=== PATIENT | female | born 1960 | race Caucasian/White ===

== ENCOUNTER 2017-02-20 18:31 | Inpatient (IN) | payer MEDICARE, OTHER ==
[2017-02-20 19:06] LABS: Basophils % (A) 0 %; CH 23.9; CHCM 35.5; Eosinophils % (A) 0 %; HCT 28.2 % (34.0-46.0); HDW 3.94; HGB 9.6 gm/dL (11.4-16.0); Luc # (Auto) 0.09; Luc % (Auto) 1; Lymphocytes % (A) 11 %; MCH 22.8 pg (25.0-35.0); MCHC 33.9 g/dL (31.0-37.0); MCV 67.4 fL (80.0-100.0); Mean Platelet Volume 6.5; Microcytosis Marked; Monocytes # (A) 0.3 k/uL (0-1.0); Monocytes % (A) 3 %; Neutrophils # (A) 7.7 k/uL (1.3-7.7); Neutrophils % (A) 84 %; Poikilocytosis Slight; RBC 4.19 m/uL (3.80-5.40); RDW 15.7 % (11.5-15.5); WBC 9.1 k/uL (3.8-10.6); WBC (Perox) 9.19
[2017-02-20 19:15] LABS: INR 1.1 (<1.2); Partial Thromboplastin Time 31.4 sec (22.0-30.0); Prothrombin Time 11.1 sec (9.0-12.0)
[2017-02-20 20:40] LABS: ALT 105 U/L (9-52); AST 503 U/L (14-36); Alcohol <10 mg/dL; Alkaline Phosphatase 91 U/L (38-126); Blood Urea Nitrogen 19 mg/dL (7-17); Carbon Dioxide 26 mmol/L (22-30); Glucose 75 mg/dL (74-99); Non-African American GFR(MDRD) 46 (>60 ml/min/1.73 sqM); Total Bilirubin 0.8 mg/dL (0.2-1.3); Total Protein 7.7 g/dL (6.3-8.2)
[2017-02-20 21:11] LABS: Anion Gap 14 mmol/L
[2017-02-20 21:12] LABS: Potassium 2.4 mmol/L (3.5-5.1); Sodium 106 mmol/L (137-145)
[2017-02-20 21:13] LABS: Chloride 66 mmol/L (98-107); Creatine Kinase 20600 U/L (30-135)
[2017-02-20] MEDS ORDERED: POTASSIUM CHLORIDE ER 20 MEQ TAB.ER PO STA (21:26)
[2017-02-20] MEDS ORDERED: POTASSIUM CHLORIDE 40 MEQ in WATER FOR INJECTION 1 100ML.BAG IVPB STA (21:26)
[2017-02-20] MEDS ORDERED: SODIUM CHLORIDE 0.9% 1,000 ML IV SCH (21:30)
[2017-02-20] MEDS ORDERED: HYDROCORTISONE SUCCINATE 100 MG/2 ML VIAL IV STA (21:34)
[2017-02-20] MEDS ORDERED: NALOXONE 0.4 MG/ML 1 ML VIAL IV PRN (21:56)
[2017-02-20] MEDS: POTASSIUM CHLORIDE 20 MEQ in WATER FOR INJECTION 1 100ML.BAG IVPB SCH (21:58)
--- NOTE | 2017-02-20 22:09 | ED ---
General Adult HPI - General Chief complaint: Weakness Stated complaint: Weakness Time Seen by Provider: 02/20/17 18:32 Source: patient, RN notes reviewed Mode of arrival: EMS Limitations: no limitations - History of Present Illness Initial comments: 56 yo female presents from home. She was brought in by EMS despite having no complaints. She was found on her toilet by family member and according to family she's been confused since this morning. Patient denies headache. She doesn't denies nausea vomiting or diarrhea. She is not currently on any medications. She has no complaints in the emergency department. - Related Data Home Medications Medication Instructions Recorded Confirmed Albuterol Nebulized [Ventolin 2.5 mg INHALATION RT-QID PRN 04/14/16 02/20/17 Nebulized] Nystatin/Triamcin 1 applic TOPICAL BID 04/14/16 02/20/17 [Nystatin-Triamcinolone Cream] traMADol HCl [Ultram] 50 mg PO Q6H 05/21/16 02/20/17 Allergies Allergy/AdvReac Type Severity Reaction Status Date / Time acetaminophen [From Tylenol] Allergy Swelling Verified 07/24/16 20:00 ibuprofen [From Motrin] Allergy Nausea & Verified 07/24/16 20:00 Vomiting levothyroxine sodium AdvReac Nausea & Verified 07/24/16 20:00 [From Synthroid] Vomiting ondansetron HCl AdvReac Rapid Verified 07/24/16 20:00 [From Zofran (as Heart Rate hydrochloride)] cantaloupe Allergy Anaphylaxis Uncoded 07/24/16 20:00 Review of Systems ROS Statement: Those systems with pertinent positive or pertinent negative responses have been documented in the HPI. ROS Other: All systems not noted in ROS Statement are negative. Past Medical History Past Medical History: Asthma, Cancer, CVA/TIA, GERD/Reflux, Hypertension, Thyroid Disorder Additional Past Medical History / Comment(s): pituitary tumor, PROLAPSED UTERUS , Thyroid Cancer, SCOLIOSIS.per old hx: pvd.constipation.ibs,kidney stones,, anxiety.poor dentation, brain tumor, UTI, bad rotator cuffs History of Any Multi-Drug Resistant Organisms: None Reported Past Surgical History: Unable to Obtain Additional Past Surgical History / Comment(s): BRAIN SURGERY to remove benign PITUITARY tumor , thyroid removal, egd/colonoscopy(benign polys removed., d&c, kidney stone removed Past Anesthesia/Blood Transfusion Reactions: No Reported Reaction Additional Past Anesthesia/Blood Transfusion Reaction / Comment(s): BLOOD TRANSFUSION-NO REACTION Past Psychological History: Anxiety Smoking Status: Never smoker Past Alcohol Use History: None Reported Past Drug Use History: None Reported - Past Family History Father Family Medical History: Unable to Obtain Additional Family Medical History / Comment(s): - HAD THE " MAKER" Mother Family Medical History: Unable to Obtain Additional Family Medical History / Comment(s): AAA General Exam Limitations: no limitations General appearance: alert, in no apparent distress Head exam: Present: atraumatic, normocephalic Eye exam: Present: normal appearance, PERRL ENT exam: Present: normal exam, mucous membranes dry Neck exam: Absent: meningismus Respiratory exam: Present: normal lung sounds bilaterally, respiratory distress Cardiovascular Exam: Present: regular rate, normal rhythm GI/Abdominal exam: Present: soft. Absent: distended, tenderness Neurological exam: Present: alert, oriented X3. Absent: motor sensory deficit Psychiatric exam: Present: normal affect, normal mood Skin exam: Present: warm, dry Course Vital Signs 02/20/17 02/20/17 02/20/17 18:32 20:48 21:24 Temperature 99.2 F 98.6 F Pulse Rate 60 59 L 90 Respiratory 16 14 18 Rate Blood Pressure 130/70 137/66 122/66 O2 Sat by Pulse 95 97 98 Oximetry 02/20/17 22:01 Temperature Pulse Rate 60 Respiratory 18 Rate Blood Pressure 143/70 O2 Sat by Pulse 100 Oximetry - Reevaluation(s) Reevaluation #1: 02/20/17 22:04 Patient continues to have no complains. She is alert and oriented 3. She does refuse CAT scan and chest x-ray. EKG Findings - EKG Comments: EKG Findings:: EKG shows sinus bradycardia with first-degree AV block. Ventricular 59, [place] interval 232, QRS duration 104, QTC 386 Medical Decision Making - Medical Decision Making 56-year-old female brought in for acute confusion. Patient has no complaints and is alert and oriented 3. Laboratory studies reveal significant abnormalities including hyponatremia, hypokalemia, elevated creatinine kinase, mildly elevated serum creatinine, severe hypothyroidism. These laboratory studies were repeated, as initial studies were thought to be false. Patient refuses chest x-ray and head CT. She denies any current medical problems. She states she is not taking any medication. She is given levothyroxine, hydrocortisone, and normal saline at 75 mL/h. Although the patient is in rhabdomyolysis I do not want to correct her serum sodium too quickly. Her potassium is also replaced both with IV and oral replacement. Magnesium is pending at the time of this dictation. Patient will be admitted for the above laboratory abnormalities, endocrinology be placed on consult. She is placed on seizure precautions. Repeat BMP is pending after initial normal saline bolus. Diagnosis: Hypothyroidism, hyponatremia, hypokalemia, rhabdomyolysis, acute kidney injury. - Lab Data Result diagrams: 02/20/17 18:51 02/20/17 20:07 Lab Results 02/20/17 02/20/17 02/20/17 Range/Units 18:51 18:51 19:02 WBC 9.1 (3.8-10.6) k/uL RBC 4.19 (3.80-5.40) m/uL Hgb 9.6 L (11.4-16.0) gm/dL Hct 28.2 L (34.0-46.0) % MCV 67.4 L (80.0-100.0) fL MCH 22.8 L (25.0-35.0) pg MCHC 33.9 (31.0-37.0) g/dL RDW 15.7 H (11.5-15.5) % Plt Count 470 H (150-450) k/uL Neutrophils % 84 % Lymphocytes % 11 % Monocytes % 3 % Eosinophils % 0 % Basophils % 0 % Neutrophils # 7.7 (1.3-7.7) k/uL Lymphocytes # 1.0 (1.0-4.8) k/uL Monocytes # 0.3 (0-1.0) k/uL Eosinophils # 0.0 (0-0.7) k/uL Basophils # 0.0 (0-0.2) k/uL Poikilocytosis Slight Microcytosis Marked PT 11.1 (9.0-12.0) sec INR 1.1 (<1.2) APTT 31.4 H (22.0-30.0) sec Sodium (137-145) mmol/L Potassium (3.5-5.1) mmol/L Chloride (98-107) mmol/L Carbon Dioxide (22-30) mmol/L Anion Gap mmol/L BUN (7-17) mg/dL Creatinine (0.52-1.04) mg/dL Glucose (74-99) mg/dL Plasma Lactic Acid Oliver 1.4 (0.7-2.0) mmol/L Calcium (8.4-10.2) mg/dL Total Bilirubin (0.2-1.3) mg/dL AST (14-36) U/L ALT (9-52) U/L Alkaline Phosphatase (38-126) U/L Ammonia (<30) umol/L Creatine Kinase (30-135) U/L Total Protein (6.3-8.2) g/dL Albumin (3.5-5.0) g/dL TSH (0.465-4.680) mIU/L Free T4 (0.78-2.19) ng/dL Serum Alcohol mg/dL 02/20/17 02/20/17 Range/Units 20:07 20:07 WBC (3.8-10.6) k/uL RBC (3.80-5.40) m/uL Hgb (11.4-16.0) gm/dL Hct (34.0-46.0) % MCV (80.0-100.0) fL MCH (25.0-35.0) pg MCHC (31.0-37.0) g/dL RDW (11.5-15.5) % Plt Count (150-450) k/uL Neutrophils % % Lymphocytes % % Monocytes % % Eosinophils % % Basophils % % Neutrophils # (1.3-7.7) k/uL Lymphocytes # (1.0-4.8) k/uL Monocytes # (0-1.0) k/uL Eosinophils # (0-0.7) k/uL Basophils # (0-0.2) k/uL Poikilocytosis Microcytosis PT (9.0-12.0) sec INR (<1.2) APTT (22.0-30.0) sec Sodium 106 L* (137-145) mmol/L Potassium 2.4 L* (3.5-5.1) mmol/L Chloride 66 L* (98-107) mmol/L Carbon Dioxide 26 (22-30) mmol/L Anion Gap 14 mmol/L BUN 19 H (7-17) mg/dL Creatinine 1.20 H (0.52-1.04) mg/dL Glucose 75 (74-99) mg/dL Plasma Lactic Acid Oliver (0.7-2.0) mmol/L Calcium 9.0 (8.4-10.2) mg/dL Total Bilirubin 0.8 (0.2-1.3) mg/dL AST 503 H (14-36) U/L ALT 105 H (9-52) U/L Alkaline Phosphatase 91 (38-126) U/L Ammonia 10 (<30) umol/L Creatine Kinase 63907 H (30-135) U/L Total Protein 7.7 (6.3-8.2) g/dL Albumin 4.7 (3.5-5.0) g/dL TSH 17.300 H (0.465-4.680) mIU/L Free T4 <0.07 L (0.78-2.19) ng/dL Serum Alcohol <10 mg/dL Critical Care Time Critical Care Time: Yes Total Critical Care Time: 35 Disposition Clinical Impression: Hypokalemia, Acute renal failure, Acute adrenal insufficiency, Rhabdomyolysis Disposition: ADMITTED IP TO THIS [facility] Condition: Serious Referrals: Joe Dewitt MD [Primary Care Provider] - 1-2 days Decision to Admit Reason: Admit from EC Decision Date: 02/20/17 Decision Time: 21:00
[2017-02-20 22:53] LABS: Glucose,Whole Blood 97 mg/dL (75-99)
[2017-02-20] MEDS ORDERED: ALBUTEROL NEBULIZED 2.5 MG/3 ML INHALATION PRN (23:30)
[2017-02-20 23:38] LABS: Appearance,Urine Clear (Clear); Bacteria,Urine Rare /hpf; Bilirubin,Urine Negative (Negative); Glucose,Urine (UA) Negative (Negative); Ketones,Urine 1+ (Negative); Leukocyte Esterase,Urine Negative (Negative); Mucus,Urine Rare /hpf; Nitrite,Urine Negative (Negative); Particle Count 6981; Protein,Urine 1+ (Negative); RBC,Urine 1 /hpf (0-5); Specific Gravity,Urine 1.014 (1.001-1.035); Squamous Epithelial Cell,Urine 1 /hpf (0-4); UA Billing (MACRO vs. MICRO) MICRO; Urobilinogen,Urine <2.0 mg/dL (<2.0); WBC,Urine 13 /hpf (0-5)
[2017-02-21] MEDS: traMADol 50 MG TAB PO SCH ×5 (00:14→17:20)
[2017-02-21] MEDS: POTASSIUM CHLORIDE 20 MEQ in WATER FOR INJECTION 1 100ML.BAG IVPB SCH ×3 (00:14→22:47)
[2017-02-21 00:27] LABS: Magnesium 2.2 mg/dL (1.6-2.3); Phosphorous 2.6 mg/dL (2.5-4.5)
[2017-02-21 00:28] LABS: Anion Gap 13 mmol/L; Blood Urea Nitrogen 17 mg/dL (7-17); Calcium 8.7 mg/dL (8.4-10.2); Carbon Dioxide 28 mmol/L (22-30); Glucose 71 mg/dL (74-99); Non-African American GFR(MDRD) 57 (>60 ml/min/1.73 sqM)
[2017-02-21 00:33] LABS: Chloride 67 mmol/L (98-107); Sodium 108 mmol/L (137-145)
[2017-02-21 00:34] LABS: Potassium 2.6 mmol/L (3.5-5.1)
[2017-02-21 05:30] LABS: Basophils % (A) 0 %; CH 23.5; CHCM 33.7; Eosinophils % (A) 0 %; HCT 25.9 % (34.0-46.0); HDW 3.65; HGB 8.7 gm/dL (11.4-16.0); Luc # (Auto) 0.14; Luc % (Auto) 1; Lymphocytes % (A) 10 %; MCH 23.4 pg (25.0-35.0); MCHC 33.5 g/dL (31.0-37.0); MCV 69.8 fL (80.0-100.0); Mean Platelet Volume 6.5; Microcytosis Moderate; Monocytes # (A) 0.5 k/uL (0-1.0); Monocytes % (A) 4 %; Neutrophils # (A) 8.5 k/uL (1.3-7.7); Neutrophils % (A) 84 %; Poikilocytosis Slight; RBC 3.71 m/uL (3.80-5.40); RDW 15.6 % (11.5-15.5); WBC 10.2 k/uL (3.8-10.6); WBC (Perox) 9.98
[2017-02-21 05:39] LABS: Anion Gap 11 mmol/L; Blood Urea Nitrogen 15 mg/dL (7-17); Calcium 8.4 mg/dL (8.4-10.2); Carbon Dioxide 27 mmol/L (22-30); Glucose 77 mg/dL (74-99); Magnesium 2.2 mg/dL (1.6-2.3); Non-African American GFR(MDRD) >60 (>60 ml/min/1.73 sqM); Phosphorous 2.8 mg/dL (2.5-4.5)
[2017-02-21 05:42] LABS: Chloride 70 mmol/L (98-107); Potassium 2.6 mmol/L (3.5-5.1); Sodium 108 mmol/L (137-145)
[2017-02-21] MEDS ORDERED: SODIUM CHLORIDE 3%(HYPERTONIC) 500 ML IV SCH ×2 (06:30→13:00)
[2017-02-21] MEDS: POTASSIUM CHLORIDE 10 MEQ, LIDOCAINE 2% INJ 10 MG in SODIUM CHLORIDE 0.9% 100 ML IV SCH ×6 (08:20→17:11)
[2017-02-21] MEDS: PANTOPRAZOLE 40 MG TABLET PO SCH (08:22)
[2017-02-21] MEDS ORDERED: HYDROCORTISONE SUCCINATE 100 MG/2 ML VIAL IV SCH (09:00)
[2017-02-21] MEDS ORDERED: NYSTAT-TRIAMCIN 100,000-0.1 UNIT/GM-% CREAM 30 GM TUBE TOPICAL SCH (09:00)
[2017-02-21] MEDS: LEVOTHYROXINE IVP 100 MCG/5 ML VIAL IV SCH (09:14)
--- NOTE | 2017-02-21 09:31 | CONS ---
REASON FOR CONSULT: Hyponatremia. HISTORY OF PRESENT ILLNESS: The patient is a 56 year old female who was brought in by EMS. EMS was called as the patient's family members were concerned about her confusion which was relatively new. There was no history of seizures. The patient's sodium was noted to be 106. She does not have any prior history of hyponatremia. Medications reviewed does not reveal underlying Dyazide diuretics. The patient denies vomiting, nausea or diarrhea prior to admission. She states she had been eating fairly okay. There were no other new medications started. The patient was started on IV ( ). The patient does have history of pituitary tumor status post surgery and is maintained on Synthroid as an outpatient. The patient was started on normal saline. Sodium initially improved to 108 after which it did not improve any further and she has now been started on 3% saline. Mentation remains about the same. Past medical history: History of CVA/TIA, GERD, asthma, hypertension, hypothyroidism, pituitary tumor, status surgery; scoliosis, nephrolithiasis, anxiety. Past surgical history: Brain surgery, endoscopy, thyroidectomy, surgery for kidney stones. Social history is negative for smoking, drug abuse or alcohol abuse. Review of systems as per HPI, other systems negative. Medications at home included: 1. Ventolin. 2. Ultram. 3. Nystatin. ALLERGIES INCLUDE: TYLENOL, MOTRIN, SYNTHROID, ZOFRAN. On examination, currently the patient is in the ICU. She is awake. She is not in any acute distress. She has been occasionally confused according to nursing staff. Blood pressure 104/57. Heart rate 56 per minute. She is afebrile. Examination of the heart S1, S2. Examination of the lungs bilateral breath sounds are heard. Abdomen is soft, nontender. Examination of the lower extremities shows no evidence of edema. [employer] exam shows the patient moving all four extremities. She is confused at times, however, was able to carry on a conversation. She is moving all four extremities. Labs show sodium 108, serum creatinine 0.9. Hemoglobin 8.7. I do not have urine osmolality available. Creatinine kinase was 33347. ASSESSMENT: 1. Hyponatremia, currently appears to be euvolemic. Serum sodium improved initially from 106 to 108 with normal saline but did not improve any further. The patient has been stated on 3% saline. Urine osmolality and urine sodium has been ordered. Hopefully we can get it after initial UA. 2. Rhabdomyolysis slowly improving. 3. History of brain tumor status post surgery, pituitary tumor, Currently the patient is maintained on hydrocortisone and Synthroid. PLAN: Start 3% saline. Repeat labs in 3 hours. Check urine osmolality, urine sodium. There is no need to do random cortisol as the patient has already received hydrocortisone. we will continue to follow. Thank you for this consultation. CARITO
[2017-02-21 11:46] LABS: Anion Gap 7 mmol/L; Blood Urea Nitrogen 11 mg/dL (7-17); Calcium 7.9 mg/dL (8.4-10.2); Carbon Dioxide 29 mmol/L (22-30); Glucose 77 mg/dL (74-99); Non-African American GFR(MDRD) >60 (>60 ml/min/1.73 sqM)
[2017-02-21 11:54] LABS: Sodium 112 mmol/L (137-145)
[2017-02-21 11:55] LABS: Chloride 76 mmol/L (98-107)
[2017-02-21] MEDS: TRIAMCINOLONE 0.1% CREAM 80 GM TUBE TOPICAL SCH ×2 (12:26→20:42)
[2017-02-21] MEDS: NYSTATIN 100,000UNIT/GM CREAM 30 GM TUBE TOPICAL SCH ×2 (12:26→20:42)
--- NOTE | 2017-02-21 12:26 | P.CNPUL ---
History of Present Illness Consult date: 02/21/17 Chief complaint: Generalized weakness, severe electrolyte imbalance History of present illness: A 56-year-old female patient, a very poor historian, obese with previous history of a pituitary adenoma that was resected surgically was not been maintained on any form of pituitary related hormone replacement therapy along with history of thyroid cancer and a previous thyroidectomy who claims not to take any of her thyroid hormone replacements. The patient was brought in to the emergency [place] yesterday due to concerns of generalized weakness, lethargic, and confusion. She was found to be profoundly hyponatremic with an initial sodium 106. Chloride was also low at 68. The patient was found to be in mild rhabdomyolysis and her CPK was in the 10,000 range. She was in acute kidney injury in addition. She denied having any nausea, vomiting, diarrhea, abdominal pain, headache, focal neurological deficits, seizures, or any postictal state. No fever. No chills. No intake of any other medications including hydrochlorothiazide or any other form of diuretics. Apparently the patient has not been taking any medication at all. The patient was started on normal saline and earlier this morning the patient got switched at 3% saline infusion by nephrology. Note that the patient's creatinine was at 1.2 and dropped down to 0.86 with fluid resuscitation. CPK had dropped from 20,000 down to 13,000 with fluid resuscitation. The patient's TSH was at 17.3 and free T4 was less than 0.07. Urinalysis showed 13 WBCs. There was also +1 protein. Urine sodium was less than 5. Urine osmolality is at 313 and serum alcohol level was less than 10. [place] level was within normal however the patient had profound hypokalemia with a potassium level of 2.4. She is currently receiving potassium replacement. Subsequent levels from this morning showed that the sodium level came up to 112, bicarb level is at 29, chloride level is up to 76 and the potassium level is up to 3.0. Calcium level is at 7.9. Lactic acid level was at 1.4. Review of Systems ROS unobtainable: due to mental status Past Medical History Past Medical History: Asthma, Cancer, CVA/TIA, GERD/Reflux, Hypertension, Thyroid Disorder Additional Past Medical History / Comment(s): history of a pituitary tumor- adenoma that was resected, PROLAPSED UTERUS, Thyroid Cancer post thyroidectomy , SCOLIOSIS, peripheral vascular disease, chronic constipation, IBS, nephrolithiasis, recurrent urine checked infection, rotator cuff disease, anxiety, extremely poor dentition, previous history of osteomyelitis of the lumbar spine History of Any Multi-Drug Resistant Organisms: None Reported Past Surgical History: Unable to Obtain Additional Past Surgical History / Comment(s): BRAIN SURGERY to remove benign PITUITARY tumor , thyroid removal, egd/colonoscopy(benign polys removed., d&c, kidney stone removed Past Anesthesia/Blood Transfusion Reactions: No Reported Reaction Additional Past Anesthesia/Blood Transfusion Reaction / Comment(s): BLOOD TRANSFUSION-NO REACTION Smoking Status: Never smoker - Past Family History Father Family Medical History: Unable to Obtain Additional Family Medical History / Comment(s): - HAD THE " MAKER" Mother Family Medical History: Unable to Obtain Additional Family Medical History / Comment(s): AAA Medications and Allergies Home Medications Medication Instructions Recorded Confirmed Type Albuterol Nebulized [Ventolin 2.5 mg INHALATION RT-QID PRN 04/14/16 02/20/17 History Nebulized] Nystatin/Triamcin 1 applic TOPICAL BID 04/14/16 02/20/17 History [Nystatin-Triamcinolone Cream] traMADol HCl [Ultram] 50 mg PO Q6H 05/21/16 02/20/17 History Allergies Allergy/AdvReac Type Severity Reaction Status Date / Time acetaminophen [From Tylenol] Allergy Swelling Verified 07/24/16 20:00 ibuprofen [From Motrin] Allergy Nausea & Verified 07/24/16 20:00 Vomiting levothyroxine sodium AdvReac Nausea & Verified 07/24/16 20:00 [From Synthroid] Vomiting ondansetron HCl AdvReac Rapid Verified 07/24/16 20:00 [From Zofran (as Heart Rate hydrochloride)] cantaloupe Allergy Anaphylaxis Uncoded 07/24/16 20:00 Physical Exam Vitals: Vital Signs Temp Pulse Resp BP Pulse Ox 02/21/17 11:31 59 L 02/21/17 11:21 60 02/21/17 11:00 56 L 6 L 120/71 98 02/21/17 10:30 59 L 9 L 112/67 97 02/21/17 10:00 57 L 10 L 124/69 97 02/21/17 09:30 55 L 10 L 127/70 98 02/21/17 09:00 98.0 F 57 L 12 137/68 98 02/21/17 08:30 62 8 L 104/57 98 02/21/17 08:00 66 12 104/57 97 02/21/17 07:30 54 L 14 91/49 96 02/21/17 07:00 55 L 12 107/61 97 02/21/17 06:30 57 L 12 111/62 94 L 02/21/17 06:00 60 20 104/56 99 02/21/17 05:30 58 L 18 103/54 98 02/21/17 05:00 57 L 12 82/43 97 02/21/17 04:30 56 L 11 L 91/47 99 02/21/17 04:00 98.9 F 60 15 83/42 99 02/21/17 03:30 56 L 16 103/57 99 02/21/17 03:00 59 L 18 119/64 98 02/21/17 02:30 63 17 115/62 99 02/21/17 02:00 59 L 16 114/68 98 02/21/17 01:30 60 13 130/74 99 02/21/17 01:00 59 L 11 L 127/72 90 L 02/21/17 00:30 62 13 139/76 100 02/21/17 00:00 56 L 12 136/65 98 02/20/17 23:30 66 25 H 125/65 99 02/20/17 23:00 99.0 F 66 14 150/71 100 02/20/17 22:01 60 18 143/70 100 02/20/17 21:24 98.6 F 90 18 122/66 98 02/20/17 20:48 59 L 14 137/66 97 02/20/17 18:32 99.2 F 60 16 130/70 95 Intake and Output 02/20/17 02/21/17 02/21/17 22:59 06:59 14:59 Intake Total 860 595 Output Total 580 530 Balance 280 65 Intake: IV 800 75 Potassium Chloride 20 meq 200 In Water For Injection 1 100ml.bag @ 50 mls/hr IVPB Q2HR [facility] Rx#: [id number] Sodium Chloride 0.9% 1, 600 75 000 ml @ 75 mls/hr IV . [id number] [facility] Rx#:[id number] Intake, IV Titration 520 Amount Potassium Chloride 10 meq 100 Lidocaine 2% Inj 10 mg In Sodium Chloride 0.9% 100 ml @ 100 mls/hr IV Q1HR [facility] Rx#:[id number] Potassium Chloride 10 meq 200 Lidocaine 2% Inj 10 mg In Sodium Chloride 0.9% 100 ml @ 100 mls/hr IV Q1HR [facility] Rx#:[id number] Potassium Chloride 20 meq 100 In Water For Injection 1 100ml.bag @ 50 mls/hr IVPB Q2HR [facility] Rx#: [id number] Sodium Chloride 3%( 120 Hypertonic) 500 ml @ 40 mls/hr IV .[id number] [facility] Rx #:[id number] Oral 60 Output: Urine 580 530 Other: Voiding Method Indwelling Catheter Indwelling Catheter Weight 81.647 kg 78.3 kg 78.3 kg Patient Weight 02/22/17 06:59 Weight 78.3 kg Head exam was generally normal. There was no scleral icterus or corneal arcus. Mucous membranes were moist. Patient is obese, comfortable likely distress. Neck is supple and there is no JVDs no goiter or neck masses. Extremities membranes are dry and the patient is extremely poor dentition.Lungs were clear to auscultation and percussion, and with normal diaphragmatic excursion. No wheezes or rales were noted. Cardiac exam revealed the PMI to be normally situated and sized. The rhythm was regular and no extrasystoles were noted during several minutes of auscultation. The first and second heart sounds were normal and physiologic splitting of the second heart sound was noted. There were no murmurs, rubs, clicks, or gallops.Abdominal exam revealed normal bowel sounds. The abdomen was soft, non-tender, and without masses, organomegaly, or appreciable enlargement of the abdominal aorta. Extremities show +1 edema and there is no cyanosis or clubbing at this point. Neurologically the patient is recovering and she is more appropriate at this point. She is moving all 4 extremities without any limitation. No focal neurological deficit at this point. She is still confused at times however this is obviously improving. Results - Laboratory Findings CBC and BMP: 02/21/17 05:11 02/21/17 11:20 PT/INR, D-dimer PT 11.1 sec (9.0-12.0) 02/20/17 18:51 INR 1.1 (<1.2) 02/20/17 18:51 Abnormal lab findings: Abnormal Labs 02/20/17 02/20/17 02/20/17 18:51 18:51 20:07 RBC Hgb 9.6 L Hct 28.2 L MCV 67.4 L MCH 22.8 L RDW 15.7 H Plt Count 470 H Neutrophils # APTT 31.4 H Sodium 106 L* Potassium 2.4 L* Chloride 66 L* BUN 19 H Creatinine 1.20 H Glucose Calcium AST 503 H ALT 105 H Creatine Kinase 78781 H TSH 17.300 H Free T4 <0.07 L Urine Protein Urine Ketones Urine Blood Urine WBC Urine Bacteria Hyaline Casts Urine Mucus Ur Random Sodium 02/20/17 02/21/17 02/21/17 23:15 00:05 05:11 RBC 3.71 L Hgb 8.7 L Hct 25.9 L MCV 69.8 L MCH 23.4 L RDW 15.6 H Plt Count Neutrophils # 8.5 H APTT Sodium 108 L* Potassium 2.6 L* Chloride 67 L* BUN Creatinine Glucose 71 L Calcium AST ALT Creatine Kinase TSH Free T4 Urine Protein 1+ H Urine Ketones 1+ H Urine Blood Moderate H Urine WBC 13 H Urine Bacteria Rare H Hyaline Casts 34 H Urine Mucus Rare H Ur Random Sodium 02/21/17 02/21/17 02/21/17 05:11 05:11 08:30 RBC Hgb Hct MCV MCH RDW Plt Count Neutrophils # APTT Sodium 108 L* Potassium 2.6 L* Chloride 70 L* BUN Creatinine Glucose Calcium AST ALT Creatine Kinase 78158 H TSH Free T4 Urine Protein Urine Ketones Urine Blood Urine WBC Urine Bacteria Hyaline Casts Urine Mucus Ur Random Sodium <5 L 02/21/17 11:20 RBC Hgb Hct MCV MCH RDW Plt Count Neutrophils # APTT Sodium 112 L* Potassium 3.0 L* Chloride 76 L* BUN Creatinine Glucose Calcium 7.9 L AST ALT Creatine Kinase TSH Free T4 Urine Protein Urine Ketones Urine Blood Urine WBC Urine Bacteria Hyaline Casts Urine Mucus Ur Random Sodium Assessment and Plan Plan: Assessment 1 acute euvolemic hypochloremic hyponatremia. Rule out secondary to underlying hypothyroidism. 2 acute hypokalemia 3 acute rhabdomyolysis 4 thyroid cancer with previous thyroidectomy, not take any form of thyroid hormone replacement 5 pituitary tumor status post resection of an adenoma, not receiving any form of steroids or thyroid hormone replacement and outpatient basis 6 obesity 7 lower oximetry edema 8 hypertension 9 scoliosis 10 nephrolithiasis 11 acute kidney injury, improved Plan Start the patient on 3% normal saline with close monitoring of the sodium level every 4 hours. We'll try to correct sodium level by 10-12 mEq over the next 24 hours. Replace potassium aggressively and bring it above 3.5. A triple lumen catheter was inserted in that regard to facilitate her fluid and electrolyte management. Start the patient and IV Synthroid 100 g on a daily basis. Start the patient IV hydrocortisone 100 mg every 8 hours. Monitor the CPK sputum monitor renal status. Consult nephrology. Consult endocrinology. Heparin subcu for DVT prophylaxis. We'll try to obtain further information once the patient's mentation is further improved.
[2017-02-21 15:52] LABS: Blood Urea Nitrogen 10 mg/dL (7-17); Calcium 8.1 mg/dL (8.4-10.2); Carbon Dioxide 27 mmol/L (22-30); Chloride 80 mmol/L (98-107); Glucose 77 mg/dL (74-99); Non-African American GFR(MDRD) >60 (>60 ml/min/1.73 sqM); Potassium 3.4 mmol/L (3.5-5.1); Sodium 115 mmol/L (137-145)
[2017-02-21 15:53] LABS: Anion Gap 8 mmol/L
[2017-02-21] MEDS: HYDROCORTISONE SUCCINATE 100 MG/2 ML VIAL IV SCH (17:19)
[2017-02-21] MEDS: HEPARIN SODIUM,PORCINE 5,000 UNIT/ML 1 ML VIAL SQ SCH (17:19)
[2017-02-21] MEDS ORDERED: POTASSIUM CHLORIDE 20 MEQ in WATER FOR INJECTION 1 100ML.BAG IVPB ONE (17:30)
--- NOTE | 2017-02-21 19:17 | P.HPIM ---
History of Present Illness H&P Date: 02/21/17 A 56-year-old female patient, a very poor historian, obese with previous history of a pituitary adenoma that was resected surgically was not been maintained on any form of pituitary related hormone replacement therapy along with history of thyroid cancer and a previous thyroidectomy who claims not to take any of her thyroid hormone replacements. The patient was brought in to the emergency yesterday due to concerns of generalized weakness, lethargic, and confusion. She was found to be profoundly hyponatremia with an initial sodium 106. . The patient was found to be in mild rhabdomyolysis and her CPK was in the 20, 000 range. She was in acute kidney injury in addition. She denied having any nausea, vomiting, diarrhea, abdominal pain, headache, focal neurological deficits, seizures, or any postictal state. No fever. No chills. No intake of any other medications including hydrochlorothiazide or any other form of diuretics. Apparently the patient has not been taking any medication at all. The patient was started on normal saline and earlier this morning the patient got switched at 3% saline infusion by nephrology. pt is not able to answer or give any history appropriately states that she is in [facility] denies having headaches, blurry vision, nausea, vomiting, diarrhea lives alone Review of Systems All systems: negative (noted in hpi) Past Medical History Past Medical History: Asthma, Cancer, CVA/TIA, GERD/Reflux, Hypertension, Thyroid Disorder Additional Past Medical History / Comment(s): history of a pituitary tumor- adenoma that was resected, PROLAPSED UTERUS, Thyroid Cancer post thyroidectomy , SCOLIOSIS, peripheral vascular disease, chronic constipation, IBS, nephrolithiasis, recurrent urine checked infection, rotator cuff disease, anxiety, extremely poor dentition, previous history of osteomyelitis of the lumbar spine History of Any Multi-Drug Resistant Organisms: None Reported Past Surgical History: Unable to Obtain Additional Past Surgical History / Comment(s): BRAIN SURGERY to remove benign PITUITARY tumor , thyroid removal, egd/colonoscopy(benign polys removed., d&c, kidney stone removed Past Anesthesia/Blood Transfusion Reactions: No Reported Reaction Additional Past Anesthesia/Blood Transfusion Reaction / Comment(s): BLOOD TRANSFUSION-NO REACTION Smoking Status: Never smoker - Past Family History Father Family Medical History: Unable to Obtain Additional Family Medical History / Comment(s): - HAD THE " MAKER" Mother Family Medical History: Unable to Obtain Additional Family Medical History / Comment(s): AAA Medications and Allergies Home Medications Medication Instructions Recorded Confirmed Type Albuterol Nebulized [Ventolin 2.5 mg INHALATION RT-QID PRN 04/14/16 02/20/17 History Nebulized] Nystatin/Triamcin 1 applic TOPICAL BID 04/14/16 02/20/17 History [Nystatin-Triamcinolone Cream] traMADol HCl [Ultram] 50 mg PO Q6H 05/21/16 02/20/17 History Allergies Allergy/AdvReac Type Severity Reaction Status Date / Time acetaminophen [From Tylenol] Allergy Swelling Verified 07/24/16 20:00 ibuprofen [From Motrin] Allergy Nausea & Verified 07/24/16 20:00 Vomiting levothyroxine sodium AdvReac Nausea & Verified 07/24/16 20:00 [From Synthroid] Vomiting ondansetron HCl AdvReac Rapid Verified 07/24/16 20:00 [From Zofran (as Heart Rate hydrochloride)] cantaloupe Allergy Anaphylaxis Uncoded 07/24/16 20:00 Physical Exam Vitals: Vital Signs Temp Pulse Resp BP Pulse Ox 02/21/17 19:00 56 L 6 L 115/65 99 02/21/17 18:30 55 L 8 L 114/64 99 02/21/17 18:00 55 L 7 L 113/67 98 02/21/17 17:30 59 L 7 L 109/63 100 02/21/17 17:00 54 L 7 L 103/64 100 02/21/17 16:30 54 L 9 L 99/61 98 02/21/17 16:00 98.8 F 55 L 11 L 100/59 98 02/21/17 15:30 60 7 L 97/53 100 02/21/17 15:00 54 L 10 L 97/59 100 02/21/17 14:30 54 L 11 L 97/57 99 02/21/17 14:00 54 L 12 102/66 99 02/21/17 13:30 54 L 11 L 132/68 99 02/21/17 13:00 54 L 12 117/69 100 02/21/17 12:30 59 L 23 122/67 98 02/21/17 12:00 61 27 H 121/70 97 02/21/17 11:31 59 L 02/21/17 11:30 55 L 10 L 117/69 100 02/21/17 11:21 60 02/21/17 11:00 56 L 6 L 120/71 98 02/21/17 10:30 59 L 9 L 112/67 97 02/21/17 10:00 57 L 10 L 124/69 97 02/21/17 09:30 55 L 10 L 127/70 98 02/21/17 09:00 98.0 F 57 L 12 137/68 98 02/21/17 08:30 62 8 L 104/57 98 02/21/17 08:00 66 12 104/57 97 02/21/17 07:30 54 L 14 91/49 96 02/21/17 07:00 55 L 12 107/61 97 02/21/17 06:30 57 L 12 111/62 94 L 02/21/17 06:00 60 20 104/56 99 02/21/17 05:30 58 L 18 103/54 98 02/21/17 05:00 57 L 12 82/43 97 02/21/17 04:30 56 L 11 L 91/47 99 02/21/17 04:00 98.9 F 60 15 83/42 99 02/21/17 03:30 56 L 16 103/57 99 02/21/17 03:00 59 L 18 119/64 98 02/21/17 02:30 63 17 115/62 99 02/21/17 02:00 59 L 16 114/68 98 02/21/17 01:30 60 13 130/74 99 02/21/17 01:00 59 L 11 L 127/72 90 L 02/21/17 00:30 62 13 139/76 100 02/21/17 00:00 56 L 12 136/65 98 02/20/17 23:30 66 25 H 125/65 99 02/20/17 23:00 99.0 F 66 14 150/71 100 02/20/17 22:01 60 18 143/70 100 02/20/17 21:24 98.6 F 90 18 122/66 98 02/20/17 20:48 59 L 14 137/66 97 Intake and Output 02/21/17 02/21/17 02/21/17 06:59 14:59 22:59 Intake Total 860 855 140 Output Total 580 930 600 Balance 280 -75 -460 Intake: IV 800 75 Potassium Chloride 20 meq 200 In Water For Injection 1 100ml.bag @ 50 mls/hr IVPB Q2HR [facility] Rx#: [id number] Sodium Chloride 0.9% 1, 600 75 000 ml @ 75 mls/hr IV . [id number] [facility] Rx#:[id number] Intake, IV Titration 780 140 Amount Potassium Chloride 10 meq 300 Lidocaine 2% Inj 10 mg In Sodium Chloride 0.9% 100 ml @ 100 mls/hr IV Q1HR [facility] Rx#:[id number] Potassium Chloride 10 meq 200 Lidocaine 2% Inj 10 mg In Sodium Chloride 0.9% 100 ml @ 100 mls/hr IV Q1HR [facility] Rx#:[id number] Potassium Chloride 20 meq 100 In Water For Injection 1 100ml.bag @ 50 mls/hr IVPB ONCE ONE Rx#: [id number] Potassium Chloride 20 meq 100 In Water For Injection 1 100ml.bag @ 50 mls/hr IVPB Q2HR [facility] Rx#: [id number] Sodium Chloride 3%( 60 20 Hypertonic) 500 ml @ 20 mls/hr IV .Q24H [facility] Rx#: [id number] Sodium Chloride 3%( 120 20 Hypertonic) 500 ml @ 40 mls/hr IV .[id number] [facility] Rx #:[id number] Oral 60 Output: Urine 580 930 600 Other: Voiding Method Indwelling Catheter Indwelling Catheter Indwelling Catheter Weight 78.3 kg 78.3 kg 78.3 kg Patient Weight 02/22/17 06:59 Weight 78.3 kg - Constitutional General appearance: obese - EENT Eyes: EOMI, PERRLA - Neck Thyroid: negative: normal size (previous scar noted) - Respiratory Respiratory: bilateral: CTA, negative: dullness, rales, rhonchi, wheezing - Cardiovascular Rhythm: regular Heart sounds: normal: S1, S2 Abnormal Heart Sounds: no systolic murmur - Gastrointestinal General gastrointestinal: normal bowel sounds, no organomegaly, soft - Neurologic Neurologic: CNII-XII intact (no focal deficits noted) Results CBC & Chem 7: 02/21/17 05:11 02/21/17 15:25 Labs: Abnormal Lab Results - Last 24 Hours (Table) 02/20/17 02/20/17 02/20/17 Range/Units 18:51 20:07 23:15 RBC (3.80-5.40) m/uL Hgb (11.4-16.0) gm/dL Hct (34.0-46.0) % MCV (80.0-100.0) fL MCH (25.0-35.0) pg RDW (11.5-15.5) % Neutrophils # (1.3-7.7) k/uL APTT 31.4 H (22.0-30.0) sec Sodium 106 L* (137-145) mmol/L Potassium 2.4 L* (3.5-5.1) mmol/L Chloride 66 L* (98-107) mmol/L BUN 19 H (7-17) mg/dL Creatinine 1.20 H (0.52-1.04) mg/dL Glucose (74-99) mg/dL Calcium (8.4-10.2) mg/dL AST 503 H (14-36) U/L ALT 105 H (9-52) U/L Creatine Kinase 88782 H (30-135) U/L TSH 17.300 H (0.465-4.680) mIU/L Free T4 <0.07 L (0.78-2.19) ng/dL Urine Protein 1+ H (Negative) Urine Ketones 1+ H (Negative) Urine Blood Moderate H (Negative) Urine WBC 13 H (0-5) /hpf Urine Bacteria Rare H (None) /hpf Hyaline Casts 34 H (0-2) /lpf Urine Mucus Rare H (None) /hpf Ur Random Sodium (30-90) mmol/L 02/21/17 02/21/17 02/21/17 Range/Units 00:05 05:11 05:11 RBC 3.71 L (3.80-5.40) m/uL Hgb 8.7 L (11.4-16.0) gm/dL Hct 25.9 L (34.0-46.0) % MCV 69.8 L (80.0-100.0) fL MCH 23.4 L (25.0-35.0) pg RDW 15.6 H (11.5-15.5) % Neutrophils # 8.5 H (1.3-7.7) k/uL APTT (22.0-30.0) sec Sodium 108 L* 108 L* (137-145) mmol/L Potassium 2.6 L* 2.6 L* (3.5-5.1) mmol/L Chloride 67 L* 70 L* (98-107) mmol/L BUN (7-17) mg/dL Creatinine (0.52-1.04) mg/dL Glucose 71 L (74-99) mg/dL Calcium (8.4-10.2) mg/dL AST (14-36) U/L ALT (9-52) U/L Creatine Kinase (30-135) U/L TSH (0.465-4.680) mIU/L Free T4 (0.78-2.19) ng/dL Urine Protein (Negative) Urine Ketones (Negative) Urine Blood (Negative) Urine WBC (0-5) /hpf Urine Bacteria (None) /hpf Hyaline Casts (0-2) /lpf Urine Mucus (None) /hpf Ur Random Sodium (30-90) mmol/L 02/21/17 02/21/17 02/21/17 Range/Units 05:11 08:30 11:20 RBC (3.80-5.40) m/uL Hgb (11.4-16.0) gm/dL Hct (34.0-46.0) % MCV (80.0-100.0) fL MCH (25.0-35.0) pg RDW (11.5-15.5) % Neutrophils # (1.3-7.7) k/uL APTT (22.0-30.0) sec Sodium 112 L* (137-145) mmol/L Potassium 3.0 L* (3.5-5.1) mmol/L Chloride 76 L* (98-107) mmol/L BUN (7-17) mg/dL Creatinine (0.52-1.04) mg/dL Glucose (74-99) mg/dL Calcium 7.9 L (8.4-10.2) mg/dL AST (14-36) U/L ALT (9-52) U/L Creatine Kinase 86530 H (30-135) U/L TSH (0.465-4.680) mIU/L Free T4 (0.78-2.19) ng/dL Urine Protein (Negative) Urine Ketones (Negative) Urine Blood (Negative) Urine WBC (0-5) /hpf Urine Bacteria (None) /hpf Hyaline Casts (0-2) /lpf Urine Mucus (None) /hpf Ur Random Sodium <5 L (30-90) mmol/L 02/21/17 Range/Units 15:25 RBC (3.80-5.40) m/uL Hgb (11.4-16.0) gm/dL Hct (34.0-46.0) % MCV (80.0-100.0) fL MCH (25.0-35.0) pg RDW (11.5-15.5) % Neutrophils # (1.3-7.7) k/uL APTT (22.0-30.0) sec Sodium 115 L* (137-145) mmol/L Potassium 3.4 L (3.5-5.1) mmol/L Chloride 80 L* (98-107) mmol/L BUN (7-17) mg/dL Creatinine (0.52-1.04) mg/dL Glucose (74-99) mg/dL Calcium 8.1 L (8.4-10.2) mg/dL AST (14-36) U/L ALT (9-52) U/L Creatine Kinase (30-135) U/L TSH (0.465-4.680) mIU/L Free T4 (0.78-2.19) ng/dL Urine Protein (Negative) Urine Ketones (Negative) Urine Blood (Negative) Urine WBC (0-5) /hpf Urine Bacteria (None) /hpf Hyaline Casts (0-2) /lpf Urine Mucus (None) /hpf Ur Random Sodium (30-90) mmol/L Microbiology - Last 24 Hours (Table) 02/20/17 23:15 Urine Culture - Preliminary Urine,Catheterized Thrombosis Risk Factor Assmnt - Choose All That Apply Each Factor Represents 1 point: Age 41-60 years, Medical pt on bed rest, Obesity (BMI >25), Swollen legs (current) Thrombosis Risk Factor Assessment Total Risk Factor Score: 4 Thrombosis Risk Factor Assessment Level: Moderate Risk Assessment and Plan Plan: severe likely chronic euvolemic hyponatremia with symptoms of encephalopathy previous pitutary adenoma s/p resection ten yrs ago Hypothyrodism obesity Previous history of tobacco use PLan continue with 3 % infusion doesnot appear overtly symptomatic correction should be limited to 6-8 meq to prevent osmotic demyelination syndrome serial NA levels Synthoid infusion cortisol level, and solucortef to be infused DVT prophylaxis poor compliance
[2017-02-21 21:18] LABS: Anion Gap 8 mmol/L; Blood Urea Nitrogen 10 mg/dL (7-17); Calcium 8.1 mg/dL (8.4-10.2); Carbon Dioxide 27 mmol/L (22-30); Chloride 81 mmol/L (98-107); Glucose 77 mg/dL (74-99); Non-African American GFR(MDRD) >60 (>60 ml/min/1.73 sqM); Potassium 3.6 mmol/L (3.5-5.1)
[2017-02-21 21:19] LABS: Sodium 116 mmol/L (137-145)
[2017-02-21 21:38] LABS: Creatine Kinase 7534 U/L (30-135)
[2017-02-22] MEDS: HEPARIN SODIUM,PORCINE 5,000 UNIT/ML 1 ML VIAL SQ SCH ×3 (00:21→15:50)
[2017-02-22] MEDS: HYDROCORTISONE SUCCINATE 100 MG/2 ML VIAL IV SCH ×3 (00:21→15:50)
[2017-02-22] MEDS: traMADol 50 MG TAB PO SCH ×4 (00:27→18:15)
[2017-02-22 04:28] LABS: Basophils % (A) 0 %; CH 23.3; CHCM 32.6; Eosinophils # (A) 0.1 k/uL (0-0.7); Eosinophils % (A) 1 %; HCT 26.8 % (34.0-46.0); HDW 3.63; HGB 8.6 gm/dL (11.4-16.0); Hypochromasia Slight; Luc # (Auto) 0.04; Luc % (Auto) 0; Lymphocytes # (A) 0.5 k/uL (1.0-4.8); Lymphocytes % (A) 6 %; MCHC 32.1 g/dL (31.0-37.0); MCV 71.4 fL (80.0-100.0); Mean Platelet Volume 6.4; Microcytosis Moderate; Monocytes # (A) 0.1 k/uL (0-1.0); Monocytes % (A) 2 %; Neutrophils # (A) 8.5 k/uL (1.3-7.7); Neutrophils % (A) 92 %; Poikilocytosis Slight; RBC 3.75 m/uL (3.80-5.40); RDW 15.6 % (11.5-15.5); WBC 9.2 k/uL (3.8-10.6); WBC (Perox) 9.58
[2017-02-22 04:49] LABS: Blood Urea Nitrogen 10 mg/dL (7-17); Carbon Dioxide 26 mmol/L (22-30); Chloride 85 mmol/L (98-107); Glucose 86 mg/dL (74-99); Non-African American GFR(MDRD) >60 (>60 ml/min/1.73 sqM); Phosphorous 2.8 mg/dL (2.5-4.5); Potassium 4.2 mmol/L (3.5-5.1)
[2017-02-22 04:50] LABS: Anion Gap 8 mmol/L; Sodium 119 mmol/L (137-145)
[2017-02-22 05:01] LABS: Calcium 8.6 mg/dL (8.4-10.2)
[2017-02-22 05:02] LABS: Magnesium 2.4 mg/dL (1.6-2.3)
[2017-02-22] MEDS: PANTOPRAZOLE 40 MG TABLET PO SCH (09:10)
[2017-02-22] MEDS: LEVOTHYROXINE IVP 100 MCG/5 ML VIAL IV SCH (09:10)
[2017-02-22] MEDS: TRIAMCINOLONE 0.1% CREAM 80 GM TUBE TOPICAL SCH ×2 (09:11→20:40)
[2017-02-22] MEDS: NYSTATIN 100,000UNIT/GM CREAM 30 GM TUBE TOPICAL SCH ×2 (09:11→20:40)
--- NOTE | 2017-02-22 10:46 | P.PN ---
Subjective A 56-year-old female patient, a very poor historian, obese with previous history of a pituitary adenoma that was resected surgically was not been maintained on any form of pituitary related hormone replacement therapy along with history of thyroid cancer and a previous thyroidectomy who claims not to take any of her thyroid hormone replacements. The patient was brought in to the emergency [place] yesterday due to concerns of generalized weakness, lethargic, and confusion. She was found to be profoundly hyponatremic with an initial sodium 106. Chloride was also low at 68. The patient was found to be in mild rhabdomyolysis and her CPK was in the 10,000 range. She was in acute kidney injury in addition. She denied having any nausea, vomiting, diarrhea, abdominal pain, headache, focal neurological deficits, seizures, or any postictal state. No fever. No chills. No intake of any other medications including hydrochlorothiazide or any other form of diuretics. Apparently the patient has not been taking any medication at all. The patient was started on normal saline and earlier this morning the patient got switched at 3% saline infusion by nephrology. Note that the patient's creatinine was at 1.2 and dropped down to 0.86 with fluid resuscitation. CPK had dropped from 20,000 down to 13,000 with fluid resuscitation. The patient's TSH was at 17.3 and free T4 was less than 0.07. Urinalysis showed 13 WBCs. There was also +1 protein. Urine sodium was less than 5. Urine osmolality is at 313 and serum alcohol level was less than 10. Grubbs level was within normal however the patient had profound hypokalemia with a potassium level of 2.4. She is currently receiving potassium replacement. Subsequent levels from this morning showed that the sodium level came up to 112, bicarb level is at 29, chloride level is up to 76 and the potassium level is up to 3.0. Calcium level is at 7.9. Lactic acid level was at 1.4. On 02/22/2017 the patient is much more alert and awake. Her potassium level has been corrected. Sodium level has been gradually, and up and it's up to 119. The patient is off the hypertonic saline solution 3% since 6:00 last night. She is producing adequate amount of urine output. She is on IV Synthroid. She is on IV hydrocortisone. She is resting comfortably in bed. No respiratory difficulties. No cough or sputum production. No change in mental status. Tolerating diet. Currently her IV fluids to KVO. Acute rhabdomyolysis is also improving. Her CPK is down to 7500 Objective - Vital Signs Vital signs: Vital Signs Temp 97.6 F 02/22/17 08:00 Pulse 51 L 02/22/17 09:00 Resp 9 L 02/22/17 09:00 BP 114/68 02/22/17 09:00 Pulse Ox 99 02/22/17 09:00 Intake & Output 02/21/17 02/22/17 02/22/17 18:59 06:59 18:59 Intake Total 995 300 Output Total 1430 1565 250 Balance -435 -9645 -250 Weight 78.3 kg 79.9 kg 79.9 kg Intake: IV 75 Sodium Chloride 0.9% 1, 75 000 ml @ 75 mls/hr IV . [id number] [facility] Rx#:[id number] Intake, IV Titration 920 300 Amount Potassium Chloride 10 meq 300 Lidocaine 2% Inj 10 mg In Sodium Chloride 0.9% 100 ml @ 100 mls/hr IV Q1HR [facility] Rx#:[id number] Potassium Chloride 10 meq 200 Lidocaine 2% Inj 10 mg In Sodium Chloride 0.9% 100 ml @ 100 mls/hr IV Q1HR [facility] Rx#:[id number] Potassium Chloride 20 meq 100 In Water For Injection 1 100ml.bag @ 50 mls/hr IVPB ONCE ONE Rx#: [id number] Potassium Chloride 20 meq 100 In Water For Injection 1 100ml.bag @ 50 mls/hr IVPB Q2HR [facility] Rx#: [id number] Potassium Chloride 20 meq 300 In Water For Injection 1 100ml.bag @ 50 mls/hr IVPB Q2HR [facility] Rx#: [id number] Sodium Chloride 3%( 80 Hypertonic) 500 ml @ 20 mls/hr IV .Q24H [facility] Rx#: [id number] Sodium Chloride 3%( 140 Hypertonic) 500 ml @ 40 mls/hr IV .[id number] [facility] Rx #:[id number] Output: Urine 1430 1565 250 Other: Voiding Method Indwelling Catheter Indwelling Catheter Indwelling Catheter - Exam Head exam was generally normal. There was no scleral icterus or corneal arcus. Mucous membranes were moist. Patient is obese, comfortable likely distress. Neck is supple and there is no JVDs no goiter or neck masses. Extremities membranes are dry and the patient is extremely poor dentition.Lungs were clear to auscultation and percussion, and with normal diaphragmatic excursion. No wheezes or rales were noted. Cardiac exam revealed the PMI to be normally situated and sized. The rhythm was regular and no extrasystoles were noted during several minutes of auscultation. The first and second heart sounds were normal and physiologic splitting of the second heart sound was noted. There were no murmurs, rubs, clicks, or gallops.Abdominal exam revealed normal bowel sounds. The abdomen was soft, non-tender, and without masses, organomegaly, or appreciable enlargement of the abdominal aorta. Extremities show +1 edema and there is no cyanosis or clubbing at this point. Neurologically much more awake and alert compared to yesterday. Communicating. Able to swallow. Able to move all 4 extremities without any limitation. No focal neurological deficit at this point. - Labs CBC & Chem 7: 02/22/17 04:20 02/22/17 04:20 Labs: Abnormal Lab Results - Last 24 Hours (Table) 02/21/17 02/21/17 02/21/17 Range/Units 11:20 15:25 20:49 RBC (3.80-5.40) m/uL Hgb (11.4-16.0) gm/dL Hct (34.0-46.0) % MCV (80.0-100.0) fL MCH (25.0-35.0) pg RDW (11.5-15.5) % Neutrophils # (1.3-7.7) k/uL Lymphocytes # (1.0-4.8) k/uL Sodium 112 L* 115 L* 116 L* (137-145) mmol/L Potassium 3.0 L* 3.4 L (3.5-5.1) mmol/L Chloride 76 L* 80 L* 81 L (98-107) mmol/L Calcium 7.9 L 8.1 L 8.1 L (8.4-10.2) mg/dL Magnesium (1.6-2.3) mg/dL Creatine Kinase 7534 H (30-135) U/L 02/22/17 02/22/17 Range/Units 04:20 04:20 RBC 3.75 L (3.80-5.40) m/uL Hgb 8.6 L (11.4-16.0) gm/dL Hct 26.8 L (34.0-46.0) % MCV 71.4 L (80.0-100.0) fL MCH 23.0 L (25.0-35.0) pg RDW 15.6 H (11.5-15.5) % Neutrophils # 8.5 H (1.3-7.7) k/uL Lymphocytes # 0.5 L (1.0-4.8) k/uL Sodium 119 L* (137-145) mmol/L Potassium (3.5-5.1) mmol/L Chloride 85 L (98-107) mmol/L Calcium (8.4-10.2) mg/dL Magnesium 2.4 H (1.6-2.3) mg/dL Creatine Kinase (30-135) U/L Microbiology - Last 24 Hours (Table) 02/20/17 23:15 Urine Culture - Preliminary Urine,Catheterized Assessment and Plan Plan: Assessment 1 acute euvolemic hypochloremic hyponatremia. Rule out secondary to underlying hypothyroidism. The patient's sodium levels improved and it's up to 119. The patient is asymptomatic at this point. She is off the hypertonic saline solution. A repeat sodium level is pending. I will move her out of the intensive care unit if her sodium is readily improving. 2 acute hypokalemia, recovered 3 acute rhabdomyolysis, improving, 4 thyroid cancer with previous thyroidectomy, not take any form of thyroid hormone replacement 5 pituitary tumor status post resection of an adenoma, not receiving any form of steroids or thyroid hormone replacement and outpatient basis 6 obesity 7 lower extremity edema 8 hypertension 9 scoliosis 10 nephrolithiasis 11 acute kidney injury, improved Plan Obtain a follow-up sodium level. The patient can be transferred out of the intensive care unit as long as there is no ongoing electrodes imbalance and the sodium level is improving. No change in mental status. No seizure activity at this point. Tolerating diet. IV fluids to KVO. CPKs improving. Renal failure has recovered. We'll follow.
[2017-02-22 11:14] LABS: Anion Gap 6 mmol/L; Blood Urea Nitrogen 11 mg/dL (7-17); Calcium 8.7 mg/dL (8.4-10.2); Carbon Dioxide 29 mmol/L (22-30); Chloride 85 mmol/L (98-107); Glucose 80 mg/dL (74-99); Non-African American GFR(MDRD) >60 (>60 ml/min/1.73 sqM); Potassium 4.1 mmol/L (3.5-5.1)
[2017-02-22 11:20] LABS: Sodium 120 mmol/L (137-145)
--- NOTE | 2017-02-22 12:41 | PN ---
Patient is seen for follow up for hyponatremia, which appears to be hypovolemic/ euvolemic. Her sodium has started to improve with normal saline, which was eventually discontinued to prevent rapid increase in her sodium level. Patient' s sodium level has continued to increase on its own. Today it is at 120 mEq/L. Urine sodium was less than 5 and urine osmolarity was at 313. Patient is maintained on hydrocortisone as she has had history of pituitary tumor. The cortisol level was not drawn as she has already been on hydrocortisone. Patient , however, was not hypotensive at the time of admission. On examination, she is comfortable. Blood pressure is 127/77, heart rate 56 per minute. She is afebrile. Examination of the heart: S1, S2. Examination of the lungs: Bilateral breath sounds are heard. Abdomen is soft, nontender. Examination of lower extremities show no evidence of edema. Labs show sodium of 120, potassium 4.1, BUN 11, serum creatinine 0.8 mg/dL. ASSESSMENT: 1. Hyponatremia mainly euvolemic. Patient's serum sodium did not improve significantly with normal saline, but she did not worsen. She was started on 3% saline given the severely low sodium level. The 3% saline was discontinued and currently the patient is off of all IV fluids and her serum sodium level continues to rise. Random urine sodium was less than 5 suggesting some degree of hypovolemia on initial admission. 2. Hypokalemia on status post replacement. 3. Rhabdomyolysis currently improving. 4. History of thyroid cancer status post thyroidectomy. 5. History of pituitary tumor status post resection of adenoma, unlikely to be adrenal insufficient at this time; however, patient is maintained on hydrocortisone. PLAN: Continue off of saline for now. Repeat another sodium level at noon. [facility]
[2017-02-23] MEDS: traMADol 50 MG TAB PO SCH ×5 (01:20→23:08)
[2017-02-23] MEDS: HEPARIN SODIUM,PORCINE 5,000 UNIT/ML 1 ML VIAL SQ SCH ×4 (01:23→23:09)
[2017-02-23] MEDS: HYDROCORTISONE SUCCINATE 100 MG/2 ML VIAL IV SCH ×4 (01:25→23:09)
[2017-02-23] MEDS: PANTOPRAZOLE 40 MG TABLET PO SCH (08:05)
[2017-02-23] MEDS: LEVOTHYROXINE IVP 100 MCG/5 ML VIAL IV SCH (08:05)
[2017-02-23] MEDS: NYSTATIN 100,000UNIT/GM CREAM 30 GM TUBE TOPICAL SCH ×2 (08:05→21:36)
[2017-02-23] MEDS: TRIAMCINOLONE 0.1% CREAM 80 GM TUBE TOPICAL SCH ×2 (08:05→21:36)
[2017-02-23 08:50] LABS: Basophils % (A) 0 %; CH 22.6; CHCM 31.9; Eosinophils % (A) 0 %; HCT 30.1 % (34.0-46.0); HDW 3.64; HGB 9.7 gm/dL (11.4-16.0); Hypochromasia Moderate; Luc # (Auto) 0.04; Luc % (Auto) 0; Lymphocytes # (A) 0.7 k/uL (1.0-4.8); Lymphocytes % (A) 6 %; MCH 22.9 pg (25.0-35.0); MCHC 32.2 g/dL (31.0-37.0); MCV 70.9 fL (80.0-100.0); Mean Platelet Volume 6.6; Microcytosis Moderate; Monocytes # (A) 0.3 k/uL (0-1.0); Monocytes % (A) 2 %; Neutrophils # (A) 10.9 k/uL (1.3-7.7); Neutrophils % (A) 91 %; Poikilocytosis Slight; RBC 4.25 m/uL (3.80-5.40); RDW 15.2 % (11.5-15.5); WBC 11.9 k/uL (3.8-10.6); WBC (Perox) 12.12
[2017-02-23 08:59] LABS: Anion Gap 12 mmol/L; Blood Urea Nitrogen 14 mg/dL (7-17); Calcium 9.1 mg/dL (8.4-10.2); Carbon Dioxide 24 mmol/L (22-30); Chloride 87 mmol/L (98-107); Glucose 98 mg/dL (74-99); Magnesium 2.2 mg/dL (1.6-2.3); Non-African American GFR(MDRD) >60 (>60 ml/min/1.73 sqM); Phosphorous 2.3 mg/dL (2.5-4.5); Potassium 4.3 mmol/L (3.5-5.1); Sodium 123 mmol/L (137-145)
[2017-02-23] MEDS ORDERED: BENZOCAIN/BENZALKONM ORAL GEL 12 GM TUBE MM PRN (11:06)
--- NOTE | 2017-02-23 11:11 | P.PN ---
Subjective Patient is seen in follow-up for hyponatremia. Her sodium level was 106 on admission and has been gradually improving. Her sodium level is up to 123 this morning. She is currently off all IV fluids. Patient is not a reliable historian and is quite confused. According to the nurse, this appears to be her baseline. Her oral intake is fair. She has been voiding. No vomiting or diarrhea. Vital signs are stable. General: The patient appeared well nourished and normally developed. HEENT: Head exam is unremarkable. Neck is without jugular venous distension. LUNGS: Lungs are clear to auscultation and percussion. Breath sounds decreased. HEART: Rate and Rhythm are regular. First and second heart sounds normal. No murmurs, rubs or gallops. ABDOMEN: Abdominal exam reveals normal bowel sounds. Non-tender and non- distended. No evidence of peritonitis. EXTREMITITES: No clubbing, cyanosis, or edema. Objective - Vital Signs Vital signs: Vital Signs Temp 98.1 F 02/23/17 07:00 Pulse 63 02/23/17 07:00 Resp 20 02/23/17 07:00 BP 142/87 02/23/17 07:00 Pulse Ox 97 02/23/17 07:00 Intake & Output 02/22/17 02/23/17 02/23/17 18:59 06:59 18:59 Intake Total 50 300 Output Total 550 100 Balance -500 200 Weight 79.9 kg Intake: Oral 50 300 Output: Urine 550 100 Other: Voiding Method Incontinent # Voids 1 - Labs CBC & Chem 7: 02/23/17 08:12 02/23/17 08:12 Labs: Abnormal Lab Results - Last 24 Hours (Table) 02/22/17 02/23/17 02/23/17 Range/Units 10:50 08:12 08:12 WBC 11.9 H (3.8-10.6) k/uL Hgb 9.7 L (11.4-16.0) gm/dL Hct 30.1 L (34.0-46.0) % MCV 70.9 L (80.0-100.0) fL MCH 22.9 L (25.0-35.0) pg Plt Count 511 H (150-450) k/uL Neutrophils # 10.9 H (1.3-7.7) k/uL Lymphocytes # 0.7 L (1.0-4.8) k/uL Sodium 120 L* 123 L (137-145) mmol/L Chloride 85 L 87 L (98-107) mmol/L Phosphorus 2.3 L (2.5-4.5) mg/dL Microbiology - Last 24 Hours (Table) 02/20/17 23:15 Urine Culture - Final Urine,Catheterized Assessment and Plan Plan: Assessment: #1. Hyponatremia. Euvolemic at this time. She did require 3% initially on admission and is currently off all IV fluids. Sodium level has been gradually improving and is up to 123 this morning. #2. Rhabdomyolysis. Improving. #3. History of pituitary tumor status post resection of adenoma. Patient was not hypotensive or hyperkalemic to suggest adrenal insufficiency. Plan: I will put her on a 1.2 L fluid restriction. Encourage oral intake, particularly protein. Repeat sodium level at 3 PM today. Wean hydrocortisone.
--- NOTE | 2017-02-23 12:52 | P.PN ---
Subjective A 56-year-old female patient, a very poor historian, obese with previous history of a pituitary adenoma that was resected surgically was not been maintained on any form of pituitary related hormone replacement therapy along with history of thyroid cancer and a previous thyroidectomy who claims not to take any of her thyroid hormone replacements. The patient was brought in to the emergency [facility] yesterday due to concerns of generalized weakness, lethargic, and confusion. She was found to be profoundly hyponatremic with an initial sodium 106. Chloride was also low at 68. The patient was found to be in mild rhabdomyolysis and her CPK was in the 10,000 range. She was in acute kidney injury in addition. She denied having any nausea, vomiting, diarrhea, abdominal pain, headache, focal neurological deficits, seizures, or any postictal state. No fever. No chills. No intake of any other medications including hydrochlorothiazide or any other form of diuretics. Apparently the patient has not been taking any medication at all. The patient was started on normal saline and earlier this morning the patient got switched at 3% saline infusion by nephrology. Note that the patient's creatinine was at 1.2 and dropped down to 0.86 with fluid resuscitation. CPK had dropped from 20,000 down to 13,000 with fluid resuscitation. The patient's TSH was at 17.3 and free T4 was less than 0.07. Urinalysis showed 13 WBCs. There was also +1 protein. Urine sodium was less than 5. Urine osmolality is at 313 and serum alcohol level was less than 10. [place] level was within normal however the patient had profound hypokalemia with a potassium level of 2.4. She is currently receiving potassium replacement. Subsequent levels from this morning showed that the sodium level came up to 112, bicarb level is at 29, chloride level is up to 76 and the potassium level is up to 3.0. Calcium level is at 7.9. Lactic acid level was at 1.4. On 02/22/2017 the patient is much more alert and awake. Her potassium level has been corrected. Sodium level has been gradually, and up and it's up to 119. The patient is off the hypertonic saline solution 3% since 6:00 last night. She is producing adequate amount of urine output. She is on IV Synthroid. She is on IV hydrocortisone. She is resting comfortably in bed. No respiratory difficulties. No cough or sputum production. No change in mental status. Tolerating diet. Currently her IV fluids to KVO. Acute rhabdomyolysis is also improving. Her CPK is down to 7500 The patient is seen again today 02/23/2017 on the regular medical floor. She is awake and alert in no acute distress. She is somewhat slow to respond but unaware of her baseline. She has remained hemodynamically stable. Afebrile. Maintaining O2 saturations in the low 90s on room air. She's been followed by nephrology who was placed on a 1.2 L fluid restriction. Her current sodium is 123. Objective - Vital Signs Vital signs: Vital Signs Temp 98.1 F 02/23/17 07:00 Pulse 63 02/23/17 07:00 Resp 20 02/23/17 07:00 BP 142/87 02/23/17 07:00 Pulse Ox 97 02/23/17 07:00 Intake & Output 02/22/17 02/23/17 02/23/17 18:59 06:59 18:59 Intake Total 50 300 Output Total 550 100 Balance -500 200 Weight 79.9 kg Intake: Oral 50 300 Output: Urine 550 100 Other: Voiding Method Incontinent # Voids 1 - Exam Head exam was generally normal. There was no scleral icterus or corneal arcus. Mucous membranes were moist. Patient is obese, comfortable likely distress. Neck is supple and there is no JVDs no goiter or neck masses. Extremities membranes are dry and the patient is extremely poor dentition.Lungs were clear to auscultation and percussion, and with normal diaphragmatic excursion. No wheezes or rales were noted. Cardiac exam revealed the PMI to be normally situated and sized. The rhythm was regular and no extrasystoles were noted during several minutes of auscultation. The first and second heart sounds were normal and physiologic splitting of the second heart sound was noted. There were no murmurs, rubs, clicks, or gallops.Abdominal exam revealed normal bowel sounds. The abdomen was soft, non-tender, and without masses, organomegaly, or appreciable enlargement of the abdominal aorta. Extremities show +1 edema and there is no cyanosis or clubbing at this point. Neurologically much more awake and alert compared to yesterday. Communicating. Able to swallow. Able to move all 4 extremities without any limitation. No focal neurological deficit at this point. - Labs CBC & Chem 7: 02/23/17 08:12 02/23/17 08:12 Labs: Abnormal Lab Results - Last 24 Hours (Table) 02/23/17 02/23/17 Range/Units 08:12 08:12 WBC 11.9 H (3.8-10.6) k/uL Hgb 9.7 L (11.4-16.0) gm/dL Hct 30.1 L (34.0-46.0) % MCV 70.9 L (80.0-100.0) fL MCH 22.9 L (25.0-35.0) pg Plt Count 511 H (150-450) k/uL Neutrophils # 10.9 H (1.3-7.7) k/uL Lymphocytes # 0.7 L (1.0-4.8) k/uL Sodium 123 L (137-145) mmol/L Chloride 87 L (98-107) mmol/L Phosphorus 2.3 L (2.5-4.5) mg/dL Microbiology - Last 24 Hours (Table) 02/20/17 23:15 Urine Culture - Final Urine,Catheterized Assessment and Plan Plan: Assessment 1 acute euvolemic hypochloremic hyponatremia. Rule out secondary to underlying hypothyroidism. The patient's sodium levels improved and it's up to 123. The patient is asymptomatic at this point. She is off the hypertonic saline solution. A repeat sodium level is pending for 3 PM today. 2 acute hypokalemia, recovered 3 acute rhabdomyolysis, improving, 4 thyroid cancer with previous thyroidectomy, not take any form of thyroid hormone replacement 5 pituitary tumor status post resection of an adenoma, not receiving any form of steroids or thyroid hormone replacement and outpatient basis 6 obesity 7 lower extremity edema 8 hypertension 9 scoliosis 10 nephrolithiasis 11 acute kidney injury, improved Plan: The patient was seen and evaluated by Dr. Maria. She remains stable from the pulmonary and critical care standpoint. Her sodium is slowly improving. We 'll continue to follow and make further recommendations based on her clinical status.
[2017-02-23] MEDS ORDERED: FUROSEMIDE 10 MG/ML 2 ML VIAL IV ONE (15:59)
[2017-02-23] MEDS: SODIUM CHLORIDE TAB 1 GM TAB PO SCH ×2 (16:54→21:29)
--- NOTE | 2017-02-23 17:39 | P.PN ---
Subjective Principal diagnosis: progress note dated 02/22/17 A 56-year-old female patient, a very poor historian, obese with previous history of a pituitary adenoma that was resected surgically was not been maintained on any form of pituitary related hormone replacement therapy along with history of thyroid cancer and a previous thyroidectomy who claims not to take any of her thyroid hormone replacements. The patient was brought in to the emergency yesterday due to concerns of generalized weakness, lethargic, and confusion. She was found to be profoundly hyponatremia with an initial sodium 106. . The patient was found to be in mild rhabdomyolysis and her CPK was in the 20, 000 range. She was in acute kidney injury in addition. She denied having any nausea, vomiting, diarrhea, abdominal pain, headache, focal neurological deficits, seizures, or any postictal state. No fever. No chills. No intake of any other medications including hydrochlorothiazide or any other form of diuretics. Apparently the patient has not been taking any medication at all. The patient was started on normal saline and earlier this morning the patient got switched at 3% saline infusion by nephrology. pt is not able to answer or give any history appropriately states that she is in [facility] denies having headaches, blurry vision, nausea, vomiting, diarrhea lives alone 02/23/17 slightly improved pt appears to be confused no other overnight events reported Objective - Vital Signs Vital signs: Vital Signs Temp 97.6 F 02/23/17 15:00 Pulse 78 02/23/17 15:00 Resp 18 02/23/17 15:18 BP 149/88 02/23/17 15:00 Pulse Ox 94 L 02/23/17 15:00 Intake & Output 02/22/17 02/23/17 02/23/17 18:59 06:59 18:59 Intake Total 50 300 100 Output Total 550 100 475 Balance -500 200 -375 Weight 79.9 kg Intake: Oral 50 300 100 Output: Urine 550 100 Post Void Residual 475 Other: Voiding Method Incontinent # Voids 1 - Constitutional General appearance: Present: no acute distress - EENT Eyes: Present: EOMI, PERRLA - Respiratory Respiratory: bilateral: CTA, negative: dullness, rales, rhonchi - Cardiovascular Rhythm: regular Heart sounds: normal: S1, S2 - Peripheral edema leg Peripheral Edema: bilateral: 1+ - Integumentary Integumentary: Present: normal - Neurologic Neurologic: Present: CNII-XII intact. Absent: focal deficits - Labs CBC & Chem 7: 02/23/17 08:12 02/23/17 15:11 Labs: Abnormal Lab Results - Last 24 Hours (Table) 02/23/17 02/23/17 02/23/17 Range/Units 08:12 08:12 15:11 WBC 11.9 H (3.8-10.6) k/uL Hgb 9.7 L (11.4-16.0) gm/dL Hct 30.1 L (34.0-46.0) % MCV 70.9 L (80.0-100.0) fL MCH 22.9 L (25.0-35.0) pg Plt Count 511 H (150-450) k/uL Neutrophils # 10.9 H (1.3-7.7) k/uL Lymphocytes # 0.7 L (1.0-4.8) k/uL Sodium 123 L 122 L (137-145) mmol/L Chloride 87 L (98-107) mmol/L Phosphorus 2.3 L (2.5-4.5) mg/dL Assessment and Plan Plan: severe likely chronic euvolemic hyponatremia with symptoms of encephalopathy previous pitutary adenoma s/p resection ten yrs ago Hypothyrodism obesity Previous history of tobacco use PLan serial NA levels improved Synthoid oral, pt states that she had a reaction in the pt and hence stopped discussed regarding monitering solucortef DVT prophylaxis poor compliance
--- NOTE | 2017-02-23 17:40 | P.PN ---
Subjective Principal diagnosis: progress note dated 02/22/17 A 56-year-old female patient, a very poor historian, obese with previous history of a pituitary adenoma that was resected surgically was not been maintained on any form of pituitary related hormone replacement therapy along with history of thyroid cancer and a previous thyroidectomy who claims not to take any of her thyroid hormone replacements. The patient was brought in to the emergency yesterday due to concerns of generalized weakness, lethargic, and confusion. She was found to be profoundly hyponatremia with an initial sodium 106. . The patient was found to be in mild rhabdomyolysis and her CPK was in the 20, 000 range. She was in acute kidney injury in addition. She denied having any nausea, vomiting, diarrhea, abdominal pain, headache, focal neurological deficits, seizures, or any postictal state. No fever. No chills. No intake of any other medications including hydrochlorothiazide or any other form of diuretics. Apparently the patient has not been taking any medication at all. The patient was started on normal saline and earlier this morning the patient got switched at 3% saline infusion by nephrology. pt is not able to answer or give any history appropriately states that she is in [facility] denies having headaches, blurry vision, nausea, vomiting, diarrhea lives alone 02/23/17 slightly improved pt appears to be confused no other overnight events reported Objective - Vital Signs Vital signs: Vital Signs Temp 97.6 F 02/23/17 15:00 Pulse 78 02/23/17 15:00 Resp 18 02/23/17 15:18 BP 149/88 02/23/17 15:00 Pulse Ox 94 L 02/23/17 15:00 Intake & Output 02/22/17 02/23/17 02/23/17 18:59 06:59 18:59 Intake Total 50 300 100 Output Total 550 100 475 Balance -500 200 -375 Weight 79.9 kg Intake: Oral 50 300 100 Output: Urine 550 100 Post Void Residual 475 Other: Voiding Method Incontinent # Voids 1 - Constitutional General appearance: Present: no acute distress - Respiratory Respiratory: bilateral: CTA, negative: dullness, rales, rhonchi - Cardiovascular Rhythm: regular Heart sounds: normal: S1, S2 Abnormal Heart Sounds: Absent: systolic murmur - Peripheral edema leg Peripheral Edema: bilateral: 1+ - Gastrointestinal General gastrointestinal: Present: normal bowel sounds, soft. Absent: organomegaly - Integumentary Integumentary: Present: normal - Neurologic Neurologic: Present: CNII-XII intact. Absent: focal deficits - Psychiatric Psychiatric: Present: A&O x's 3 - Labs CBC & Chem 7: 02/23/17 08:12 02/23/17 15:11 Labs: Abnormal Lab Results - Last 24 Hours (Table) 02/23/17 02/23/17 02/23/17 Range/Units 08:12 08:12 15:11 WBC 11.9 H (3.8-10.6) k/uL Hgb 9.7 L (11.4-16.0) gm/dL Hct 30.1 L (34.0-46.0) % MCV 70.9 L (80.0-100.0) fL MCH 22.9 L (25.0-35.0) pg Plt Count 511 H (150-450) k/uL Neutrophils # 10.9 H (1.3-7.7) k/uL Lymphocytes # 0.7 L (1.0-4.8) k/uL Sodium 123 L 122 L (137-145) mmol/L Chloride 87 L (98-107) mmol/L Phosphorus 2.3 L (2.5-4.5) mg/dL Assessment and Plan Plan: severe likely chronic euvolemic hyponatremia with symptoms of encephalopathy previous pitutary adenoma s/p resection ten yrs ago Hypothyrodism obesity Previous history of tobacco use PLan serial NA levels improved Synthoid oral, pt states that she had a reaction in the pt and hence stopped discussed regarding monitering solucortef DVT prophylaxis poor compliance
[2017-02-23] MEDS: FUROSEMIDE 20 MG TAB PO SCH (21:29)
[2017-02-24] MEDS ORDERED: LEVOTHYROXINE 100 MCG TAB PO SCH (06:30)
[2017-02-24] MEDS: traMADol 50 MG TAB PO SCH ×3 (06:32→18:27)
[2017-02-24 08:59] LABS: Basophils % (A) 0 %; CH 23.1; CHCM 31.6; Eosinophils % (A) 0 %; HCT 27.3 % (34.0-46.0); HGB 8.4 gm/dL (11.4-16.0); Hypochromasia Moderate; Luc # (Auto) 0.16; Luc % (Auto) 2; Lymphocytes # (A) 1.6 k/uL (1.0-4.8); Lymphocytes % (A) 17 %; MCH 22.7 pg (25.0-35.0); MCV 73.3 fL (80.0-100.0); Microcytosis Slight; Monocytes # (A) 0.6 k/uL (0-1.0); Monocytes % (A) 6 %; Neutrophils # (A) 7.4 k/uL (1.3-7.7); Neutrophils % (A) 76 %; Poikilocytosis Slight; RBC 3.72 m/uL (3.80-5.40); RDW 15.9 % (11.5-15.5); WBC 9.8 k/uL (3.8-10.6)
[2017-02-24] MEDS: SODIUM CHLORIDE TAB 1 GM TAB PO SCH ×2 (09:02→21:02)
[2017-02-24] MEDS: FUROSEMIDE 20 MG TAB PO SCH (09:02)
[2017-02-24] MEDS: PANTOPRAZOLE 40 MG TABLET PO SCH ×2 (09:04→12:21)
[2017-02-24] MEDS: HYDROCORTISONE SUCCINATE 100 MG/2 ML VIAL IV SCH ×2 (09:04→21:02)
[2017-02-24] MEDS: HEPARIN SODIUM,PORCINE 5,000 UNIT/ML 1 ML VIAL SQ SCH ×2 (09:04→16:28)
[2017-02-24] MEDS: NYSTATIN 100,000UNIT/GM CREAM 30 GM TUBE TOPICAL SCH ×2 (09:07→21:20)
[2017-02-24] MEDS: TRIAMCINOLONE 0.1% CREAM 80 GM TUBE TOPICAL SCH ×2 (09:07→21:20)
[2017-02-24 09:17] LABS: Anion Gap 11 mmol/L; Blood Urea Nitrogen 20 mg/dL (7-17); Calcium 8.9 mg/dL (8.4-10.2); Carbon Dioxide 27 mmol/L (22-30); Chloride 88 mmol/L (98-107); Glucose 95 mg/dL (74-99); Non-African American GFR(MDRD) 53 (>60 ml/min/1.73 sqM); Phosphorous 2.4 mg/dL (2.5-4.5); Potassium 3.5 mmol/L (3.5-5.1); Sodium 126 mmol/L (137-145)
--- NOTE | 2017-02-24 11:23 | P.PN ---
Subjective Patient is seen in follow-up for hyponatremia. Her sodium level was 106 on admission and has been gradually improving. Her sodium level is up to 126 this morning. She is currently off all IV fluids. Patient is not a reliable historian. Her oral intake is fair. She has been voiding. No vomiting or diarrhea. Denies chest pain or shortness of breath. Vital signs are stable. General: The patient appeared well nourished and normally developed. HEENT: Head exam is unremarkable. Neck is without jugular venous distension. LUNGS: Lungs are clear to auscultation and percussion. Breath sounds decreased. HEART: Rate and Rhythm are regular. First and second heart sounds normal. No murmurs, rubs or gallops. ABDOMEN: Abdominal exam reveals normal bowel sounds. Non-tender and non- distended. No evidence of peritonitis. EXTREMITITES: No clubbing, cyanosis, or edema. Objective - Vital Signs Vital signs: Vital Signs Temp 98.1 F 02/24/17 07:00 Pulse 65 02/24/17 07:00 Resp 16 02/24/17 07:00 BP 153/91 02/24/17 07:00 Pulse Ox 97 02/24/17 07:00 Intake & Output 02/23/17 02/24/17 02/24/17 18:59 06:59 18:59 Intake Total 100 1200 Output Total 475 1000 Balance -375 200 Intake: Oral 100 1200 Output: Urine 1000 Post Void Residual 475 Other: Voiding Method Bedpan Incontinent # Voids 2 - Labs CBC & Chem 7: 02/24/17 08:37 02/24/17 08:37 Labs: Abnormal Lab Results - Last 24 Hours (Table) 02/23/17 02/23/17 02/24/17 Range/Units 15:11 20:01 08:37 RBC 3.72 L (3.80-5.40) m/uL Hgb 8.4 L (11.4-16.0) gm/dL Hct 27.3 L (34.0-46.0) % MCV 73.3 L (80.0-100.0) fL MCH 22.7 L (25.0-35.0) pg RDW 15.9 H (11.5-15.5) % Plt Count 451 H (150-450) k/uL Sodium 122 L 125 L (137-145) mmol/L Chloride (98-107) mmol/L BUN (7-17) mg/dL Creatinine (0.52-1.04) mg/dL Phosphorus (2.5-4.5) mg/dL 02/24/17 Range/Units 08:37 RBC (3.80-5.40) m/uL Hgb (11.4-16.0) gm/dL Hct (34.0-46.0) % MCV (80.0-100.0) fL MCH (25.0-35.0) pg RDW (11.5-15.5) % Plt Count (150-450) k/uL Sodium 126 L (137-145) mmol/L Chloride 88 L (98-107) mmol/L BUN 20 H (7-17) mg/dL Creatinine 1.06 H (0.52-1.04) mg/dL Phosphorus 2.4 L (2.5-4.5) mg/dL Assessment and Plan Plan: Assessment: #1. Hyponatremia. Euvolemic at this time. She did require 3% initially on admission and is currently off all IV fluids. Sodium level has been gradually improving and is up to 126 this morning. #2. Rhabdomyolysis. Improving. #3. History of pituitary tumor status post resection of adenoma. Patient was not hypotensive or hyperkalemic to suggest adrenal insufficiency. Plan: Maintain 1.2 L fluid restriction. Encourage oral intake, particularly protein. Repeat sodium level this evening. Wean hydrocortisone. Maintain salt tabs 1 g twice daily. Continue with Lasix 20 mg once daily for now.
--- NOTE | 2017-02-24 16:54 | P.PN ---
Subjective A 56-year-old female patient, a very poor historian, obese with previous history of a pituitary adenoma that was resected surgically was not been maintained on any form of pituitary related hormone replacement therapy along with history of thyroid cancer and a previous thyroidectomy who claims not to take any of her thyroid hormone replacements. The patient was brought in to the emergency [facility] yesterday due to concerns of generalized weakness, lethargic, and confusion. She was found to be profoundly hyponatremic with an initial sodium 106. Chloride was also low at 68. The patient was found to be in mild rhabdomyolysis and her CPK was in the 10,000 range. She was in acute kidney injury in addition. She denied having any nausea, vomiting, diarrhea, abdominal pain, headache, focal neurological deficits, seizures, or any postictal state. No fever. No chills. No intake of any other medications including hydrochlorothiazide or any other form of diuretics. Apparently the patient has not been taking any medication at all. The patient was started on normal saline and earlier this morning the patient got switched at 3% saline infusion by nephrology. Note that the patient's creatinine was at 1.2 and dropped down to 0.86 with fluid resuscitation. CPK had dropped from 20,000 down to 13,000 with fluid resuscitation. The patient's TSH was at 17.3 and free T4 was less than 0.07. Urinalysis showed 13 WBCs. There was also +1 protein. Urine sodium was less than 5. Urine osmolality is at 313 and serum alcohol level was less than 10. [place] level was within normal however the patient had profound hypokalemia with a potassium level of 2.4. She is currently receiving potassium replacement. Subsequent levels from this morning showed that the sodium level came up to 112, bicarb level is at 29, chloride level is up to 76 and the potassium level is up to 3.0. Calcium level is at 7.9. Lactic acid level was at 1.4. On 02/22/2017 the patient is much more alert and awake. Her potassium level has been corrected. Sodium level has been gradually, and up and it's up to 119. The patient is off the hypertonic saline solution 3% since 6:00 last night. She is producing adequate amount of urine output. She is on IV Synthroid. She is on IV hydrocortisone. She is resting comfortably in bed. No respiratory difficulties. No cough or sputum production. No change in mental status. Tolerating diet. Currently her IV fluids to KVO. Acute rhabdomyolysis is also improving. Her CPK is down to 7500 The patient is seen again today 02/23/2017 on the regular medical floor. She is awake and alert in no acute distress. She is somewhat slow to respond but unaware of her baseline. She has remained hemodynamically stable. Afebrile. Maintaining O2 saturations in the low 90s on room air. She's been followed by nephrology who was placed on a 1.2 L fluid restriction. Her current sodium is 123. The patient is seen again today 02/24/2017 in follow-up on the regular medical floor. She is sitting up in the chair at the bedside. She is awake and alert in no acute distress. Her current sodium is 126. Creatinine 1.06. Hemoglobin 8.4. No leukocytosis. She is afebrile. Maintaining good O2 saturations in the upper 90s on room air. She is hemodynamically stable. Objective - Vital Signs Vital signs: Vital Signs Temp 97.3 F L 02/24/17 15:00 Pulse 86 02/24/17 15:00 Resp 16 02/24/17 15:00 BP 121/79 02/24/17 15:00 Pulse Ox 99 02/24/17 15:00 Intake & Output 02/23/17 02/24/17 02/24/17 18:59 06:59 18:59 Intake Total 100 1200 600 Output Total 475 1000 Balance -375 200 600 Intake: Oral 100 1200 600 Output: Urine 1000 Post Void Residual 475 Other: Voiding Method Bedpan Incontinent # Voids 2 2 - Exam Head exam was generally normal. There was no scleral icterus or corneal arcus. Mucous membranes were moist. Patient is obese, comfortable likely distress. Neck is supple and there is no JVDs no goiter or neck masses. Extremities membranes are dry and the patient is extremely poor dentition.Lungs were clear to auscultation and percussion, and with normal diaphragmatic excursion. No wheezes or rales were noted. Cardiac exam revealed the PMI to be normally situated and sized. The rhythm was regular and no extrasystoles were noted during several minutes of auscultation. The first and second heart sounds were normal and physiologic splitting of the second heart sound was noted. There were no murmurs, rubs, clicks, or gallops.Abdominal exam revealed normal bowel sounds. The abdomen was soft, non-tender, and without masses, organomegaly, or appreciable enlargement of the abdominal aorta. Extremities show +1 edema and there is no cyanosis or clubbing at this point. Neurologically much more awake and alert compared to yesterday. Communicating. Able to swallow. Able to move all 4 extremities without any limitation. No focal neurological deficit at this point. - Labs CBC & Chem 7: 02/24/17 08:37 02/24/17 08:37 Labs: Abnormal Lab Results - Last 24 Hours (Table) 02/23/17 02/24/17 02/24/17 Range/Units 20:01 08:37 08:37 RBC 3.72 L (3.80-5.40) m/uL Hgb 8.4 L (11.4-16.0) gm/dL Hct 27.3 L (34.0-46.0) % MCV 73.3 L (80.0-100.0) fL MCH 22.7 L (25.0-35.0) pg RDW 15.9 H (11.5-15.5) % Plt Count 451 H (150-450) k/uL Sodium 125 L 126 L (137-145) mmol/L Chloride 88 L (98-107) mmol/L BUN 20 H (7-17) mg/dL Creatinine 1.06 H (0.52-1.04) mg/dL Phosphorus 2.4 L (2.5-4.5) mg/dL Assessment and Plan Plan: Assessment 1 acute euvolemic hypochloremic hyponatremia. Rule out secondary to underlying hypothyroidism. The patient's sodium levels improved and it's up to 126. 2 acute hypokalemia, recovered. 3 acute rhabdomyolysis, improved 4 thyroid cancer with previous thyroidectomy, not take any form of thyroid hormone replacement in the outpatient setting. Currently on Synthroid. 5 pituitary tumor status post resection of an adenoma, not receiving any form of steroids on an outpatient basis. Currently on Solu-Cortef. 6 obesity 7 lower extremity edema 8 hypertension 9 scoliosis 10 nephrolithiasis 11 acute kidney injury, improved Plan: The patient was seen and evaluated by Dr. Maria. She remains stable from the pulmonary and critical care standpoint. Her sodium is slowly improving. He remains on fluid restriction. She is receiving sodium chloride tablets. We' ll continue to follow and make further recommendations based on her clinical status.
[2017-02-25] MEDS: traMADol 50 MG TAB PO SCH ×5 (00:05→23:56)
[2017-02-25] MEDS: HEPARIN SODIUM,PORCINE 5,000 UNIT/ML 1 ML VIAL SQ SCH ×4 (00:53→23:57)
[2017-02-25] MEDS: HYDROCORTISONE SUCCINATE 100 MG/2 ML VIAL IV SCH (08:54)
[2017-02-25] MEDS: SODIUM CHLORIDE TAB 1 GM TAB PO SCH ×2 (08:55→21:01)
[2017-02-25] MEDS: PANTOPRAZOLE 40 MG TABLET PO SCH (08:55)
[2017-02-25] MEDS: FUROSEMIDE 20 MG TAB PO SCH (08:55)
[2017-02-25] MEDS: NYSTATIN 100,000UNIT/GM CREAM 30 GM TUBE TOPICAL SCH ×3 (08:57→21:01)
[2017-02-25] MEDS: TRIAMCINOLONE 0.1% CREAM 80 GM TUBE TOPICAL SCH ×3 (08:58→21:01)
[2017-02-25 10:36] LABS: Anisocytosis Slight; Basophils % (A) 0 %; CHCM 31.3; Eosinophils % (A) 0 %; HCT 31.1 % (34.0-46.0); HDW 3.51; HGB 9.6 gm/dL (11.4-16.0); Hypochromasia Moderate; Luc # (Auto) 0.19; Luc % (Auto) 2; Lymphocytes # (A) 2.5 k/uL (1.0-4.8); Lymphocytes % (A) 24 %; MCH 22.8 pg (25.0-35.0); MCV 73.6 fL (80.0-100.0); Mean Platelet Volume 6.7; Microcytosis Slight; Monocytes # (A) 0.7 k/uL (0-1.0); Monocytes % (A) 6 %; Neutrophils % (A) 67 %; Poikilocytosis Slight; RBC 4.22 m/uL (3.80-5.40); RDW 16.1 % (11.5-15.5); WBC 10.4 k/uL (3.8-10.6)
[2017-02-25 10:52] LABS: Anion Gap 12 mmol/L; Blood Urea Nitrogen 20 mg/dL (7-17); Calcium 9.7 mg/dL (8.4-10.2); Carbon Dioxide 31 mmol/L (22-30); Chloride 87 mmol/L (98-107); Glucose 80 mg/dL (74-99); Non-African American GFR(MDRD) >60 (>60 ml/min/1.73 sqM); Phosphorous 2.4 mg/dL (2.5-4.5); Potassium 3.3 mmol/L (3.5-5.1); Sodium 130 mmol/L (137-145)
[2017-02-25] MEDS ORDERED: POTASSIUM CHLORIDE ER 20 MEQ TAB.ER PO STA (11:21)
--- NOTE | 2017-02-25 11:22 | P.PN ---
Subjective Patient is seen in follow-up for hyponatremia. Her sodium level was 106 on admission and has been gradually improving. Her sodium level is up to 130 this morning. She is currently off all IV fluids. Patient is not a reliable historian. Her oral intake is fair. She has been voiding. No vomiting or diarrhea. Denies chest pain or shortness of breath. No active complaints at this time. No major events overnight. Vital signs are stable. General: The patient appeared well nourished and normally developed. HEENT: Head exam is unremarkable. Neck is without jugular venous distension. LUNGS: Lungs are clear to auscultation and percussion. Breath sounds decreased. HEART: Rate and Rhythm are regular. First and second heart sounds normal. No murmurs, rubs or gallops. ABDOMEN: Abdominal exam reveals normal bowel sounds. Non-tender and non- distended. No evidence of peritonitis. EXTREMITITES: No clubbing, cyanosis, or edema. Objective - Vital Signs Vital signs: Vital Signs Temp 98.1 F 02/25/17 07:00 Pulse 68 02/25/17 07:00 Resp 16 02/25/17 07:00 BP 157/86 02/25/17 07:00 Pulse Ox 96 02/25/17 07:00 Intake & Output 02/24/17 02/25/17 02/25/17 18:59 06:59 18:59 Intake Total 600 Output Total 400 Balance 600 -400 Intake: Oral 600 Output: Urine 400 Other: Voiding Method Bedside Commode Incontinent # Voids 2 2 - Labs CBC & Chem 7: 02/25/17 09:31 02/25/17 09:31 Labs: Abnormal Lab Results - Last 24 Hours (Table) 02/24/17 02/25/17 02/25/17 Range/Units 16:57 09:31 09:31 Hgb 9.6 L (11.4-16.0) gm/dL Hct 31.1 L (34.0-46.0) % MCV 73.6 L (80.0-100.0) fL MCH 22.8 L (25.0-35.0) pg RDW 16.1 H (11.5-15.5) % Plt Count 540 H (150-450) k/uL Sodium 127 L 130 L (137-145) mmol/L Potassium 3.3 L (3.5-5.1) mmol/L Chloride 87 L (98-107) mmol/L Carbon Dioxide 31 H (22-30) mmol/L BUN 20 H (7-17) mg/dL Phosphorus 2.4 L (2.5-4.5) mg/dL Assessment and Plan Plan: Assessment: #1. Hyponatremia. Euvolemic at this time. She did require 3% initially on admission and is currently off all IV fluids. Sodium level has been gradually improving and is up to 130 this morning. #2. Rhabdomyolysis. Improving. #3. History of pituitary tumor status post resection of adenoma. Patient was not hypotensive or hyperkalemic to suggest adrenal insufficiency. Plan: Maintain 1.2 L fluid restriction. Encourage oral intake, particularly protein. Wean hydrocortisone. Maintain salt tabs 1 g twice daily. Continue with Lasix 20 mg once daily for now.
[2017-02-25 12:22] VITALS: BMI 31.1
--- NOTE | 2017-02-25 13:43 | P.PN ---
Subjective A 56-year-old female patient, a very poor historian, obese with previous history of a pituitary adenoma that was resected surgically was not been maintained on any form of pituitary related hormone replacement therapy along with history of thyroid cancer and a previous thyroidectomy who claims not to take any of her thyroid hormone replacements. The patient was brought in to the emergency [facility] yesterday due to concerns of generalized weakness, lethargic, and confusion. She was found to be profoundly hyponatremic with an initial sodium 106. Chloride was also low at 68. The patient was found to be in mild rhabdomyolysis and her CPK was in the 10,000 range. She was in acute kidney injury in addition. She denied having any nausea, vomiting, diarrhea, abdominal pain, headache, focal neurological deficits, seizures, or any postictal state. No fever. No chills. No intake of any other medications including hydrochlorothiazide or any other form of diuretics. Apparently the patient has not been taking any medication at all. The patient was started on normal saline and earlier this morning the patient got switched at 3% saline infusion by nephrology. Note that the patient's creatinine was at 1.2 and dropped down to 0.86 with fluid resuscitation. CPK had dropped from 20,000 down to 13,000 with fluid resuscitation. The patient's TSH was at 17.3 and free T4 was less than 0.07. Urinalysis showed 13 WBCs. There was also +1 protein. Urine sodium was less than 5. Urine osmolality is at 313 and serum alcohol level was less than 10. Ethel level was within normal however the patient had profound hypokalemia with a potassium level of 2.4. She is currently receiving potassium replacement. Subsequent levels from this morning showed that the sodium level came up to 112, bicarb level is at 29, chloride level is up to 76 and the potassium level is up to 3.0. Calcium level is at 7.9. Lactic acid level was at 1.4. On 02/22/2017 the patient is much more alert and awake. Her potassium level has been corrected. Sodium level has been gradually, and up and it's up to 119. The patient is off the hypertonic saline solution 3% since 6:00 last night. She is producing adequate amount of urine output. She is on IV Synthroid. She is on IV hydrocortisone. She is resting comfortably in bed. No respiratory difficulties. No cough or sputum production. No change in mental status. Tolerating diet. Currently her IV fluids to KVO. Acute rhabdomyolysis is also improving. Her CPK is down to 7500 The patient is seen again today 02/23/2017 on the regular medical floor. She is awake and alert in no acute distress. She is somewhat slow to respond but unaware of her baseline. She has remained hemodynamically stable. Afebrile. Maintaining O2 saturations in the low 90s on room air. She's been followed by nephrology who was placed on a 1.2 L fluid restriction. Her current sodium is 123. The patient is seen again today 02/24/2017 in follow-up on the regular medical floor. She is sitting up in the chair at the bedside. She is awake and alert in no acute distress. Her current sodium is 126. Creatinine 1.06. Hemoglobin 8.4. No leukocytosis. She is afebrile. Maintaining good O2 saturations in the upper 90s on room air. She is hemodynamically stable. The patient is seen again today 02/25/2017 in follow-up in the regular medical floor. She is awake and alert in no acute distress. She denies any worsening shortness of breath, cough or congestion. Maintaining good O2 saturations in the mid 90s on room air. She's afebrile. No leukocytosis. Hemoglobin 9.6. Creatinine 0.93. Sodium is improved to 130. Objective - Vital Signs Vital signs: Vital Signs Temp 98.1 F 02/25/17 07:00 Pulse 68 02/25/17 07:00 Resp 16 02/25/17 07:00 BP 157/86 02/25/17 07:00 Pulse Ox 96 02/25/17 07:00 Intake & Output 02/24/17 02/25/17 02/25/17 18:59 06:59 18:59 Intake Total 600 Output Total 400 Balance 600 -400 Weight 79.9 kg Intake: Oral 600 Output: Urine 400 Other: Voiding Method Bedside Commode Incontinent # Voids 2 2 - Exam Head exam was generally normal. There was no scleral icterus or corneal arcus. Mucous membranes were moist. Patient is obese, comfortable likely distress. Neck is supple and there is no JVDs no goiter or neck masses. Extremities membranes are dry and the patient is extremely poor dentition.Lungs were clear to auscultation and percussion, and with normal diaphragmatic excursion. No wheezes or rales were noted. Cardiac exam revealed the PMI to be normally situated and sized. The rhythm was regular and no extrasystoles were noted during several minutes of auscultation. The first and second heart sounds were normal and physiologic splitting of the second heart sound was noted. There were no murmurs, rubs, clicks, or gallops.Abdominal exam revealed normal bowel sounds. The abdomen was soft, non-tender, and without masses, organomegaly, or appreciable enlargement of the abdominal aorta. Extremities show +1 edema and there is no cyanosis or clubbing at this point. Neurologically much more awake and alert compared to yesterday. Communicating. Able to swallow. Able to move all 4 extremities without any limitation. No focal neurological deficit at this point. - Labs CBC & Chem 7: 02/25/17 09:31 02/25/17 09:31 Labs: Abnormal Lab Results - Last 24 Hours (Table) 02/24/17 02/25/17 02/25/17 Range/Units 16:57 09:31 09:31 Hgb 9.6 L (11.4-16.0) gm/dL Hct 31.1 L (34.0-46.0) % MCV 73.6 L (80.0-100.0) fL MCH 22.8 L (25.0-35.0) pg RDW 16.1 H (11.5-15.5) % Plt Count 540 H (150-450) k/uL Sodium 127 L 130 L (137-145) mmol/L Potassium 3.3 L (3.5-5.1) mmol/L Chloride 87 L (98-107) mmol/L Carbon Dioxide 31 H (22-30) mmol/L BUN 20 H (7-17) mg/dL Phosphorus 2.4 L (2.5-4.5) mg/dL Assessment and Plan Plan: Assessment 1 acute euvolemic hypochloremic hyponatremia. Rule out secondary to underlying hypothyroidism. The patient's sodium levels improved and it's up to 130. 2 acute hypokalemia, recovered. 3 acute rhabdomyolysis, improved 4 thyroid cancer with previous thyroidectomy, not take any form of thyroid hormone replacement in the outpatient setting. Currently on Synthroid. 5 pituitary tumor status post resection of an adenoma, not receiving any form of steroids on an outpatient basis. Currently on Solu-Cortef. 6 obesity 7 lower extremity edema 8 hypertension 9 scoliosis 10 nephrolithiasis 11 acute kidney injury, improved Plan: The patient was seen and evaluated by Dr. Maria. She remains stable from the pulmonary and critical care standpoint. We will follow her on an as-needed basis.
--- NOTE | 2017-02-25 13:55 | P.CN ---
Psychiatric Consult - . Consult date: 02/25/17 Consult:: 02/25/17 13:43 DATE OF SERVICE: 02/25/2017 IDENTIFYING DATA: This patient is a 56-year-old female admitted for generalized weakness, lethargic, and confusion. HISTORY OF PRESENT ILLNESS: The patient presents with being seated in the chair with her lunch tray in front of her, the food has not been touched. She greets with a smile, but does not answer. When asked if we could talk she answered with a sound, mmm. She was pleasantly confused, when asked where she is she responded "they think I came here yesterday, mmmmm thank you". She was unable to give date, but she did look at the white board in her room. She stated she was in [place], [place]. Asked her birthdate and she responded "this is really weird but.... thank you". She responded to all questions with either they think i came here, or this is really weird... PAST PSYCHIATRIC HISTORY: Unknown. PAST MEDICAL HISTORY: Hypothyroid, hyponatremia, hypochloremia,. ALLERGIES: Per record levothyroxine acetaminophen and ibuprofen cantaloupe. CHEMICAL DEPENDENCY HISTORY: Unknown. FAMILY PSYCHIATRIC HISTORY: Unknown. FAMILY CHEMICAL DEPENDENCY HISTORY: Unknown. LEGAL HISTORY: Unknown. SOCIAL HISTORY: Unknown. MENTAL STATUS EXAM: Patient alert to herself Mar Clark, she could not give her birthdate. No other relevant information was provided. IMPRESSIONS: Patient with severe cognitive impairment, most likely due to to hyponatremia hypothyroidism. She also has history of pituitary adenoma, resected. She has reportedly not been taking any of her thyroid hormone replacements, Na 106, K2.4, TSH 17. 3, T4 <0.07, CPK 20,000 when she came in. Na is now almost in normal range. Hyponatremia can cause gait disturbance (falls) and cognitive impairment.Chronic hyponatremia can cause significant neurological problems, it is UNKNOWN if Na+ is corrected that cognition will return to baseline. At this point without any history it has to be assumed that her cognitive impairment is due to the hyponatremia, hypothyroidism not a psychiatric disorder. There is no evidence of psychosis. Delirium due to hyponatremia, hypothyroidism and other medical conditions. hyponatremia, hypokalemia hypothyroidism hypochloremia, rhabdomyolysis. PLAN: Continue to treat the medical conditions causing delirium and cognitive impairment. Prognosis is guarded. Patient does not have capacity to make decisions. She is not competent and will need a surrogate decision maker, ie court appointed family member or public guardian. Please reconsult if needed.
--- NOTE | 2017-02-25 14:24 | P.PN ---
Subjective Principal diagnosis: progress note dated 02/22/17 A 56-year-old female patient, a very poor historian, obese with previous history of a pituitary adenoma that was resected surgically was not been maintained on any form of pituitary related hormone replacement therapy along with history of thyroid cancer and a previous thyroidectomy who claims not to take any of her thyroid hormone replacements. The patient was brought in to the emergency yesterday due to concerns of generalized weakness, lethargic, and confusion. She was found to be profoundly hyponatremia with an initial sodium 106. . The patient was found to be in mild rhabdomyolysis and her CPK was in the 20, 000 range. She was in acute kidney injury in addition. She denied having any nausea, vomiting, diarrhea, abdominal pain, headache, focal neurological deficits, seizures, or any postictal state. No fever. No chills. No intake of any other medications including hydrochlorothiazide or any other form of diuretics. Apparently the patient has not been taking any medication at all. The patient was started on normal saline and earlier this morning the patient got switched at 3% saline infusion by nephrology. pt is not able to answer or give any history appropriately states that she is [facility] denies having headaches, blurry vision, nausea, vomiting, diarrhea lives alone 02/23/17 slightly improved pt appears to be confused no other overnight events reported 02/25/2017 Over the last day patient was supposed to be seen by another attending physician however due for the patient to be seen by our service Patient today's has no additional complaints however was staring into the wall during my evaluation States that she is confused Objective - Vital Signs Vital signs: Vital Signs Temp 98.1 F 02/25/17 07:00 Pulse 68 02/25/17 07:00 Resp 16 02/25/17 07:00 BP 157/86 02/25/17 07:00 Pulse Ox 96 02/25/17 07:00 Intake & Output 02/24/17 02/25/17 02/25/17 18:59 06:59 18:59 Intake Total 600 Output Total 400 Balance 600 -400 Weight 79.9 kg Intake: Oral 600 Output: Urine 400 Other: Voiding Method Bedside Commode Incontinent # Voids 2 2 - Exam Physical exam Gen. appearance oriented 3 in no distress Neck is supple no JVD Lungs good air entry clear to auscultation no rhonchi or wheezing Heart S1-S2 heard regular rate and rhythm no murmurs appreciated Abdomen is soft nontender no organomegaly bowel sounds are intact Neurologically cranial nerves II-12 grossly intact no focal motor or sensory deficits noted Skin no abnormalities appreciated Psychiatric on stairs tangential thought fpoor competency to make medical decisions - Labs CBC & Chem 7: 02/25/17 09:31 02/25/17 09:31 Labs: Abnormal Lab Results - Last 24 Hours (Table) 02/24/17 02/25/17 02/25/17 Range/Units 16:57 09:31 09:31 Hgb 9.6 L (11.4-16.0) gm/dL Hct 31.1 L (34.0-46.0) % MCV 73.6 L (80.0-100.0) fL MCH 22.8 L (25.0-35.0) pg RDW 16.1 H (11.5-15.5) % Plt Count 540 H (150-450) k/uL Sodium 127 L 130 L (137-145) mmol/L Potassium 3.3 L (3.5-5.1) mmol/L Chloride 87 L (98-107) mmol/L Carbon Dioxide 31 H (22-30) mmol/L BUN 20 H (7-17) mg/dL Phosphorus 2.4 L (2.5-4.5) mg/dL Assessment and Plan Plan: severe likely chronic euvolemic hyponatremia with symptoms of encephalopathy previous pitutary adenoma s/p resection ten yrs ago HypothyroIdism obesity Previous history of tobacco use INCOMPETENCY to make decisions PLan serial NA levels improved Synthoid oral, in the pt and hence stopped discussed regarding monitering DVT prophylaxis dc to [place] [facility] or the next day
[2017-02-26] MEDS: traMADol 50 MG TAB PO SCH ×4 (06:24→23:17)
[2017-02-26 08:25] LABS: Anion Gap 12 mmol/L; Blood Urea Nitrogen 26 mg/dL (7-17); Calcium 10.3 mg/dL (8.4-10.2); Carbon Dioxide 33 mmol/L (22-30); Chloride 87 mmol/L (98-107); Glucose 95 mg/dL (74-99); Non-African American GFR(MDRD) 52 (>60 ml/min/1.73 sqM); Potassium 3.6 mmol/L (3.5-5.1); Sodium 132 mmol/L (137-145)
[2017-02-26] MEDS: SODIUM CHLORIDE TAB 1 GM TAB PO SCH ×2 (09:07→20:50)
[2017-02-26] MEDS: FUROSEMIDE 20 MG TAB PO SCH (09:08)
[2017-02-26] MEDS: HEPARIN SODIUM,PORCINE 5,000 UNIT/ML 1 ML VIAL SQ SCH ×3 (09:09→23:22)
[2017-02-26] MEDS: HYDROCORTISONE SUCCINATE 100 MG/2 ML VIAL IV SCH (09:09)
[2017-02-26] MEDS: NYSTATIN 100,000UNIT/GM CREAM 30 GM TUBE TOPICAL SCH ×2 (09:10→20:49)
[2017-02-26] MEDS: TRIAMCINOLONE 0.1% CREAM 80 GM TUBE TOPICAL SCH ×2 (09:10→20:49)
--- NOTE | 2017-02-26 10:23 | P.PN ---
Subjective Patient is seen in follow-up for hyponatremia. Her sodium level was 106 on admission and has been gradually improving. Her sodium level is up to 132 this morning. She is currently off all IV fluids. Her oral intake is fair. She has been voiding. No vomiting or diarrhea. Denies chest pain or shortness of breath. No active complaints at this time. No major events overnight. Hemodynamically stable. Vital signs are stable. General: The patient appeared well nourished and normally developed. HEENT: Head exam is unremarkable. Neck is without jugular venous distension. LUNGS: Lungs are clear to auscultation and percussion. Breath sounds decreased. HEART: Rate and Rhythm are regular. First and second heart sounds normal. No murmurs, rubs or gallops. ABDOMEN: Abdominal exam reveals normal bowel sounds. Non-tender and non- distended. No evidence of peritonitis. EXTREMITITES: No clubbing, cyanosis, or edema. Objective - Vital Signs Vital signs: Vital Signs Temp 97.5 F L 02/26/17 07:00 Pulse 84 02/26/17 07:00 Resp 16 02/26/17 07:00 BP 130/102 02/26/17 07:00 Pulse Ox 95 02/26/17 08:16 Intake & Output 02/25/17 02/26/17 02/26/17 18:59 06:59 18:59 Weight 79.9 kg Other: Voiding Method Bedside Commode Incontinent # Voids 1 2 # Bowel Movements 0 - Labs CBC & Chem 7: 02/25/17 09:31 02/26/17 07:40 Labs: Abnormal Lab Results - Last 24 Hours (Table) 02/25/17 02/25/17 02/26/17 Range/Units 09:31 09:31 07:40 Hgb 9.6 L (11.4-16.0) gm/dL Hct 31.1 L (34.0-46.0) % MCV 73.6 L (80.0-100.0) fL MCH 22.8 L (25.0-35.0) pg RDW 16.1 H (11.5-15.5) % Plt Count 540 H (150-450) k/uL Sodium 130 L 132 L (137-145) mmol/L Potassium 3.3 L (3.5-5.1) mmol/L Chloride 87 L 87 L (98-107) mmol/L Carbon Dioxide 31 H 33 H (22-30) mmol/L BUN 20 H 26 H (7-17) mg/dL Creatinine 1.08 H (0.52-1.04) mg/dL Calcium 10.3 H (8.4-10.2) mg/dL Phosphorus 2.4 L (2.5-4.5) mg/dL Assessment and Plan Plan: Assessment: #1. Hyponatremia. Euvolemic at this time. She did require 3% initially on admission and is currently off all IV fluids. Sodium level has been gradually improving and is up to 132 this morning. #2. Rhabdomyolysis. Improving. #3. History of pituitary tumor status post resection of adenoma. Patient was not hypotensive or hyperkalemic to suggest adrenal insufficiency. #4. Hypercalcemia. Calcium level at 10.3 today. This can be from recovering rhabdomyolysis. She is not on any calcium supplementation at this time. There may be a component of mild volume contraction from diuretics. Plan: Maintain 1.2 L fluid restriction. Encourage oral intake, particularly protein. Wean hydrocortisone. Maintain salt tabs 1 g twice daily. Hold Lasix. Check CK level.
[2017-02-26] MEDS: PANTOPRAZOLE 40 MG TABLET PO SCH (11:33)
--- NOTE | 2017-02-26 17:57 | P.PN ---
Subjective Principal diagnosis: progress note dated 02/22/17 A 56-year-old female patient, a very poor historian, obese with previous history of a pituitary adenoma that was resected surgically was not been maintained on any form of pituitary related hormone replacement therapy along with history of thyroid cancer and a previous thyroidectomy who claims not to take any of her thyroid hormone replacements. The patient was brought in to the emergency yesterday due to concerns of generalized weakness, lethargic, and confusion. She was found to be profoundly hyponatremia with an initial sodium 106. . The patient was found to be in mild rhabdomyolysis and her CPK was in the 20, 000 range. She was in acute kidney injury in addition. She denied having any nausea, vomiting, diarrhea, abdominal pain, headache, focal neurological deficits, seizures, or any postictal state. No fever. No chills. No intake of any other medications including hydrochlorothiazide or any other form of diuretics. Apparently the patient has not been taking any medication at all. The patient was started on normal saline and earlier this morning the patient got switched at 3% saline infusion by nephrology. pt is not able to answer or give any history appropriately states that she is in [facility] denies having headaches, blurry vision, nausea, vomiting, diarrhea lives alone 02/23/17 slightly improved pt appears to be confused no other overnight events reported 02/25/2017 Over the last day patient was supposed to be seen by another attending physician however due for the patient to be seen by our service Patient today's has no additional complaints however was staring into the wall during my evaluation States that she is confused 02/26/17 no new overnight events pt continues to act odd, refuses to take medications Objective - Vital Signs Vital signs: Vital Signs Temp 97.5 F L 02/26/17 15:00 Pulse 99 02/26/17 15:00 Resp 18 02/26/17 15:00 BP 153/116 02/26/17 15:00 Pulse Ox 97 02/26/17 15:00 Intake & Output 02/25/17 02/26/17 02/26/17 18:59 06:59 18:59 Output Total 2 Balance -2 Weight 79.9 kg Output: Urine 2 Other: Voiding Method Bedside Commode Incontinent # Voids 1 2 1 # Bowel Movements 0 - Exam Physical exam Gen. appearance oriented 3 in no distress Neck is supple no JVD Lungs good air entry clear to auscultation no rhonchi or wheezing Heart S1-S2 heard regular rate and rhythm no murmurs appreciated Abdomen is soft nontender no organomegaly bowel sounds are intact Neurologically cranial nerves II-12 grossly intact no focal motor or sensory deficits noted Skin no abnormalities appreciated Psychiatric on stairs tangential thought fpoor competency to make medical decisions - Labs CBC & Chem 7: 02/25/17 09:31 02/26/17 07:40 Labs: Abnormal Lab Results - Last 24 Hours (Table) 02/26/17 02/26/17 Range/Units 07:40 07:40 Sodium 132 L (137-145) mmol/L Chloride 87 L (98-107) mmol/L Carbon Dioxide 33 H (22-30) mmol/L BUN 26 H (7-17) mg/dL Creatinine 1.08 H (0.52-1.04) mg/dL Calcium 10.3 H (8.4-10.2) mg/dL Creatine Kinase 767 H (30-135) U/L Assessment and Plan Plan: severe likely chronic euvolemic hyponatremia with symptoms of encephalopathy previous pitutary adenoma s/p resection ten yrs ago [place] hypopituatarism HypothyroIdism obesity Previous history of tobacco use INCOMPETENCY to make decisions PLan will discontinue solucortef no suspicion for adrenal insufficienct DVT prophylaxis dc to [facility] or the next day depending on guardianship
[2017-02-27] MEDS: traMADol 50 MG TAB PO SCH ×4 (07:06→23:23)
--- NOTE | 2017-02-27 09:19 | P.PN ---
Subjective Patient is seen in follow-up for hyponatremia. Her sodium level was 106 on admission and has been gradually improving. Her sodium level was up to 132 yesterday morning. She is currently off all IV fluids. Her oral intake is fair. She has been voiding. No vomiting or diarrhea. Denies chest pain or shortness of breath. No active complaints at this time. No major events overnight. Hemodynamically stable. Vital signs are stable. General: The patient appeared well nourished and normally developed. HEENT: Head exam is unremarkable. Neck is without jugular venous distension. LUNGS: Lungs are clear to auscultation and percussion. Breath sounds decreased. HEART: Rate and Rhythm are regular. First and second heart sounds normal. No murmurs, rubs or gallops. ABDOMEN: Abdominal exam reveals normal bowel sounds. Non-tender and non- distended. No evidence of peritonitis. EXTREMITITES: No clubbing, cyanosis, or edema. Objective - Vital Signs Vital signs: Vital Signs Temp 97.0 F L 02/27/17 07:00 Pulse 76 02/27/17 07:00 Resp 16 02/27/17 07:00 BP 116/84 02/27/17 07:00 Pulse Ox 94 L 02/27/17 08:07 Intake & Output 02/26/17 02/27/17 02/27/17 18:59 06:59 18:59 Output Total 2 Balance -2 Output: Urine 2 Other: # Voids 1 1 # Bowel Movements 0 - Labs CBC & Chem 7: 02/25/17 09:31 02/26/17 07:40 Labs: Abnormal Lab Results - Last 24 Hours (Table) 02/26/17 Range/Units 07:40 Creatine Kinase 767 H (30-135) U/L Assessment and Plan Plan: Assessment: #1. Hyponatremia. Euvolemic at this time. She did require 3% initially on admission and is currently off all IV fluids. Sodium level has been gradually improving and was up to 132 as of yesterday. #2. Rhabdomyolysis. Improving. #3. History of pituitary tumor status post resection of adenoma. Patient was not hypotensive or hyperkalemic to suggest adrenal insufficiency. #4. Hypercalcemia. Calcium level at 10.3 as of yesterday. This can be from recovering rhabdomyolysis. She is not on any calcium supplementation at this time. There may be a component of mild volume contraction from diuretics. Plan: Maintain 1.2 L fluid restriction. Encourage oral intake, particularly protein. Wean hydrocortisone. Maintain salt tabs 1 g twice daily. Lasix currently held.
[2017-02-27 09:22] LABS: Calcium 9.9 mg/dL (8.4-10.2)
[2017-02-27 09:27] LABS: Potassium 2.9 mmol/L (3.5-5.1)
[2017-02-27] MEDS: HEPARIN SODIUM,PORCINE 5,000 UNIT/ML 1 ML VIAL SQ SCH ×3 (11:07→23:25)
[2017-02-27] MEDS: HYDROCORTISONE SUCCINATE 100 MG/2 ML VIAL IV SCH (11:07)
[2017-02-27] MEDS: PANTOPRAZOLE 40 MG TABLET PO SCH (11:08)
[2017-02-27] MEDS: SODIUM CHLORIDE TAB 1 GM TAB PO SCH ×2 (11:08→21:18)
[2017-02-27] MEDS: TRIAMCINOLONE 0.1% CREAM 80 GM TUBE TOPICAL SCH ×2 (11:19→21:18)
[2017-02-27] MEDS: NYSTATIN 100,000UNIT/GM CREAM 30 GM TUBE TOPICAL SCH ×2 (11:19→21:18)
[2017-02-27] MEDS: POTASSIUM CHLORIDE ER 20 MEQ TAB.ER PO SCH ×2 (11:41→14:50)
--- NOTE | 2017-02-27 11:53 | XR ---
EXAMINATION TYPE: XR chest 1V DATE OF EXAM: 02/27/2017 HISTORY: ecf placement . REFERENCE: Previous study dated 04/14/2016. FINDINGS: The lungs are clear. Pleural spaces are clear. The heart is not enlarged.. IMPRESSION: NO ACUTE INTRATHORACIC ABNORMALITY.
--- NOTE | 2017-02-27 17:00 | P.PN ---
Subjective Principal diagnosis: progress note dated 02/22/17 A 56-year-old female patient, a very poor historian, obese with previous history of a pituitary adenoma that was resected surgically was not been maintained on any form of pituitary related hormone replacement therapy along with history of thyroid cancer and a previous thyroidectomy who claims not to take any of her thyroid hormone replacements. The patient was brought in to the emergency yesterday due to concerns of generalized weakness, lethargic, and confusion. She was found to be profoundly hyponatremia with an initial sodium 106. . The patient was found to be in mild rhabdomyolysis and her CPK was in the 20, 000 range. She was in acute kidney injury in addition. She denied having any nausea, vomiting, diarrhea, abdominal pain, headache, focal neurological deficits, seizures, or any postictal state. No fever. No chills. No intake of any other medications including hydrochlorothiazide or any other form of diuretics. Apparently the patient has not been taking any medication at all. The patient was started on normal saline and earlier this morning the patient got switched at 3% saline infusion by nephrology. pt is not able to answer or give any history appropriately states that she is in [facility] denies having headaches, blurry vision, nausea, vomiting, diarrhea lives alone 02/23/17 slightly improved pt appears to be confused no other overnight events reported 02/25/2017 Over the last day patient was supposed to be seen by another attending physician however due for the patient to be seen by our service Patient today's has no additional complaints however was staring into the wall during my evaluation States that she is confused 02/26/17 no new overnight events pt continues to act odd, refuses to take medications 02/27/17 no new overnight events Objective - Vital Signs Vital signs: Vital Signs Temp 97.2 F L 02/27/17 14:33 Pulse 83 02/27/17 14:33 Resp 16 02/27/17 14:33 BP 113/74 02/27/17 14:33 Pulse Ox 95 02/27/17 16:55 Intake & Output 02/26/17 02/27/17 02/27/17 18:59 06:59 18:59 Output Total 2 1 Balance -2 -1 Output: Urine 2 1 Other: Voiding Method Bedside Commode Incontinent # Voids 1 1 # Bowel Movements 0 - Exam Physical exam Gen. appearance oriented 3 in no distress Neck is supple no JVD Lungs good air entry clear to auscultation no rhonchi or wheezing Heart S1-S2 heard regular rate and rhythm no murmurs appreciated Abdomen is soft nontender no organomegaly bowel sounds are intact Neurologically cranial nerves II-12 grossly intact no focal motor or sensory deficits noted Skin no abnormalities appreciated Psychiatric on stairs tangential thought fpoor competency to make medical decisions - Labs CBC & Chem 7: 02/25/17 09:31 02/27/17 08:20 Labs: Abnormal Lab Results - Last 24 Hours (Table) 02/27/17 Range/Units 08:20 Sodium 133 L (137-145) mmol/L Potassium 2.9 L* (3.5-5.1) mmol/L Chloride 89 L (98-107) mmol/L Carbon Dioxide 32 H (22-30) mmol/L BUN 41 H (7-17) mg/dL Creatinine 1.43 H (0.52-1.04) mg/dL Assessment and Plan Plan: severe likely chronic euvolemic hyponatremia with symptoms of encephalopathy previous pitutary adenoma s/p resection ten yrs ago Hope hypopituatarism HypothyroIdism obesity Previous history of tobacco use INCOMPETENCY to make decisions PLan will discontinue solucortef no suspicion for adrenal insufficiency DVT prophylaxis dc to [facility] or the next day depending on guardianship
[2017-02-28] MEDS: traMADol 50 MG TAB PO SCH ×4 (05:02→21:14)
[2017-02-28] MEDS: SODIUM CHLORIDE TAB 1 GM TAB PO SCH ×2 (08:20→21:08)
[2017-02-28] MEDS: PANTOPRAZOLE 40 MG TABLET PO SCH (08:20)
[2017-02-28] MEDS: HEPARIN SODIUM,PORCINE 5,000 UNIT/ML 1 ML VIAL SQ SCH ×3 (08:20→23:09)
[2017-02-28] MEDS: NYSTATIN 100,000UNIT/GM CREAM 30 GM TUBE TOPICAL SCH ×2 (08:20→21:09)
[2017-02-28] MEDS: TRIAMCINOLONE 0.1% CREAM 80 GM TUBE TOPICAL SCH ×2 (08:20→21:09)
[2017-02-28 08:31] LABS: Calcium 9.6 mg/dL (8.4-10.2); Potassium 3.9 mmol/L (3.5-5.1)
--- NOTE | 2017-02-28 09:25 | PN ---
The patient is seen for follow-up for acute kidney injury. Her serum creatinine was at 1.4 mgDL yesterday up from 1.08. The patient has had good urine output. She is not on any IV fluids. She seems to be tolerating her oral intake fairly well. The patient is being followed mainly for hyponatremia. Her sodium has been up to 132. The patient has been off all IV fluids. On examination, blood pressure was 122/77. Heart rate 66 per minute. She is afebrile. Examination of the heart S1 and S2. Examination of the lungs bilateral breath sounds are heard. Abdomen is soft, nontender. Extremities of the lower extremities shows no significant edema. SOFTWARE ENGINEERING SPECIALIST exam is showing the patient is confused. She is moving all four extremities. Labs are not available from today. ASSESSMENT: 1. Euvolemic Hyponatremia currently improved. Sodium was 133 yesterday. The patient is maintained on sodium chloride 1 gm b.i.d. 2. Acute kidney injury. Serum creatinine was 1.4 from yesterday. We will check labs from today. The patient has had good urine output. She has had fairly good intake as well. If her renal function is worse, she may need IV hydration. 3. Hypokalemia, status post replacement yesterday. We will follow up on labs from today. CARITO
[2017-02-28 13:19] LABS: Glucose,Whole Blood 125 mg/dL (75-99)
[2017-02-28] MEDS ORDERED: levETIRAcetam IV 1,000 MG in SALINE 1 100ML.BAG IVPB STA (13:20)
[2017-02-28] MEDS ORDERED: METOCLOPRAMIDE 5 MG/ML 2 ML VIAL IVP PRN (13:26)
[2017-02-28] MEDS ORDERED: LORazepam 2 MG/ML SYRINGE IV PRN (13:28)
--- NOTE | 2017-02-28 14:28 | CT ---
EXAMINATION TYPE: CT brain wo con DATE OF EXAM: 02/28/2017 COMPARISON: Prior CT brain 06/08/2015 HISTORY: New seizure CT DLP: 1064.3 mGycm Automated exposure control for dose reduction was used. Helical imaging through the brain. FINDINGS: Exam is stable. Cortical atrophy is likely age-related. Periventricular white matter demyelination is unchanged. There is no hemorrhage or hydrocephalus. Calvarium is intact. Paranasal sinuses and masto id air cells unremarkable, the orbits are symmetric. IMPRESSION: STABLE EXAM, NO ACUTE ABNORMALITY IS EVIDENT.
--- NOTE | 2017-02-28 20:24 | P.CNNES ---
History of Present Illness Consult date: 02/28/17 Reason for Consult: Patient admitted with hyponatremia and new onset of seizure. History of Present Illness: This patient is a 56-year-old right-handed white female who was admitted to Hospital on 02/20/2017 for evaluation of severe hyponatremia and generalized weakness. Patient has a history of pituitary adenoma resection and has not been maintained on any form of pituitary-related hormone replacement therapy. She also has a history of thyroid cancer with previous thyroidectomy. More recently she has shown increased confusion and weakness. Soon after admission she was seen by psychiatry for competency. A public guardian has been arranged and apparently her son is now power of banking attorney. The patient was coming along fairly well however today was sitting in the chair and suddenly became unresponsive. A code was called and the patient apparently went into a seizure- like event./Did a few minutes. She was sent for a computed tomography scan of the brain following this event. CAT scan revealed stable findings with no acute abnormality. Patient was also able to complete a routine EEG which was reviewed and is severe to moderate slowing is noted throughout the entire recording. Patient was examined today at bedside. She keeps repeating herself quite often stating that she is been restrained in her bed. She states this is what causes her to become confused and disoriented. According to the family members were at bedside she was not restrained other than having the seizure placed on her bedside rails. Apparently the seizure episode occurred while she was sitting in her chair. As noted a code was called and she was resuscitated. She is now talking and does seem to be quite disoriented at times. Her EEG is consistent with a diffuse encephalopathy. Psychiatry has seen the patient and feel that she does have acute delirium and more likely has underlying dementia. The son is obtaining guardianship and power of banking attorney and apparently is considering placement of this patient at the time of discharge. Her serum sodium today prior to the seizure was in a therapeutic range. This seizure is not due to hyponatremia at this time due to the normal serum sodium of 138. The patient does appear to be encephalopathic. We will continue close neurological follow-up with the patient during this admission. Her overall prognosis at this time remains very guarded. Review of Systems Constitutional: Denies chills, Denies fever Eyes: denies blurred vision, denies pain Ears, nose, mouth and throat: Denies headache, Denies sore throat Cardiovascular: Denies chest pain, Denies shortness of breath Respiratory: Denies cough Gastrointestinal: Denies abdominal pain, Denies diarrhea, Denies nausea, Denies vomiting Genitourinary: Denies dysuria, Denies hematuria Musculoskeletal: Denies myalgias Integumentary: Denies pruritus, Denies rash Neurological: Reports change in mentation, Reports confusion, Reports convulsions, Reports hearing difficulties, Reports seizures, Reports tingling, Denies numbness, Denies weakness Psychiatric: Denies anxiety, Denies depression Endocrine: Denies fatigue, Denies weight change Past Medical History Past Medical History: Asthma, Cancer, CVA/TIA, GERD/Reflux, Hypertension, Thyroid Disorder Additional Past Medical History / Comment(s): history of a pituitary tumor- adenoma that was resected, PROLAPSED UTERUS, Thyroid Cancer post thyroidectomy , SCOLIOSIS, peripheral vascular disease, chronic constipation, IBS, nephrolithiasis, recurrent urine checked infection, rotator cuff disease, anxiety, extremely poor dentition, previous history of osteomyelitis of the lumbar spine History of Any Multi-Drug Resistant Organisms: None Reported Past Surgical History: Unable to Obtain Additional Past Surgical History / Comment(s): BRAIN SURGERY to remove benign PITUITARY tumor , thyroid removal, egd/colonoscopy(benign polys removed., d&c, kidney stone removed Past Anesthesia/Blood Transfusion Reactions: No Reported Reaction Additional Past Anesthesia/Blood Transfusion Reaction / Comment(s): BLOOD TRANSFUSION-NO REACTION Smoking Status: Never smoker - Past Family History Father Family Medical History: Unable to Obtain Additional Family Medical History / Comment(s): - HAD THE " MAKER" Mother Family Medical History: Unable to Obtain Additional Family Medical History / Comment(s): AAA Medications and Allergies Home Medications Medication Instructions Recorded Confirmed Type Albuterol Nebulized [Ventolin 2.5 mg INHALATION RT-QID PRN 04/14/16 02/20/17 History Nebulized] Nystatin/Triamcin 1 applic TOPICAL BID 04/14/16 02/20/17 History [Nystatin-Triamcinolone Cream] traMADol HCl [Ultram] 50 mg PO Q6H 05/21/16 02/20/17 History Allergies Allergy/AdvReac Type Severity Reaction Status Date / Time levothyroxine sodium Allergy Severe Anaphylaxis Verified 02/24/17 06:35 [From Synthroid] acetaminophen [From Tylenol] Allergy Swelling Verified 07/24/16 20:00 ibuprofen [From Motrin] Allergy Nausea & Verified 07/24/16 20:00 Vomiting ondansetron HCl AdvReac Rapid Verified 07/24/16 20:00 [From Zofran (as Heart Rate hydrochloride)] cantaloupe Allergy Anaphylaxis Uncoded 07/24/16 20:00 Physical Examination - Vital Signs Vital Signs: Vital Signs Temp Pulse Resp BP BP Pulse Ox 02/28/17 16:03 96.7 F L 59 L 12 113/78 97 02/28/17 07:00 97.0 F L 66 16 122/77 95 02/27/17 22:53 98.6 F 78 18 108/79 94 L Intake and Output 02/28/17 02/28/17 02/28/17 06:59 14:59 22:59 Intake Total 120 Output Total 200 Balance 120 -200 Intake: Oral 120 Output: Urine 200 Other: Voiding Method Bedside Commode Bedside Commode Incontinent Incontinent # Voids 2 1 - Constitutional General appearance: average body habitus - EENT EENT: PERRL, mucous membranes moist - Respiratory Respiratory: lungs clear, normal breath sounds - Cardiovascular Cardiovascular: regular rate, normal S1, normal S2 Extremities: no peripheral edema bilaterally - Gastrointestinal Gastrointestinal: normoactive bowel sounds - Integumentary Integumentary: normal - Neurologic Cranial nerve examination: PERRL, EOMI, VFF, V1/V2/V3 grossly intact, face symmetric, tongue midline, intact gag reflex, intact corneal reflex, normal palatal elevation Speech examination: intact Sensorimotor examination: intact Motor examination - right side: 4/5: biceps, triceps, wrist flexion, wrist extension, sammying machine operator, hip flexors, knee extensors, dorsiflexion, toe extension (EHL) , plantarflexion Motor examination - left side: 4/5: biceps, triceps, wrist flexion, wrist extension, sammying machine operator, hip flexors, knee extensors, dorsiflexion, toe extension (EHL) , plantarflexion Detailed sensory examination: intact Reflex and gait examination: intact Reflexes: 1+: ankle, bicep, knee, tricep - Musculoskeletal Musculoskeletal: no pain - Psychiatric Psychiatric: mood/affect appropriate, cooperative Results - Laboratory Findings CBC and BMP: 02/25/17 09:31 02/28/17 07:19 Abnormal Lab Findings: Abnormal Labs 02/20/17 02/20/17 02/20/17 18:51 18:51 20:07 WBC RBC Hgb 9.6 L Hct 28.2 L MCV 67.4 L MCH 22.8 L RDW 15.7 H Plt Count 470 H Neutrophils # Lymphocytes # APTT 31.4 H Sodium 106 L* Potassium 2.4 L* Chloride 66 L* Carbon Dioxide BUN 19 H Creatinine 1.20 H Glucose POC Glucose (mg/dL) Calcium Phosphorus Magnesium AST 503 H ALT 105 H Creatine Kinase 78400 H TSH 17.300 H Free T4 <0.07 L Urine Protein Urine Ketones Urine Blood Urine WBC Urine Bacteria Hyaline Casts Urine Mucus Ur Random Sodium 02/20/17 02/21/17 02/21/17 23:15 00:05 05:11 WBC RBC 3.71 L Hgb 8.7 L Hct 25.9 L MCV 69.8 L MCH 23.4 L RDW 15.6 H Plt Count Neutrophils # 8.5 H Lymphocytes # APTT Sodium 108 L* Potassium 2.6 L* Chloride 67 L* Carbon Dioxide BUN Creatinine Glucose 71 L POC Glucose (mg/dL) Calcium Phosphorus Magnesium AST ALT Creatine Kinase TSH Free T4 Urine Protein 1+ H Urine Ketones 1+ H Urine Blood Moderate H Urine WBC 13 H Urine Bacteria Rare H Hyaline Casts 34 H Urine Mucus Rare H Ur Random Sodium 02/21/17 02/21/17 02/21/17 05:11 05:11 08:30 WBC RBC Hgb Hct MCV MCH RDW Plt Count Neutrophils # Lymphocytes # APTT Sodium 108 L* Potassium 2.6 L* Chloride 70 L* Carbon Dioxide BUN Creatinine Glucose POC Glucose (mg/dL) Calcium Phosphorus Magnesium AST ALT Creatine Kinase 19415 H TSH Free T4 Urine Protein Urine Ketones Urine Blood Urine WBC Urine Bacteria Hyaline Casts Urine Mucus Ur Random Sodium <5 L 02/21/17 02/21/17 02/21/17 11:20 15:25 20:49 WBC RBC Hgb Hct MCV MCH RDW Plt Count Neutrophils # Lymphocytes # APTT Sodium 112 L* 115 L* 116 L* Potassium 3.0 L* 3.4 L Chloride 76 L* 80 L* 81 L Carbon Dioxide BUN Creatinine Glucose POC Glucose (mg/dL) Calcium 7.9 L 8.1 L 8.1 L Phosphorus Magnesium AST ALT Creatine Kinase 7534 H TSH Free T4 Urine Protein Urine Ketones Urine Blood Urine WBC Urine Bacteria Hyaline Casts Urine Mucus Ur Random Sodium 02/22/17 02/22/17 02/22/17 04:20 04:20 10:50 WBC RBC 3.75 L Hgb 8.6 L Hct 26.8 L MCV 71.4 L MCH 23.0 L RDW 15.6 H Plt Count Neutrophils # 8.5 H Lymphocytes # 0.5 L APTT Sodium 119 L* 120 L* Potassium Chloride 85 L 85 L Carbon Dioxide BUN Creatinine Glucose POC Glucose (mg/dL) Calcium Phosphorus Magnesium 2.4 H AST ALT Creatine Kinase TSH Free T4 Urine Protein Urine Ketones Urine Blood Urine WBC Urine Bacteria Hyaline Casts Urine Mucus Ur Random Sodium 02/23/17 02/23/17 02/23/17 08:12 08:12 15:11 WBC 11.9 H RBC Hgb 9.7 L Hct 30.1 L MCV 70.9 L MCH 22.9 L RDW Plt Count 511 H Neutrophils # 10.9 H Lymphocytes # 0.7 L APTT Sodium 123 L 122 L Potassium Chloride 87 L Carbon Dioxide BUN Creatinine Glucose POC Glucose (mg/dL) Calcium Phosphorus 2.3 L Magnesium AST ALT Creatine Kinase TSH Free T4 Urine Protein Urine Ketones Urine Blood Urine WBC Urine Bacteria Hyaline Casts Urine Mucus Ur Random Sodium 02/23/17 02/24/17 02/24/17 20:01 08:37 08:37 WBC RBC 3.72 L Hgb 8.4 L Hct 27.3 L MCV 73.3 L MCH 22.7 L RDW 15.9 H Plt Count 451 H Neutrophils # Lymphocytes # APTT Sodium 125 L 126 L Potassium Chloride 88 L Carbon Dioxide BUN 20 H Creatinine 1.06 H Glucose POC Glucose (mg/dL) Calcium Phosphorus 2.4 L Magnesium AST ALT Creatine Kinase TSH Free T4 Urine Protein Urine Ketones Urine Blood Urine WBC Urine Bacteria Hyaline Casts Urine Mucus Ur Random Sodium 02/24/17 02/25/17 02/25/17 16:57 09:31 09:31 WBC RBC Hgb 9.6 L Hct 31.1 L MCV 73.6 L MCH 22.8 L RDW 16.1 H Plt Count 540 H Neutrophils # Lymphocytes # APTT Sodium 127 L 130 L Potassium 3.3 L Chloride 87 L Carbon Dioxide 31 H BUN 20 H Creatinine Glucose POC Glucose (mg/dL) Calcium Phosphorus 2.4 L Magnesium AST ALT Creatine Kinase TSH Free T4 Urine Protein Urine Ketones Urine Blood Urine WBC Urine Bacteria Hyaline Casts Urine Mucus Ur Random Sodium 02/26/17 02/26/17 02/27/17 07:40 07:40 08:20 WBC RBC Hgb Hct MCV MCH RDW Plt Count Neutrophils # Lymphocytes # APTT Sodium 132 L 133 L Potassium 2.9 L* Chloride 87 L 89 L Carbon Dioxide 33 H 32 H BUN 26 H 41 H Creatinine 1.08 H 1.43 H Glucose POC Glucose (mg/dL) Calcium 10.3 H Phosphorus Magnesium AST ALT Creatine Kinase 767 H TSH Free T4 Urine Protein Urine Ketones Urine Blood Urine WBC Urine Bacteria Hyaline Casts Urine Mucus Ur Random Sodium 02/28/17 02/28/17 07:19 13:07 WBC RBC Hgb Hct MCV MCH RDW Plt Count Neutrophils # Lymphocytes # APTT Sodium Potassium Chloride 94 L Carbon Dioxide 34 H BUN 43 H Creatinine 1.19 H Glucose 72 L POC Glucose (mg/dL) 125 H Calcium Phosphorus Magnesium AST ALT Creatine Kinase TSH Free T4 Urine Protein Urine Ketones Urine Blood Urine WBC Urine Bacteria Hyaline Casts Urine Mucus Ur Random Sodium Assessment and Plan (1) New onset seizure Status: Acute Code(s): R56.9 - UNSPECIFIED CONVULSIONS (2) Acute encephalopathy Status: Acute Code(s): G93.40 - ENCEPHALOPATHY, UNSPECIFIED (3) Delirium Status: Acute Code(s): R41.0 - DISORIENTATION, UNSPECIFIED (4) Dementia Status: Acute Code(s): F03.90 - UNSPECIFIED DEMENTIA WITHOUT BEHAVIORAL DISTURBANCE Plan: This patient is a 56-year-old female who was initially admitted to Hospital on 02/20/2017 with severe hyponatremia and generalized weakness and confusion. Her initial serum sodium was in the low 100s. She was given 3% normal saline. She had made a good recovery and her serum sodium today was 138. Patient was sitting up in the chair and had a witnessed tonic-clonic seizure lasting several minutes. She underwent computed tomography scan of the brain which was negative with no acute stroke or hemorrhage. She underwent routine EEG which reveals moderate to severe slowing consistent with a severe encephalopathy. Her neurological examination is consistent with acute encephalopathy secondary to recent severe hyponatremia. She also has findings of dementia most likely involving temporal lobes. Patient is now under guardianship of her son who is power of banking attorney. Plans are for transfer this patient to [facility] for subacute rehab at the time of discharge. We will continue the patient on levetiracetam at this time. We will check her levels tomorrow morning and adjust her dose as needed. Her overall prognosis at this time remains very guarded. Case was discussed at length with the patient's son who is her power of banking attorney. All of his questions were answered. He is aware of her guarded condition. Time with Patient: Greater than 30
[2017-02-28] MEDS: levETIRAcetam IV 500 MG in SODIUM CHLORIDE 0.9% 100 ML IVPB SCH (21:07)
--- NOTE | 2017-02-28 22:23 | P.PN ---
Subjective Principal diagnosis: progress note dated 02/22/17 A 56-year-old female patient, a very poor historian, obese with previous history of a pituitary adenoma that was resected surgically was not been maintained on any form of pituitary related hormone replacement therapy along with history of thyroid cancer and a previous thyroidectomy who claims not to take any of her thyroid hormone replacements. The patient was brought in to the emergency yesterday due to concerns of generalized weakness, lethargic, and confusion. She was found to be profoundly hyponatremia with an initial sodium 106. . The patient was found to be in mild rhabdomyolysis and her CPK was in the 20, 000 range. She was in acute kidney injury in addition. She denied having any nausea, vomiting, diarrhea, abdominal pain, headache, focal neurological deficits, seizures, or any postictal state. No fever. No chills. No intake of any other medications including hydrochlorothiazide or any other form of diuretics. Apparently the patient has not been taking any medication at all. The patient was started on normal saline and earlier this morning the patient got switched at 3% saline infusion by nephrology. pt is not able to answer or give any history appropriately [facility] that [facility] denies having headaches, blurry vision, nausea, vomiting, diarrhea lives alone 02/23/17 slightly improved pt appears to be confused no other overnight events reported 02/25/2017 Over the last day patient was supposed to be seen by another attending physician however due for the patient to be seen by our service Patient today's has no additional complaints however was staring into the wall during my evaluation States that she is confused 02/26/17 no new overnight events pt continues to act odd, refuses to take medications 02/27/17 no new overnight events 02/28/17 COde blue was called pt had a witnessed seizure was post ictal Objective - Vital Signs Vital signs: Vital Signs Temp 96.7 F L 02/28/17 16:03 Pulse 59 L 02/28/17 16:03 Resp 12 02/28/17 16:03 BP 113/78 02/28/17 16:03 Pulse Ox 97 02/28/17 16:03 Intake & Output 02/28/17 02/28/17 03/01/17 06:59 18:59 06:59 Intake Total 320 Output Total 200 Balance 320 -200 Intake: Oral 320 Output: Urine 200 Other: Voiding Method Bedside Commode Incontinent # Voids 2 1 - Exam Physical examconfused Neck is supple no JVD Lungs good air entry clear to auscultation no rhonchi or wheezing Heart S1-S2 heard regular rate and rhythm no murmurs appreciated Abdomen is soft nontender no organomegaly bowel sounds are intact Neurologically confused post ictal pupils were reactive Skin no abnormalities appreciated Psychiatric on stairs tangential thought fpoor competency to make medical decisions - Labs CBC & Chem 7: 02/25/17 09:31 02/28/17 07:19 Labs: Abnormal Lab Results - Last 24 Hours (Table) 02/28/17 02/28/17 Range/Units 07:19 13:07 Chloride 94 L (98-107) mmol/L Carbon Dioxide 34 H (22-30) mmol/L BUN 43 H (7-17) mg/dL Creatinine 1.19 H (0.52-1.04) mg/dL Glucose 72 L (74-99) mg/dL POC Glucose (mg/dL) 125 H (75-99) mg/dL Assessment and Plan Plan: severe likely chronic euvolemic hyponatremia with symptoms of encephalopathy previous pitutary adenoma s/p resection ten yrs ago Hope hypopituatarism HypothyroIdism obesity Previous history of tobacco use INCOMPETENCY to make decisions New onset seizures PLan Stat CT scan Load keppra Neurology consult MRI w/wo Contrast to rule out brain lesions NA is stable Vitals stable Neurochecks Monitered care during rapid response
[2017-03-01] MEDS: traMADol 50 MG TAB PO SCH ×4 (04:57→23:09)
[2017-03-01 07:46] LABS: Basophils % (A) 0 %; CH 22.1; CHCM 28.4; Eosinophils # (A) 0.2 k/uL (0-0.7); Eosinophils % (A) 2 %; HCT 26.9 % (34.0-46.0); HDW 3.15; Hypochromasia Marked; Luc # (Auto) 0.15; Luc % (Auto) 2; Lymphocytes # (A) 2.4 k/uL (1.0-4.8); Lymphocytes % (A) 39 %; MCH 22.7 pg (25.0-35.0); MCHC 29.2 g/dL (31.0-37.0); MCV 77.9 fL (80.0-100.0); Mean Platelet Volume 6.1; Monocytes # (A) 0.3 k/uL (0-1.0); Monocytes % (A) 6 %; Neutrophils # (A) 3.1 k/uL (1.3-7.7); Neutrophils % (A) 50 %; RBC 3.46 m/uL (3.80-5.40); RDW 15.4 % (11.5-15.5); WBC 6.1 k/uL (3.8-10.6); WBC (Perox) 6.25
[2017-03-01 08:00] LABS: HGB 7.9 gm/dL (11.4-16.0)
[2017-03-01 08:06] LABS: ALT 101 U/L (9-52); AST 66 U/L (14-36); Alkaline Phosphatase 72 U/L (38-126); Anion Gap 10 mmol/L; Blood Urea Nitrogen 32 mg/dL (7-17); Calcium 9.2 mg/dL (8.4-10.2); Carbon Dioxide 29 mmol/L (22-30); Chloride 98 mmol/L (98-107); Glucose 74 mg/dL (74-99); Non-African American GFR(MDRD) 56 (>60 ml/min/1.73 sqM); Potassium 3.8 mmol/L (3.5-5.1); Sodium 137 mmol/L (137-145); Total Bilirubin 0.4 mg/dL (0.2-1.3); Total Protein 6.9 g/dL (6.3-8.2)
[2017-03-01] MEDS: SODIUM CHLORIDE TAB 1 GM TAB PO SCH ×2 (08:08→21:51)
[2017-03-01] MEDS: HEPARIN SODIUM,PORCINE 5,000 UNIT/ML 1 ML VIAL SQ SCH ×3 (08:08→23:09)
[2017-03-01] MEDS: levETIRAcetam IV 500 MG in SODIUM CHLORIDE 0.9% 100 ML IVPB SCH ×2 (08:09→21:50)
[2017-03-01] MEDS: PANTOPRAZOLE 40 MG TABLET PO SCH (08:09)
[2017-03-01] MEDS: NYSTATIN 100,000UNIT/GM CREAM 30 GM TUBE TOPICAL SCH ×2 (08:10→21:52)
[2017-03-01] MEDS: TRIAMCINOLONE 0.1% CREAM 80 GM TUBE TOPICAL SCH ×2 (08:10→21:52)
--- NOTE | 2017-03-01 10:47 | EEG ---
DATE OF EE02/28/2017 REFERRING PHYSICIAN: Dr. Ontiveros INTERPRETING PHYSICIAN: Dr. Julien Buitrago ELECTROENCEPHALOGRAPHIC EXAMINATION REPORT: INDICATION FOR EXAMINATION: This patient is a 56-year-old female admitted to hospital with severe hyponatremia. The patient had witnessed seizure today and EEG for further follow up. AGE: 56. EEG FINDINGS: A routine 21 channel awake, digital EEG recording was accomplished utilizing the 10-20 international system with bipolar and referential montages. The background activity in the most alert resting state consists of a low to medium amplitude, poorly developed and poorly sustained 5 Hz activity over the posterior head regions. This posterior rhythm attenuates minimally to eye opening. There is a small amount of low amplitude 18-20 Hz beta activity seen maximally over the anterior head regions. Muscle and movement artifact was observed on a few occasions during the tracing. Hyperventilation was not performed. Photic stimulation at flash frequencies of 2-30 Hz produced a minimal occipital driving response. No epileptiform discharges were seen. IMPRESSION: This EEG gives evidence of a severe widespread diffuse disturbance in cerebral function. The EEG failed to reveal any focal, lateralized, or epileptiform abnormalities. Clinical correlation is recommended. MTDD
--- NOTE | 2017-03-01 10:51 | PN ---
The patient is seen for follow-up for Hyponatremia and acute kidney injury. Her renal function has improved. The patient has had good oral intake. Potassium had been low which is also now improved. The patient is not on any IV fluids at this time. She has had good oral intake. She remains on sodium chloride 1 gm b.i.d. On examination, blood pressure is 119/76. Heart rate 83 per minute. The patient is afebrile. Examination of the heart S1, S2. Examination of the lungs bilateral breath sounds are heard. Abdomen is soft and nontender. Examination of the lower extremities shows no evidence of edema. Labs show sodium 137, potassium 3.8. Hemoglobin 7.9. Serum creatinine 1.01. ASSESSMENT: 1. Hyponatremia currently improved. May continue with sodium chloride tablets for now. 2. Acute kidney injury appears to be prerenal currently resolved. Serum creatinine back down to 1.01. Continue with good oral intake. 3. Hypokalemia status post replacement. PLAN: Continue with sodium chloride tablet for now. The patient is stable for discharge from nephrology standpoint. She will need to be followed up as outpatient periodically for her sodium level. CARITO
[2017-03-01] MEDS: DIAZEPAM 5 MG TAB PO PRN ×2 (13:47→21:51)
--- NOTE | 2017-03-01 15:25 | P.PN ---
Subjective This patient is a 56 year old female being evaluated for new onset seizure and delerium. The patient has multiple complex medical issues and was admitted on with severe hyponatremia. The patient had a witnessed seizure yesterday and was post-ictal. She had a CT Scan of the brain that was negative for any acute changes. She was started on Levetiracetam for seizure prphylaxsis. She is currently on levetiracetam 500 mg every 12 hours. Her AED level is pending this morning. She is to be scheduled for MRI Brain for further evaluation. Patient was seen by nephrology for further evaluation of her hyponatremia and acute kidney injury. Her renal function apparently is improving. Her serum sodium today is 137. Hemoglobin is 7.9. Patient continues to show evidence of confusion and encephalopathy. Her EEG performed yesterday showed severe slowing consistent with a diffuse metabolic encephalopathy. As noted she is scheduled for MRI of the brain to rule out intracranial lesion. We are awaiting the results of this study. Her overall prognosis was discussed at length with her son who is her power of district attorney. Plans are being made that she will likely need ECF placement. She was seen by a titrate for assessment of competency. As noted power of district attorney is now given to her son. She does have evidence of delirium and probable underlying dementia as well. We will continue close neurological follow-up with this patient during this admission. Her overall prognosis at this time remains very guarded. Objective - Vital Signs Vital signs: Vital Signs Temp 97.5 F L 03/01/17 07:00 Pulse 83 03/01/17 07:00 Resp 18 03/01/17 07:00 BP 119/76 03/01/17 07:00 Pulse Ox 93 L 03/01/17 07:00 Intake & Output 02/28/17 03/01/17 03/01/17 18:59 06:59 18:59 Intake Total 220 Output Total 200 Balance -200 220 Intake: Oral 220 Output: Urine 200 Other: Voiding Method Bedside Commode Incontinent # Voids 1 2 - Exam Physical Examination: PHYSICAL EXAMINATION: Patient is resting comfortably in bed. VITAL SIGNS: Blood pressure is [120/71]. Heart rate is [86]. Respiration is [20] . Temperature is [98.1]. HEENT: Head is atraumatic, neck is supple, there were no carotid bruits. CHEST: Lungs are clear to auscultation and percussion. CARDIAC: S1, S2 normal rate and rhythm. There is no murmur. ABDOMEN: Soft and nontender. Bowel sounds are present. EXTREMITIES: There is no pedal edema. Peripheral pulses are present. Neurological examination: Patient's neurological examination is unchanged from yesterday. She remains encephalopathic and confused. No further seizures have been reported today. - Labs CBC & Chem 7: 03/01/17 07:12 03/01/17 07:12 Labs: Abnormal Lab Results - Last 24 Hours (Table) 02/28/17 03/01/17 03/01/17 Range/Units 13:07 07:12 07:12 RBC 3.46 L (3.80-5.40) m/uL Hgb 7.9 L D (11.4-16.0) gm/dL Hct 26.9 L (34.0-46.0) % MCV 77.9 L (80.0-100.0) fL MCH 22.7 L (25.0-35.0) pg MCHC 29.2 L (31.0-37.0) g/dL BUN 32 H (7-17) mg/dL POC Glucose (mg/dL) 125 H (75-99) mg/dL AST 66 H (14-36) U/L ALT 101 H (9-52) U/L Assessment and Plan (1) New onset seizure Status: Acute Code(s): R56.9 - UNSPECIFIED CONVULSIONS (2) Acute encephalopathy Status: Acute Code(s): G93.40 - ENCEPHALOPATHY, UNSPECIFIED (3) Delirium Status: Acute Code(s): R41.0 - DISORIENTATION, UNSPECIFIED (4) Dementia Status: Acute Code(s): F03.90 - UNSPECIFIED DEMENTIA WITHOUT BEHAVIORAL DISTURBANCE Plan: This patient is a 56-year-old female who was initially admitted to Hospital on 02/20/2017 with severe hyponatremia and generalized weakness and confusion. Her initial serum sodium was in the low 100s. She was given 3% normal saline. She had made a good recovery and her serum sodium today was 138. Patient was sitting up in the chair and had a witnessed tonic-clonic seizure lasting several minutes. She underwent computed tomography scan of the brain which was negative with no acute stroke or hemorrhage. She underwent routine EEG which reveals moderate to severe slowing consistent with a severe encephalopathy. Her neurological examination is consistent with acute encephalopathy secondary to recent severe hyponatremia. She also has findings of dementia most likely involving temporal lobes. Patient is now under guardianship of her son who is power of district attorney. Plans are for transfer this patient to [facility] for subacute rehab at the time of discharge. We will continue the patient on levetiracetam at this time. Her anticonvulsant blood level is pending this morning. We will check her levels tomorrow morning and adjust her dose as needed. Her overall prognosis at this time remains very guarded. Case was discussed at length with the patient's son who is her power of district attorney. All of his questions were answered. Son is making plans for possible discharge to ECF when appropriate. She is being treated for hyponatremia and acute kidney injury and is being followed by nephrology. She has had no further seizures since yesterday. She is to continue on levetiracetam 500 mg every 12 hours. She is scheduled for MRI of the brain to rule out any intracranial lesion. We have discussed all of these findings in detail with the patient's son who is her power of district attorney. He is aware of her guarded condition. We will continue close neurological follow-up of this patient during this admission.
--- NOTE | 2017-03-01 17:06 | P.PN ---
Subjective Principal diagnosis: progress note dated 02/22/17 A 56-year-old female patient, a very poor historian, obese with previous history of a pituitary adenoma that was resected surgically was not been maintained on any form of pituitary related hormone replacement therapy along with history of thyroid cancer and a previous thyroidectomy who claims not to take any of her thyroid hormone replacements. The patient was brought in to the emergency yesterday due to concerns of generalized weakness, lethargic, and confusion. She was found to be profoundly hyponatremia with an initial sodium 106. . The patient was found to be in mild rhabdomyolysis and her CPK was in the 20, 000 range. She was in acute kidney injury in addition. She denied having any nausea, vomiting, diarrhea, abdominal pain, headache, focal neurological deficits, seizures, or any postictal state. No fever. No chills. No intake of any other medications including hydrochlorothiazide or any other form of diuretics. Apparently the patient has not been taking any medication at all. The patient was started on normal saline and earlier this morning the patient got switched at 3% saline infusion by nephrology. pt is not able to answer or give any history appropriately states that she is in [facility] denies having headaches, blurry vision, nausea, vomiting, diarrhea lives alone 02/23/17 slightly improved pt appears to be confused no other overnight events reported 02/25/2017 Over the last day patient was supposed to be seen by another attending physician however due for the patient to be seen by our service Patient today's has no additional complaints however was staring into the wall during my evaluation States that she is confused 02/26/17 no new overnight events pt continues to act odd, refuses to take medications 02/27/17 no new overnight events 02/28/17 COde blue was called pt had a witnessed seizure was post ictal 03/01/17 awake, back to baseline hypertalkative Objective - Vital Signs Vital signs: Vital Signs Temp 98.9 F 03/01/17 14:50 Pulse 86 03/01/17 14:50 Resp 20 03/01/17 14:50 BP 120/71 03/01/17 14:50 Pulse Ox 97 03/01/17 14:50 Intake & Output 02/28/17 03/01/17 03/01/17 18:59 06:59 18:59 Intake Total 220 Output Total 200 Balance -200 220 Intake: Oral 220 Output: Urine 200 Other: Voiding Method Bedside Commode Bedpan Incontinent Incontinent # Voids 1 2 2 # Bowel Movements 0 - Exam Physical exam awake and alert oriented times 3 Neck is supple no JVD Lungs good air entry clear to auscultation no rhonchi or wheezing Heart S1-S2 heard regular rate and rhythm no murmurs appreciated Abdomen is soft nontender no organomegaly bowel sounds are intact Neurologically no focal deficits Skin no abnormalities appreciated Psychiatric on stairs tangential thought fpoor competency to make medical decisions - Labs CBC & Chem 7: 03/01/17 07:12 03/01/17 07:12 Labs: Abnormal Lab Results - Last 24 Hours (Table) 03/01/17 03/01/17 Range/Units 07:12 07:12 RBC 3.46 L (3.80-5.40) m/uL Hgb 7.9 L D (11.4-16.0) gm/dL Hct 26.9 L (34.0-46.0) % MCV 77.9 L (80.0-100.0) fL MCH 22.7 L (25.0-35.0) pg MCHC 29.2 L (31.0-37.0) g/dL BUN 32 H (7-17) mg/dL AST 66 H (14-36) U/L ALT 101 H (9-52) U/L Assessment and Plan Plan: severe likely chronic euvolemic hyponatremia with symptoms of encephalopathy previous pitutary adenoma s/p resection ten yrs ago [place] hypopituatarism HypothyroIdism obesity Previous history of tobacco use INCOMPETENT to make decisions New onset seizures Plan continue keppra serum NA is stable Poss. dc to NH in the next 24 hrs MRI w/wo Contrast to rule out brain lesions
[2017-03-01 21:18] LABS: Glucose,Whole Blood 128 mg/dL (75-99)
[2017-03-02 00:09] VITALS: RESP 16
[2017-03-02] MEDS: traMADol 50 MG TAB PO SCH ×2 (06:40→11:42)
[2017-03-02] MEDS: DIAZEPAM 5 MG TAB PO PRN (06:44)
[2017-03-02] MEDS: HEPARIN SODIUM,PORCINE 5,000 UNIT/ML 1 ML VIAL SQ SCH (07:37)
[2017-03-02] MEDS: levETIRAcetam IV 500 MG in SODIUM CHLORIDE 0.9% 100 ML IVPB SCH (07:37)
[2017-03-02] MEDS: PANTOPRAZOLE 40 MG TABLET PO SCH (07:37)
[2017-03-02] MEDS: SODIUM CHLORIDE TAB 1 GM TAB PO SCH (07:37)
[2017-03-02] MEDS: TRIAMCINOLONE 0.1% CREAM 80 GM TUBE TOPICAL SCH (07:38)
[2017-03-02] MEDS: NYSTATIN 100,000UNIT/GM CREAM 30 GM TUBE TOPICAL SCH (07:38)
[2017-03-02 07:57] VITALS: BP 109/72; PULSE 73; TEMP 98
--- NOTE | 2017-03-02 10:01 | P.PN ---
Subjective Patient is seen in follow-up for hyponatremia. Her sodium level was 106 on admission and has been gradually improving. Her sodium level was up to 137 yesterday morning. She is currently off all IV fluids. Her oral intake is fair. She has been voiding. She is quite confused today and is concerned about her son taking over the guardianship. Vital signs are stable. General: The patient appeared well nourished and normally developed. HEENT: Head exam is unremarkable. Neck is without jugular venous distension. LUNGS: Lungs are clear to auscultation and percussion. Breath sounds decreased. HEART: Rate and Rhythm are regular. First and second heart sounds normal. No murmurs, rubs or gallops. ABDOMEN: Abdominal exam reveals normal bowel sounds. Non-tender and non- distended. No evidence of peritonitis. EXTREMITITES: No clubbing, cyanosis, or edema. Objective - Vital Signs Vital signs: Vital Signs Temp 98 F 03/02/17 07:00 Pulse 73 03/02/17 07:00 Resp 16 03/02/17 07:00 BP 109/72 03/02/17 07:00 Pulse Ox 95 03/02/17 07:00 Intake & Output 03/01/17 03/02/17 03/02/17 18:59 06:59 18:59 Intake Total 300 Balance 300 Intake: Oral 300 Other: Voiding Method Bedpan Bedpan Incontinent Incontinent # Voids 2 1 # Bowel Movements 0 - Labs CBC & Chem 7: 03/01/17 07:12 03/01/17 07:12 Labs: Abnormal Lab Results - Last 24 Hours (Table) 03/01/17 Range/Units 20:58 POC Glucose (mg/dL) 128 H (75-99) mg/dL Assessment and Plan Plan: Assessment: #1. Hyponatremia. Euvolemic at this time. She did require 3% initially on admission and is currently off all IV fluids. Sodium level has been gradually improving and was up to 137 as of yesterday. #2. Rhabdomyolysis on admission. Resolved. #3. History of pituitary tumor status post resection of adenoma. Patient was not hypotensive or hyperkalemic to suggest adrenal insufficiency. #4. Hypercalcemia. Calcium level did get up to 10.3 this admission. Appears to be due to volume contraction. Calcium level is trending down since Lasix discontinued. #5. Altered mental status. EEG did reveal disturbance in the cerebral function. Neurology following. Plan: Maintain 1.2 L fluid restriction. Encourage oral intake, particularly protein. Maintain salt tabs 1 g twice daily. Currently not on any diuretics.
--- NOTE | 2017-03-02 11:56 | P.DS ---
Providers Date of admission: 02/20/17 21:59 Attending physician: Jamel Ontiveros MD Consults: 02/20/17 22:12 Consult Physician Urgent Consulting Provider: Dawit Maria Consult Reason/Comments: Hyponatremia Do you want consulting provider notified?: Already Contacted 02/20/17 22:16 Consult Physician Urgent Consulting Provider: Mariano Medrano Consult Reason/Comments: hyponat Do you want consulting provider notified?: Already Contacted 02/24/17 14:04 Consult Physician Urgent Consulting Provider: Earlene Mendoza Consult Reason/Comments: psychosis, lack of insight, refusal of meds Do you want consulting provider notified?: Yes 02/28/17 13:19 Consult Physician Routine Consulting Provider: Julien Buitrago Consult Reason/Comments: New seizure witnessed Do you want consulting provider notified?: Yes Primary care physician: [facility] Course: A 56-year-old female patient, a very poor historian, obese with previous history of a pituitary adenoma that was resected surgically was not been maintained on any form of pituitary related hormone replacement therapy along with history of thyroid cancer and a previous thyroidectomy who claims not to take any of her thyroid hormone replacements. The patient was brought in to the emergency yesterday due to concerns of generalized weakness, lethargic, and confusion. She was found to be profoundly hyponatremia with an initial sodium 106. . The patient was found to be in mild rhabdomyolysis and her CPK was in the 20, 000 range. She was in acute kidney injury in addition. She denied having any nausea, vomiting, diarrhea, abdominal pain, headache, focal neurological deficits, seizures, or any postictal state. No fever. No chills. No intake of any other medications including hydrochlorothiazide or any other form of diuretics. Apparently the patient has not been taking any medication at all. The patient was started on normal saline and earlier this morning the patient got switched at 3% saline infusion by nephrology. pt is not able to answer or give any history appropriately states that she is in [facility] denies having headaches, blurry vision, nausea, vomiting, diarrhea lives alone 02/23/17 slightly improved pt appears to be confused no other overnight events reported 02/25/2017 Over the last day patient was supposed to be seen by another attending physician however due for the patient to be seen by our service Patient today's has no additional complaints however was staring into the wall during my evaluation States that she is confused 02/26/17 no new overnight events pt continues to act odd, refuses to take medications 02/27/17 no new overnight events 02/28/17 COde manfred was called pt had a witnessed seizure was post ictal 03/01/17 awake, back to baseline hypertalkative 03/02/2017 Awake no new overnight events Physical exam awake and alert oriented times 3 Neck is supple no JVD Lungs good air entry clear to auscultation no rhonchi or wheezing Heart S1-S2 heard regular rate and rhythm no murmurs appreciated Abdomen is soft nontender no organomegaly bowel sounds are intact Neurologically no focal deficits Skin no abnormalities appreciated Psychiatric on stairs tangential thought fpoor competency to make medical decisions Assessment and Plan Plan: severe likely chronic euvolemic hyponatremia with symptoms of encephalopathy previous pitutary adenoma s/p resection ten yrs ago Hoep hypopituatarism HypothyroIdism obesity Previous history of tobacco use INCOMPETENT to make decisions New onset seizures continue Keppra 500 mg by mouth twice a day Continue sodium chloride 1 g twice a day Patient is to follow up with nephrology and neurology Patient Condition at Discharge: Serious Plan - Discharge Summary New Discharge Prescriptions: New Diazepam [Valium] 5 mg PO TID PRN #20 tab PRN Reason: Anxiety Levothyroxine Sodium [Synthroid] 100 mcg PO DAILY@0630 tab Nystatin 100,000Unit/gm Cream [Mycostatin Cream] 1 applic TOPICAL BID dose Sodium Chloride Tab 1 gm PO BID tab levETIRAcetam [Keppra] 500 mg PO Q12HR #60 tab Discontinued traMADol HCl [Ultram] 50 mg PO Q6H No Action Albuterol Nebulized [Ventolin Nebulized] 2.5 mg INHALATION RT-QID PRN PRN Reason: Shortness Of Breath Nystatin/Triamcin [Nystatin-Triamcinolone Cream] 1 applic TOPICAL BID Discharge Medication List Albuterol Nebulized [Ventolin Nebulized] 2.5 mg INHALATION RT-QID PRN 04/14/16 [ History] Nystatin/Triamcin [Nystatin-Triamcinolone Cream] 1 applic TOPICAL BID 04/14/16 [ History] Diazepam [Valium] 5 mg PO TID PRN #20 tab 03/02/17 [Rx] Levothyroxine Sodium [Synthroid] 100 mcg PO DAILY@0630 tab 03/02/17 [Rx] Nystatin 100,000Unit/gm Cream [Mycostatin Cream] 1 applic TOPICAL BID dose [Rx] Sodium Chloride Tab 1 gm PO BID tab 03/02/17 [Rx] levETIRAcetam [Keppra] 500 mg PO Q12HR #60 tab 03/02/17 [Rx] Follow up Appointment(s)/Referral(s): Julien Buitrago MD [STAFF PHYSICIAN] - 1 Week Mariano Medrano DO [STAFF PHYSICIAN] - 1 Week Discharge Disposition: TRANSFER TO SNF/ECF
[2017-03-02] MEDS ORDERED: LORazepam 2 MG/ML SYRINGE IV STA (13:26)
--- NOTE | 2017-03-02 15:07 | MR ---
EXAMINATION TYPE: MR brain wo con DATE OF EXAM: 03/02/2017 COMPARISON: MRI pituitary gland July 17, 2015. CT brain 2 days ago. HISTORY: New Onset of Seizures, hx brain tumor removed 1999 TECHNIQUE: Multiplanar, multisequence imaging of the brain and brainstem is performed without IV cont rast. IV contrast cannot be given as requested due to inability to get venous access. FINDINGS: Diffusion weighted images demonstrate no evidence of a recent infarct or other diffusion abnormality. There is no worrisome extra-axial fluid collection. The ventricular system and cisternal spaces are normal in size and appearance. The brain volume is age appropriate. There are confluent areas of T2 hyperintensity in the periventricular white matter and a few small focal areas in the deep white julius er redemonstrated. Lesions are likely on basis of product of chronic small vessel ischemic change in patient this age. T2 coronal weighted images show hippocampal gyri to appear symmetric and felt withi n normal limits. Midline structures redemonstrates sellar mass with suprasellar extension unchanged in size from prior . The craniocervical junction remains within normal limits. Normal vascular flow voids are present. The visualized sinuses are predominantly clear and the globes are intact. There is 2 cm mucous retent ion cyst or polyp in the anterior inferior left maxillary sinus noted. IMPRESSION: No evidence of new finding seen to account for patient's symptoms. Pituitary macroadenoma redemonstrated felt stable. Mild nonspecific white matter changes likely on basis of product of employee relations administrator shabana small vessel ischemic change.
--- NOTE | 2017-03-02 19:17 | P.PN ---
Subjective This patient is a 56 year old female being evaluated for new onset seizure and delerium. The patient has multiple complex medical issues and was admitted on with severe hyponatremia. The patient had a witnessed seizure yesterday and was post-ictal. She had a CT Scan of the brain that was negative for any acute changes. She was started on Levetiracetam for seizure prphylaxsis. She is currently on levetiracetam 500 mg every 12 hours. Her AED level is pending this morning. She is to be scheduled for MRI Brain for further evaluation. Patient was seen by nephrology for further evaluation of her hyponatremia and acute kidney injury. Her renal function apparently is improving. Her serum sodium today is 137. Hemoglobin is 7.9. Patient continues to show evidence of confusion and encephalopathy. Her EEG performed yesterday showed severe slowing consistent with a diffuse metabolic encephalopathy. As noted she is scheduled for MRI of the brain to rule out intracranial lesion. We are awaiting the results of this study. Her overall prognosis was discussed at length with her son who is her power of claims attorney. Plans are being made that she will likely need ECF placement. She was seen by a titrate for assessment of competency. As noted power of claims attorney is now given to her son. She does have evidence of delirium and probable underlying dementia as well. We will continue close neurological follow-up with this patient during this admission. Patient was able to complete an MRI of the brain today which revealed no evidence of acute stroke or hemorrhage. 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 No evidence of any enhancing lesions were noted. Patient is being considered for possible discharge later today. Her overall prognosis at this time remains very guarded. Objective - Vital Signs Vital signs: Vital Signs Temp 98 F 03/02/17 07:00 Pulse 73 03/02/17 07:00 Resp 16 03/02/17 07:00 BP 109/72 03/02/17 07:00 Pulse Ox 95 03/02/17 07:00 Intake & Output 03/01/17 03/02/17 03/02/17 18:59 06:59 18:59 Intake Total 300 Balance 300 Intake: Oral 300 Other: Voiding Method Bedpan Bedpan Incontinent Incontinent # Voids 2 1 # Bowel Movements 0 - Exam Physical Examination: PHYSICAL EXAMINATION: Patient is resting comfortably in bed. VITAL SIGNS: Blood pressure is [109/72]. Heart rate is [73]. Respiration is [16] . Temperature is [98.0]. HEENT: Head is atraumatic, neck is supple, there were no carotid bruits. CHEST: Lungs are clear to auscultation and percussion. CARDIAC: S1, S2 normal rate and rhythm. There is no murmur. ABDOMEN: Soft and nontender. Bowel sounds are present. EXTREMITIES: There is no pedal edema. Peripheral pulses are present. Neurological examination: Patient's neurological examination is unchanged from yesterday. She remains encephalopathic and confused. No further seizures have been reported today. - Labs CBC & Chem 7: 03/01/17 07:12 03/01/17 07:12 Labs: Abnormal Lab Results - Last 24 Hours (Table) 03/01/17 Range/Units 20:58 POC Glucose (mg/dL) 128 H (75-99) mg/dL Assessment and Plan (1) New onset seizure Status: Acute Code(s): R56.9 - UNSPECIFIED CONVULSIONS (2) Acute encephalopathy Status: Acute Code(s): G93.40 - ENCEPHALOPATHY, UNSPECIFIED (3) Delirium Status: Acute Code(s): R41.0 - DISORIENTATION, UNSPECIFIED (4) Dementia Status: Acute Code(s): F03.90 - UNSPECIFIED DEMENTIA WITHOUT BEHAVIORAL DISTURBANCE Plan: This patient is a 56-year-old female who was initially admitted to Hospital on 02/20/2017 with severe hyponatremia and generalized weakness and confusion. Her initial serum sodium was in the low 100s. She was given 3% normal saline. She had made a good recovery and her serum sodium today was 138. Patient was sitting up in the chair and had a witnessed tonic-clonic seizure lasting several minutes. She underwent computed tomography scan of the brain which was negative with no acute stroke or hemorrhage. She underwent routine EEG which reveals moderate to severe slowing consistent with a severe encephalopathy. Her neurological examination is consistent with acute encephalopathy secondary to recent severe hyponatremia. She also has findings of dementia most likely involving temporal lobes. Patient is now under guardianship of her son who is power of claims attorney. Plans are for transfer this patient to [facility] for subacute rehab at the time of discharge. We will continue the patient on levetiracetam at this time. Her anticonvulsant blood level is pending this morning. We will check her levels tomorrow morning and adjust her dose as needed. Her overall prognosis at this time remains very guarded. Case was discussed at length with the patient's son who is her power of claims attorney. All of his questions were answered. Son is making plans for possible discharge to ECF when appropriate. She is being treated for hyponatremia and acute kidney injury and is being followed by nephrology. She has had no further seizures since yesterday. She is to continue on levetiracetam 500 mg every 12 hours. She is scheduled for MRI of the brain to rule out any intracranial lesion. We have discussed all of these findings in detail with the patient's son who is her power of claims attorney. Patient was able to complete MRI of the brain today which failed to reveal any new lesions. 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 Patient is being considered for discharge later today. Her son is aware of her guarded condition. We will continue close neurological follow-up of this patient during this admission.
== END 2017-03-02 15:08 | DRG 682 ==
LOC: EC 18:31 → EEVIPCON 21:59 → 6ICU 21:59 → 4MS4W 02-22 13:13
PROVIDERS: ADMIT Internal Medicine; ATTEND Internal Medicine
PROC: 0T9B70Z Drainage of Bladder with Drainage Device, Via Natural or Artificial Opening (ICD-10-PCS; principal; 2017-02-20)
DX: N17.9 Acute kidney failure, unspecified (principal); G93.41 Metabolic encephalopathy; M62.82 Rhabdomyolysis; E87.1 Hypo-osmolality and hyponatremia; F03.90 Unspecified dementia, unspecified severity, without behavioral disturbance, psychotic disturbance, mood disturbance, and anxiety; F05 Delirium due to known physiological condition; E89.3 Postprocedural hypopituitarism; M41.9 Scoliosis, unspecified; R56.9 Unspecified convulsions; E83.52 Hypercalcemia; E87.8 Other disorders of electrolyte and fluid balance, not elsewhere classified; I10 Essential (primary) hypertension; E87.6 Hypokalemia; T50.2X5A Adverse effect of carbonic-anhydrase inhibitors, benzothiadiazides and other diuretics, initial encounter; E89.0 Postprocedural hypothyroidism; I73.9 Peripheral vascular disease, unspecified; J45.909 Unspecified asthma, uncomplicated; K58.9 Irritable bowel syndrome, unspecified; E66.9 Obesity, unspecified; I67.9 Cerebrovascular disease, unspecified; T38.1X6A Underdosing of thyroid hormones and substitutes, initial encounter; T46.5X6A Underdosing of other antihypertensive drugs, initial encounter; T40.4X6A Underdosing of other synthetic narcotics, initial encounter; T38.89 Poisoning by, adverse effect of and underdosing of other hormones and synthetic substitutes; K21.9 Gastro-esophageal reflux disease without esophagitis; E86.1 Hypovolemia; R60.0 Localized edema; N81.4 Uterovaginal prolapse, unspecified; D35.2 Benign neoplasm of pituitary gland; F41.9 Anxiety disorder, unspecified; I44.0 Atrioventricular block, first degree; R00.1 Bradycardia, unspecified; K59.09 Other constipation; R32 Unspecified urinary incontinence; Z87.440 Personal history of urinary (tract) infections; Z87.891 Personal history of nicotine dependence; Z87.442 Personal history of urinary calculi; Z85.850 Personal history of malignant neoplasm of thyroid; Z86.73 Personal history of transient ischemic attack (TIA), and cerebral infarction without residual deficits; Z87.39 Personal history of other diseases of the musculoskeletal system and connective tissue; Z71.3 Dietary counseling and surveillance; Z86.19 Personal history of other infectious and parasitic diseases; Z86.010 Personal history of colon polyps; Z82.49 Family history of ischemic heart disease and other diseases of the circulatory system; Z88.6 Allergy status to analgesic agent; Z88.8 Allergy status to other drugs, medicaments and biological substances; Z91.018 Allergy to other foods; Z79.899 Other long term (current) drug therapy
CPT/HCPCS: 36415; 70450; 70551; 71010; 80048; 80053; 80177; 80320; 81001; 82140; 82550; 83605; 83735; 83935; 84100; 84295; 84300; 84439; 84443; 85025; 85610; 85730; 87086; 93005; 94640; 94760; 95819; 96365; 96375; 99291

== ENCOUNTER 2017-05-18 17:43 | Inpatient (IN) | payer MEDICARE, OTHER ==
--- NOTE | 2017-05-18 18:28 | ED ---
General Adult HPI - General Chief complaint: Extremity Injury, Upper Stated complaint: Fall Time Seen by Provider: 05/18/17 18:00 Source: patient Mode of arrival: wheelchair Limitations: no limitations - History of Present Illness Initial comments: Kristy Maldonado is a 56-year-old female with extensive past medical history who presents to the emergency Department today with multiple complaints. Patient reports that she's been feeling fatigued and had a minimally productive cough. She states she fears that she is developing pneumonia because she usually develops pneumonia this time of year. also reports that around midnight last night she was walking to her bathroom, she states that she was using her walker and when she sat down on the toilet she sat down somewhat sideways and slipped off the side the toilet hitting her right shoulder on the countertop next to her. She reports that since that time she has had pain in her shoulder. Patient also states that she has a history of chronic back pain for which she was scheduled to have surgical repair but was unable to, she states that since the fall she's had worsening pain in her neck and back. - Related Data Home Medications Medication Instructions Recorded Confirmed Nystatin/Triamcin 1 applic TOPICAL BID 04/14/16 05/18/17 [Nystatin-Triamcinolone Cream] Diazepam [Valium] 10 mg PO TID 05/18/17 05/18/17 Hydrocortisone Pr Cream 1 applic RECTAL BID 05/18/17 05/18/17 [Proctosol-Hc 2.5%] Omeprazole 20 mg PO DAILY 05/18/17 05/18/17 cloNIDine HCL [Catapres] 0.1 mg PO TID 05/18/17 05/18/17 traMADol HCL [Ultram] 50 mg PO QID PRN 05/18/17 05/18/17 Allergies Allergy/AdvReac Type Severity Reaction Status Date / Time levothyroxine sodium Allergy Severe Anaphylaxis Verified 05/18/17 18:43 [From Synthroid] acetaminophen [From Tylenol] Allergy Swelling Verified 05/18/17 18:43 ibuprofen [From Motrin] Allergy Nausea & Verified 05/18/17 18:43 Vomiting ondansetron HCl AdvReac Rapid Verified 05/18/17 18:43 [From Zofran (as Heart Rate hydrochloride)] cantaloupe Allergy Anaphylaxis Uncoded 05/18/17 18:04 Review of Systems ROS Statement: Those systems with pertinent positive or pertinent negative responses have been documented in the HPI. ROS Other: All systems not noted in ROS Statement are negative. Constitutional: Reports: weakness (Generalized). Denies: fever, chills Eyes: Denies: vision change ENT: Denies: throat pain Respiratory: Reports: cough, wheezes (History of asthma, using updrafts at home) . Denies: dyspnea Cardiovascular: Denies: chest pain, palpitations Endocrine: Reports: fatigue Gastrointestinal: Denies: abdominal pain, nausea, vomiting Genitourinary: Denies: urgency, dysuria, frequency Musculoskeletal: Reports: back pain (Chronic), arthralgia (Pain right shoulder) Skin: Denies: rash, lesions Neurological: Reports: abnormal gait (Walker dependent). Denies: headache, numbness, paresthesias Psychiatric: Reports: anxiety Past Medical History Past Medical History: Asthma, Cancer, CVA/TIA, GERD/Reflux, Hypertension, Thyroid Disorder Additional Past Medical History / Comment(s): history of a pituitary tumor- adenoma that was resected, PROLAPSED UTERUS, Thyroid Cancer post thyroidectomy , SCOLIOSIS, peripheral vascular disease, chronic constipation, IBS, nephrolithiasis, recurrent urinary tract infection, rotator cuff disease, anxiety, extremely poor dentition, previous history of osteomyelitis of the lumbar spine History of Any Multi-Drug Resistant Organisms: None Reported Past Surgical History: Unable to Obtain Additional Past Surgical History / Comment(s): BRAIN SURGERY to remove benign PITUITARY tumor , thyroid removal, egd/colonoscopy(benign polys removed., d&c, kidney stone removed Past Anesthesia/Blood Transfusion Reactions: No Reported Reaction Additional Past Anesthesia/Blood Transfusion Reaction / Comment(s): BLOOD TRANSFUSION-NO REACTION Past Psychological History: Anxiety Smoking Status: Never smoker Past Alcohol Use History: None Reported Past Drug Use History: None Reported - Past Family History Father Family Medical History: Unable to Obtain Additional Family Medical History / Comment(s): - HAD THE " MAKER" Mother Family Medical History: Unable to Obtain Additional Family Medical History / Comment(s): AAA General Exam Limitations: no limitations General appearance: alert, other (Chronically ill-appearing, pale, appears much older than stated age) Head exam: Present: atraumatic, normocephalic Eye exam: Present: normal appearance, PERRL. Absent: conjunctival injection ENT exam: Present: other (Very poor dentition, multiple broken teeth) Neck exam: Present: tenderness (Tenderness to the paraspinal muscles), full ROM Respiratory exam: Present: wheezes. Absent: respiratory distress Cardiovascular Exam: Present: regular rate, normal rhythm GI/Abdominal exam: Present: soft. Absent: distended, tenderness Extremities exam: Present: normal capillary refill. Absent: pedal edema Right Shoulder Exam: Present: tenderness. Absent: full ROM Upper Arm exam: Present: tenderness. Absent: full ROM Elbow exam: Present: full ROM. Absent: tenderness Forearm Wrist exam: Present: full ROM. Absent: tenderness Hand Wrist exam: Present: full ROM. Absent: tenderness Neuro motor exam: Present: wrist extension intact, fingers 2-5 abduction intact Vascular: Present: radial pulse, ulnar pulse Back exam: Present: muscle spasm, paraspinal tenderness Neurological exam: Present: alert, oriented X3 Psychiatric exam: Present: depressed, anxious Skin exam: Present: warm, dry, pallor Course Vital Signs 05/18/17 18:00 Temperature 98.5 F Pulse Rate 85 Respiratory 20 Rate Blood Pressure 150/90 O2 Sat by Pulse 95 Oximetry - Reevaluation(s) Reevaluation #1: Patient requesting food and pain medications 05/18/17 20:27 Medical Decision Making - Medical Decision Making Patient was seen in a facility, history was obtained from the patient and review of medical record Patient with a fall and possibly prolonged down time now complaining of worsened chronic pain in her neck and pain in her right shoulder X-rays ordered Labs reveal rhabdo with a CPK greater than 1400 Kidney function appears to be at baseline Anemia is improving X-rays with no acute injuries Labs and x-ray imaging were discussed with the patient's primary care physician who is very familiar with the patient. He accepts the patient admission for rhabdomyolysis due to fall. Admission orders placed - Lab Data Result diagrams: 05/18/17 18:35 05/18/17 18:35 Lab Results 05/18/17 05/18/17 05/18/17 Range/Units 18:35 18:35 19:31 WBC 7.4 (3.8-10.6) k/uL RBC 4.13 (3.80-5.40) m/uL Hgb 8.4 L (11.4-16.0) gm/dL Hct 30.0 L (34.0-46.0) % MCV 72.4 L (80.0-100.0) fL MCH 20.4 L (25.0-35.0) pg MCHC 28.1 L (31.0-37.0) g/dL RDW 16.0 H (11.5-15.5) % Plt Count 376 (150-450) k/uL Neutrophils % 52 % Lymphocytes % 29 % Monocytes % 5 % Eosinophils % 9 % Basophils % 2 % Neutrophils # 3.8 (1.3-7.7) k/uL Lymphocytes # 2.1 (1.0-4.8) k/uL Monocytes # 0.4 (0-1.0) k/uL Eosinophils # 0.7 (0-0.7) k/uL Basophils # 0.1 (0-0.2) k/uL Hypochromasia Marked Microcytosis Moderate Sodium 138 (137-145) mmol/L Potassium 3.1 L (3.5-5.1) mmol/L Chloride 98 (98-107) mmol/L Carbon Dioxide 23 (22-30) mmol/L Anion Gap 17 mmol/L BUN 19 H (7-17) mg/dL Creatinine 1.24 H (0.52-1.04) mg/dL Est GFR (MDRD) Af Amer 54 (>60 ml/min/1.73 sqM) Est GFR (MDRD) Non-Af 44 (>60 ml/min/1.73 sqM) Glucose 80 (74-99) mg/dL Calcium 10.0 (8.4-10.2) mg/dL Total Bilirubin 0.3 (0.2-1.3) mg/dL AST 84 H (14-36) U/L ALT 66 H (9-52) U/L Alkaline Phosphatase 85 (38-126) U/L Creatine Kinase 1465 H (30-135) U/L Total Protein 9.0 H (6.3-8.2) g/dL Albumin 4.9 (3.5-5.0) g/dL Urine Color Light Yellow Urine Appearance Cloudy H (Clear) Urine pH 6.5 (5.0-8.0) Ur Specific [place] 1.003 (1.001-1.035) Urine Protein Negative (Negative) Urine Glucose (UA) Negative (Negative) Urine Ketones Negative (Negative) Urine Blood Negative (Negative) Urine Nitrite Negative (Negative) Urine Bilirubin Negative (Negative) Urine Urobilinogen <2.0 (<2.0) mg/dL Ur Leukocyte Esterase Moderate H (Negative) Urine RBC 10 H (0-5) /hpf Urine WBC 9 H (0-5) /hpf Ur Squamous Epith Cells <1 (0-4) /hpf Urine Bacteria Occasional H (None) /hpf Urine Mucus Rare H (None) /hpf Disposition Clinical Impression: Rhabdomyolysis Disposition: ADMITTED IP TO THIS HOSP Condition: Good Referrals: Spencer Delgado MD [Primary Care Provider] - 1-2 days Time of Disposition: 20:59
[2017-05-18 19:06] LABS: Basophils # (A) 0.1 k/uL (0-0.2); Basophils % (A) 2 %; CH 20.7; CHCM 28.6; Eosinophils # (A) 0.7 k/uL (0-0.7); Eosinophils % (A) 9 %; HDW 3.23; HGB 8.4 gm/dL (11.4-16.0); Hypochromasia Marked; Luc # (Auto) 0.33; Luc % (Auto) 4; Lymphocytes # (A) 2.1 k/uL (1.0-4.8); Lymphocytes % (A) 29 %; MCH 20.4 pg (25.0-35.0); MCHC 28.1 g/dL (31.0-37.0); MCV 72.4 fL (80.0-100.0); Mean Platelet Volume 6.4; Microcytosis Moderate; Monocytes # (A) 0.4 k/uL (0-1.0); Monocytes % (A) 5 %; Neutrophils # (A) 3.8 k/uL (1.3-7.7); Neutrophils % (A) 52 %; RBC 4.13 m/uL (3.80-5.40); WBC 7.4 k/uL (3.8-10.6); WBC (Perox) 7.04
[2017-05-18 19:12] LABS: Potassium 3.1 mmol/L (3.5-5.1); Total Bilirubin 0.3 mg/dL (0.2-1.3)
--- NOTE | 2017-05-18 19:38 | XR ---
EXAMINATION TYPE: XR chest 2V DATE OF EXAM: 05/18/2017 COMPARISON: 02/27/2017 HISTORY: Pain after fall several days ago TECHNIQUE: Frontal and lateral views of the chest are obtained. FINDINGS: There is no focal air space opacity, pleural effusion, or pneumothorax seen. The cardiac silhouette size is within normal limits. The osseous structures are intact. IMPRESSION: No acute cardiopulmonary process.
--- NOTE | 2017-05-18 19:40 | XR ---
PROCEDURE: XR cervical spine comp - 6V DATE AND TIME: 05/18/2017 7:14 PM REFERRING PHYSICIAN: Patricia Bullard DO CLINICAL INDICATION: PHH, fall, hit right shoulder, hx of chronic neck pain TECHNIQUE: Department protocol. 6 views were obtained. COMPARISON: 10/24/2014 FINDINGS: There is no fracture or malalignment. The soft tissues are unremarkable. IMPRESSION: NO ACUTE PROCESS.
--- NOTE | 2017-05-18 19:42 | XR ---
PROCEDURE: XR shoulder complete RT DATE AND TIME: 05/18/2017 7:14 PM REFERRING PHYSICIAN: Patricia Bullard DO CLINICAL INDICATION: PHH, Pain TECHNIQUE: Department protocol. 3V. COMPARISON: None FINDINGS: There is no fracture or malalignment. The soft tissues are unremarkable. IMPRESSION: NO ACUTE PROCESS.
[2017-05-18 19:51] LABS: Appearance,Urine Cloudy (Clear); Bacteria,Urine Occasional /hpf; Bilirubin,Urine Negative (Negative); Glucose,Urine (UA) Negative (Negative); Ketones,Urine Negative (Negative); Leukocyte Esterase,Urine Moderate (Negative); Mucus,Urine Rare /hpf; Nitrite,Urine Negative (Negative); PH, Urine 6.5 (5.0-8.0); Particle Count 5308; Protein,Urine Negative (Negative); RBC,Urine 10 /hpf (0-5); Specific Gravity,Urine 1.003 (1.001-1.035); Squamous Epithelial Cell,Urine <1 /hpf (0-4); UA Billing (MACRO vs. MICRO) MICRO; Urobilinogen,Urine <2.0 mg/dL (<2.0); WBC,Urine 9 /hpf (0-5)
[2017-05-18] MEDS ORDERED: SODIUM CHLORIDE 0.9% 1,000 ML IV ONE (20:19)
[2017-05-18] MEDS ORDERED: NALOXONE 0.4 MG/ML 1 ML VIAL IV PRN (20:52)
[2017-05-18] MEDS ORDERED: POTASSIUM CHLORIDE ER 20 MEQ TAB.ER PO STA (21:47)
--- NOTE | 2017-05-18 22:44 | HP ---
HISTORY AND PHYSICAL CHIEF COMPLAINT: Hucvy-auath-nupp-old with multiple complaints past medical history. She thought she had pneumonia. She was brought to the emergency room for fatigue and weakness and muscle aches, but she was found to have severely elevated CPK from rhabdomyolysis, as she fell between her walker between the toilet and the wall. She slipped off the toilet, apparently hit her right shoulder on the next to her. Apparently she was trapped there for an unknown period of time. Pain in her neck and lower back. Failed outpatient surgery attempt. HOME MEDICINES: 1. Valium 10 mg t.i.d. 2. Hemorrhoid cream Proctosol. 3. Nystatin. 4. Triamcinolone cream. 5. Omeprazole 20 mg daily. 6. Catapres 0.1 mg t.i.d. 7. Tramadol 50 mg q.i.d. ALLERGIES: 1. SYNTHROID. 2. TYLENOL. 3. MOTRIN. 4. ZOFRAN. 5. CANTALOUPE. REVIEW OF SYSTEMS: Fourteen-point review of systems negative except for mentioned in the HPI. PAST MEDICAL HISTORY: 1. Anxiety. 2. CVA, TIA. 3. Asthma. 4. Cancer. 5. Hypertension. 6. thyroidism. 7. GERD. 8. Pituitary tumor. 9. Adenoma removed. 10.Osteoarthritis. 11.Prolapsed uterus. 12.Thyroid cancer, status post thyroidectomy. 13.Scoliosis. 14.Peripheral vascular disease. 15.Chronic constipation. 16.Irritable bowel syndrome. 17.Nephrolithiasis. 18.Recurrent UTI. 19.Rotator cuff disease. 20.Periodontal disease. 21.Osteomyelitis of the lumbar spine. FAMILY HISTORY: Father had a -maker. Mother had AAA. PHYSICAL EXAMINATION: Chronically ill-appearing female who looks much older than her stated age. Thin, cachectic. Normocephalic, atraumatic. OPHTHALMOLOGIC: Pupils equal, round, reactive to light and accommodation. LUNGS: Wheezes x4. CARDIAC: Heart S1, S2. EXTREMITIES: Pulses. Normal capillary refill. One plus dorsalis pedis, +2 radial pulse. Full range of motion of arms and shoulders and elbows. Neck range of motion decent. Paraspinal tenderness, cervical lumbar spinal muscles. PSYCH: Fair mood and affect. NEUROLOGIC: Alert and oriented x3. Temperature 98.5, pulse 80 to 85, respirations 18 to 20, blood pressure 150s over 90s. Oxygen saturation 95% on room air. ASSESSMENT: 1. Fall at home. 2. Elevated CPK due to rhabdomyolysis. 3. Acute on chronic pain syndrome. 4. Cervical lumbar disc disease. 5. Rotator cuff injury. 6. Acute rhabdomyolysis. 7. Acute on chronic renal insufficiency. 8. Acute on chronic anemia. IV fluids. Laboratory monitoring will be done. Potassium replacement protocol will be done. Hemoglobin will be checked again in the morning. Rehydration will be given. Creatinine will be checked in the morning. She has stage III creatinine insufficiency at this time. UA shows moderate leukocyte esterase, occasional bacteria. Will check a urine culture at this point and see what grows. MMODL / IJN: [id number] /
[2017-05-18] MEDS: cloNIDine HCL 0.1 MG TAB PO SCH (23:14)
[2017-05-18] MEDS: SODIUM CHLORIDE 0.9% 1,000 ML IV SCH (23:15)
[2017-05-18] MEDS: DIAZEPAM 5 MG TAB PO SCH (23:30)
[2017-05-19] VITALS: BMI 28.3
[2017-05-19 02:37] LABS: Appearance,Urine Clear (Clear); Bilirubin,Urine Negative (Negative); Glucose,Urine (UA) Negative (Negative); Ketones,Urine Negative (Negative); Leukocyte Esterase,Urine Moderate (Negative); Nitrite,Urine Negative (Negative); PH, Urine 6.5 (5.0-8.0); Particle Count 660; Protein,Urine Negative (Negative); RBC,Urine <1 /hpf (0-5); Specific Gravity,Urine 1.005 (1.001-1.035); UA Billing (MACRO vs. MICRO) MICRO; Urobilinogen,Urine <2.0 mg/dL (<2.0); WBC,Urine 14 /hpf (0-5)
[2017-05-19] MEDS: PANTOPRAZOLE 40 MG TABLET PO SCH (05:46)
[2017-05-19] MEDS: MORPHINE SULFATE 2 MG/ML SYRINGE IV PRN ×2 (05:46→20:08)
[2017-05-19] MEDS: SODIUM CHLORIDE 0.9% 1,000 ML IV SCH ×4 (05:47→20:08)
[2017-05-19] MEDS: cloNIDine HCL 0.1 MG TAB PO SCH ×3 (08:06→22:03)
[2017-05-19] MEDS: DIAZEPAM 5 MG TAB PO SCH ×3 (08:12→22:03)
[2017-05-19] MEDS: NYSTATIN 100,000UNIT/GM CREAM 30 GM TUBE TOPICAL SCH ×2 (08:12→22:06)
[2017-05-19] MEDS: HYDROCORTISONE 2.5% RECTAL CREAM 30 GM TUBE RECTAL SCH ×2 (08:13→22:06)
[2017-05-19] MEDS: TRIAMCINOLONE 0.1% CREAM 80 GM TUBE TOPICAL SCH ×2 (08:13→22:06)
[2017-05-19 09:24] LABS: ALT 78 U/L (9-52); AST 90 U/L (14-36); Alkaline Phosphatase 98 U/L (38-126); Anion Gap 13 mmol/L; Blood Urea Nitrogen 15 mg/dL (7-17); Calcium 9.2 mg/dL (8.4-10.2); Carbon Dioxide 22 mmol/L (22-30); Chloride 105 mmol/L (98-107); Glucose 76 mg/dL (74-99); Non-African American GFR(MDRD) 51 (>60 ml/min/1.73 sqM); Potassium 3.6 mmol/L (3.5-5.1); Sodium 140 mmol/L (137-145); Total Bilirubin 0.2 mg/dL (0.2-1.3); Total Protein 7.8 g/dL (6.3-8.2)
[2017-05-19 09:25] LABS: Anisocytosis Slight; Basophils # (A) 0.1 k/uL (0-0.2); Basophils % (A) 1 %; CH 21.4; CHCM 29.3; Eosinophils # (A) 0.8 k/uL (0-0.7); Eosinophils % (A) 13 %; HCT 29.9 % (34.0-46.0); HDW 3.28; HGB 8.7 gm/dL (11.4-16.0); Hypochromasia Marked; Luc # (Auto) 0.15; Luc % (Auto) 3; Lymphocytes # (A) 2.1 k/uL (1.0-4.8); Lymphocytes % (A) 37 %; MCH 21.2 pg (25.0-35.0); MCV 73.2 fL (80.0-100.0); Mean Platelet Volume 6.6; Microcytosis Moderate; Monocytes # (A) 0.3 k/uL (0-1.0); Monocytes % (A) 5 %; Neutrophils # (A) 2.4 k/uL (1.3-7.7); Neutrophils % (A) 42 %; RBC 4.08 m/uL (3.80-5.40); RDW 17.2 % (11.5-15.5); WBC 5.8 k/uL (3.8-10.6); WBC (Perox) 6.26
--- NOTE | 2017-05-19 14:19 | CDI ---
In responding to this query, please exercise your independent professional judgment. The [facility] Coding Staff and Clinical Documentation Specialists appreciate your assistance in clarifying documentation, maintaining compliance with coding guidelines, accurately documenting patients condition and capturing severity of illness. The fact that a question is asked does not imply that any particular answer is desired or expected. Communication forms are a method of clarifying documentation and are not made part of the Legal Health Record. Thank you in advance for your clarification. Last Revision, June 2015 Yumiko Hensley [address] [facility] [place] [address] Documentation Clarification Form Date: 05/19/2017 1:53:00 PM From: Calista Leahy Admit Date: 05/18/2017 8:52:00 PM Patient Name: Kristy Maldonado Visit Number: [id number] Discharge Date: Dr. Spencer Delgado Patient presents with a BUN 19, Cr 1.24 GFR 44 05/19/17 BUN 15, Cr 1.10, GFR 51 History/Risk Factors: Asthma, Thyroid Cancer CVA/TIA Hypertension, Pituitary tumor-adenoma Clinical Indicators: Complains of feeling fatigued, generalized weakness, chronically ill-appearing, pale. Treatment: IV Fluids @ 150 mls/hr Monitor Labs In order to capture the severity of condition, please clarify if the condition signifies: Acute renal failure Please specify (if known): Cortical, Medullary, or Tubular Necrosis? Acute kidney injury Acute on chronic renal failure Chronic renal failure, please stage Chronic kidney disease (CKD) and please stage Stage 1 GFR >90 Stage 2 GFR 60-89 Stage 3 GFR 30-59 Stage 4 GFR 15-29 Stage 5 GFR <15 Unable to determine Other, specify Please document in your progress notes and discharge summary in order to capture severity of illness and risk of mortality. Include clinical findings that support your diagnosis. FYI: Press F11 to launch patient chart. CARITO
--- NOTE | 2017-05-19 14:35 | CDI ---
In responding to this query, please exercise your independent professional judgment. The [facility] Coding Staff and Clinical Documentation Specialists appreciate your assistance in clarifying documentation, maintaining compliance with coding guidelines, accurately documenting patients condition and capturing severity of illness. The fact that a question is asked does not imply that any particular answer is desired or expected. Communication forms are a method of clarifying documentation and are not made part of the Legal Health Record. Thank you in advance for your clarification. Last Revision, June 2015 Yumiko Hensley [address] [facility] [place] [address] Documentation Clarification Form Date: 05/19/2017 2:23:00 PM From: Calista Leahy Admit Date: 05/18/2017 8:52:00 PM Patient Name: Kristy Maldonado Visit Number: [id number] Discharge Date: Dr. Spencer Chavez diagnosis of Acute on chronic anemia lacks specificity to accurately reflect your patients severity of condition and clarification is needed. Patient history/risk factors: CVA, TIA, Pituitary tumor, Recurrent UTI, Osteomyelitis of the lumbar spine, Peripheral vascular disease, Thyroid cancer, Hypertension Clinical Indicators: Complains of generalized weakness and fatigue. Hemoglobin: 8.4, 8.7 Hematocrit: 30.0, 29.9 Treatment: monitoring labs In order to capture the severity of condition, please clarify the type of anemia and etiology if known: Acute blood loss anemia Acute on chronic blood loss anemia Chronic blood loss anemia Iron deficiency anemia Hemolytic anemia Drug induced anemia Anemia due to malignancy Nutritional anemia Anemia of chronic kidney disease Unable to determine Other, please specify Please document in your progress notes and discharge summary in order to capture severity of illness and risk of mortality. Include clinical findings that support your diagnosis. FYI: Press F11 to launch patient chart. CARITO
[2017-05-20] MEDS: SODIUM CHLORIDE 0.9% 1,000 ML IV SCH ×3 (02:34→16:20)
[2017-05-20] MEDS: MORPHINE SULFATE 2 MG/ML SYRINGE IV PRN ×2 (02:34→21:35)
[2017-05-20] MEDS: PANTOPRAZOLE 40 MG TABLET PO SCH (05:49)
--- NOTE | 2017-05-20 06:16 | PN ---
PROGRESS NOTE SUBJECTIVE: A 56-year-old, white female with rhabdomyolysis with a fall, sliding off the toilet, landing between the toilet and a cabinet. She is complaining of neck pain, right shoulder pain. X-rays are negative for any fracture. She has an elevated CPK. She has difficulty with movement of her neck and her arm. CARDIOVASCULAR: S1, S2. LUNGS: Clear. PSYCH: Fair mood and affect. NEUROLOGIC: Alert and orient x3. ASSESSMENT: 1. Acute rhabdomyolysis. 2. Dehydration. 3. Acute on chronic renal insufficiency. 4. Chronic renal disease stage III. 5. Generalized debility. 6. Hypothyroidism. Continue with current fluid rehydration, monitor CPK levels, advance diet. Analgesics will be given. MMODL / IJN: [id number] /
[2017-05-20] MEDS: cloNIDine HCL 0.1 MG TAB PO SCH ×3 (08:04→21:28)
[2017-05-20] MEDS: DIAZEPAM 5 MG TAB PO SCH ×3 (08:04→23:47)
[2017-05-20] MEDS: TRIAMCINOLONE 0.1% CREAM 80 GM TUBE TOPICAL SCH ×2 (08:06→21:28)
[2017-05-20] MEDS: NYSTATIN 100,000UNIT/GM CREAM 30 GM TUBE TOPICAL SCH ×2 (08:06→21:28)
[2017-05-20] MEDS: HYDROCORTISONE 2.5% RECTAL CREAM 30 GM TUBE RECTAL SCH ×2 (08:06→21:28)
[2017-05-20] MEDS: traMADol 50 MG TAB PO PRN ×2 (10:45→16:20)
[2017-05-20] MEDS: MAGNESIUM HYDROXIDE 2,400 MG/10 ML CUP PO PRN (10:50)
[2017-05-20] MEDS: TIROSINT 100 MCG PO SCH (11:00)
[2017-05-20] MEDS: ALBUTEROL NEBULIZED 2.5 MG/3 ML INHALATION SCH ×3 (12:03→20:32)
[2017-05-20] MEDS ORDERED: ALBUTEROL NEBULIZED 2.5 MG/3 ML INHALATION PRN (20:42)
[2017-05-21] MEDS: SODIUM CHLORIDE 0.9% 1,000 ML IV SCH ×4 (02:49→20:42)
[2017-05-21] MEDS: MORPHINE SULFATE 2 MG/ML SYRINGE IV PRN ×3 (04:35→22:54)
--- NOTE | 2017-05-21 04:43 | PN ---
PROGRESS NOTE SUBJECTIVE: A female admitted with rhabdomyolysis. CPK is pending. Myalgias and severe arthralgias of the right cervical, right shoulder persist. [facility] is going to see her today. Discussed with her extreme profound hypothyroidism. She will not take any thyroid medicine except . We are trying to get it from her home up to the hospital. She is severely hypothyroid. She has an appointment with Endocrinology as an outpatient. Once her rhabdomyolysis is improved with IV fluids, PT, OT will be consulted. Should be able to discharge home in stable condition in next 24 to 48 hours. MMODL / IJN: [id number] /
[2017-05-21] MEDS: PANTOPRAZOLE 40 MG TABLET PO SCH (08:46)
[2017-05-21] MEDS: TIROSINT 100 MCG PO SCH (08:46)
[2017-05-21] MEDS: cloNIDine HCL 0.1 MG TAB PO SCH ×4 (08:47→21:29)
[2017-05-21] MEDS: HYDROCORTISONE 2.5% RECTAL CREAM 30 GM TUBE RECTAL SCH ×2 (08:50→22:25)
[2017-05-21] MEDS: TRIAMCINOLONE 0.1% CREAM 80 GM TUBE TOPICAL SCH ×2 (08:50→22:25)
[2017-05-21] MEDS: NYSTATIN 100,000UNIT/GM CREAM 30 GM TUBE TOPICAL SCH ×2 (08:50→22:25)
[2017-05-21] MEDS: DIAZEPAM 5 MG TAB PO SCH ×4 (08:53→21:25)
[2017-05-21] MEDS: ALBUTEROL NEBULIZED 2.5 MG/3 ML INHALATION SCH ×4 (09:17→20:49)
--- NOTE | 2017-05-21 09:24 | CDI ---
In responding to this query, please exercise your independent professional judgment. The [facility] Coding Staff and Clinical Documentation Specialists appreciate your assistance in clarifying documentation, maintaining compliance with coding guidelines, accurately documenting patients condition and capturing severity of illness. The fact that a question is asked does not imply that any particular answer is desired or expected. Communication forms are a method of clarifying documentation and are not made part of the Legal Health Record. Thank you in advance for your clarification. Last Revision, June 2015 Yumikojorje Hensley [address] [facility] [place] [address] Documentation Clarification Form Date: 05/21/2017 9:09:00 AM From: Calista Leahy Admit Date: 05/18/2017 8:52:00 PM Patient Name: Kristy Maldonado Visit Number: [id number] Discharge Date: Dr. Spencer Delgado Clinical Indicators: Urine with Moderate High Leukocyte Esterase, WBC 14, Urine bacteria, Occasional high Denies: urgency, dysuria, frequency. Vital signs on admission 150/90 85 20 98.5 Urine Culture Preliminary: Strep agalactiae-(group b), Group D Enterococcus Treatment: Monitor Labs Final results pending IV Fluids Clinical significance of diagnostic testing and treatment CANNOT be assumed or coded without physician documentation of significance if any. Please clarify what abnormal laboratory signifies: Disease process, please specify Infectious process, please specify Abnormal Lab Value (with out infection process, other specify) Unable to determine Other, please specify Please document in your progress notes and discharge summary in order to capture severity of illness and risk of mortality. Include clinical findings that support your diagnosis. FYI: Press F11 to launch patient chart MTDD
--- NOTE | 2017-05-21 09:28 | CDI ---
In responding to this query, please exercise your independent professional judgment. The [facility] Coding Staff and Clinical Documentation Specialists appreciate your assistance in clarifying documentation, maintaining compliance with coding guidelines, accurately documenting patients condition and capturing severity of illness. The fact that a question is asked does not imply that any particular answer is desired or expected. Communication forms are a method of clarifying documentation and are not made part of the Legal Health Record. Thank you in advance for your clarification. Last Revision, June [address] [facility] [place] [address] Documentation Clarification Form Date: 05/19/2017 2:23:00 PM From: Calista Leahy RN, CCDS Admit Date: 05/18/2017 8:52:00 PM Patient Name: Kristy Maldonado Visit Number: [id number] Discharge Date: Dr. Spencer Chavez diagnosis of anemia lacks specificity to accurately reflect your patients severity of condition and clarification is needed. Patient history/risk factors: CVA, TIA, Pituitary tumor, Recurrent UTI, Osteomyelitis of the lumbar spine, Peripheral vascular disease, Thyroid cancer , Hypertension Clinical Indicators: complains of generalized weakness and fatigue. Hemoglobin: 8.4, 8.7 Hematocrit: 30.0, 29.9 Treatment: monitoring labs In order to capture the severity of condition, please clarify the type of anemia and etiology if known: Acute blood loss anemia Acute on chronic blood loss anemia Chronic blood loss anemia Iron deficiency anemia Hemolytic anemia Drug induced anemia Nutritional anemia Anemia of chronic kidney disease Unable to determine Other, please specify Please document in your progress notes and discharge summary in order to capture severity of illness and risk of mortality. Include clinical findings that support your diagnosis. FYI: Press F11 to launch patient chart. CARITO
--- NOTE | 2017-05-21 09:42 | P.CNOR ---
<Shari Morgan - Last Filed: 05/21/17 09:34> History of Present Illness - HPI Consult date: 05/21/17 History of present illness: This is a 56-year-old female admitted with fatigue and lethargy. She had a concern about a possible pneumonia. She states that she also was having some right shoulder and neck pain. She states that her arm slipped off of the counter while getting up off of the commode and she hit her shoulder and chin against the counter. She complains of pain about the right side of her neck down into the shoulder as well as periscapular tenderness. We're consulted for orthopedic evaluation. He complains of no neurologic deficits to the upper extremities other than a generalized weakness. Past Medical History Past Medical History: Asthma, Cancer, CVA/TIA, GERD/Reflux, Hypertension, Thyroid Disorder Additional Past Medical History / Comment(s): history of a pituitary tumor- adenoma that was resected, PROLAPSED UTERUS, Thyroid Cancer post thyroidectomy , SCOLIOSIS, peripheral vascular disease, chronic constipation, IBS, nephrolithiasis, recurrent urinary tract infection, rotator cuff disease, anxiety, extremely poor dentition, previous history of osteomyelitis of the lumbar spine History of Any Multi-Drug Resistant Organisms: None Reported Past Surgical History: Unable to Obtain Additional Past Surgical History / Comment(s): BRAIN SURGERY to remove benign PITUITARY tumor , thyroid removal, egd/colonoscopy(benign polys removed., d&c, kidney stone removed Past Anesthesia/Blood Transfusion Reactions: No Reported Reaction Additional Past Anesthesia/Blood Transfusion Reaction / Comm: BLOOD TRANSFUSION- NO REACTION Past Psychological History: Anxiety Additional Psychological History / Comment(s): pt stated her son lives with her, r hx of falls USES WALKER NEEDED, weak and balance issues.denies having any outside services into the home. Smoking Status: Never smoker Past Alcohol Use History: None Reported Past Drug Use History: None Reported - Past Family History Father Family Medical History: Unable to Obtain Additional Family Medical History / Comment(s): - HAD THE " MAKER" Mother Family Medical History: Unable to Obtain Additional Family Medical History / Comment(s): AAA Medications and Allergies Home Medications Medication Instructions Recorded Confirmed Type Nystatin/Triamcin 1 applic TOPICAL BID 04/14/16 05/18/17 History [Nystatin-Triamcinolone Cream] Diazepam [Valium] 10 mg PO TID 05/18/17 05/18/17 History Hydrocortisone Pr Cream 1 applic RECTAL BID 05/18/17 05/18/17 History [Proctosol-Hc 2.5%] Omeprazole 20 mg PO DAILY 05/18/17 05/18/17 History cloNIDine HCL [Catapres] 0.1 mg PO TID 05/18/17 05/18/17 History traMADol HCL [Ultram] 50 mg PO QID PRN 05/18/17 05/18/17 History Allergies Allergy/AdvReac Type Severity Reaction Status Date / Time levothyroxine sodium Allergy Severe Anaphylaxis Verified 05/18/17 18:43 [From Synthroid] acetaminophen [From Tylenol] Allergy Swelling Verified 05/18/17 18:43 ibuprofen [From Motrin] Allergy Nausea & Verified 05/18/17 18:43 Vomiting ondansetron HCl AdvReac Rapid Verified 05/18/17 18:43 [From Zofran (as Heart Rate hydrochloride)] cantaloupe Allergy Anaphylaxis Uncoded 05/18/17 18:04 Physical Examination This is a 56-year-old female in no acute distress. She is alert and oriented at this time. Exam of the head neck reveal no obvious deformity. She has limited cervical rotation, particularly to the right. There is pain with palpation about the right paraspinal musculature. There is minimal tenderness to the cervical spinous processes. There is no crepitus noted with cervical motion. Exam the upper extremities reveals no obvious deformity. She has active forward flexion to about 120 with passive forward flexion to 170 with mild pain. She has slight limitation in active external and internal rotation. There is no pain on palpation about the anterior lateral shoulder. Strength is +4/5 to the upper extremities with director environmental strength and finger extension. No neurologic deficits noted to the upper extremities. Results X-rays of the right shoulder reveal no bony abnormality. There is mild acromioclavicular joint arthritis noted. Otherwise unremarkable x-ray. X-ray of the cervical spine reveals mild degenerative changes. Fairly well maintained disc height. Mild foraminal stenosis noted. No acute fractures identified. - Labs Labs: Microbiology - Last 24 Hours (Table) 05/18/17 02:20 Urine Culture - Preliminary Urine,Voided Strep agalactiae - (group b) Group D Enterococcus H & H 05/18/17 05/19/17 Range/Units 18:35 07:59 Hgb 8.4 L 8.7 L (11.4-16.0) gm/dL Hct 30.0 L 29.9 L (34.0-46.0) % Result Diagrams: 05/19/17 07:59 05/19/17 07:59 Assessment and Plan (1) Cervical radiculopathy Current Visit: Yes Status: Acute Code(s): M54.12 - RADICULOPATHY, CERVICAL REGION SNOMED Code(s): 31818359 (2) Right shoulder pain Current Visit: Yes Status: Acute Code(s): M25.511 - PAIN IN RIGHT SHOULDER SNOMED Code(s): 70396783 (3) Rhabdomyolysis Current Visit: Yes Status: Acute Code(s): M62.82 - RHABDOMYOLYSIS SNOMED Code(s): 297378114 (4) Acute encephalopathy Current Visit: No Status: Acute Code(s): G93.40 - ENCEPHALOPATHY, UNSPECIFIED SNOMED Code(s): 7960399 Plan: The clinical and x-ray findings are discussed with the patient. I recommended physical therapy and heat to her neck and shoulder. She is to follow-up with Dr. Solorzano once discharged from the hospital. We will continue to follow her progress inpatient. <Mark Solorzano - Last Filed: 05/21/17 10:14> Physical Examination Osteopathic Statement: *. No significant issues noted on an osteopathic structural exam other than those noted in the History and Physical/Consult. Results - Labs Labs: Abnormal Lab Results - Last 24 Hours (Table) 05/21/17 Range/Units 09:08 Creatine Kinase 941 H (30-135) U/L Microbiology - Last 24 Hours (Table) 05/18/17 02:20 Urine Culture - Preliminary Urine,Voided Strep agalactiae - (group b) Group D Enterococcus H & H 05/18/17 05/19/17 Range/Units 18:35 07:59 Hgb 8.4 L 8.7 L (11.4-16.0) gm/dL Hct 30.0 L 29.9 L (34.0-46.0) % Result Diagrams: 05/19/17 07:59 05/19/17 07:59 Assessment and Plan Plan: The patient is seen and examined at bedside I discussed case with any Morgan and I agree with her dictation above. The patient has myofascial strain in her cervical spine. She also has some scoliosis at her thoracolumbar spine and chronic low back pain. I do not think that she has acute fracture at her shoulder but may have some soft tissue injury which should do well with conservative management. She is not having neurologic deficit and I do not plan any surgical intervention at this point. I do not plan any further advanced imaging at her spine at this point and I think she should continue with physical therapy warm compress and medical management. I discussed this with her and answered her questions best my ability and she is agreeable.
--- NOTE | 2017-05-21 23:11 | PN ---
PROGRESS NOTE DISCHARGE DIAGNOSES: 1. Rhabdomyolysis. 2. Shoulder and neck contusion. 3. Profound hypothyroidism. The patient is slowly improving from extreme muscle pain in her neck and right shoulder and right arm. She has not been ambulating much. She was told about compliance with her thyroid medication. We are trying to get Endocrinology to see her for her profound hypothyroidism with allergies to many medications. CPK is stable. Continue with IV fluids. Possible discharge home in the next 24 to 48 hours. MMODL / IJN: [id number] /
[2017-05-22] MEDS: SODIUM CHLORIDE 0.9% 1,000 ML IV SCH ×3 (06:07→17:21)
[2017-05-22] MEDS: PANTOPRAZOLE 40 MG TABLET PO SCH (06:07)
[2017-05-22] MEDS: TIROSINT 100 MCG PO SCH (06:07)
[2017-05-22] MEDS: ALBUTEROL NEBULIZED 2.5 MG/3 ML INHALATION SCH ×4 (07:14→20:15)
[2017-05-22] MEDS: MORPHINE SULFATE 2 MG/ML SYRINGE IV PRN (07:22)
[2017-05-22] MEDS: DIAZEPAM 5 MG TAB PO SCH ×3 (07:23→17:33)
[2017-05-22] MEDS: cloNIDine HCL 0.1 MG TAB PO SCH ×4 (07:23→21:21)
[2017-05-22] MEDS ORDERED: THYROID, PORK 30 MG TAB PO SCH (09:45)
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
[2017-05-22] MEDS: HYDROCORTISONE 2.5% RECTAL CREAM 30 GM TUBE RECTAL SCH ×2 (12:42→21:19)
[2017-05-22] MEDS: NYSTATIN 100,000UNIT/GM CREAM 30 GM TUBE TOPICAL SCH ×2 (12:43→21:19)
[2017-05-22] MEDS: TRIAMCINOLONE 0.1% CREAM 80 GM TUBE TOPICAL SCH ×2 (12:44→21:19)
[2017-05-22] MEDS: traMADol 50 MG TAB PO PRN (12:48)
[2017-05-22] MEDS: CIPROFLOXACIN HCL 500 MG TAB PO SCH (12:48)
[2017-05-22 15:53] LABS: Iron Saturation 2.92 (12.00-45.00)
[2017-05-22] MEDS: HEPARIN SODIUM,PORCINE 5,000 UNIT/ML 1 ML VIAL SQ SCH (17:20)
[2017-05-22] MEDS: MORPHINE SULFATE 10 MG/ML SYRINGE IV PRN (21:28)
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
[2017-05-23] MEDS: DIAZEPAM 5 MG TAB PO SCH ×5 (00:36→22:19)
[2017-05-23] MEDS: HEPARIN SODIUM,PORCINE 5,000 UNIT/ML 1 ML VIAL SQ SCH ×4 (00:37→23:14)
[2017-05-23] MEDS: SODIUM CHLORIDE 0.9% 1,000 ML IV SCH ×4 (02:51→22:09)
[2017-05-23] MEDS: MORPHINE SULFATE 10 MG/ML SYRINGE IV PRN ×3 (05:39→23:10)
[2017-05-23] MEDS: PANTOPRAZOLE 40 MG TABLET PO SCH ×2 (05:56→08:03)
[2017-05-23] MEDS: TIROSINT 100 MCG PO SCH (05:56)
[2017-05-23] MEDS: ALBUTEROL NEBULIZED 2.5 MG/3 ML INHALATION SCH ×4 (07:01→20:16)
[2017-05-23 07:04] LABS: Glucose,Whole Blood 71 mg/dL (75-99)
[2017-05-23] MEDS: HYDROCORTISONE 2.5% RECTAL CREAM 30 GM TUBE RECTAL SCH ×2 (08:02→22:09)
[2017-05-23] MEDS: TRIAMCINOLONE 0.1% CREAM 80 GM TUBE TOPICAL SCH ×2 (08:02→22:08)
[2017-05-23] MEDS: NYSTATIN 100,000UNIT/GM CREAM 30 GM TUBE TOPICAL SCH ×2 (08:02→22:09)
[2017-05-23] MEDS: cloNIDine HCL 0.1 MG TAB PO SCH ×3 (08:03→22:10)
[2017-05-23] MEDS: CIPROFLOXACIN HCL 500 MG TAB PO SCH (08:17)
[2017-05-23 09:05] LABS: ALT 54 U/L (9-52); AST 53 U/L (14-36); Alkaline Phosphatase 78 U/L (38-126); Anion Gap 12 mmol/L; Blood Urea Nitrogen 7 mg/dL (7-17); Calcium 8.7 mg/dL (8.4-10.2); Carbon Dioxide 23 mmol/L (22-30); Chloride 108 mmol/L (98-107); Glucose 81 mg/dL (74-99); Non-African American GFR(MDRD) 60 (>60 ml/min/1.73 sqM); Potassium 3.8 mmol/L (3.5-5.1); Sodium 143 mmol/L (137-145); Total Bilirubin <0.1 mg/dL (0.2-1.3); Total Protein 7.6 g/dL (6.3-8.2)
--- NOTE | 2017-05-23 15:01 | PN ---
PROGRESS NOTE DATE OF SERVICE: She was seen on 05/23/2017 She is sleepy, but arousable. Does not seem to be in respiratory distress. She has no pain. On physical examination, respiratory rate is 18, pulse rate of 80, temperature 97.8, blood pressure 137/99. HEENT is unremarkable. Chest reveals decreased breath sounds. Cardiovascular system reveals an S1, S2. Abdomen is soft. There is no pedal edema. Sodium is 143, potassium 3.8, chloride 108, bicarb 23, BUN 7, creatinine 0.96. IMPRESSION AT THIS TIME: 1. Acute kidney injury. 2. Hypothyroidism. 3. Thyroid cancer, status post thyroidectomy. 4. Status post pituitary adenoma and resection. 5. Cerebrovascular accident. 6. Anxiety and depression. Continue current medications. Continue to keep her hydrated. Increase her activity level. Discharge planning is in progress. MMARLEYL / ROBERTN: [id number] /
[2017-05-24] MEDS: SODIUM CHLORIDE 0.9% 1,000 ML IV SCH ×5 (04:20→22:04)
[2017-05-24] MEDS: TIROSINT 100 MCG PO SCH (06:14)
[2017-05-24] MEDS: PANTOPRAZOLE 40 MG TABLET PO SCH (06:15)
[2017-05-24] MEDS: traMADol 50 MG TAB PO PRN (06:25)
[2017-05-24] MEDS: ALBUTEROL NEBULIZED 2.5 MG/3 ML INHALATION SCH ×4 (07:28→20:43)
[2017-05-24] MEDS: HEPARIN SODIUM,PORCINE 5,000 UNIT/ML 1 ML VIAL SQ SCH ×2 (07:34→17:58)
[2017-05-24] MEDS: CIPROFLOXACIN HCL 500 MG TAB PO SCH (09:17)
[2017-05-24] MEDS: HYDROCORTISONE 2.5% RECTAL CREAM 30 GM TUBE RECTAL SCH ×2 (09:21→22:01)
[2017-05-24] MEDS: DIAZEPAM 5 MG TAB PO SCH ×4 (09:21→22:19)
[2017-05-24] MEDS: cloNIDine HCL 0.1 MG TAB PO SCH ×3 (09:21→22:22)
[2017-05-24] MEDS: NYSTATIN 100,000UNIT/GM CREAM 30 GM TUBE TOPICAL SCH ×2 (09:21→22:03)
[2017-05-24] MEDS: TRIAMCINOLONE 0.1% CREAM 80 GM TUBE TOPICAL SCH ×2 (09:22→22:01)
[2017-05-24] MEDS: MORPHINE SULFATE 10 MG/ML SYRINGE IV PRN ×2 (13:22→18:45)
--- NOTE | 2017-05-24 19:09 | PN ---
PROGRESS NOTE DATE OF SERVICE: 05/24/17 She was seen again on May 24, 2017. She has been hemodynamically stable. She is not short of breath. She has been walking. On physical examination, her blood pressure is 140/83 respiratory rate of 16, pulse 85, temperature 97.7, O2 saturation on room air is 100%. HEENT is unremarkable. Chest is clear. Cardiovascular system with an S1, S2. Abdomen is soft. There is no pedal edema. IMPRESSION: At this time is: 1. Acute kidney injury. 2. Hypothyroidism. 3. Thyroid cancer status post thyroidectomy. 4. Status post pituitary adenoma resection. 5. Cerebrovascular accident. 6. Anxiety and depression. RECOMMENDATIONS: Continue on the current medications. Keep her hydrated. Increase activity level. Discharge planning is in progress for tomorrow once all arrangements are made. MMODL / IJN: [id number] /
[2017-05-24] MEDS: MAGNESIUM HYDROXIDE 2,400 MG/10 ML CUP PO PRN (22:01)
[2017-05-25] MEDS: HEPARIN SODIUM,PORCINE 5,000 UNIT/ML 1 ML VIAL SQ SCH ×4 (00:28→22:57)
[2017-05-25] MEDS: SODIUM CHLORIDE 0.9% 1,000 ML IV SCH ×4 (02:25→17:08)
[2017-05-25] MEDS: MORPHINE SULFATE 10 MG/ML SYRINGE IV PRN ×4 (03:54→21:12)
[2017-05-25] MEDS: PANTOPRAZOLE 40 MG TABLET PO SCH (05:49)
[2017-05-25] MEDS: TIROSINT 100 MCG PO SCH (05:50)
[2017-05-25] MEDS: ALBUTEROL NEBULIZED 2.5 MG/3 ML INHALATION SCH ×4 (08:49→20:53)
[2017-05-25] MEDS: DIAZEPAM 5 MG TAB PO SCH ×3 (09:18→21:00)
[2017-05-25] MEDS: cloNIDine HCL 0.1 MG TAB PO SCH ×3 (09:18→21:01)
[2017-05-25] MEDS: HYDROCORTISONE 2.5% RECTAL CREAM 30 GM TUBE RECTAL SCH ×2 (09:18→21:01)
[2017-05-25] MEDS: CIPROFLOXACIN HCL 500 MG TAB PO SCH (09:18)
[2017-05-25] MEDS: NYSTATIN 100,000UNIT/GM CREAM 30 GM TUBE TOPICAL SCH ×2 (09:19→21:06)
[2017-05-25] MEDS: TRIAMCINOLONE 0.1% CREAM 80 GM TUBE TOPICAL SCH ×2 (09:19→21:01)
--- NOTE | 2017-05-25 10:54 | CDI ---
In responding to this query, please exercise your independent professional judgment. The [facility] Coding Staff and Clinical Documentation Specialists appreciate your assistance in clarifying documentation, maintaining compliance with coding guidelines, accurately documenting patients condition and capturing severity of illness. The fact that a question is asked does not imply that any particular answer is desired or expected. Communication forms are a method of clarifying documentation and are not made part of the Legal Health Record. Thank you in advance for your clarification. Last Revision, June 2015 Yumiko Hensley [address] [place] [address] Documentation Clarification Form Date: 05/25/2017 10:15:00 AM From: Calista Leahy RN, CCDS Admit Date: 05/18/2017 8:52:00 PM Patient Name: Kristy Maldonado Visit Number: [id number] Discharge Date: Dr. Darline Solorzano/Shari Morgan PA-C Acute encephalopathy is in documented in your consult on 05/21/17 Patient history/risk factors Asthma, Thyroid Cancer, Hypertension, Osteomyelitis of the lumbar spine Clinical Indicators: Admitted with fatigue and lethargy. She was having right shoulder and neck pain after slipped off the counter while getting up off of the commode. Lab findings: WBC 7.4, HGB 8.4, HCT 30.0, TSH 59.300, CPK 1465; UA : Leukocyte Esterase Moderate, Urine WBC 14, Urine Culture: strep agalactiae. Vital Signs on admission: 159/90 85 20 98.5 95 % RA Other Clinical Indicators: Case management assessment: Interview patient was hard to keep on topic and had to redirect the patient multiple times back to our conversation, when mention to the patient shat she seemed scattered and confused. Patient blames her confusion and concentration, on the medication that she took this morning. Treatment: Cipro PO IV Fluids (per orders) Neurological assessment per protocol In your professional opinion, can you please further clarify acute encephalopathy? Metabolic Encephalopathy ( due to, (specify cause if known) Toxic Encephalopathy (due to, (specify cause if known Other (specify) Unable to determine Please document in your progress notes in order to capture severity of illness and risk of mortality. Include clinical findings that support your diagnosis. FYI: Press F11 to launch patient chart. CARITO
--- NOTE | 2017-05-25 18:36 | PN ---
PROGRESS NOTE This is a white female who states she was given a shot of morphine a couple hours ago for rectal pain. She apparently had a self-induced rectal disimpaction by herself. She has been up walking. She states she wants to be discharged home in the morning. She is not quite ready to go home. Her blood pressure is 140s over 80s, respiratory rate 16 to 18, pulse 80 to 90, temperature 97.7. Oxygen is 100%. CARDIOVASCULAR: S1, S2. Abdomen is soft. MUSCULOSKELETAL: She was 4 to 5 pain in her right shoulder and right neck, tender to palpation on the right anterior shoulder and the right cervical spine. ASSESSMENT: 1. Acute on chronic renal injury. 2. Hypothyroidism. 3. Thyroid cancer. 4. Status post pituitary adenoma resection. 5. Cerebrovascular accident. 6. Anxiety. 7. Depression. 8. Acute rhabdomyolysis, improving. IV will be Hep-Locked. Discharge planning. Possible discharge in 24 to 48 hours. MMODL / IJN: [id number] /
[2017-05-26] MEDS: MORPHINE SULFATE 10 MG/ML SYRINGE IV PRN (03:05)
[2017-05-26] MEDS: SODIUM CHLORIDE 0.9% 1,000 ML IV SCH (06:01)
[2017-05-26] MEDS: PANTOPRAZOLE 40 MG TABLET PO SCH (06:01)
[2017-05-26] MEDS: TIROSINT 100 MCG PO SCH (06:01)
[2017-05-26] MEDS: ALBUTEROL NEBULIZED 2.5 MG/3 ML INHALATION SCH (07:31)
[2017-05-26 07:51] VITALS: BP 135/90; PULSE 80; RESP 18; TEMP 97.8
[2017-05-26 08:37] LABS: Calcium 9.3 mg/dL (8.4-10.2); Potassium 4.4 mmol/L (3.5-5.1); Total Bilirubin 0.3 mg/dL (0.2-1.3); Total Protein 7.2 g/dL (6.3-8.2)
[2017-05-26 08:47] LABS: Anisocytosis Slight; CH 21.1; CHCM 29.1; Hypochromasia Marked; Microcytosis Moderate; RDW 17.3 % (11.5-15.5)
[2017-05-26 08:51] LABS: Basophils # (A) 0.1 k/uL (0-0.2); Basophils % (A) 2 %; Eosinophils # (A) 0.5 k/uL (0-0.7); Eosinophils % (A) 11 %; HCT 25.5 % (34.0-46.0); HDW 3.27; HGB 7.4 gm/dL (11.4-16.0); Luc % (Auto) 2; Lymphocytes % (A) 40 %; MCH 21.2 pg (25.0-35.0); Mean Platelet Volume 7.1; Monocytes # (A) 0.4 k/uL (0-1.0); Monocytes % (A) 7 %; Neutrophils # (A) 1.9 k/uL (1.3-7.7); Neutrophils % (A) 38 %; RBC 3.49 m/uL (3.80-5.40); WBC 4.9 k/uL (3.8-10.6); WBC (Perox) 4.86
[2017-05-26] MEDS: CIPROFLOXACIN HCL 500 MG TAB PO SCH (09:16)
[2017-05-26] MEDS: HEPARIN SODIUM,PORCINE 5,000 UNIT/ML 1 ML VIAL SQ SCH (09:16)
[2017-05-26] MEDS: DIAZEPAM 5 MG TAB PO SCH (09:17)
[2017-05-26] MEDS: HYDROCORTISONE 2.5% RECTAL CREAM 30 GM TUBE RECTAL SCH (09:18)
[2017-05-26] MEDS: TRIAMCINOLONE 0.1% CREAM 80 GM TUBE TOPICAL SCH (09:18)
[2017-05-26] MEDS: NYSTATIN 100,000UNIT/GM CREAM 30 GM TUBE TOPICAL SCH (09:19)
[2017-05-26] MEDS: cloNIDine HCL 0.1 MG TAB PO SCH (09:21)
== END 2017-05-26 11:15 | disposition home or self-care (01) | DRG 557 ==
LOC: EC 17:43 → EEVIPCON 17:43 → 5MS5E 20:52
PROVIDERS: ADMIT Family Medicine; ATTEND Family Medicine
DX: M62.82 Rhabdomyolysis (principal); G93.40 Encephalopathy, unspecified; N17.9 Acute kidney failure, unspecified; N18.3 Chronic kidney disease, stage 3 (moderate); F32.9 Major depressive disorder, single episode, unspecified; D64.9 Anemia, unspecified; I12.9 Hypertensive chronic kidney disease with stage 1 through stage 4 chronic kidney disease, or unspecified chronic kidney disease; S10.93XA Contusion of unspecified part of neck, initial encounter; E89.0 Postprocedural hypothyroidism; Z85.850 Personal history of malignant neoplasm of thyroid; E86.0 Dehydration; F41.9 Anxiety disorder, unspecified; G89.4 Chronic pain syndrome; I73.9 Peripheral vascular disease, unspecified; J45.909 Unspecified asthma, uncomplicated; K21.9 Gastro-esophageal reflux disease without esophagitis; K58.9 Irritable bowel syndrome, unspecified; M41.9 Scoliosis, unspecified; Z87.442 Personal history of urinary calculi; G89.29 Other chronic pain; M54.12 Radiculopathy, cervical region; Z79.899 Other long term (current) drug therapy; Z86.73 Personal history of transient ischemic attack (TIA), and cerebral infarction without residual deficits; Z87.440 Personal history of urinary (tract) infections; W19.XXXA Unspecified fall, initial encounter; M54.5 Low back pain; Z88.6 Allergy status to analgesic agent; Z88.8 Allergy status to other drugs, medicaments and biological substances; Z91.018 Allergy to other foods; Y92.009 Unspecified place in unspecified non-institutional (private) residence as the place of occurrence of the external cause
CPT/HCPCS: 36415; 71020; 72050; 80053; 81001; 82550; 82607; 82728; 82746; 83540; 83550; 84439; 84443; 85025; 87077; 87086; 87186; 94640; 96360; 99284

== ENCOUNTER 2018-01-05 15:29 | Emergency (ER) | payer MEDICARE, OTHER ==
[2018-01-05 15:53] VITALS: RESP 18; TEMP 98.7
--- NOTE | 2018-01-05 16:55 | ED ---
General Adult HPI - General Chief complaint: Extremity Injury, Lower Stated complaint: Hip Pain Time Seen by Provider: 01/05/18 15:56 Source: patient, RN notes reviewed Mode of arrival: wheelchair Limitations: no limitations - History of Present Illness Initial comments: Patient 57-year-old male presented to the emergency room today with a chief complaint of right-sided hip pain. Patient states that she's had chronic right hip pain. She does admit that there is no new injury or fall. She states she' s been to that over the last week has been increased. She is unsure if it's related to her try to help her son out at home who meets her heel. She states she was up multiple times last night walking back and forth and believes this may have aggravated it. Patient states she's tried aspirin at home with little relief of symptoms. Patient denies any other complaints or symptoms at this time. Patient denies any recent fever, chills, shortness of breath, chest pain, abdominal pain, nausea or vomiting, visual changes, or any other complaints. - Related Data Home Medications Medication Instructions Recorded Confirmed Albuterol Nebulized [Ventolin 2.5 mg INHALATION RT-Q6H PRN 01/05/18 01/05/18 Nebulized] Aspirin 325 mg PO BID PRN 01/05/18 01/05/18 Allergies Allergy/AdvReac Type Severity Reaction Status Date / Time levothyroxine sodium Allergy Severe Anaphylaxis Verified 01/05/18 16:17 [From Synthroid] acetaminophen [From Tylenol] Allergy Swelling Verified 01/05/18 16:17 ibuprofen [From Motrin] Allergy Nausea & Verified 01/05/18 16:17 Vomiting ondansetron HCl AdvReac Rapid Verified 01/05/18 16:17 [From Zofran (as Heart Rate hydrochloride)] cantaloupe Allergy Anaphylaxis Uncoded 06/03/17 20:45 Review of Systems ROS Statement: Those systems with pertinent positive or pertinent negative responses have been documented in the HPI. ROS Other: All systems not noted in ROS Statement are negative. Past Medical History Past Medical History: Asthma, Cancer, CVA/TIA, GERD/Reflux, Hypertension, Thyroid Disorder Additional Past Medical History / Comment(s): history of a pituitary tumor- adenoma that was resected, PROLAPSED UTERUS, Thyroid Cancer post thyroidectomy , SCOLIOSIS, peripheral vascular disease, chronic constipation, IBS, nephrolithiasis, recurrent urinary tract infection, rotator cuff disease, anxiety, extremely poor dentition, previous history of osteomyelitis of the lumbar spine History of Any Multi-Drug Resistant Organisms: None Reported Past Surgical History: Unable to Obtain Additional Past Surgical History / Comment(s): BRAIN SURGERY to remove benign PITUITARY tumor , thyroid removal, egd/colonoscopy(benign polys removed., d&c, kidney stone removed Past Anesthesia/Blood Transfusion Reactions: No Reported Reaction Additional Past Anesthesia/Blood Transfusion Reaction / Comment(s): BLOOD TRANSFUSION-NO REACTION Past Psychological History: Anxiety Smoking Status: Never smoker Past Alcohol Use History: None Reported Past Drug Use History: None Reported - Past Family History Father Family Medical History: Unable to Obtain Additional Family Medical History / Comment(s): - HAD THE " MAKER" Mother Family Medical History: Unable to Obtain Additional Family Medical History / Comment(s): AAA General Exam - General Exam Comments Initial Comments: General: The patient is awake and alert, in no distress, and does not appear acutely ill. Eye: Pupils are equal, round and reactive to light, extra-ocular movements are intact. No nystagmus. There is normal conjunctiva bilaterally. No signs of icterus. Ears, nose, mouth and throat: There are moist mucous membranes and no oral lesions. Neck: The neck is supple, there is no tenderness or JVD. Cardiovascular: There is a regular rate and rhythm. No murmur, rub or gallop is appreciated. Respiratory: Lungs are clear to auscultation, respirations are non-labored, breath sounds are equal. No wheezes, stridor, rales, or rhonchi. Musculoskeletal: Normal appearance of the right hip no obvious deformity. Is able to bear weight and ambulate. Locally tender over the lateral aspect. No tenderness to the right knee or ankle. Strength 5/5. Sensation intact. Pulses equal bilaterally 2+. Neurological: A&O x 3. CN II-XII intact, There are no obvious motor or sensory deficits. Coordination appears grossly intact. Speech is normal. Skin: Skin is warm and dry and no rashes or lesions are noted. Psychiatric: Cooperative, appropriate mood & affect, normal judgment. Limitations: no limitations Course Vital Signs 01/05/18 15:49 Temperature 98.7 F Pulse Rate 74 Respiratory 18 Rate Blood Pressure 152/77 O2 Sat by Pulse 99 Oximetry - Reevaluation(s) Reevaluation #1: 01/05/18 16:54 X-ray of the right hip and pelvis was ordered. Patient was taken to x-ray. He did receive a call stating that the patient was also complaining of right shoulder pain was hoping to get an x-ray of this at that time. Medical Decision Making - Medical Decision Making Patient 57-year-old female presenting for chronic pain to the right hip. Also complaining about pain to the right shoulder shows she has strength that she was putting heating pads of back to her right hip area trying to make this area feel better. Patient did have x-rays obtained which are negative for any acute abnormalities. Patient does admit this is pain that she's had in the past with no new trauma. Patient and city driver so. The hospital. Advised patient that this is chronic pain that she does need to follow-up family doctor about. Patient will be given one [place] tablet here in the emergency room and discharged to follow-up. Patient states understanding. Disposition Clinical Impression: Chronic hip pain Disposition: HOME SELF-CARE Condition: Good Instructions: Hip Pain (ED) Additional Instructions: Please use medication as discussed. Please follow-up with family doctor in the next 2 days of symptoms have not improved. Please return to emergency room if the symptoms increase or worsen or for any other concerns. Is patient prescribed a controlled substance at d/c from ED?: No Referrals: None,Stated [Primary Care Provider] - 1-2 days Time of Disposition: 17:44
--- NOTE | 2018-01-05 17:25 | XR ---
EXAMINATION TYPE: XR Hip RT and AP Pelvis DATE OF EXAM: 01/05/2018 COMPARISON: NONE HISTORY: Pain TECHNIQUE: AP pelvis and 2 views right hip FINDINGS: Femoral head articulates with the acetabulum. No acute fractures are evident. Follow-up can be performed as clinically indicated. IMPRESSION: 1. Normal right hip
--- NOTE | 2018-01-05 17:26 | XR ---
EXAMINATION TYPE: XR shoulder complete RT DATE OF EXAM: 01/05/2018 COMPARISON: NONE HISTORY: Pain TECHNIQUE: Shoulder examined in 3 FINDINGS: The humeral head articulates with the glenoid. The acromio-clavicular junction is normal. No acute fractures or dislocations are evident. A follow up study can be performed 7-10 days from acute trauma for continued pain. IMPRESSION: 1. Normal Shoulder
[2018-01-05] MEDS ORDERED: HYDROcodone/APAP 5-325MG 1 EACH TAB PO STA (17:40)
[2018-01-05 18:44] VITALS: BP 164/99; PULSE 65
== END 2018-01-05 18:42 | disposition home or self-care (01) ==
LOC: EC 15:29
DX: M25.551 Pain in right hip (principal); G89.29 Other chronic pain; J45.909 Unspecified asthma, uncomplicated; Z85.850 Personal history of malignant neoplasm of thyroid; Z86.73 Personal history of transient ischemic attack (TIA), and cerebral infarction without residual deficits; Z86.018 Personal history of other benign neoplasm; Z88.8 Allergy status to other drugs, medicaments and biological substances; Z88.6 Allergy status to analgesic agent; Z91.018 Allergy to other foods; Z98.890 Other specified postprocedural states
CPT/HCPCS: 73502; 99283

== ENCOUNTER → 2021-04-22 | Outpatient (CLI) | payer MEDICARE, OTHER ==
--- NOTE | 2021-04-22 11:16 | CT ---
EXAMINATION TYPE: CT abdomen pelvis w con DATE OF EXAM: 04/22/2021 COMPARISON: Pelvis 04/19/2015 HISTORY: 60-year-old female R10.2, D97.0 Suprapubic pain, Elevated CEA TECHNIQUE: Contiguous axial scanning of the abdomen and pelvis following administration of 100 ml Iso luis 300 IV contrast. Delayed images through the kidneys and coronal/sagittal reconstructions perform ed. CT DLP: 1243 mGycm Automated exposure control for dose reduction was used. FINDINGS: Heart normal size without pericardial effusion. Lung bases clear without pleural effusion. Liver mildly enlarged measuring at least 18.7 cm. No focal lesion seen. Portal venous system is paten t. No biliary ductal dilatation. Gallbladder demonstrates a phrygian cap. No abnormal gallbladder distention. Adrenal glands, spleen, and pancreas within normal limits. Kidneys show bilateral extra renal pelves with symmetric uptake and excretion of contrast from both k idneys. Small 4 mm nonobstructive left midpole renal calculus. No dilated small bowel, free fluid, or free air. No mesenteric or retroperitoneal lymphadenopathy. Normal appendix. Oral contrast progressed into the ascending colon. There is moderate stool burden. N o pericolonic inflammatory change. Focal annular thickening and narrowing at the mid ascending colon, axial image 35. On corresponding sagittal image 23, this is suspected to represent an area of focal peristalsis. Bladder is urine distended. Uterus is anteverted. Pelvic phleboliths. Both ovaries are visualized. Pe lvic floor relaxation. No abnormal fluid collection in the pelvis or pelvic lymphadenopathy. Bones: Mild degenerative change at the hips. Hypertrophic facet arthropathy lower lumbar spine. IMPRESSION: 1. NONOBSTRUCTIVE 4 MM LEFT RENAL CALCULUS. 2. SHORT SEGMENT ANNULAR THICKENING AND NARROWING OF THE MID ASCENDING COLON, AXIAL IMAGE 35, SUSPECT ED FOCAL PERISTALSIS RATHER THAN ANNULAR NEOPLASM. HOWEVER, THE FINDING SEEMS TO PERSIST ON THE DE LAYED KIDNEY IMAGES AND GIVEN THE PATIENT'S ELEVATED TUMOR MARKER, RECOMMEND DIRECT VISUALIZATION TO FURTHER EVALUATE. 3. PELVIC FLOOR RELAXATION.
== END | disposition home or self-care (01) ==
LOC: RADCTMAIN 06:58
PROVIDERS: ATTEND Family Medicine
DX: C73 Malignant neoplasm of thyroid gland (principal); N20.0 Calculus of kidney; N81.89 Other female genital prolapse; D50.0 Iron deficiency anemia secondary to blood loss (chronic)
CPT/HCPCS: 74177; Q9967

== ENCOUNTER 2021-05-10 11:00 | Day surgery (SDC) | payer MEDICARE, OTHER ==
[2021-05-09 10:18] VITALS: BMI 32.2
[2021-05-10 13:06] VITALS: TEMP 97.6
[2021-05-10] MEDS: LACTATED RINGERS 1,000 ML IV SCH ×2 (13:20→13:43)
[2021-05-10 13:36] LABS: Glucose,Whole Blood 88 mg/dL (75-99)
[2021-05-10] MEDS ORDERED: PROPOFOL 10 MG/ML 20 ML VIAL IV ONE (13:46)
[2021-05-10] MEDS ORDERED: LIDOCAINE 1% INJ 10MG/ML (20 ML MDV) ONE (13:46)
--- NOTE | 2021-05-10 14:29 | P.PCN ---
Date of Procedure: 05/10/21 Procedure(s) Performed: Brief history: Patient is a pleasant 60-year-old white female scheduled for an elective upper endoscopy as well as colonoscopy as a part of evaluation of I deficiency anemia. Procedure performed: Esophagogastroduodenoscopy with biopsy Colonoscopy Preoperative diagnosis: Iron deficiency anemia Anesthesia: MAC Procedure: After informed consent was obtained from the patient was brought into the endoscopy unit and IV sedation was administered by anesthesia under continuous monitoring. Initially upper endoscopy was done. The Olympus GF 160 video endoscope was inserted inserted into the mouth and esophagus intubated without any difficulty and was gradually advanced into the stomach and duodenum and carefully examined. The bulb and second part of the duodenum appeared normal. Abscesses were done from the duodenum to rule out celiac disease. The scope was then withdrawn into the stomach adequately insufflated with air and upon careful examination the antrum had several scattered erosions and a 5 mm ulceration which was biopsied. The body, cardia and fundus appeared normal. The scope was then withdrawn into the esophagus. The GE junction was located at 40 cm to the incisors. It appeared regular with no erythema erosions or ulcerations. Rest of the esophagus appeared normal. Patient tolerated the procedure well. At this time the patient continued to remain sedation. Initial digital rectal examination was normal. Olympus CF 160 video colonoscope was then inserted into the rectum and gradually advanced to the cecum without any difficulty. Careful examination was performed as the scope was gradually being withdrawn. The prep was fair except there was some solid stool in some areas of the colon there was thoroughly irrigated. The cecum, ascending colon, transverse colon, descending colon, sigmoid colon and rectum appeared normal. Retroflexion was performed in the rectum and small internal hemorrhoids were noted. Patient tolerated the procedure well. Impression: 1. Upper endoscopy revealed antral erosive gastritis and small superficial antral ulcers status post biopsy 2. Colonoscopy revealed small internal hemorrhoids but no evidence of colorectal neoplasia Recommendations: Findings of this examination were discussed with the patient as well as her family. She was advised to follow with the biopsy results. She will continue with iron supplements. Will start him on Prilosec 20 mg daily and she was advised to avoid NSAIDs. She was advised to have a repeat screening colonoscopy in 10 years.]
[2021-05-10 14:47] VITALS: BP 121/76; PULSE 59; RESP 18
== END 2021-05-10 15:11 | disposition home or self-care (01) ==
LOC: ORWHC2ENDO 11:00
PROVIDERS: ATTEND Internal Medicine Gastroenterology
DX: K25.9 Gastric ulcer, unspecified as acute or chronic, without hemorrhage or perforation (principal); K29.50 Unspecified chronic gastritis without bleeding; D50.9 Iron deficiency anemia, unspecified; K64.8 Other hemorrhoids; I10 Essential (primary) hypertension; J45.909 Unspecified asthma, uncomplicated; E07.9 Disorder of thyroid, unspecified; K21.9 Gastro-esophageal reflux disease without esophagitis; Z98.890 Other specified postprocedural states; Z97.2 Presence of dental prosthetic device (complete) (partial); Z79.82 Long term (current) use of aspirin; Z79.899 Other long term (current) drug therapy; Z88.6 Allergy status to analgesic agent; Z88.8 Allergy status to other drugs, medicaments and biological substances; Z91.018 Allergy to other foods
CPT/HCPCS: 45378; 43239; 88305; J2001; J2704

== ENCOUNTER → 2021-10-30 | Outpatient (CLI) | payer MEDICARE, OTHER ==
--- NOTE | 2021-10-30 11:39 | US ---
EXAMINATION TYPE: US thyroid st tissue head/neck DATE OF EXAM: 10/30/2021 COMPARISON: CT cervical spine 2014 CLINICAL HISTORY: E03.9 HYPOTHYROIDISM,E07.9 LUMP. Difficulty swallowing, thyroid removed 2000 RIGHT: wnl LEFT: wnl ISTHMUS: wnl Bilateral neck scanned, no evidence of lymphadenopathy. No suspicious recurrent tissue or adenopathy on images saved at level of thyroid bed. IMPRESSION: As above.
== END | disposition home or self-care (01) ==
LOC: RADUSWWP 11:06
PROVIDERS: ATTEND Family Medicine
DX: E03.9 Hypothyroidism, unspecified (principal); E07.9 Disorder of thyroid, unspecified
CPT/HCPCS: 76536

== ENCOUNTER 2022-01-01 12:54 | Emergency (ER) | payer MEDICARE, OTHER ==
[2022-01-01 13:00] VITALS: TEMP 98.2
--- NOTE | 2022-01-01 13:32 | ED ---
General Adult HPI - General Chief complaint: Recheck/Abnormal Lab/Rx Stated complaint: covid+/antibodies Time Seen by Provider: 01/01/22 13:00 Source: patient, RN notes reviewed, old records reviewed Mode of arrival: ambulatory Limitations: no limitations - History of Present Illness Initial comments: This is a 61-year-old female presents emergency department stating that she started having symptoms last of some congestion and some fullness in her ear she was tested and was tested positive for COVID. Patient states she's had symptoms on and off since then no shortness of breath or difficulty breathing she did have an outpatient chest x-ray today. Patient denied any fevers or chills. Patient states she's here because she wanted us to get the monoclonal antibodies. Patient denies any other symptoms at this time. Patient states she does have cancer but she doesn't know what type. - Related Data Home Medications Medication Instructions Recorded Confirmed Albuterol Nebulized [Ventolin 2.5 mg INHALATION RT-Q6H PRN 01/05/18 05/10/21 Nebulized] Aspirin 325 mg PO BID PRN 01/05/18 05/09/21 Allergies Allergy/AdvReac Type Severity Reaction Status Date / Time cantaloupe Allergy Anaphylaxis Verified 01/01/22 13:00 levothyroxine Allergy Anaphylaxis Verified 01/01/22 13:00 ondansetron [From Zofran] Allergy rapid Verified 01/01/22 13:00 heart rate,states "went into First degree AV block" acetaminophen [From Tylenol] AdvReac Nausea & Verified 01/01/22 13:00 Vomiting ibuprofen [From Motrin] AdvReac Nausea & Verified 01/01/22 13:00 Vomiting iron AdvReac itravenous Verified 01/01/22 13:00 iron infusion causes "bowel to stop" Review of Systems ROS Statement: Those systems with pertinent positive or pertinent negative responses have been documented in the HPI. ROS Other: All systems not noted in ROS Statement are negative. Past Medical History Past Medical History: Asthma, Cancer, CVA/TIA, GERD/Reflux, Hypertension, Thyroid Disorder Additional Past Medical History / Comment(s): currently having abdominal pain and distention and thickening of ascending colon,anemia,hx "had resp arrest-was not on vent but was coded not sure when it occurred,"history of a pituitary tumor-adenoma that was resected, PROLAPSED UTERUS, Thyroid Cancer post thyroidectomy, SCOLIOSIS, peripheral vascular disease, chronic constipation, IBS, nephrolithiasis, recurrent urinary tract infection,anxiety, extremely poor dentition, previous history of osteomyelitis of the lumbar spine History of Any Multi-Drug Resistant Organisms: None Reported Past Surgical History: Unable to Obtain Additional Past Surgical History / Comment(s): BRAIN SURGERY to remove benign PITUITARY tumor , thyroid removal, egd/colonoscopy(benign polys removed., d&c, kidney stone removed Past Anesthesia/Blood Transfusion Reactions: No Reported Reaction Additional Past Anesthesia/Blood Transfusion Reaction / Comment(s): BLOOD TRANSFUSION-NO REACTION, states "gas anesthesia interacts with my asthma" Past Psychological History: Anxiety Smoking Status: Never smoker - Past Family History Sister(s) Family Medical History: Cancer Daughter(s) Additional Family Medical History / Comment(s): eosinophilic gastroenteropathy Son(s) Additional Family Medical History / Comment(s): eosinophilic gastroenteropathy Father Family Medical History: Myocardial Infarction ([place]) Additional Family Medical History / Comment(s): - HAD THE " MAKER" Mother Family Medical History: No Reported History Additional Family Medical History / Comment(s): AAA General Exam - General Exam Comments Initial Comments: GENERAL: Patient is well-developed and well-nourished. Patient is nontoxic and well- hydrated and is in no acute distress. ENT: Neck is soft and supple. No significant lymphadenopathy is noted. Oropharynx is clear. Moist mucous membranes. Neck has full range of motion without eliciting any pain. EYES: The sclera were anicteric and conjunctiva were pink and moist. Extraocular movements were intact and pupils were equal round and reactive to light. Eyelids were unremarkable. PULMONARY: Unlabored respirations. Good breath sounds bilaterally. No audible rales rhonchi or wheezing was noted. CARDIOVASCULAR: There is a regular rate and rhythm without any murmurs gallops or rubs. ABDOMEN: Soft and nontender with normal bowel sounds. SKIN: Skin is clear with no lesions or rashes and otherwise unremarkable. NEUROLOGIC: Patient is alert and oriented x3. Cranial nerves II through XII are grossly intact. Motor and sensory are also intact. Normal speech, volume and content. Symmetrical smile. MUSCULOSKELETAL: Normal extremities with adequate strength and full range of motion. LYMPHATICS: No significant lymphadenopathy is noted PSYCHIATRIC: Normal psychiatric evaluation. Limitations: no limitations Course Vital Signs 01/01/22 01/01/22 12:57 15:05 Temperature 98.2 F Pulse Rate 75 66 Respiratory 20 18 Rate Blood Pressure 195/98 166/88 O2 Sat by Pulse 97 97 Oximetry Medical Decision Making - Medical Decision Making Patient received monoclonal antibodies Disposition Clinical Impression: COVID-19 Disposition: HOME SELF-CARE Is patient prescribed a controlled substance at d/c from ED?: No Referrals: Samantha Jc MD [Primary Care Provider] - 1-2 days Time of Disposition: 15:12
[2022-01-01] MEDS ORDERED: BEBTELOVIMAB (EUA) 175 MG/2 ML VIAL IV ONE (14:00)
[2022-01-01 15:05] VITALS: BP 166/88; PULSE 66; RESP 18
== END 2022-01-01 15:35 | disposition home or self-care (01) ==
LOC: EC 12:54
DX: U07.1 COVID-19 (principal)
CPT/HCPCS: 99282; Q0222; 99283

== ENCOUNTER → 2022-01-01 | Outpatient (CLI) | payer MEDICARE, OTHER ==
--- NOTE | 2022-01-01 13:08 | XR ---
EXAMINATION TYPE: XR chest 2V DATE OF EXAM: 01/01/2022 COMPARISON: Chest x-ray 05/18/2017 HISTORY: Cough TECHNIQUE: Frontal and lateral views of the chest are obtained. FINDINGS: There is no focal air space opacity, pleural effusion, or pneumothorax seen. The cardiac silhouette size is within normal limits. Elevation of right hemidiaphragm is again noted. Prominent lung volume could be indicative of underlying COPD. The osseous structures are intact. IMPRESSION: No acute cardiopulmonary process.
== END | disposition home or self-care (01) ==
LOC: RADXRMAIN 12:28
PROVIDERS: ATTEND Family Medicine
DX: R05.9 Cough, unspecified (principal)
CPT/HCPCS: 71046

== ENCOUNTER → 2022-01-25 | Outpatient (CLI) | payer MEDICARE, OTHER ==
[2022-01-25 19:41] LABS: Prolactin 21.2 ng/mL (2.800-29.200); T4, Free (Free Thyroxine) 0.18 ng/dL (0.800-1.800)
[2022-01-26 06:04] LABS: ACTH 26.7 pg/mL (0.00-45.99)
== END | disposition home or self-care (01) ==
LOC: LABWHC1 11:03
PROVIDERS: ATTEND Internal Medicine Endocrinology, Diabetes & Metabolism
DX: C73 Malignant neoplasm of thyroid gland (principal); E03.8 Other specified hypothyroidism; D35.2 Benign neoplasm of pituitary gland
CPT/HCPCS: 36415; 82024; 82533; 84146; 84305; 84432; 84439; 84443; 84481; 86800

== ENCOUNTER → 2022-03-07 | Outpatient (CLI) | payer MEDICARE, OTHER | END | disposition home or self-care (01) | LOC: LABWHC1 11:00 | PROVIDERS: ATTEND Internal Medicine Endocrinology, Diabetes & Metabolism | DX: E03.8 Other specified hypothyroidism (principal) | CPT/HCPCS: 36415; 84443 ==

== ENCOUNTER → 2022-03-25 | Outpatient (CLI) | payer MEDICARE, OTHER ==
--- NOTE | 2022-03-25 11:09 | MR ---
EXAMINATION TYPE: MR brain wo con DATE OF EXAM: 03/25/2022 9:47 AM COMPARISON: MRI brain 03/02/2017, MR Pituitary 07/17/2015. CLINICAL INDICATION:Female, 61 years old with history of Z87.898 PERSONAL HISTORY OF OTHER SPECIFIED CONDIT; TECHNIQUE: Multi planar, multi sequence imaging was performed through the brain including: T1, T2, In version recovery, Diffusion weighted imaging, and gradient echo imaging. No gadolinium was given. 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 No measuring roughly 15 x 16 x 12 mm. The ng-white junctions, ventricular system, and cisterns appear unremarkable. Patchy areas of high T2 signal intensity are seen within the periventricular white matter. Midline structures show no add itional abnormality. Diffusion-weighted imaging shows no evidence of restricted diffusion. The bone marrow signal is within normal limits. The paranasal sinuses demonstrates mild mucosal thick ening. The globes globes are unremarkable. IMPRESSION: 1. Overall the pituitary fossa demonstrates has similar-appearing macroadenoma when given difference s in technique. 2. Nonspecific white matter changes, likely secondary to small vessel ischemic disease. 3. No evidence of acute/subacute infarct.
== END | disposition home or self-care (01) ==
LOC: RADMRIMAIN 07:45
PROVIDERS: ATTEND Nurse Practitioner Family
DX: Z87.898 Personal history of other specified conditions (principal)
CPT/HCPCS: 70551

== ENCOUNTER → 2022-04-21 | Outpatient (CLI) | payer MEDICARE, OTHER | END | disposition home or self-care (01) | LOC: LABWHC1 15:31 | PROVIDERS: ATTEND Internal Medicine Endocrinology, Diabetes & Metabolism | DX: E03.8 Other specified hypothyroidism (principal) | CPT/HCPCS: 36415; 84443 ==

== ENCOUNTER 2022-05-07 12:47 | Emergency (ER) | payer MEDICARE, OTHER ==
[2022-05-07 12:57] VITALS: TEMP 97.8
[2022-05-07] MEDS ORDERED: SODIUM CHLORIDE 0.9% 1,000 ML IV STA (14:27)
[2022-05-07] MEDS ORDERED: METOCLOPRAMIDE 5 MG/ML 2 ML VIAL IVP STA (14:35)
[2022-05-07] MEDS ORDERED: HYDROmorphone 0.5 MG/0.5 ML SYRINGE IVP STA (14:35)
--- NOTE | 2022-05-07 15:16 | ED ---
Abdominal Pain HPI - General Chief Complaint: Abdominal Pain Stated Complaint: abd pain Time Seen by Provider: 05/07/22 14:26 Source: patient, RN notes reviewed Mode of arrival: wheelchair Limitations: no limitations - History of Present Illness Initial Comments: This is a 61-year-old female who presents to the emergency department for epigastric and right flank pain. She has a long-standing history of kidney stones, and states that this feels the same. Symptoms started 1-2 days ago. Reports associated nausea but no vomiting. Denies any burning with urination or blood in the urine. She has been taking rfob-[id number]-[id number] aspirin with no relief, and states that she is taking far more than the recommended dosage. She is unable to tolerate other gond-rgn-bukedjy pain medication due to stomach upset. Denies any fevers, chills, sore throat, cough, dyspnea, chest pain, palpitations, diarrhea, or headaches. MD Complaint: abdominal pain, flank pain Onset/Timin -: days(s) Location: epigastric, R flank Associated Symptoms: nausea - Related Data Home Medications Medication Instructions Recorded Confirmed Albuterol Nebulized [Ventolin 2.5 mg INHALATION RT-Q6H PRN 01/05/18 05/07/22 Nebulized] Furosemide [Lasix] 20 mg PO DAILY PRN 05/07/22 05/07/22 Lansoprazole 30 mg PO HS 05/07/22 05/07/22 Levothyroxine Sodium [Levoxyl] 175 mcg PO DAILY 05/07/22 05/07/22 Metoprolol Succinate [Metoprolol 25 mg PO BID 05/07/22 05/07/22 Succinate ER] Previous Rx's Medication Instructions Recorded HYDROcodone/APAP 5-325MG [Esparto 1 tab PO Q6HR PRN 3 Days #12 tab 05/07/22 5-325] Metoclopramide [Reglan] 10 mg PO Q6H PRN #20 tab 05/07/22 cefUROXime axetiL [Ceftin] 500 mg PO BID 7 Days #14 tab 05/07/22 Allergies Allergy/AdvReac Type Severity Reaction Status Date / Time cantaloupe Allergy Anaphylaxis Verified 05/07/22 17:11 levothyroxine Allergy Anaphylaxis Verified 05/07/22 17:11 ondansetron [From Zofran] Allergy rapid Verified 05/07/22 17:11 heart rate,states "went into First degree AV block" acetaminophen [From Tylenol] AdvReac Nausea & Verified 05/07/22 17:11 Vomiting ibuprofen [From Motrin] AdvReac Nausea & Verified 05/07/22 17:11 Vomiting iron AdvReac itravenous Verified 05/07/22 17:11 iron infusion causes "bowel to stop" Review of Systems ROS Statement: Those systems with pertinent positive or pertinent negative responses have been documented in the HPI. ROS Other: All systems not noted in ROS Statement are negative. Past Medical History Past Medical History: Asthma, Cancer, CVA/TIA, GERD/Reflux, Hypertension, Thyroid Disorder Additional Past Medical History / Comment(s): currently having abdominal pain and distention and thickening of ascending colon,anemia,hx "had resp arrest-was not on vent but was coded not sure when it occurred,"history of a pituitary tumor-adenoma that was resected, PROLAPSED UTERUS, Thyroid Cancer post thyroidectomy, SCOLIOSIS, peripheral vascular disease, chronic constipation, IBS, nephrolithiasis, recurrent urinary tract infection,anxiety, extremely poor dentition, previous history of osteomyelitis of the lumbar spine History of Any Multi-Drug Resistant Organisms: None Reported Past Surgical History: Unable to Obtain Additional Past Surgical History / Comment(s): BRAIN SURGERY to remove benign PITUITARY tumor , thyroid removal, egd/colonoscopy(benign polys removed., d&c, kidney stone removed Past Anesthesia/Blood Transfusion Reactions: No Reported Reaction Additional Past Anesthesia/Blood Transfusion Reaction / Comment(s): BLOOD TRANSFUSION-NO REACTION, states "gas anesthesia interacts with my asthma" Past Psychological History: Anxiety Smoking Status: Never smoker Past Alcohol Use History: None Reported Past Drug Use History: None Reported - Past Family History Sister(s) Family Medical History: Cancer Daughter(s) Additional Family Medical History / Comment(s): eosinophilic gastroenteropathy Son(s) Additional Family Medical History / Comment(s): eosinophilic gastroenteropathy Father Family Medical History: Myocardial Infarction ([place]) Additional Family Medical History / Comment(s): - HAD THE " MAKER" Mother Family Medical History: No Reported History Additional Family Medical History / Comment(s): AAA General Exam Limitations: no limitations General appearance: alert, in no apparent distress Head exam: Present: atraumatic, normocephalic, normal inspection Respiratory exam: Present: normal lung sounds bilaterally. Absent: respiratory distress, wheezes, rales, rhonchi, stridor Cardiovascular Exam: Present: regular rate, normal rhythm, normal heart sounds. Absent: systolic murmur, diastolic murmur, rubs, gallop, clicks GI/Abdominal exam: Present: soft, tenderness (RUQ), normal bowel sounds. Absent: distended Back exam: Present: CVA tenderness (R). Absent: CVA tenderness (L) Neurological exam: Present: alert, oriented X3, CN II-XII intact Psychiatric exam: Present: normal affect, normal mood Skin exam: Present: warm, dry, intact, normal color. Absent: rash Course Vital Signs 05/07/22 05/07/22 05/07/22 12:54 15:31 16:30 Temperature 97.8 F Pulse Rate 74 86 58 L Respiratory 16 20 16 Rate Blood Pressure 160/95 155/85 158/93 O2 Sat by Pulse 97 98 99 Oximetry Medical Decision Making - Medical Decision Making This is a 61-year-old female who presents to the emergency department for right flank and right upper quadrant pain. Lab work was nonactionable. Patient's pain and nausea were controlled in the emergency department. Urinalysis consistent with mild infection. Patient's lab work does not necessitate the need for imaging, however patient requests we proceed with a computed tomography scan. Given her cancer history and history of kidney stones, I am agreeable to this. Computed tomography scan reveals no obstructive uropathy or other acute findings to explain the patient's symptoms. Findings discussed with the patient. She'll be discharged home with antibiotics, pain medication, and nausea medication. I am willing to give her a short course of pain medication, as she is not getting any relief with the aspirin and she is taking for more than the recommended dose. She is advised to take the Esparto sparingly when her pain is the most severe. The antibiotic will be taken for 7 days and the Reglan can be taken up to every 6 hours as needed for nausea and vomiting. Return precautions reviewed in depth, the patient is instructed to return to the emergency department with any new, worsening, or concerning symptoms. Patient verbalized understanding. This case was discussed in detail with the attending ED physician. Presentation, findings, and treatment plan discussed in detail as well. - Lab Data Result diagrams: 05/07/22 15:30 05/07/22 15:30 Lab Results 05/07/22 05/07/22 05/07/22 Range/Units 15:30 15:30 15:30 WBC 8.4 (3.8-10.6) k/uL RBC 5.15 (3.80-5.40) m/uL Hgb 14.3 (11.4-16.0) gm/dL Hct 44.6 (34.0-46.0) % MCV 86.5 (80.0-100.0) fL MCH 27.7 (25.0-35.0) pg MCHC 32.0 (31.0-37.0) g/dL RDW 13.9 (11.5-15.5) % Plt Count 381 (150-450) k/uL MPV 7.2 Neutrophils % 65 % Lymphocytes % 23 % Monocytes % 4 % Eosinophils % 5 % Basophils % 1 % Neutrophils # 5.5 (1.3-7.7) k/uL Lymphocytes # 2.0 (1.0-4.8) k/uL Monocytes # 0.4 (0-1.0) k/uL Eosinophils # 0.4 (0-0.7) k/uL Basophils # 0.1 (0-0.2) k/uL Hypochromasia Slight Sodium 138 (137-145) mmol/L Potassium 4.3 (3.5-5.1) mmol/L Chloride 98 (98-107) mmol/L Carbon Dioxide 27 (22-30) mmol/L Anion Gap 13 mmol/L BUN 14 (7-17) mg/dL Creatinine 0.99 (0.52-1.04) mg/dL Est GFR (CKD-EPI)AfAm 70 (>60 ml/min/1.73 sqM) Est GFR (CKD-EPI)NonAf 61 (>60 ml/min/1.73 sqM) Glucose 84 (74-99) mg/dL Calcium 9.8 (8.4-10.2) mg/dL Total Bilirubin 0.4 (0.2-1.3) mg/dL AST 45 H (14-36) U/L ALT 33 (4-34) U/L Alkaline Phosphatase 103 (38-126) U/L Total Protein 8.6 H (6.3-8.2) g/dL Albumin 4.9 (3.5-5.0) g/dL Amylase 53 (30-110) U/L Lipase 68 (23-300) U/L Urine Color Yellow Urine Appearance Clear (Clear) Urine pH 6.5 (5.0-8.0) Ur Specific [place] 1.018 (1.001-1.035) Urine Protein Trace H (Negative) Urine Glucose (UA) Negative (Negative) Urine Ketones Negative (Negative) Urine Blood Negative (Negative) Urine Nitrite Negative (Negative) Urine Bilirubin Negative (Negative) Urine Urobilinogen <2.0 (<2.0) mg/dL Ur Leukocyte Esterase Large H (Negative) Urine RBC 2 (0-5) /hpf Urine WBC 35 H (0-5) /hpf Ur Squamous Epith Cells 1 (0-4) /hpf Urine Mucus Few H (None) /hpf - Radiology Data Radiology results: report reviewed, image reviewed Disposition Clinical Impression: UTI (urinary tract infection), Renal calculus, bilateral Disposition: HOME SELF-CARE Instructions (If sedation given, give patient instructions): Kidney Stones (ED), Urinary Tract Infection in Women (ED) Additional Instructions: Return to the emergency department with any new, worsening, or concerning symptoms. Take the antibiotic as prescribed for 7 days. The Reglan can be used up to every 6 hours for nausea and vomiting. Take the Esparto sparingly when your pain is the most severe. Follow up with your primary care provider in 1-2 days. Prescriptions: cefUROXime axetiL [Ceftin] 500 mg PO BID 7 Days #14 tab HYDROcodone/APAP 5-325MG [Esparto 5-325] 1 tab PO Q6HR PRN 3 Days #12 tab PRN Reason: Pain Metoclopramide [Reglan] 10 mg PO Q6H PRN #20 tab PRN Reason: Nausea And Vomiting Is patient prescribed a controlled substance at d/c from ED?: Yes When asked, does pt state using other controlled substances?: No If prescribed controlled substance>3 days was MAPS reviewed?: Prescribed <3 Days Referrals: Samantha Jc MD [Primary Care Provider] - 1-2 days
[2022-05-07 15:39] LABS: Basophils # (A) 0.1 k/uL (0-0.2); Basophils % (A) 1 %; Eosinophils # (A) 0.4 k/uL (0-0.7); Eosinophils % (A) 5 %; HCT 44.6 % (34.0-46.0); HGB 14.3 gm/dL (11.4-16.0); Hypochromasia Slight; Lymphocytes % (A) 23 %; MCH 27.7 pg (25.0-35.0); MCV 86.5 fL (80.0-100.0); Mean Platelet Volume 7.2; Monocytes # (A) 0.4 k/uL (0-1.0); Monocytes % (A) 4 %; Neutrophils # (A) 5.5 k/uL (1.3-7.7); Neutrophils % (A) 65 %; Platelet Count 381 k/uL (150-450); RBC 5.15 m/uL (3.80-5.40); RDW 13.9 % (11.5-15.5); WBC 8.4 k/uL (3.8-10.6)
[2022-05-07 15:46] LABS: Appearance,Urine Clear (Clear); Bilirubin,Urine Negative (Negative); Blood,Urine Negative (Negative); Color,Urine Yellow; Glucose,Urine (UA) Negative (Negative); Ketones,Urine Negative (Negative); Leukocyte Esterase,Urine Large (Negative); Mucus,Urine Few /hpf; Nitrite,Urine Negative (Negative); PH, Urine 6.5 (5.0-8.0); Protein,Urine Trace (Negative); RBC,Urine 2 /hpf (0-5); Specific Gravity,Urine 1.018 (1.001-1.035); Squamous Epithelial Cell,Urine 1 /hpf (0-4); Urobilinogen,Urine <2.0 mg/dL (<2.0); WBC,Urine 35 /hpf (0-5)
[2022-05-07 15:56] LABS: Albumin 4.9 g/dL (3.5-5.0); Calcium 9.8 mg/dL (8.4-10.2); Potassium 4.3 mmol/L (3.5-5.1); Total Bilirubin 0.4 mg/dL (0.2-1.3); Total Protein 8.6 g/dL (6.3-8.2)
[2022-05-07 16:31] VITALS: RESP 16
--- NOTE | 2022-05-07 16:46 | CT ---
EXAMINATION TYPE: CT abdomen pelvis wo con CT DLP: 803.2 mGycm, Automated exposure control for dose reduction was used. DATE OF EXAM: 05/07/2022 4:37 PM COMPARISON: CLINICAL INDICATION:Female, 61 years old with history of Right flank pain; RT flank pain. poss kidney stone. TECHNIQUE: Axial CT of the abdomen and pelvis. Sagittal and coronal reformats were created on a [employer] workstation. Contrast used: None Oral contrast used: without Oral Contrast FINDINGS: LOWER CHEST: Streaky atelectasis in the lung bases. ABDOMEN LIVER: Unremarkable GALLBLADDER AND BILE DUCTS: Unremarkable. PANCREAS: Unremarkable. SPLEEN: Unremarkable. ADRENAL GLANDS: Unremarkable. KIDNEYS AND URETERS: Bilateral nonobstructing calculi are present. No evidence of hydronephrosis. PELVIS BLADDER: Unremarkable REPRODUCTIVE: Unremarkable. ABDOMEN & PELVIS STOMACH AND BOWEL: No evidence of bowel obstruction. Small hiatal hernia. Appendix is normal. PERITONEUM: No evidence of pneumoperitoneum or free fluid. VASCULATURE: No evidence of aortic aneurysm. Mild atherosclerosis of the arterial vasculature. MUSCULOSKELETAL: No acute osseous abnormalities, multilevel disc degeneration changes are seen throug hout the spine LYMPH NODES: No gross evidence for lymphadenopathy. SOFT TISSUE/ABDOMINAL WALL: Unremarkable IMPRESSION: 1. No evidence of obstructive uropathy. Bilateral nonobstructing renal calculi., Normal appendix, no rmal gallbladder. No definitive acute intra-abdominal process. 2. Small hiatal hernia. 3. Moderate stool burden.
[2022-05-07 18:19] VITALS: BP 145/68; PULSE 68
== END 2022-05-07 18:19 | disposition home or self-care (01) ==
LOC: EC 12:47
DX: N39.0 Urinary tract infection, site not specified (principal); N20.0 Calculus of kidney; J45.909 Unspecified asthma, uncomplicated; Z86.73 Personal history of transient ischemic attack (TIA), and cerebral infarction without residual deficits; I10 Essential (primary) hypertension; E07.9 Disorder of thyroid, unspecified; F41.9 Anxiety disorder, unspecified; Z91.018 Allergy to other foods; Z88.8 Allergy status to other drugs, medicaments and biological substances; Z88.6 Allergy status to analgesic agent; Z91.048 Other nonmedicinal substance allergy status; Z79.51 Long term (current) use of inhaled steroids; Z79.890 Hormone replacement therapy; Z79.899 Other long term (current) drug therapy
CPT/HCPCS: 36415; 80053; 82150; 83690; 85025; 81001; 87086; 74176; 99284; 96374; 96375; 96361 ×3; J2765; J1170

== ENCOUNTER → 2022-05-30 | Outpatient (CLI) | payer MEDICARE, OTHER ==
--- NOTE | 2022-05-30 15:44 | CT ---
EXAMINATION TYPE: CT abdomen pelvis wo con CT DLP: 885.1 mGycm, Automated exposure control for dose reduction was used. DATE OF EXAM: 05/30/2022 3:30 PM COMPARISON: CT abdomen pelvis most recent from 05/07/2022 CLINICAL INDICATION:Female, 61 years old with history of R10.9 UNSPECIFIED ABDOMINAL PAIN N20 calculu s OF KID; ABD PAIN, RENAL STONE TECHNIQUE: Axial CT of the abdomen and pelvis. Sagittal and coronal reformats were created on a [employer] workstation. Contrast used: None Oral contrast used: without Oral Contrast FINDINGS: LOWER CHEST: Unremarkable ABDOMEN LIVER: Unremarkable GALLBLADDER AND BILE DUCTS: Unremarkable. PANCREAS: Unremarkable. SPLEEN: Unremarkable. ADRENAL GLANDS: Unremarkable. KIDNEYS AND URETERS: Bilateral nonobstructing renal calculi. No evidence of hydronephrosis. PELVIS BLADDER: Unremarkable REPRODUCTIVE: Unremarkable. ABDOMEN & PELVIS STOMACH AND BOWEL: No evidence of bowel obstruction. Appendix is normal PERITONEUM: No evidence of pneumoperitoneum or free fluid. VASCULATURE: No evidence of aortic aneurysm. Scattered atherosclerosis of the arterial vasculature. MUSCULOSKELETAL: No acute osseous abnormalities, mild multilevel disc degeneration changes are seen t hroughout the spine. LYMPH NODES: No gross evidence for lymphadenopathy. SOFT TISSUE/ABDOMINAL WALL: Unremarkable IMPRESSION: No evidence of obstructive uropathy. Nonobstructing bilateral renal calculi. No evidence of acute int ra-abdominal process.
== END | disposition home or self-care (01) ==
LOC: RADCTMAIN 15:02
PROVIDERS: ATTEND Family Medicine
DX: N20.0 Calculus of kidney (principal)
CPT/HCPCS: 74176

== ENCOUNTER 2022-06-12 12:22 | Observation (INO) | payer MEDICARE, OTHER ==
--- NOTE | 2022-06-12 13:32 | ED ---
General Adult HPI - General Chief complaint: Shortness of Breath Stated complaint: CHF Time Seen by Provider: 06/12/22 13:02 Source: patient Mode of arrival: ambulatory Limitations: no limitations - History of Present Illness Initial comments: Dictation was produced using [employer] dictation software. please excuse any grammatical, word or spelling errors. Chief Complaint: 61-year-old female presents with 3 days of shortness of breath History of Present Illness: 61-year-old female presents emergency department for 3 days of shortness of breath. Patient was seen at her primary care physician's office today and was told to come to the emergency department for further evaluation. Patient's history of heart failure. She was found have elevated blood pressure at physician's office today. Patient's that she has exertional dyspnea. She also has some mild exertional chest pressure. At the bedside sitting at rest she has no complaints. She does complain of some mild pain in her left calf. She has history of swelling in her legs. She's been told that she has history of heart failure. The ROS documented in this emergency department record has been reviewed and confirmed by me. Those systems with pertinent positive or negative responses have been documented in the HPI. All other systems are other negative and/or noncontributory. PHYSICAL EXAM: General Impression: Alert and oriented x3, not in acute distress HEENT: Normocephalic atraumatic, extra-ocular movements intact, pupils equal and reactive to light bilaterally, mucous membranes moist. Cardiovascular: Heart regular rate and rhythm Chest: Able to complete full sentences, no retractions, no tachypnea, lungs clear to auscultation bilaterally Abdomen: abdomen soft, non-tender, non-distended, no organomegaly Musculoskeletal: Pulses present and equal in all extremities, 1+ pitting edema to bilateral lower extremities Motor: no focal deficits noted Neurological: CN II-XII grossly intact, no focal motor or sensory deficits noted Skin: Intact with no visualized rashes Psych: Normal affect and mood ED course: 61-year-old female presents emergency department for hypertension and shortness of breath. She does report a history of heart failure. Patient swallowed. I bedside. Vital signs upon arrival shows blood pressure 184/91, rest of vital signs within acceptable limits. Patient not dyspneic at the bedside. She does have features of acute coronary syndrome. Clear to auscultation bilaterally and she does complain of some left calf pain next patient suspicious for pulmonary embolism. Laboratory evaluation obtained. CBC unremarkable. Coag panel is negative. Metabolic panel is negative. Troponin is unremarkable. Brain natruretic peptide is unremarkable. For panel viral PCR is negative. D-dimer is elevated 1.03. Chest x-rays CT angiography shows no acute processes. Patient reevaluated bedside at 4:45 PM. Patient be admitted for atypical chest pain typical features. Admitted to [facility] for serial troponins, cardiac monitoring, cardiology consultation. Patient given aspirin. Patient is agreeable to disposition. My EKG interpretation: Ventricular rate 70, sinus rhythm, QS 93, QTc 412. No RI prolongation, no QTC prolongation, no ST or T-wave changes noted. EKG compared to 02/20/2017 showing no changes. Overall, this EKG is unremarkable - Related Data Home Medications Medication Instructions Recorded Confirmed Albuterol Nebulized [Ventolin 2.5 mg INHALATION RT-Q6H PRN 01/05/18 05/07/22 Nebulized] Furosemide [Lasix] 20 mg PO DAILY PRN 05/07/22 05/07/22 Lansoprazole 30 mg PO HS 05/07/22 05/07/22 Levothyroxine Sodium [Levoxyl] 175 mcg PO DAILY 05/07/22 05/07/22 Metoprolol Succinate [Metoprolol 25 mg PO BID 05/07/22 05/07/22 Succinate ER] Previous Rx's Medication Instructions Recorded HYDROcodone/APAP 5-325MG [Constantia 1 tab PO Q6HR PRN 3 Days #12 tab 05/07/22 5-325] Metoclopramide [Reglan] 10 mg PO Q6H PRN #20 tab 05/07/22 cefUROXime axetiL [Ceftin] 500 mg PO BID 7 Days #14 tab 05/07/22 Allergies Allergy/AdvReac Type Severity Reaction Status Date / Time cantaloupe Allergy Anaphylaxis Verified 06/12/22 12:55 levothyroxine Allergy Anaphylaxis Verified 06/12/22 12:55 ondansetron [From Zofran] Allergy rapid Verified 06/12/22 12:55 heart rate,states "went into First degree AV block" acetaminophen [From Tylenol] AdvReac Nausea & Verified 06/12/22 12:55 Vomiting ibuprofen [From Motrin] AdvReac Nausea & Verified 06/12/22 12:55 Vomiting iron AdvReac itravenous Verified 06/12/22 12:55 iron infusion causes "bowel to stop" Review of Systems ROS Statement: Those systems with pertinent positive or pertinent negative responses have been documented in the HPI. ROS Other: All systems not noted in ROS Statement are negative. Past Medical History Past Medical History: Asthma, Cancer, CVA/TIA, GERD/Reflux, Hypertension, Thyroid Disorder Additional Past Medical History / Comment(s): currently having abdominal pain and distention and thickening of ascending colon,anemia,hx "had resp arrest-was not on vent but was coded not sure when it occurred,"history of a pituitary tumor-adenoma that was resected, PROLAPSED UTERUS, Thyroid Cancer post thyroidectomy, SCOLIOSIS, peripheral vascular disease, chronic constipation, IBS, nephrolithiasis, recurrent urinary tract infection,anxiety, extremely poor dentition, previous history of osteomyelitis of the lumbar spine History of Any Multi-Drug Resistant Organisms: None Reported Past Surgical History: Unable to Obtain Additional Past Surgical History / Comment(s): BRAIN SURGERY to remove benign PITUITARY tumor , thyroid removal, egd/colonoscopy(benign polys removed., d&c, kidney stone removed Past Anesthesia/Blood Transfusion Reactions: No Reported Reaction Additional Past Anesthesia/Blood Transfusion Reaction / Comment(s): BLOOD TRANSFUSION-NO REACTION, states "gas anesthesia interacts with my asthma" Past Psychological History: Anxiety Smoking Status: Never smoker Past Alcohol Use History: None Reported Past Drug Use History: None Reported - Past Family History Sister(s) Family Medical History: Cancer Daughter(s) Additional Family Medical History / Comment(s): eosinophilic gastroenteropathy Son(s) Additional Family Medical History / Comment(s): eosinophilic gastroenteropathy Father Family Medical History: Myocardial Infarction ([place]) Additional Family Medical History / Comment(s): - HAD THE " MAKER" Mother Family Medical History: No Reported History Additional Family Medical History / Comment(s): AAA General Exam Limitations: no limitations Course Vital Signs 06/12/22 06/12/22 06/12/22 12:53 15:05 15:07 Temperature 98.4 F Pulse Rate 77 69 Respiratory 20 22 20 Rate Blood Pressure 184/91 173/86 O2 Sat by Pulse 97 95 Oximetry Medical Decision Making - Lab Data Result diagrams: 06/12/22 13:33 06/12/22 13:33 Lab Results 06/12/22 06/12/22 06/12/22 Range/Units 13:33 13:33 13:33 WBC 8.0 (3.8-10.6) k/uL RBC 4.80 (3.80-5.40) m/uL Hgb 13.5 (11.4-16.0) gm/dL Hct 41.2 (34.0-46.0) % MCV 85.7 (80.0-100.0) fL MCH 28.1 (25.0-35.0) pg MCHC 32.8 (31.0-37.0) g/dL RDW 14.2 (11.5-15.5) % Plt Count 367 (150-450) k/uL MPV 7.5 Neutrophils % 67 % Lymphocytes % 20 % Monocytes % 6 % Eosinophils % 5 % Basophils % 2 % Neutrophils # 5.3 (1.3-7.7) k/uL Lymphocytes # 1.6 (1.0-4.8) k/uL Monocytes # 0.5 (0-1.0) k/uL Eosinophils # 0.4 (0-0.7) k/uL Basophils # 0.1 (0-0.2) k/uL PT 10.3 (9.0-12.0) sec INR 0.9 (<1.2) APTT 22.0 (22.0-30.0) sec D-Dimer 1.03 H (<0.60) mg/L FEU Sodium 140 (137-145) mmol/L Potassium 4.0 (3.5-5.1) mmol/L Chloride 105 (98-107) mmol/L Carbon Dioxide 26 (22-30) mmol/L Anion Gap 9 mmol/L BUN 18 H (7-17) mg/dL Creatinine 0.85 (0.52-1.04) mg/dL Est GFR (CKD-EPI)AfAm 85 (>60 ml/min/1.73 sqM) Est GFR (CKD-EPI)NonAf 73 (>60 ml/min/1.73 sqM) Glucose 91 (74-99) mg/dL Calcium 9.5 (8.4-10.2) mg/dL Magnesium 2.0 (1.6-2.3) mg/dL Troponin I (0.000-0.034) ng/mL NT-Pro-B Natriuret Pep pg/mL Influenza Type A (PCR) (Not Detectd) Influenza Type B (PCR) (Not Detectd) RSV (PCR) (Not Detectd) SARS-CoV-2 (PCR) (Not Detectd) 06/12/22 06/12/22 06/12/22 Range/Units 13:33 13:33 13:33 WBC (3.8-10.6) k/uL RBC (3.80-5.40) m/uL Hgb (11.4-16.0) gm/dL Hct (34.0-46.0) % MCV (80.0-100.0) fL MCH (25.0-35.0) pg MCHC (31.0-37.0) g/dL RDW (11.5-15.5) % Plt Count (150-450) k/uL MPV Neutrophils % % Lymphocytes % % Monocytes % % Eosinophils % % Basophils % % Neutrophils # (1.3-7.7) k/uL Lymphocytes # (1.0-4.8) k/uL Monocytes # (0-1.0) k/uL Eosinophils # (0-0.7) k/uL Basophils # (0-0.2) k/uL PT (9.0-12.0) sec INR (<1.2) APTT (22.0-30.0) sec D-Dimer (<0.60) mg/L FEU Sodium (137-145) mmol/L Potassium (3.5-5.1) mmol/L Chloride (98-107) mmol/L Carbon Dioxide (22-30) mmol/L Anion Gap mmol/L BUN (7-17) mg/dL Creatinine (0.52-1.04) mg/dL Est GFR (CKD-EPI)AfAm (>60 ml/min/1.73 sqM) Est GFR (CKD-EPI)NonAf (>60 ml/min/1.73 sqM) Glucose (74-99) mg/dL Calcium (8.4-10.2) mg/dL Magnesium (1.6-2.3) mg/dL Troponin I <0.012 (0.000-0.034) ng/mL NT-Pro-B Natriuret Pep 235 pg/mL Influenza Type A (PCR) Not Detected (Not Detectd) Influenza Type B (PCR) Not Detected (Not Detectd) RSV (PCR) Not Detected (Not Detectd) SARS-CoV-2 (PCR) Not Detected (Not Detectd) Disposition Clinical Impression: Chest pain Disposition: ADMITTED IP TO THIS HOSP Condition: Fair Referrals: Samantha Jc MD [Primary Care Provider] - 1-2 days Decision Time: 16:48
[2022-06-12 14:24] LABS: Basophils # (A) 0.1 k/uL (0-0.2); Basophils % (A) 2 %; Eosinophils # (A) 0.4 k/uL (0-0.7); Eosinophils % (A) 5 %; HCT 41.2 % (34.0-46.0); HGB 13.5 gm/dL (11.4-16.0); Lymphocytes # (A) 1.6 k/uL (1.0-4.8); Lymphocytes % (A) 20 %; MCH 28.1 pg (25.0-35.0); MCHC 32.8 g/dL (31.0-37.0); MCV 85.7 fL (80.0-100.0); Mean Platelet Volume 7.5; Monocytes # (A) 0.5 k/uL (0-1.0); Monocytes % (A) 6 %; Neutrophils # (A) 5.3 k/uL (1.3-7.7); Neutrophils % (A) 67 %; Platelet Count 367 k/uL (150-450); RDW 14.2 % (11.5-15.5)
--- NOTE | 2022-06-12 14:30 | XR ---
EXAMINATION TYPE: XR chest 2V DATE OF EXAM: 06/12/2022 COMPARISON: 01/01/2022 TECHNIQUE: PA and lateral views submitted. HISTORY: Shortness of breath FINDINGS: The lungs are clear and there is no pneumothorax, pleural effusion, or focal pneumonia. Heart size normal. No overt failure. Hyperinflation of the lungs. Hypertrophic and degenerative changes in the s pine. IMPRESSION: 1. Correlate for COPD.
[2022-06-12 14:37] LABS: Calcium 9.5 mg/dL (8.4-10.2)
[2022-06-12 14:38] LABS: INR 0.9 (<1.2); Prothrombin Time 10.3 sec (9.0-12.0)
--- NOTE | 2022-06-12 15:50 | CT ---
EXAMINATION TYPE: CT angio chest CT DLP: 578 mGycm, Automated exposure control for dose reduction was used. DATE OF EXAM: 06/12/2022 3:39 PM COMPARISON: CT chest 01/13/2016. CLINICAL INDICATION:Female, 61 years old with history of positive D-dimer; TECHNIQUE/CONTRAST: CTA scan of the thorax is performed with IV Contrast, patient injected with 70 mL of Isovue 370, pulm onary embolism protocol. MIP images are created and reviewed. FINDINGS: Pulmonary Artery: There is no evidence for a filling defect within the pulmonary vasculature to sugge st acute pulmonary embolism. The pulmonary artery is of normal size. Lungs/Pleura: No evidence of focal consolidation, pleural effusion or pneumothorax. No suspicious pul monary nodules or mass. Airway: Large airways are patent. Heart: Mild cardiomegaly. No pericardial effusion. Vasculature: No evidence of aortic aneurysm. Mediastinum/irma: Nonspecific mildly enlarged right hilar lymph node measuring 1.1 cm short axis (ser ies 401, image 58). Musculoskeletal: No acute osseous abnormalities. No aggressive osseous lesion. Soft Tissues: Unremarkable. Lower neck: No significant findings. Upper Abdomen: Small hiatal hernia. IMPRESSION: No evidence of pulmonary embolism or acute thoracic process..
[2022-06-12] MEDS ORDERED: ASPIRIN 81 MG PO STA (16:29)
[2022-06-12] MEDS ORDERED: NITROGLYCERIN SL TABS 0.4 MG TAB SUBLINGUAL PRN (16:44)
[2022-06-12] MEDS ORDERED: ALBUTEROL NEBULIZED 2.5 MG/3 ML INHALATION PRN (17:14)
[2022-06-12] MEDS ORDERED: ACETAMINOPHEN TAB 325 MG TAB PO PRN (17:14)
[2022-06-12] MEDS ORDERED: NALOXONE 0.4 MG/ML 1 ML VIAL IVP PRN (17:14)
[2022-06-12] MEDS ORDERED: SODIUM CHLORIDE 0.9% 1,000 ML IV SCH (17:15)
--- NOTE | 2022-06-12 17:19 | P.HPIM ---
History of Present Illness H&P Date: 06/12/22 Patient is a 61-year-old female with a history of congestive heart failure, asthma, GERD, and multiple other comorbid conditions who presented to the ER at the direction of her primary care physician due to 3 days of shortness of breath. On arrival to the ER her blood pressure was 184/91 and she was satting 97% on room air. Laboratory analysis was remarkable for dimer of 1.03, troponin negative at 0.012, and BNP 235. COVID-19, influenza, and RSV were negative. Chest x-ray was negative for any acute process but did show probable COPD. CTA of the chest showed no evidence of pulmonary embolism or acute thoracic process. Patient seen and examined at bedside. She has a hard time focusing and staying on task and therefore information gathering is difficult. She reports that for the last 7 days she has been having some cough and shortness of breath along with chest discomfort. It has been worsening for the last 3 days. She reports a cough that is intermittently productive of white frothy sputum, some post nasal drip, some left-sided chest pain. The chest pain and shortness of breath are worse with exertion. The chest pain is worse with any movement. She has be en having some nausea and vomiting. Her son was at bedside reports that she has been having some sweating, but is never felt she spiked a fever. She does report she is overall not feeling "well". She states they sent her in today consider concerned about her CHF. She reports that her entire left sided arm and leg have been swelling but that it is gone now and better. She also reports that she was started on gabapentin and steroids recently for some back pain but she started having nausea and vomiting from that but she's been trying to take it. It is unclear whether this is getting better worse or staying the same. She also been reports that she has been having some chest discomfort since her levothyroxine was increased about a month ago, but then states that this chest discomfort is different. She reports that she had a stress test 6 months for [facility] which revealed a "leaky aorta". It appears that she has difficulty with nausea and vomiting regularly. It is di fficult to discern if this is significantly different. Pertinent positives and negatives as discussed in HPI, a complete review of systems was performed and all other systems are negative. Vital signs reviewed General: nontoxic, no distress, appears at stated age Derm: warm, dry Head: atraumatic, normocephalic, symmetric Eyes: EOMI, no lid lag, anicteric sclera, pupils equal round reactive to light ENT: Nose and ears atraumatic, no thrush, + pharyngeal erythema, + post nasal drip Neck: No thyromegaly, no cervical lymphadenopathy, trachea midline, supple Mouth: no lip lesion, mucus membranes moist Cardiovascular: S1S2 reg, no murmur, positive posterior tibial pulse bilateral, no edema, capillary refill less than 2 seconds, pain to palpation over left chest wall Lungs: Upper airway expiratory wheeze, no rhonchi, no rales, no wheeze, no accessory muscle use Abdominal: soft, nontender to palpation, no guarding, no appreciable organomegaly, normal bowel sounds Ext: no gross muscle atrophy, muscle strength 4 out of 5 in all 4 extremities, no contractures Neuro: CN II-XII grossly intact, light touch intact all 4 extremities, finger to nose within normal limits, Psych: Alert, oriented, pressured speech Assessment/Plan: Acute exacerbation of asthma Upper respiratory tract infection -Start IV steroids. Patient reports nausea and vomiting with oral steroids -Bronchodilators -Pulmonary hygiene -COVID/RSV/flu have been negative. Chest pain -Suspect musculoskeletal secondary to asthma exacerbation and chest pain being reproducible -Serial troponin -Aspirin, statin -No indication for cardiology consultation at this time Hypertension, accelerated -Continue with Lasix -Start lisinopril, would avoid a beta steve at this point in time secondary to active wheezing -Follow blood pressures Hypothyroidism -Continue with levothyroxine Chronic: GERD History of pituitary adenoma History of thyroid cancer status post resection Peripheral vascular disease-patient does not wear compression stockings IBS Chronic back pain The patient is admitted with an anticipated less than 2 midnight stay for evaluation of acute exacerbation of asthma with costochondritis DVT prophylaxis: scdS Discussed with: Patient, Son Anticipated discharge date: in AM Anticipated discharge place: Home A total of 65 minutes was spent on the care of this complex patient more than 50% of the time was spent in counseling and care coordination. Past Medical History Past Medical History: Asthma, Cancer, CVA/TIA, GERD/Reflux, Hypertension, Thyroid Disorder Additional Past Medical History / Comment(s): ,anemia,hx resp arrest-was not on vent but was coded not sure when it occurred,history of a pituitary tumor- adenoma that was resected, PROLAPSED UTERUS, Thyroid Cancer post thyroidectomy, SCOLIOSIS, peripheral vascular disease, chronic constipation, IBS, nephrolithiasis, recurrent urinary tract infection,anxiety, extremely poor dentition, previous history of osteomyelitis of the lumbar spine History of Any Multi-Drug Resistant Organisms: None Reported Past Surgical History: Unable to Obtain Additional Past Surgical History / Comment(s): BRAIN SURGERY to remove benign PITUITARY tumor , thyroid removal, egd/colonoscopy(benign polys removed., d&c, kidney stone removed Past Anesthesia/Blood Transfusion Reactions: No Reported Reaction Additional Past Anesthesia/Blood Transfusion Reaction / Comment(s): BLOOD TRANSFUSION-NO REACTION, states "gas anesthesia interacts with my asthma" Past Psychological History: Anxiety Smoking Status: Never smoker Past Alcohol Use History: None Reported Past Drug Use History: None Reported - Past Family History Sister(s) Family Medical History: Cancer Daughter(s) Additional Family Medical History / Comment(s): eosinophilic gastroenteropathy Son(s) Additional Family Medical History / Comment(s): eosinophilic gastroenteropathy Father Family Medical History: Myocardial Infarction (ND) Additional Family Medical History / Comment(s): - HAD THE " MAKER" Mother Family Medical History: No Reported History Additional Family Medical History / Comment(s): AAA Medications and Allergies Home Medications Medication Instructions Recorded Confirmed Type Furosemide [Lasix] 20 mg PO DAILY PRN 05/07/22 06/12/22 History Levothyroxine Sodium [Levoxyl] 350 mcg PO DAILY 05/07/22 06/12/22 History Gabapentin [Neurontin] 100 mg PO DAILY 06/12/22 06/12/22 History Allergies Allergy/AdvReac Type Severity Reaction Status Date / Time cantaloupe Allergy Anaphylaxis Verified 06/12/22 12:55 levothyroxine Allergy Anaphylaxis Verified 06/12/22 16:59 ondansetron [From Zofran] Allergy rapid Verified 06/12/22 12:55 heart rate,states "went into First degree AV block" acetaminophen [From Tylenol] AdvReac Nausea & Verified 06/12/22 12:55 Vomiting ibuprofen [From Motrin] AdvReac Nausea & Verified 06/12/22 12:55 Vomiting iron AdvReac itravenous Verified 06/12/22 12:55 iron infusion causes "bowel to stop" Physical Exam Osteopathic Statement: *. No significant issues noted on an osteopathic structural exam other than those noted in the History and Physical/Consult. Vitals: Vital Signs Temp Pulse Resp BP Pulse Ox 06/12/22 16:56 84 18 183/99 96 06/12/22 15:07 69 20 173/86 95 06/12/22 15:05 22 06/12/22 12:53 98.4 F 77 20 184/91 97 Intake and Output 06/12/22 06/12/22 06/12/22 06:59 14:59 22:59 Other: Weight 96.162 kg Results CBC & Chem 7: 06/12/22 13:33 06/12/22 13:33 Labs: Abnormal Lab Results - Last 24 Hours (Table) 06/12/22 06/12/22 Range/Units 13:33 13:33 D-Dimer 1.03 H (<0.60) mg/L FEU BUN 18 H (7-17) mg/dL
[2022-06-12] MEDS: methylPREDNISolone SOD SUCCI 125 MG/2 ML VIAL IV SCH (17:30)
[2022-06-12] MEDS: HYDROcodone/APAP 5-325MG 1 EACH TAB PO PRN (18:55)
[2022-06-12] MEDS: IPRATROPIUM-ALBUTEROL 3 ML NEB INHALATION SCH (19:14)
[2022-06-13] MEDS: HYDROcodone/APAP 5-325MG 1 EACH TAB PO PRN ×2 (00:38→09:37)
[2022-06-13] MEDS: methylPREDNISolone SOD SUCCI 125 MG/2 ML VIAL IV SCH ×2 (00:39→09:36)
[2022-06-13 02:39] VITALS: RESP 17
[2022-06-13 06:27] VITALS: BP 158/85; TEMP 98
[2022-06-13] MEDS: IPRATROPIUM-ALBUTEROL 3 ML NEB INHALATION SCH ×2 (07:52→11:07)
[2022-06-13 08:51] LABS: Chol/HDL Ratio 7.38 Ratio; LDL Cholesterol,Calculated 154.1 mg/dL (0.0-131.0)
[2022-06-13] MEDS ORDERED: ASPIRIN 325 MG TAB PO SCH (09:00)
[2022-06-13 11:22] VITALS: PULSE 84
--- NOTE | 2022-06-13 15:09 | P.DS ---
Providers Date of admission: 06/12/22 16:46 Expected date of discharge: 06/13/22 Attending physician: Desiree Brandon MD Primary care physician: Samantha Jc Hospital Course: Discharge Diagnosis: Acute exacerbation of asthma Costochondritis Viral upper respiratory tract infection Accelerated hypertension Hypothyroidism Hospital Course: Patient is a 61-year-old female with a history of congestive heart failure, asthma, GERD, and multiple other comorbid conditions who presented to the ER at the direction of her primary care physician due to 3 days of shortness of meaghan th. On arrival to the ER her blood pressure was 184/91 and she was satting 97% on room air. Laboratory analysis was remarkable for dimer of 1.03, troponin negative at 0.012, and BNP 235. COVID-19, influenza, and RSV were negative. Chest x-ray was negative for any acute process but did show probable COPD. CTA of the chest showed no evidence of pulmonary embolism or acute thoracic process. She was started on bronchodilators and IV steroids. Her troponin was cycled and remained negative. The next morning her wheezing had improved significantly and her chest pain had decreased. Chest pain continued to be reproducible. She was doing well, oxygen saturation 94% on room air. She was determined stable for discharge home. Follow-up: Dr. Jc in 1-2 days, prednisone taper, lisinopril, refilled nebulizer prescription patient will take every 6 hours while awake for 5 days and then as needed Patient seen and examined at bedside. Chest pain and breathing much improved since yesterday, still not back to baseline. We discussed continued need for follow-up with her primary care physician. She agrees with plan of care. Vital signs reviewed and stable. General: nontoxic, no distress, appears at stated age Derm: warm, dry Head: atraumatic, normocephalic, symmetric Eyes: EOMI, no lid lag, anicteric sclera Mouth: no lip lesion, mucus membranes moist Cardiovascular: S1S2 reg, no murmur, positive posterior tibial pulse bilateral, Lungs: Decreased breath sounds bilateral, no rhonchi, no rales , no accessory muscle use Abdominal: soft, nontender to palpation, no guarding, no appreciable organomegaly Ext: no gross muscle atrophy, no edema, no contractures Neuro: CN II-XI grossly intact, no focal neuro deficits Psych: Alert, oriented, appropriate affect A total of 25 minutes of time were spent preparing this complex discharge summary. Patient was discharged on 06/13/22. Patient Condition at Discharge: Fair Plan - Discharge Summary Discharge Rx Participant: No New Discharge Prescriptions: New Albuterol Nebulized [Ventolin Nebulized] 2.5 mg INHALATION Q6H #120 unit lisinopriL [Zestril] 2.5 mg PO DAILY #30 tab predniSONE [Deltasone] 40 mg PO DAILY #8 tab Continue Levothyroxine Sodium [Levoxyl] 350 mcg PO DAILY Furosemide [Lasix] 20 mg PO DAILY PRN PRN Reason: Edema Gabapentin [Neurontin] 100 mg PO DAILY Discharge Medication List Furosemide [Lasix] 20 mg PO DAILY PRN 05/07/22 [History] Levothyroxine Sodium [Levoxyl] 350 mcg PO DAILY 05/07/22 [History] Gabapentin [Neurontin] 100 mg PO DAILY 06/12/22 [History] Albuterol Nebulized [Ventolin Nebulized] 2.5 mg INHALATION Q6H #120 unit 06/13/22 [Rx] lisinopriL [Zestril] 2.5 mg PO DAILY #30 tab 06/13/22 [Rx] predniSONE [Deltasone] 40 mg PO DAILY #8 tab 06/13/22 [Rx] Follow up Appointment(s)/Referral(s): Samantha Jc MD [Primary Care Provider] - 1-2 days (PLEASE CALL AND SCHEDULE APPOINTMENT.) Patient Instructions/Handouts: Lisinopril (By mouth), Albuterol (By breathing), Prednisone (By mouth), Asthma (DC), Chronic Hypertension (DC), Noncardiac Chest Pain (DC) Discharge Disposition: HOME SELF-CARE
== END 2022-06-13 13:10 | disposition home or self-care (01) ==
LOC: EC 12:22 → 6NMEDSUR 16:46
PROVIDERS: ADMIT Family Medicine; ATTEND Family Medicine
DX: J45.901 Unspecified asthma with (acute) exacerbation (principal); M94.0 Chondrocostal junction syndrome [Tietze]; J06.9 Acute upper respiratory infection, unspecified; D35.2 Benign neoplasm of pituitary gland; I11.0 Hypertensive heart disease with heart failure; D64.9 Anemia, unspecified; E89.0 Postprocedural hypothyroidism; F41.9 Anxiety disorder, unspecified; I50.9 Heart failure, unspecified; K21.9 Gastro-esophageal reflux disease without esophagitis; I73.9 Peripheral vascular disease, unspecified; K58.9 Irritable bowel syndrome, unspecified; G89.29 Other chronic pain; M54.9 Dorsalgia, unspecified; K44.9 Diaphragmatic hernia without obstruction or gangrene; Z79.890 Hormone replacement therapy; Z79.899 Other long term (current) drug therapy; Z86.73 Personal history of transient ischemic attack (TIA), and cerebral infarction without residual deficits; Z85.850 Personal history of malignant neoplasm of thyroid; Z87.440 Personal history of urinary (tract) infections; Z80.9 Family history of malignant neoplasm, unspecified; Z82.49 Family history of ischemic heart disease and other diseases of the circulatory system; Z20.822 Contact with and (suspected) exposure to COVID-19
CPT/HCPCS: 96376; 96374; 99285; 36415; 94640 ×3; 94760; 93005; 85379; 83880; 80061; 80048; 83735; 84484; 85025; 85610; 85730; 87636; 71046; 71275; G0378 ×2; J2930 ×2; Q9967

== ENCOUNTER → 2022-06-24 | Outpatient (CLI) | payer MEDICARE, OTHER ==
--- NOTE | 2022-06-24 19:25 | US ---
EXAMINATION TYPE: US thyroid st tissue head/neck DATE OF EXAM: 06/24/2022 COMPARISON: 10/30/2021 CLINICAL HISTORY: 61-year-old female E04.9 NONTOXIC GOITER, UNSPECIFIED. Total thyroidectomy- Thyroid cancer per patient. Per patient, difficulty swallowing. TECHNIQUE: Multiple sonographic images in the region of the thyroid bed are obtained. FINDINGS: GLAND SIZE: Right Lobe: Surgically absent Left Lobe: Surgically absent Thyroid Fossa: RIGHT: No abnormality visualized LEFT: No abnormality visualized ISTHMUS: No abnormality visualized Fan Mail Clerk notes: Bilateral neck scanned, no evidence of lymphadenopathy. IMPRESSION: The thyroidectomy bed appears clear. No residual tissue or suspicious nodules are identified.
== END | disposition home or self-care (01) ==
LOC: RADUSWWP 14:34
PROVIDERS: ATTEND Family Medicine
DX: E04.9 Nontoxic goiter, unspecified (principal)
CPT/HCPCS: 76536

== ENCOUNTER → 2022-07-02 | Outpatient (CLI) | payer MEDICARE, OTHER ==
--- NOTE | 2022-07-03 07:41 | MR ---
EXAMINATION TYPE: MR tspine/lspine wo con DATE OF EXAM: 07/02/2022 COMPARISON: Prior CT thoracic and lumbar spine April 22, 2015. Prior MRI thoracic spine 2012. HISTORY: Mid back pain, low back pain that radiates down legs. Spondylolisthesis. TECHNIQUE: Multiplanar, multisequence imaging of the thoracic and lumbar spine are performed without IV contrast. Thoracic spine: FINDINGS: Spinal cord shows normal course, caliber, and signal as it courses the thoracic spine. Natacha tebral body heights and alignment are stable and satisfactory. No large posterior disc herniation see n on sagittal or axial images. Bone marrow signal intensity overall maintained. Mild multilevel anter ior spurring. Review of the axial images shows no significant spinal canal stenosis or neural foraminal narrowing a t any thoracic level. No significant incidental findings in the lungs or the upper abdomen. IMPRESSION: No significant disc herniation is identified. L-SPINE: Motion artifact degradation noted making evaluation slightly suboptimal. Redemonstration of extra convex scoliosis centered at L2 level Sagittal images of the lumbar spine sh ow vertebral body heights and alignment to remain satisfactory. Multilevel disc desiccation. And disc space heights are maintained. The conus medullaris is normal in position and signal ending mid L1 le marbin. The bone marrow signal intensity is within normal limits. Axial images redemonstrate multilevel facet arthropathy greatest in the mid to lower lumbar spine wit h some progression from 2015 CT noted. No large disc herniation is evident. Paraspinal muscle bulk is preserved. IMPRESSION: Scoliotic curvature with multilevel facet arthropathy greatest in the lower lumbar spine. Advanced findings now present lower lumbar levels.
== END | disposition home or self-care (01) ==
LOC: RADMRIMAIN 14:46
PROVIDERS: ATTEND Family Medicine
DX: M47.26 Other spondylosis with radiculopathy, lumbar region (principal); M41.86 Other forms of scoliosis, lumbar region; M43.16 Spondylolisthesis, lumbar region
CPT/HCPCS: 72146; 72148

== ENCOUNTER → 2022-07-07 | Outpatient (CLI) | payer MEDICARE, OTHER ==
--- NOTE | 2022-07-07 14:56 | MR ---
EXAMINATION TYPE: MR cervical spine wo/w con DATE OF EXAM: 07/07/2022 INDICATION: Patient age:Female; 61 years old; Reason for study: M43.10 anterolisthesis;. Anterolisthesis COMPARISON: None. TECHNIQUE: Multi planar, multi sequence imaging was performed utilizing: T1-weighted, T2-weighted, an d turbo inversion recovery imaging of the cervical spine. IV Contrast: 10 cc Gadavist FINDINGS: Motion limits evaluation of the exam. Alignment: The cervical vertebral bodies have preserved heights. Spinal alignment is felt to be withi n normal limits given limitations of this motion limited exam. Bones: Bone signal is within normal limits. Multilevel degenerative disc disease is noted and most p ronounced at the C4-C5 vertebral levels. Cord: The spinal cord is unremarkable with regards to their signal intensity and morphology. Discs: Intervertebral disc signal is maintained. C2-C3: No significant disc pathology. The spinal canal is patent. No neural foraminal stenosis. C3-C4: No significant disc pathology. The spinal canal is patent. Bilateral facet and uncovertebral joint arthropathy are present with mild bilateral neural foraminal stenosis. C4-C5: A disc osteophyte complex is present which minimally narrows the ventral subarachnoid space. Bilateral facet and uncovertebral joint arthropathy are present with mild left neural foraminal sten osis. The right neural foramen is patent. C5-C6: No significant disc pathology. The spinal canal is patent. No neural foraminal stenosis. C6-C7: No significant disc pathology. The spinal canal is patent. No neural foraminal stenosis. C7-T1: No significant disc pathology. The spinal canal is patent. No neural foraminal stenosis. Other: None. IMPRESSION: Motion limited exam. 1. No evidence for disc herniation or significant spinal canal stenosis. 2. Multilevel disc degeneration changes no definitive anterolisthesis within the limitations of this motion limited exam.
== END | disposition home or self-care (01) ==
LOC: RADMRIMAIN 10:25
PROVIDERS: ATTEND Family Medicine
DX: M50.322 Other cervical disc degeneration at C5-C6 level (principal); M43.12 Spondylolisthesis, cervical region
CPT/HCPCS: 72156

== ENCOUNTER → 2022-08-05 | Outpatient (CLI) | payer MEDICARE, OTHER ==
--- NOTE | 2022-08-08 10:18 | MR ---
EXAMINATION TYPE: MR lumbar spine wo/w con DATE OF EXAM: 08/05/2022 3:41 PM COMPARISON: 07/02/2022 MR L-spine CLINICAL INDICATION:Female, 62 years old with history of M54.41 LUM BAGO WITH SCIATICA, RIGHT SIDE; TECHNIQUE: Multi planar, multi sequence imaging was performed utilizing: T1-weighted, T2-weighted, a nd turbo inversion recovery imaging of the lumbar spine. IV Contrast: 9 cc Gadavist. None. FINDINGS: Alignment: There is a transitional vertebrae present., 05/30/2022 CT abdomen pelvis Cord: The conus medullaris and the distal spinal cord appear unremarkable with regards to their signa l intensity and morphology. Bones/Discs: Scattered disc degeneration changes seen throughout the spine with Modic endplate change s and osteophyte formation. Multilevel degenerative disc disease is noted and most pronounced at the . T12-L1: No evidence of significant spinal canal stenosis or neural foraminal stenosis. L1-L2: No evidence of significant spinal canal stenosis or neural foraminal stenosis. L2-L3: No evidence of significant spinal canal stenosis or neural foraminal stenosis. L3-L4: No evidence of significant spinal canal stenosis or neural foraminal stenosis. L4-L5: No evidence of significant spinal canal stenosis or neural foraminal stenosis. L5-S1: The disc is rounded posterior morphology without significant spinal canal stenosis. Facet join t arthropathy with moderate right and mild left neural foraminal stenosis.. S1-S2 rudimentary disc is no evidence for spinal canal stenosis. Other findings: None. IMPRESSION: 1. No definitive evidence of disc herniation or significant spinal canal stenosis. 2. Multilevel disc degeneration with associated osteoarthritic changes worse at L5-S1 on the right w ith moderate neural foraminal stenosis.
== END | disposition home or self-care (01) ==
LOC: RADMRIMAIN 14:12
PROVIDERS: ATTEND Nurse Practitioner Family
DX: M51.17 Intervertebral disc disorders with radiculopathy, lumbosacral region (principal); M47.27 Other spondylosis with radiculopathy, lumbosacral region; M99.74 Connective tissue and disc stenosis of intervertebral foramina of sacral region
CPT/HCPCS: 72158; A9585

== ENCOUNTER 2022-10-17 16:45 | Observation (INO) | payer MEDICARE, OTHER ==
--- NOTE | 2022-10-17 19:17 | ED ---
General Adult HPI - General Chief complaint: Chest Pain Stated complaint: sob, chest pain Time Seen by Provider: 10/17/22 19:02 Source: patient, RN notes reviewed, old records reviewed Mode of arrival: ambulatory Limitations: no limitations - History of Present Illness Initial comments: This is an anxious and tearful 62-year-old non-toxic appearing female that presents to the emergency room with complaints of chest pain and shortness of breath. States has been ongoing for 3 weeks. Did go to urgent care 3 weeks ago and had an x-ray that was negative. States she seen her percher Dr. Brandon 3 days ago and she told him she felt her symptoms started after he changed her from Lopressor to Coreg. Dr. Brandon recommended she continue the medication and she is scheduled for an echocardiogram on Thursday. Patient states that her symptoms of chest pain and shortness of breath seem to be getting worse. She states that she is also concerned with her liver and wants her thyroid levels checked. she denies any fevers. No nausea vomiting or diarrhea. States does have a history of asthma, hypertension, anxiety, thyroid cancer, mitral valve regurgitation. -: days(s) (3) Location: chest Radiation: non-radiation Severity scale (1-10): 4 Quality: constant Consistency: constant Improves with: none Worsens with: none Associated Symptoms: shortness of breath - Related Data Home Medications Medication Instructions Recorded Confirmed Levothyroxine Sodium [Levoxyl] 175 mcg PO DAILY@0430 05/07/22 10/17/22 Gabapentin [Neurontin] 100 mg PO BID 06/12/22 10/17/22 Albuterol Nebulized [Ventolin 2.5 mg INHALATION RT-Q6H PRN 10/17/22 10/17/22 Nebulized] Aspirin [Aspirin EC] 1,000 - 1,500 mg PO Q6H PRN 10/17/22 10/17/22 Fluticasone Propionate 110 Mcg 2 puff INHALATION RT-BID 10/17/22 10/17/22 [Flovent 110 Mcg Inhaler] Gabapentin 300 mg PO BID 10/17/22 10/17/22 Lansoprazole [Prevacid] 30 mg PO HS 10/17/22 10/17/22 busPIRone HCL 15 mg PO TID PRN 10/17/22 10/17/22 carvediloL [Coreg] 6.25 mg PO DAILY 10/17/22 10/17/22 Allergies Allergy/AdvReac Type Severity Reaction Status Date / Time cantaloupe Allergy Anaphylaxis Verified 10/17/22 22:09 levothyroxine Allergy Anaphylaxis Verified 10/17/22 22:09 ondansetron [From Zofran] Allergy rapid Verified 10/17/22 22:09 heart rate,states "went into First degree AV block" acetaminophen [From Tylenol] AdvReac Nausea & Verified 10/17/22 22:09 Vomiting ibuprofen [From Motrin] AdvReac Nausea & Verified 10/17/22 22:09 Vomiting iron AdvReac itravenous Verified 10/17/22 22:09 iron infusion causes "bowel to stop" Review of Systems ROS Statement: Those systems with pertinent positive or pertinent negative responses have been documented in the HPI. ROS Other: All systems not noted in ROS Statement are negative. Past Medical History Past Medical History: Asthma, Cancer, CVA/TIA, GERD/Reflux, Hypertension, Thyroid Disorder Additional Past Medical History / Comment(s): ,anemia,hx resp arrest-was not on vent but was coded not sure when it occurred,history of a pituitary tumor- adenoma that was resected, PROLAPSED UTERUS, Thyroid Cancer post thyroidectomy, SCOLIOSIS, peripheral vascular disease, chronic constipation, IBS, nephrolithiasis, recurrent urinary tract infection,anxiety, extremely poor dentition, previous history of osteomyelitis of the lumbar spine History of Any Multi-Drug Resistant Organisms: None Reported Past Surgical History: Unable to Obtain Additional Past Surgical History / Comment(s): BRAIN SURGERY to remove benign PITUITARY tumor , thyroid removal, egd/colonoscopy(benign polys removed., d&c, kidney stone removed Past Anesthesia/Blood Transfusion Reactions: No Reported Reaction Additional Past Anesthesia/Blood Transfusion Reaction / Comment(s): BLOOD TRANSFUSION-NO REACTION, states "gas anesthesia interacts with my asthma" Past Psychological History: Anxiety Smoking Status: Never smoker Past Alcohol Use History: None Reported Past Drug Use History: None Reported - Past Family History Sister(s) Family Medical History: Cancer Daughter(s) Additional Family Medical History / Comment(s): eosinophilic gastroenteropathy Son(s) Additional Family Medical History / Comment(s): eosinophilic gastroenteropathy Father Family Medical History: Myocardial Infarction ([place]) Additional Family Medical History / Comment(s): - HAD THE " MAKER" Mother Family Medical History: No Reported History Additional Family Medical History / Comment(s): AAA General Exam Limitations: no limitations General appearance: alert, in no apparent distress Head exam: Present: atraumatic Eye exam: Absent: scleral icterus, conjunctival injection, periorbital swelling Neck exam: Present: full ROM. Absent: meningismus Respiratory exam: Absent: respiratory distress, accessory muscle use Cardiovascular Exam: Present: regular rate Extremities exam: Present: normal capillary refill Neurological exam: Present: alert, oriented X3 Psychiatric exam: Present: anxious (tearful) Skin exam: Present: warm, dry, normal color. Absent: cyanosis, diaphoretic, pallor Course Vital Signs 10/17/22 10/17/22 10/17/22 17:17 19:55 20:00 Temperature 98 F Pulse Rate 74 73 71 Respiratory 18 16 16 Rate Blood Pressure 164/78 174/90 149/82 O2 Sat by Pulse 98 97 97 Oximetry 10/17/22 10/17/22 10/17/22 20:30 20:46 21:00 Temperature Pulse Rate 64 67 Respiratory 16 16 Rate Blood Pressure 164/83 164/83 156/90 O2 Sat by Pulse 99 96 100 Oximetry 10/17/22 10/17/22 10/17/22 21:30 22:00 22:30 Temperature Pulse Rate 58 L 63 63 Respiratory 16 16 16 Rate Blood Pressure 175/89 183/80 167/73 O2 Sat by Pulse 99 100 98 Oximetry 10/17/22 10/18/22 10/18/22 23:00 00:00 01:00 Temperature Pulse Rate 66 62 68 Respiratory 16 16 16 Rate Blood Pressure 155/90 169/82 158/84 O2 Sat by Pulse 98 95 98 Oximetry 10/18/22 02:00 Temperature Pulse Rate 66 Respiratory 16 Rate Blood Pressure 160/92 O2 Sat by Pulse 98 Oximetry EKG Findings - EKG Results: EKG: sinus rhythm (ventricular rate of 76, left axis deviation, qrs .100, qtc .416) Medical Decision Making - Medical Decision Making Patient has a history of asthma, hypertension, GERD, pituitary tumor adenoma resected, hypothyroidism due to thyroidectomy, peripheral vascular disease, IBS, anxiety, mitral valve regurgitation. Presents with complaints of midsternal chest pain and shortness of breath CBC and electrolytes are unremarkable. Troponin is negative at 0.012. TSH is elevated at 25, free T4 of 0.47. Chest x-ray interpreted by me shows no evidence of focal consolidation. Ra diologist interpretation normal chest no change. Patient was started on a heparin drip due to her chest pain and moderate heart score. Cardiology consult placed and echo ordered. Case discussed with Dr. Nazario Was pt. sent in by a medical professional or institution (, PA, ESTHETICIAN/SPA COORDINATOR, urgent care, hospital, or [facility]...) When possible be specific @ -[No] Did you speak to anyone other than the patient for history (EMS, parent, family, police, friend...)? What history was obtained from this source @ -[No] Did you review nursing and triage notes (agree or disagree)? Why? @ -[I reviewed and agree with nursing and triage notes] Were old charts reviewed (outside hosp., previous admission, EMS record, old EKG, old radiological studies, urgent care reports/EKG's, [facility] records)? Report findings @ -[No old charts were reviewed] Differential Diagnosis (chest pain, altered mental status, abdominal pain women, abdominal pain men, vaginal bleeding, weakness, fever, dyspnea, syncope, headache, dizziness, GI bleed, back pain, seizure, CVA, palpatations, mental health, musculoskeletal)? @ Differential Chest Pain: Stable Angina, Unstable Angina, STEMI, NSTEMI Aortic Dissection, Pneumothorax, Musculoskeletal, Esophageal Spasm GERD, Cholecystitis, Pancreatitis, Zoster, this is not meant to be an all-inclusive list. EKG interpreted by me (3pts min.). @ -[As above] X-rays interpreted by me (1pt min.). @ yes as above CT interpreted by me (1pt min.). @ -[None done] U/S interpreted by me (1pt. min.). @ -[None done] What testing was considered but not performed or refused? (CT, X-rays, U/S, labs)? Why? @ -[None] What meds were considered but not given or refused? Why? @ -[None] Did you discuss the management of the patient with other professionals (professionals i.e. , ADALID, ESTHETICIAN/SPA COORDINATOR, lab, RT, psych nurse, social service assistant, cement mixer driver, teacher, correctional program officer, correctional case manager)? Give summary @ -[No] Was smoking cessation discussed for >3mins.? @ -[No] Was critical care preformed (if so, how long)? @ -[No] Were there social determinants of health that impacted care today? How? (Homelessness, low income, unemployed, alcoholism, drug addiction, transportation, low edu. Level, literacy, decrease access to med. care, alf, rehab)? @ -[No] Was there de-escalation of care discussed even if they declined (Discuss DNR or withdrawal of care, Hospice)? DNR status @ -[No] What co-morbidities impacted this encounter? (DM, HTN, Smoking, COPD, CAD, Canc er, CVA, ARF, Chemo, Hep., AIDS, mental health diagnosis, sleep apnea, morbid obesity)? @ -asthma, hypertension, GERD, pituitary tumor adenoma resected, hypothyroidism due to thyroidectomy, peripheral vascular disease, IBS, anxiety, mitral valve regurgitation. Was patient admitted / discharged? Hospital course, mention meds given and route, prescriptions, significant lab abnormalities, going to OR and other pertinent info. @ admitted Undiagnosed new problem with uncertain prognosis? @ -[No] Drug Therapy requiring intensive monitoring for toxicity (Heparin, Nitro, Insu john paul, Cardizem)? @ -heparin Were any procedures done? @ -[No] Diagnosis/symptom? @ chest pain, shortness of breath, hypothyroidism Acute, or Chronic, or Acute on Chronic? @ -acute Uncomplicated (without systemic symptoms) or Complicated (systemic symptoms)? @ complicated Side effects of treatment? @ -[No] Exacerbation, Progression, or Severe Exacerbation? @ -[No] Poses a threat to life or bodily function? How? (Chest pain, [place], [place], pneumonia, PE, COPD, DKA, ARF, appy, cholecystitis, CVA, Diverticulitis, Homicidal, Suicidal, threat to staff... and all critical care pts) @ -yes, chest pain and shortness of breath - Lab Data Result diagrams: 10/17/22 19:46 10/17/22 19:46 Lab Results 10/17/22 10/17/22 10/17/22 Range/Units 19:46 19:46 19:46 WBC 9.6 (3.8-10.6) k/uL RBC 4.92 (3.80-5.40) m/uL Hgb 13.1 (11.4-16.0) gm/dL Hct 40.8 (34.0-46.0) % MCV 83.1 (80.0-100.0) fL MCH 26.6 (25.0-35.0) pg MCHC 32.0 (31.0-37.0) g/dL RDW 15.3 (11.5-15.5) % Plt Count 398 (150-450) k/uL MPV 7.1 Neutrophils % 62 % Lymphocytes % 25 % Monocytes % 5 % Eosinophils % 6 % Basophils % 1 % Neutrophils # 6.0 (1.3-7.7) k/uL Lymphocytes # 2.4 (1.0-4.8) k/uL Monocytes # 0.4 (0-1.0) k/uL Eosinophils # 0.6 (0-0.7) k/uL Basophils # 0.1 (0-0.2) k/uL PT 9.8 (9.0-12.0) sec INR 0.9 (<1.2) APTT 25.6 (22.0-30.0) sec Sodium 140 (137-145) mmol/L Potassium 4.1 (3.5-5.1) mmol/L Chloride 101 (98-107) mmol/L Carbon Dioxide 27 (22-30) mmol/L Anion Gap 12 mmol/L BUN 20 H (7-17) mg/dL Creatinine 1.01 (0.52-1.04) mg/dL Est GFR (CKD-EPI)AfAm 68 (>60 ml/min/1.73 sqM) Est GFR (CKD-EPI)NonAf 59 (>60 ml/min/1.73 sqM) Glucose 91 (74-99) mg/dL Calcium 9.2 (8.4-10.2) mg/dL Magnesium 1.9 (1.6-2.3) mg/dL Total Bilirubin 0.3 (0.2-1.3) mg/dL AST 25 (14-36) U/L ALT 23 (4-34) U/L Alkaline Phosphatase 106 (38-126) U/L Troponin I (0.000-0.034) ng/mL NT-Pro-B Natriuret Pep pg/mL Total Protein 7.7 (6.3-8.2) g/dL Albumin 4.3 (3.5-5.0) g/dL TSH 25.300 H (0.465-4.680) mIU/L Free T4 0.47 L (0.78-2.19) ng/dL 10/17/22 10/17/22 10/17/22 Range/Units 19:46 19:46 22:37 WBC (3.8-10.6) k/uL RBC (3.80-5.40) m/uL Hgb (11.4-16.0) gm/dL Hct (34.0-46.0) % MCV (80.0-100.0) fL MCH (25.0-35.0) pg MCHC (31.0-37.0) g/dL RDW (11.5-15.5) % Plt Count (150-450) k/uL MPV Neutrophils % % Lymphocytes % % Monocytes % % Eosinophils % % Basophils % % Neutrophils # (1.3-7.7) k/uL Lymphocytes # (1.0-4.8) k/uL Monocytes # (0-1.0) k/uL Eosinophils # (0-0.7) k/uL Basophils # (0-0.2) k/uL PT (9.0-12.0) sec INR (<1.2) APTT (22.0-30.0) sec Sodium (137-145) mmol/L Potassium (3.5-5.1) mmol/L Chloride (98-107) mmol/L Carbon Dioxide (22-30) mmol/L Anion Gap mmol/L BUN (7-17) mg/dL Creatinine (0.52-1.04) mg/dL Est GFR (CKD-EPI)AfAm (>60 ml/min/1.73 sqM) Est GFR (CKD-EPI)NonAf (>60 ml/min/1.73 sqM) Glucose (74-99) mg/dL Calcium (8.4-10.2) mg/dL Magnesium (1.6-2.3) mg/dL Total Bilirubin (0.2-1.3) mg/dL AST (14-36) U/L ALT (4-34) U/L Alkaline Phosphatase (38-126) U/L Troponin I <0.012 <0.012 (0.000-0.034) ng/mL NT-Pro-B Natriuret Pep 173 pg/mL Total Protein (6.3-8.2) g/dL Albumin (3.5-5.0) g/dL TSH (0.465-4.680) mIU/L Free T4 (0.78-2.19) ng/dL Disposition Clinical Impression: Chest pain, Shortness of breath, Hypothyroidism Disposition: ADMITTED IP TO THIS [facility] Decision Date: 10/17/22 Decision Time: 21:03
--- NOTE | 2022-10-17 19:46 | XR ---
EXAMINATION TYPE: XR chest 2V DATE OF EXAM: 10/17/2022 COMPARISON: 06/12/2022 HISTORY: Chest pain TECHNIQUE: 2 views FINDINGS: Heart is normal. Lungs are clear. Diaphragm is normal. Bony thorax is intact. IMPRESSION: Normal chest. No change.
[2022-10-17 20:04] LABS: Basophils # (A) 0.1 k/uL (0-0.2); Basophils % (A) 1 %; Eosinophils # (A) 0.6 k/uL (0-0.7); Eosinophils % (A) 6 %; HCT 40.8 % (34.0-46.0); HGB 13.1 gm/dL (11.4-16.0); Lymphocytes # (A) 2.4 k/uL (1.0-4.8); Lymphocytes % (A) 25 %; MCH 26.6 pg (25.0-35.0); MCV 83.1 fL (80.0-100.0); Mean Platelet Volume 7.1; Monocytes # (A) 0.4 k/uL (0-1.0); Monocytes % (A) 5 %; Neutrophils % (A) 62 %; Platelet Count 398 k/uL (150-450); RBC 4.92 m/uL (3.80-5.40); RDW 15.3 % (11.5-15.5); WBC 9.6 k/uL (3.8-10.6)
[2022-10-17 20:22] LABS: ALT 23 U/L (4-34); AST 25 U/L (14-36); African American GFR (CKD) 68 (>60 ml/min/1.73 sqM); Albumin 4.3 g/dL (3.5-5.0); Alkaline Phosphatase 106 U/L (38-126); Anion Gap 12 mmol/L; Blood Urea Nitrogen 20 mg/dL (7-17); Calcium 9.2 mg/dL (8.4-10.2); Carbon Dioxide 27 mmol/L (22-30); Chloride 101 mmol/L (98-107); Glucose 91 mg/dL (74-99); Magnesium 1.9 mg/dL (1.6-2.3); Non-African American GFR(CKD) 59 (>60 ml/min/1.73 sqM); Potassium 4.1 mmol/L (3.5-5.1); Sodium 140 mmol/L (137-145); Total Bilirubin 0.3 mg/dL (0.2-1.3); Total Protein 7.7 g/dL (6.3-8.2)
[2022-10-17 20:23] LABS: INR 0.9 (<1.2); Partial Thromboplastin Time 25.6 sec (22.0-30.0); Prothrombin Time 9.8 sec (9.0-12.0)
[2022-10-17] MEDS ORDERED: NALOXONE 0.4 MG/ML 1 ML VIAL IV PRN (21:16)
[2022-10-17] MEDS ORDERED: HEPARIN SOD,PORK IN 0.45% NACL 25,000 UNIT in 0.45% NACL 1 250ML.BAG IV SCH (22:00)
[2022-10-17] MEDS ORDERED: HEPARIN SODIUM 1,000 UN/ML (10ML VL) IV ONE (22:00)
[2022-10-17] MEDS ORDERED: HEPARIN SODIUM 1,000 UN/ML (10ML VL) IV PRN (22:00)
[2022-10-17] MEDS: fentaNYL (PF) 50 MCG/ML 2 ML AMP IVP STA ×2 (22:46→22:49)
[2022-10-17 23:08] LABS: T4, Free (Free Thyroxine) 0.47 ng/dL (0.78-2.19)
[2022-10-18] MEDS: ALBUTEROL NEBULIZED 2.5 MG/3 ML INHALATION SCH ×4 (02:57→16:37)
[2022-10-18 04:43] LABS: Basophils # (A) 0.1 k/uL (0-0.2); Basophils % (A) 1 %; Eosinophils # (A) 0.6 k/uL (0-0.7); Eosinophils % (A) 7 %; HCT 39.9 % (34.0-46.0); HGB 12.6 gm/dL (11.4-16.0); Lymphocytes # (A) 2.6 k/uL (1.0-4.8); Lymphocytes % (A) 28 %; MCH 26.7 pg (25.0-35.0); MCHC 31.7 g/dL (31.0-37.0); MCV 84.2 fL (80.0-100.0); Mean Platelet Volume 7.2; Monocytes # (A) 0.4 k/uL (0-1.0); Monocytes % (A) 4 %; Neutrophils # (A) 5.5 k/uL (1.3-7.7); Neutrophils % (A) 59 %; Platelet Count 374 k/uL (150-450); RBC 4.73 m/uL (3.80-5.40); RDW 15.4 % (11.5-15.5); WBC 9.3 k/uL (3.8-10.6)
[2022-10-18 04:52] LABS: Partial Thromboplastin Time 37.1 sec (22.0-30.0); Prothrombin Time 10.3 sec (9.0-12.0)
[2022-10-18 14:21] VITALS: BP 150/81; PULSE 81; RESP 19; TEMP 98.4
--- NOTE | 2022-10-18 15:19 | P.CRDCN ---
History of Present Illness History of present illness: HISTORY OF PRESENTING ILLNESS Patient is pleasant 62-year-old female with history of diastolic heart failure, asthma, GERD, multiple medical comorbidities who presents secondary to chest iram n as well as shortness breath. She has been seen Dr. Brandon. She has been having shortness breath and chest pain for the last 2 months. She states that she was having a much harder time breathing and therefore presented to the emergency department. She also has separate chest pain and discomfort not necessarily associated with any exertion. She states currently she feels like her normal state for the last 2 months. EKG shows low voltage with normal sinus rhythm and no significant ST or T wave abnormalities. Troponin normal 3. ProBNP mildly elevated at 173. She has used diuretics in the past however uses the Lasix on an as-needed basis. TSH 25 with a free T4 of 0.4. She states she was recently changed from metoprolol to Coreg for better blood pressure control. REVIEW OF SYSTEMS At the time of my exam: CONSTITUTIONAL: Denies fever or chills. CARDIOVASCULAR: +chronic chest pain, +shortness of breath, no orthopnea, PND or palpitations. RESPIRATORY: Denies cough. GASTROINTESTINAL: Denies abdominal pain, diarrhea, constipation, nausea or vomiting. MUSCULOSKELETAL: Denies myalgias. NEUROLOGIC: Denies numbness, tingling or weakness. ENDOCRINE: Denies fatigue, weight change, polydipsia or polyurina. GENITOURINARY: Denies burning, hematuria or urgency with micturation. HEMATOLOGIC: Denies history of anemia or bleeding. PHYSICAL EXAMINATION Vital signs reviewed. CONSTITUTIONAL: No apparent distress. HEENT: Head is normocephalic. Pupils are equal, round. Sclerae anicteric. Mucous membranes of the mouth are moist. No JVD. No carotid bruit. CHEST EXAMINATION: Lungs are clear to auscultation. No chest wall tenderness is noted on palpation or with deep breathing. HEART EXAMINATION: Regular rate and rhythm. S1, S2 heard. No murmurs, gallops or rub. ABDOMEN: Soft, nontender. Positive bowel sounds. EXTREMITIES: 2+ peripheral pulses, no lower extremity edema and no calf tenderness. NEUROLOGIC EXAMINATION: Patient is awake, alert and oriented x3. ASSESSMENT 1. Atypical chest pain persistent over the last 2 months. Acute coronary syndrome ruled out 2. Dyspnea for last 2 months possibly related to deconditioning plus or minus pulmonary source, do not suspect heart failure 3. History of diastolic heart failure 4. Hypertension 5. Obesity 6. Hypothyroidism, currently hypothyroid PLAN Patient with atypical symptoms and has had recent stress testing and is s cheduled to have echocardiogram performed this Thursday. She states her symptoms have been fairly constant and chronic over the last 2 months and are stable. She states she feels similar to what she has been feeling last few months. Patient would rather have outpatient follow-up and perform echo on Thursday. Patient appears stable for discharge home with follow-up in the office with Dr. Brandon in 1 week. Past Medical History Past Medical History: Asthma, Cancer, CVA/TIA, GERD/Reflux, Hypertension, Thyroid Disorder Additional Past Medical History / Comment(s): ,anemia,hx resp arrest-was not on vent but was coded not sure when it occurred,history of a pituitary tumor- adenoma that was resected, PROLAPSED UTERUS, Thyroid Cancer post thyroidectomy, SCOLIOSIS, peripheral vascular disease, chronic constipation, IBS, nephrolithias is, recurrent urinary tract infection,anxiety, extremely poor dentition, previous history of osteomyelitis of the lumbar spine History of Any Multi-Drug Resistant Organisms: None Reported Past Surgical History: Unable to Obtain Additional Past Surgical History / Comment(s): BRAIN SURGERY to remove benign PITUITARY tumor , thyroid removal, egd/colonoscopy(benign polys removed., d&c, kidney stone removed Past Anesthesia/Blood Transfusion Reactions: No Reported Reaction Additional Past Anesthesia/Blood Transfusion Reaction / Comment(s): BLOOD TRANSFUSION-NO REACTION, states "gas anesthesia interacts with my asthma" Past Psychological History: Anxiety Smoking Status: Never smoker Past Alcohol Use History: None Reported Past Drug Use History: None Reported - Past Family History Sister(s) Family Medical History: Cancer Daughter(s) Additional Family Medical History / Comment(s): eosinophilic gastroenteropathy Son(s) Additional Family Medical History / Comment(s): eosinophilic gastroenteropathy Father Family Medical History: Myocardial Infarction ([place]) Additional Family Medical History / Comment(s): - HAD THE " MAKER" Mother Family Medical History: No Reported History Additional Family Medical History / Comment(s): AAA Medications and Allergies Home Medications Medication Instructions Recorded Confirmed Type Levothyroxine Sodium [Levoxyl] 175 mcg PO DAILY@0430 05/07/22 10/17/22 History Gabapentin [Neurontin] 100 mg PO BID 06/12/22 10/17/22 History Albuterol Nebulized [Ventolin 2.5 mg INHALATION RT-Q6H PRN 10/17/22 10/17/22 History Nebulized] Aspirin [Aspirin EC] 1,000 - 1,500 mg PO Q6H PRN 10/17/22 10/17/22 History Fluticasone Propionate 110 Mcg 2 puff INHALATION RT-BID 10/17/22 10/17/22 History [Flovent 110 Mcg Inhaler] Gabapentin 300 mg PO BID 10/17/22 10/17/22 History Lansoprazole [Prevacid] 30 mg PO HS 10/17/22 10/17/22 History busPIRone HCL 15 mg PO TID PRN 10/17/22 10/17/22 History carvediloL [Coreg] 6.25 mg PO DAILY 10/17/22 10/17/22 History Allergies Allergy/AdvReac Type Severity Reaction Status Date / Time cantaloupe Allergy Anaphylaxis Verified 10/17/22 22:09 levothyroxine Allergy Anaphylaxis Verified 10/17/22 22:09 ondansetron [From Zofran] Allergy rapid Verified 10/17/22 22:09 heart rate,states "went into First degree AV block" acetaminophen [From Tylenol] AdvReac Nausea & Verified 10/17/22 22:09 Vomiting ibuprofen [From Motrin] AdvReac Nausea & Verified 10/17/22 22:09 Vomiting iron AdvReac itravenous Verified 10/17/22 22:09 iron infusion causes "bowel to stop" Physical Exam Vitals: Vital Signs Temp Pulse Resp BP Pulse Ox 10/18/22 14:20 98.4 F 81 19 150/81 95 10/18/22 11:31 79 18 159/85 96 10/18/22 09:45 78 18 154/78 95 10/18/22 08:23 82 18 168/89 97 10/18/22 08:03 83 10/18/22 07:51 79 94 L 10/18/22 04:00 62 15 161/82 97 10/18/22 03:30 64 9 L 155/77 96 10/18/22 03:00 71 16 160/92 96 10/18/22 02:00 66 16 160/92 98 10/18/22 01:00 71 6 L 158/84 99 10/18/22 00:30 64 12 169/82 100 10/18/22 00:00 65 10 L 158/99 95 10/17/22 23:30 67 5 L 155/90 99 10/17/22 23:00 70 8 L 167/73 97 10/17/22 22:30 60 20 183/80 99 10/17/22 22:00 62 9 L 175/89 100 10/17/22 21:30 65 16 156/90 99 10/17/22 21:00 62 9 L 164/83 99 10/17/22 20:46 164/83 96 10/17/22 20:30 70 13 149/82 97 10/17/22 20:00 67 10 L 174/90 97 10/17/22 19:55 73 16 174/90 97 10/17/22 19:52 26 H 10/17/22 17:17 98 F 74 18 164/78 98 Intake and Output 10/18/22 10/18/22 10/18/22 06:59 14:59 22:59 Intake Total 71.848 Balance 71.848 Intake: Intake, IV Titration 71.848 Amount Heparin Sod,Pork in 0.45% 71.848 NaCl 25,000 unit In 0.45 % NaCl 1 250ml.bag @ 9.8 UNITS/KG/HR 10.002 mls/hr IV .Q24H [facility] Rx#: [id number] Results 10/18/22 04:15 10/17/22 19:46 Cardiac Enzymes 10/17/22 10/17/22 10/17/22 Range/Units 19:46 19:46 22:37 AST 25 (14-36) U/L Troponin I <0.012 <0.012 (0.000-0.034) ng/mL 10/18/22 Range/Units 04:15 AST (14-36) U/L Troponin I <0.012 (0.000-0.034) ng/mL Coagulation 10/17/22 10/18/22 10/18/22 Range/Units 19:46 04:15 12:27 PT 9.8 10.3 (9.0-12.0) sec APTT 25.6 37.1 H 44.8 H (22.0-30.0) sec CBC 10/17/22 10/18/22 Range/Units 19:46 04:15 WBC 9.6 9.3 (3.8-10.6) k/uL RBC 4.92 4.73 (3.80-5.40) m/uL Hgb 13.1 12.6 (11.4-16.0) gm/dL Hct 40.8 39.9 (34.0-46.0) % Plt Count 398 374 (150-450) k/uL Comprehensive Metabolic Panel 10/17/22 Range/Units 19:46 Sodium 140 (137-145) mmol/L Potassium 4.1 (3.5-5.1) mmol/L Chloride 101 (98-107) mmol/L Carbon Dioxide 27 (22-30) mmol/L BUN 20 H (7-17) mg/dL Creatinine 1.01 (0.52-1.04) mg/dL Glucose 91 (74-99) mg/dL Calcium 9.2 (8.4-10.2) mg/dL AST 25 (14-36) U/L ALT 23 (4-34) U/L Alkaline Phosphatase 106 (38-126) U/L Total Protein 7.7 (6.3-8.2) g/dL Albumin 4.3 (3.5-5.0) g/dL Current Medications Generic Name Dose Route Start Last Admin Trade Name Freq PRN Reason Stop Dose Admin Albuterol Sulfate 2.5 mg 10/17/22 21:30 10/18/22 07:50 Albuterol Nebulized 2.5 Mg/3 Ml INHALATION 2.5 mg RT-Q6H SHAR Administration Carvedilol 6.25 mg 10/19/22 09:00 Carvedilol 6.25 Mg Tab PO DAILY SHAR Fluticasone Propionate 2 puff 10/18/22 20:00 Fluticasone 110 Mcg Inhaler INHALATION RT-BID SH[facility] Gabapentin 300 mg 10/18/22 21:00 Gabapentin 300 Mg Cap PO BID [facility] Gabapentin 100 mg 10/18/22 21:00 Gabapentin 100 Mg Cap PO BID [facility] Heparin Sodium (Porcine) 0 unit 10/17/22 22:00 10/18/22 05:53 Heparin Sodium 1,000 Un/Ml (10ml Vl) IV 2,550 unit PER PROTOCOL PRN Administration Low PTT Protocol Heparin Sodium/Sodium Chloride 250 mls @ 10.002 mls/hr 10/17/22 22:00 10/18/22 05:54 25,000 unit/ Sodium Chloride IV 11.8 units/kg/hr .Q24H [facility] 12.043 mls/hr Titration Protocol 9.8 UNITS/KG/HR Naloxone HCl 0.2 mg 10/17/22 21:16 Naloxone 0.4 Mg/Ml 1 Ml Vial IV Q2M PRN Opioid Reversal Levoxyl *Robbie* 100 200 each 10/19/22 06:30 Mcg Tab PO DAILY@0630 [facility] Pantoprazole Sodium 40 mg 10/18/22 21:00 Pantoprazole 40 Mg Tablet PO HS [facility] Intake and Output 10/18/22 10/18/22 10/18/22 06:59 14:59 22:59 Intake Total 71.848 Balance 71.848 Intake: Intake, IV Titration 71.848 Amount Heparin Sod,Pork in 0.45% 71.848 NaCl 25,000 unit In 0.45 % NaCl 1 250ml.bag @ 9.8 UNITS/KG/HR 10.002 mls/hr IV .Q24H [facility] Rx#: [id number] 10/18/22 04:15 10/17/22 19:46
[2022-10-18] MEDS ORDERED: FLUTICASONE 110 MCG INHALER INHALATION SCH (20:00)
[2022-10-18] MEDS ORDERED: PANTOPRAZOLE 40 MG TABLET PO SCH (21:00)
[2022-10-18] MEDS ORDERED: GABAPENTIN 300 MG CAP PO SCH (21:00)
[2022-10-18] MEDS ORDERED: GABAPENTIN 100 MG CAP PO SCH (21:00)
[2022-10-19] MEDS ORDERED: LEVOTHYROXINE 100 MCG PO SCH (06:30)
[2022-10-19] MEDS ORDERED: carvediloL 6.25 MG TAB PO SCH (09:00)
--- NOTE | 2022-10-19 16:08 | P.HPIM ---
History of Present Illness H&P Date: 10/18/22 Chief Complaint: Chest pain/shortness of breath 62-year-old non-toxic appearing female that presents to the emergency room with complaints of chest pain and shortness of breath. States has been ongoing for 3 weeks. Did go to urgent care 3 weeks ago and had an x-ray that was negative. States she seen her compensation advisor Dr. Brandon 3 days ago and she told him she felt her symptoms started after he changed her from Lopressor to Coreg. Dr. Brandon recommended she continue the medication and she is scheduled for an echocardiogram on Thursday. Patient states that her symptoms of chest pain and shortness of breath seem to be getting worse. She states that she is also concerned with her liver and wants her thyroid levels checked. she denies any fevers. No nausea vomiting or diarrhea. does have a history of asthma, hypertension, anxiety, thyroid cancer, mitral valve regurgitation. EKG shows low voltage with normal sinus rhythm and no significant ST or T wave abnormalities. Troponin normal 3. ProBNP mildly elevated at 173. She has used diuretics in the past however uses the Lasix on an as-needed basis. TSH 25 with a free T4 of 0.4. She states she was recently changed from metoprolol to Coreg for better blood pressure control. Review of Systems REVIEW OF SYSTEMS: CONSTITUTIONAL: No fever, no malaise, no fatigue. HEENT: No recent visual problems or hearing problems. Denied any sore throat. CARDIOVASCULAR: No chest pain, orthopnea, PND, no palpitations, no syncope. PULMONARY: No shortness of breath, no cough, no hemoptysis. GASTROINTESTINAL: No diarrhea, no nausea, no vomiting, no abdominal pain. NEUROLOGICAL: No headaches, no weakness, no numbness. HEMATOLOGICAL: Denies any bleeding or petechiae. GENITOURINARY: Denies any burning micturition, frequency, or urgency. MUSCULOSKELETAL/RHEUMATOLOGICAL: Denies any joint pain, swelling, or any muscle pain. ENDOCRINE: Denies any polyuria or polydipsia. The rest of the 14-point review of systems is negative. Past Medical History Past Medical History: Asthma, Cancer, CVA/TIA, GERD/Reflux, Hypertension, Thyroid Disorder Additional Past Medical History / Comment(s): ,anemia,hx resp arrest-was not on vent but was coded not sure when it occurred,history of a pituitary tumor- adenoma that was resected, PROLAPSED UTERUS, Thyroid Cancer post thyroidectomy, SCOLIOSIS, peripheral vascular disease, chronic constipation, IBS, nephrolithiasis, recurrent urinary tract infection,anxiety, extremely poor dentition, previous history of osteomyelitis of the lumbar spine History of Any Multi-Drug Resistant Organisms: None Reported Past Surgical History: Unable to Obtain Additional Past Surgical History / Comment(s): BRAIN SURGERY to remove benign PITUITARY tumor , thyroid removal, egd/colonoscopy(benign polys removed., d&c, kidney stone removed Past Anesthesia/Blood Transfusion Reactions: No Reported Reaction Additional Past Anesthesia/Blood Transfusion Reaction / Comment(s): BLOOD TRANSFUSION-NO REACTION, states "gas anesthesia interacts with my asthma" Past Psychological History: Anxiety Smoking Status: Never smoker Past Alcohol Use History: None Reported Past Drug Use History: None Reported - Past Family History Sister(s) Family Medical History: Cancer Daughter(s) Additional Family Medical History / Comment(s): eosinophilic gastroenteropathy Son(s) Additional Family Medical History / Comment(s): eosinophilic gastroenteropathy Father Family Medical History: Myocardial Infarction ([place]) Additional Family Medical History / Comment(s): - HAD THE " MAKER" Mother Family Medical History: No Reported History Additional Family Medical History / Comment(s): AAA Medications and Allergies Home Medications Medication Instructions Recorded Confirmed Type Gabapentin [Neurontin] 100 mg PO BID 06/12/22 10/17/22 History Albuterol Nebulized [Ventolin 2.5 mg INHALATION RT-Q6H PRN 10/17/22 10/17/22 History Nebulized] Aspirin [Aspirin EC] 1,000 - 1,500 mg PO Q6H PRN 10/17/22 10/17/22 History Fluticasone Propionate 110 Mcg 2 puff INHALATION RT-BID 10/17/22 10/17/22 History [Flovent 110 Mcg Inhaler] Gabapentin 300 mg PO BID 10/17/22 10/17/22 History Lansoprazole [Prevacid] 30 mg PO HS 10/17/22 10/17/22 History busPIRone HCL 15 mg PO TID PRN 10/17/22 10/17/22 History carvediloL [Coreg] 6.25 mg PO DAILY 10/17/22 10/17/22 History Levothyroxine Sodium [Levoxyl] 200 mcg PO DAILY 30 Days #30 tab 10/18/22 Rx Allergies Allergy/AdvReac Type Severity Reaction Status Date / Time cantaloupe Allergy Anaphylaxis Verified 10/17/22 22:09 levothyroxine Allergy Anaphylaxis Verified 10/17/22 22:09 ondansetron [From Zofran] Allergy rapid Verified 10/17/22 22:09 heart rate,states "went into First degree AV block" acetaminophen [From Tylenol] AdvReac Nausea & Verified 10/17/22 22:09 Vomiting ibuprofen [From Motrin] AdvReac Nausea & Verified 10/17/22 22:09 Vomiting iron AdvReac itravenous Verified 10/17/22 22:09 iron infusion causes "bowel to stop" Physical Exam Vitals: Vital Signs Temp Pulse Resp BP Pulse Ox 10/18/22 08:23 82 18 168/89 97 10/18/22 08:03 83 10/18/22 07:51 79 94 L 10/18/22 04:00 62 15 161/82 97 10/18/22 03:30 64 9 L 155/77 96 10/18/22 03:00 71 16 160/92 96 10/18/22 02:00 66 16 160/92 98 10/18/22 01:00 71 6 L 158/84 99 10/18/22 00:30 64 12 169/82 100 10/18/22 00:00 65 10 L 158/99 95 10/17/22 23:30 67 5 L 155/90 99 10/17/22 23:00 70 8 L 167/73 97 10/17/22 22:30 60 20 183/80 99 10/17/22 22:00 62 9 L 175/89 100 10/17/22 21:30 65 16 156/90 99 10/17/22 21:00 62 9 L 164/83 99 10/17/22 20:46 164/83 96 10/17/22 20:30 70 13 149/82 97 10/17/22 20:00 67 10 L 174/90 97 10/17/22 19:55 73 16 174/90 97 10/17/22 19:52 26 H 10/17/22 17:17 98 F 74 18 164/78 98 Intake and Output 10/17/22 10/18/22 10/18/22 22:59 06:59 14:59 Intake Total 71.848 Balance 71.848 Intake: Intake, IV Titration 71.848 Amount Heparin Sod,Pork in 0.45% 71.848 NaCl 25,000 unit In 0.45 % NaCl 1 250ml.bag @ 9.8 UNITS/KG/HR 10.002 mls/hr IV .Q24H [facility] Rx#: [id number] Other: Weight 102.058 kg PHYSICAL EXAMINATION: GENERAL: The patient is alert and oriented x3, not in any acute distress. Well developed, well nourished. HEENT: Pupils are round and equally reacting to light. EOMI. No scleral icterus. No conjunctival pallor. Normocephalic, atraumatic. No pharyngeal erythema. No thyromegaly. CARDIOVASCULAR: S1 and S2 present. No murmurs, rubs, or gallops. PULMONARY: Chest is clear to auscultation, no wheezing or crackles. ABDOMEN: Soft, nontender, nondistended, normoactive bowel sounds. No palpable organomegaly. MUSCULOSKELETAL: No joint swelling or deformity. EXTREMITIES: No cyanosis, clubbing, or pedal edema. NEUROLOGICAL: Gross neurological examination did not reveal any focal deficits. SKIN: No rashes. Results CBC & Chem 7: 10/18/22 04:15 10/17/22 19:46 Labs: Abnormal Lab Results - Last 24 Hours (Table) 10/17/22 10/18/22 Range/Units 19:46 04:15 APTT 37.1 H (22.0-30.0) sec BUN 20 H (7-17) mg/dL TSH 25.300 H (0.465-4.680) mIU/L Free T4 0.47 L (0.78-2.19) ng/dL Assessment and Plan Assessment: 1. Atypical chest pain persistent over the last 2 months. Acute coronary syndrome ruled out - Patient has been on cardiac telemetry and troponin was trended which has been negative; patient is evaluated by cardiology and patient's presentation seems to be atypical; patient has had a recent stress test and is scheduled for an echocardiogram on Thursday; cardiology clinic patient for discharge and continue with echocardiogram on Thursday and follow-up with primary compensation advisor in 1 week 2. Dyspnea for last 2 months possibly related to deconditioning plus or minus pulmonary source, cardiology on board and to not suspect heart failure 3. History of diastolic heart failure; clinically stable; patient is currently not on any diuretic therapy 4. Hypertension; Coreg 6.25 mg twice a day 5. Obesity; counseling done on need for weight reduction 6. Hypothyroidism, currently hypothyroid; TSH is elevated with a low free T4; patient is currently taking levothyroxine 175 MCG daily which will be changed to 200 MCG daily; patient will have repeat blood work done with primary care physician in 4-6 weeks
--- NOTE | 2022-10-19 16:09 | P.DS ---
Providers Date of admission: 10/18/22 00:53 Attending physician: Margoth Berrios MD Consults: 10/17/22 21:16 Consult Physician Routine Consulting Provider: Jerry Brandon Consult Reason/Comments: chest pain, shortness of breath Do you want consulting provider notified?: Already Contacted Primary care physician: [facility] Course: 62-year-old non-toxic appearing female that presents to the emergency room with complaints of chest pain and shortness of breath. States has been ongoing for 3 weeks. Did go to urgent care 3 weeks ago and had an x-ray that was negative. States she seen her broodmare foreman Dr. Brandon 3 days ago and she told him she felt her symptoms started after he changed her from Lopressor to Coreg. Dr. Brandon recommended she continue the medication and she is scheduled for an echocardiogram on Thursday. Patient states that her symptoms of chest pain and shortness of breath seem to be getting worse. She states that she is also concerned with her liver and wants her thyroid levels checked. she denies any fevers. No nausea vomiting or diarrhea. States does have a history of asthma, hypertension, anxiety, thyroid cancer, mitral valve regurgitation. EKG shows low voltage with normal sinus rhythm and no significant ST or T wave abnormalities. Troponin normal 3. ProBNP mildly elevated at 173. She has used diuretics in the past however uses the Lasix on an as-needed basis. TSH 25 with a free T4 of 0.4. She states she was recently changed from metoprolol to Coreg for better blood pressure control. 1. Atypical chest pain persistent over the last 2 months. Acute coronary syndrome ruled out - Patient has been on cardiac telemetry and troponin was trended which has been negative; patient is evaluated by cardiology and patient's presentation seems to be atypical; patient has had a recent stress test and is scheduled for an echocardiogram on Thursday; cardiology clinic patient for discharge and continue with echocardiogram on Thursday and follow-up with primary broodmare foreman in 1 week 2. Dyspnea for last 2 months possibly related to deconditioning plus or minus pulmonary source, cardiology on board and to not suspect heart failure 3. History of diastolic heart failure; clinically stable; patient is currently not on any diuretic therapy 4. Hypertension; Coreg 6.25 mg twice a day 5. Obesity; counseling done on need for weight reduction 6. Hypothyroidism, currently hypothyroid; TSH is elevated with a low free T4; patient is currently taking levothyroxine 175 MCG daily which will be changed to 200 MCG daily; patient will have repeat blood work done with primary care physician in 4-6 weeks Plan - Discharge Summary New Discharge Prescriptions: New Levothyroxine Sodium [Levoxyl] 200 mcg PO DAILY 30 Days #30 tab Continue Fluticasone Propionate 110 Mcg [Flovent 110 Mcg Inhaler] 2 puff INHALATION RT-BID carvediloL [Coreg] 6.25 mg PO DAILY Albuterol Nebulized [Ventolin Nebulized] 2.5 mg INHALATION RT-Q6H PRN PRN Reason: Shortness Of Breath Lansoprazole [Prevacid] 30 mg PO HS Gabapentin [Neurontin] 100 mg PO BID busPIRone HCL 15 mg PO TID PRN PRN Reason: Anxiety Gabapentin 300 mg PO BID Aspirin [Aspirin EC] 1,000 - 1,500 mg PO Q6H PRN PRN Reason: Pain Discontinued Levothyroxine Sodium [Levoxyl] 175 mcg PO DAILY@0430 Discharge Medication List Gabapentin [Neurontin] 100 mg PO BID 06/12/22 [History] Albuterol Nebulized [Ventolin Nebulized] 2.5 mg INHALATION RT-Q6H PRN 10/17/22 [History] Aspirin [Aspirin EC] 1,000 - 1,500 mg PO Q6H PRN 10/17/22 [History] Fluticasone Propionate 110 Mcg [Flovent 110 Mcg Inhaler] 2 puff INHALATION RT- BID 10/17/22 [History] Gabapentin 300 mg PO BID 10/17/22 [History] Lansoprazole [Prevacid] 30 mg PO HS 10/17/22 [History] busPIRone HCL 15 mg PO TID PRN 10/17/22 [History] carvediloL [Coreg] 6.25 mg PO DAILY 10/17/22 [History] Levothyroxine Sodium [Levoxyl] 200 mcg PO DAILY 30 Days #30 tab 10/18/22 [Rx] Follow up Appointment(s)/Referral(s): Samantha Jc MD [Primary Care Provider] - 1-2 days Ambulatory/Diagnostic Orders: T4, Free (Free Thyroxine) [LAB.AMB] Time Frame: 1 Month, Facility: [facility], Location: [facility] Patient Instructions/Handouts: Chest Pain (GEN) Activity/Diet/Wound Care/Special Instructions: keep appointment with Dr. Brandon on Thursday Keep Echo appointment thursday also!! any worsing symptoms please return to hospital take oral lasix for next few days Discharge Disposition: HOME SELF-CARE
== END 2022-10-18 17:21 | disposition home or self-care (01) ==
LOC: EC 16:45 → 6NMEDSUR 10-18 00:53
PROVIDERS: ADMIT Internal Medicine; ATTEND Internal Medicine
DX: R07.89 Other chest pain (principal); R06.00 Dyspnea, unspecified; I11.0 Hypertensive heart disease with heart failure; I50.30 Unspecified diastolic (congestive) heart failure; E66.9 Obesity, unspecified; Z68.39 Body mass index [BMI] 39.0-39.9, adult; J45.909 Unspecified asthma, uncomplicated; K21.9 Gastro-esophageal reflux disease without esophagitis; Z86.73 Personal history of transient ischemic attack (TIA), and cerebral infarction without residual deficits; D64.9 Anemia, unspecified; Z86.39 Personal history of other endocrine, nutritional and metabolic disease; K58.1 Irritable bowel syndrome with constipation; Z98.890 Other specified postprocedural states; E89.0 Postprocedural hypothyroidism; F41.9 Anxiety disorder, unspecified; Z80.9 Family history of malignant neoplasm, unspecified; Z83.79 Family history of other diseases of the digestive system; Z82.49 Family history of ischemic heart disease and other diseases of the circulatory system; Z79.890 Hormone replacement therapy; Z79.899 Other long term (current) drug therapy; Z79.82 Long term (current) use of aspirin; Z88.6 Allergy status to analgesic agent; Z88.8 Allergy status to other drugs, medicaments and biological substances; Z91.018 Allergy to other foods
CPT/HCPCS: 96376; 96366 ×2; 96365; 96375; 99285; 36415; 94640; 94760; 93005; 84439; 83880; 80053; 84443; 83735; 84484 ×2; 85025 ×2; 85610 ×2; 85730 ×2; 71046; G0378; J1644 ×3

== ENCOUNTER → 2022-12-22 | Outpatient (CLI) | payer MEDICARE, OTHER ==
[2022-12-22 16:08] LABS: African American GFR (CKD) 78.3 (60.0-200.0); Albumin 4.1 g/dL (3.8-4.9); Albumin/Globulin Ratio 1.17 (1.60-3.17); Anion Gap 13.2 mmol/L (10.00-18.00); BUN/Creat Ratio 21.56 Ratio (12.00-20.00); Blood Urea Nitrogen 19.4 mg/dL (9.0-27.0); Calcium 9.4 mg/dL (8.7-10.3); Carbon Dioxide 22.8 mmol/L (20.0-27.5); Globulin 3.5 g/dL (1.6-3.3); Non-African American GFR(CKD) 67.6 (60.0-200.0); Potassium 4.3 mmol/L (3.5-5.5); Prolactin 12.4 ng/mL (2.800-29.200); Total Bilirubin 0.2 mg/dL (0.30-1.20); Total Protein 7.6 g/dL (6.2-8.2)
== END | disposition home or self-care (01) ==
LOC: LABWHC1 11:14
PROVIDERS: ATTEND Internal Medicine Endocrinology, Diabetes & Metabolism
DX: E03.8 Other specified hypothyroidism (principal); D35.2 Benign neoplasm of pituitary gland; Z87.898 Personal history of other specified conditions
CPT/HCPCS: 36415; 80053; 82024; 82533; 84146; 84432; 84443; 86800

== ENCOUNTER → 2023-01-30 | Outpatient (CLI) | payer MEDICARE, OTHER ==
[2023-01-31 01:48] LABS: Basophils # (A) 0.11 X 10*3/uL (0.00-0.10); Basophils % (A) 1.2 %; Eosinophils # (A) 0.54 X 10*3/uL (0.04-0.35); Eosinophils % (A) 5.9 %; HCT 43.5 % (37.2-46.3); HGB 13.4 d/dL (12.0-15.0); Lymphocytes # (A) 1.82 X 10*3/uL (0.90-5.00); Lymphocytes % (A) 19.8 %; MCH 25.4 pg (27.0-32.0); MCHC 30.8 d/dL (32.0-37.0); MCV 82.4 FL (80.0-97.0); Mean Platelet Volume 10.1 FL (9.5-12.2); Monocytes # (A) 0.57 X 10*3/uL (0.20-1.00); Monocytes % (A) 6.2 %; NRBC Per 100 WBC 0 X 10*3/uL (0.00-0.01); Neutrophils # (A) 6.11 X 10*3/uL (1.80-7.70); Neutrophils % (A) 66.2 %; Platelet Count 441 X 10*3/uL (140-440); RBC 5.28 X 10*6/uL (4.10-5.20); RDW 15.2 % (11.5-14.5); WBC 9.21 X 10*3/uL (4.50-10.00)
== END | disposition home or self-care (01) ==
LOC: LABWHC1 15:59
PROVIDERS: ATTEND Nurse Practitioner Family
DX: D50.9 Iron deficiency anemia, unspecified (principal)
CPT/HCPCS: 36415; 85025

== ENCOUNTER 2023-02-04 08:55 | Day surgery (SDC) | payer MEDICARE, OTHER ==
[2023-01-29 12:17] VITALS: BMI 40.2
[~2023-02-04 08:55] MED LIST: LACTATED RINGERS 1,000 ML IV SCH; LIDOCAINE 1% (10MG/ML) FOR IV START INTRADERMA PRN
[2023-02-04] MEDS ORDERED: LACTATED RINGERS 1,000 ML IV ONE (09:50)
[2023-02-04 10:20] VITALS: RESP 16; TEMP 97.4
[2023-02-04] MEDS ORDERED: PROPOFOL 10 MG/ML 20 ML VIAL IV ONE (10:47)
[2023-02-04] MEDS ORDERED: LIDOCAINE 2% INJ 20 MG/ML (2 ML VIAL) ONE (10:47)
--- NOTE | 2023-02-04 10:54 | P.PCN ---
Date of Procedure: 02/04/23 Procedure(s) Performed: BRIEF HISTORY: Patient is a 62-year-old, pleasant, white female scheduled for an upper endoscopy as a part of evaluation of epigastric pain and chest pain for the last 3 months duration. she has long-standing history of gerd and has been on prevacid 30 mg daily.. PROCEDURE PERFORMED: Esophagogastroduodenoscopy with biopsy PREOPERATIVE DIAGNOSIS: Epigastric pain/chest pain of 3 months duration and history of GERD. IV sedation per anesthesia. PROCEDURE: After informed consent was obtained, the patient was brought into the endoscopy unit. IV sedation was administered by Anesthesia under continuous monitoring. Initially the Olympus GIF-140 video endoscope was inserted into the mouth. Esophagus intubated without any difficulty. It was gradually advanced into the stomach and duodenum and carefully examined. The bulb and the second part of the duodenum appeared normal. The scope at this time was withdrawn to the stomach, adequately insufflated with air, and upon careful examination, mucosa of the antrum, and one centimeters superficial antral ulcer which was biopsied. Multiple erosions noted in the antrum of the stomach. Mucosa of the body, cardia and the fundus appeared normal. The scope was then withdrawn into the esophagus. The GE junction was located at 39 cm from the incisors. The esophagus appeared normal. There were no erosions or ulcerations seen and the patient tolerated the procedure well. IMPRESSION: 1. 1 cm superficial antral ulcer and antral erosive gastritis 2. Normal-appearing esophagus with no evidence of esophagitis or esophageal stricture RECOMMENDATIONS: The findings of this examination were discussed with the patient as well as her family. She was advised to increase the lansoprazole 30 mg twice daily and avoid NSAIDs. She'll be seen in office in 6 weeks
[2023-02-04 11:17] VITALS: BP 163/94; PULSE 77
== END 2023-02-04 12:10 | disposition home or self-care (01) ==
LOC: ORWHC2ENDO 08:55
PROVIDERS: ATTEND Internal Medicine Gastroenterology
DX: K29.50 Unspecified chronic gastritis without bleeding (principal); K25.9 Gastric ulcer, unspecified as acute or chronic, without hemorrhage or perforation; K21.9 Gastro-esophageal reflux disease without esophagitis; K22.70 Barrett's esophagus without dysplasia; I10 Essential (primary) hypertension; Z85.850 Personal history of malignant neoplasm of thyroid; Z86.018 Personal history of other benign neoplasm; Z79.51 Long term (current) use of inhaled steroids; Z79.899 Other long term (current) drug therapy; Z88.6 Allergy status to analgesic agent; Z88.8 Allergy status to other drugs, medicaments and biological substances
CPT/HCPCS: 88305; 43239; J2704; J2001

== ENCOUNTER 2023-03-22 16:07 | Emergency (ER) | payer MEDICARE, OTHER ==
[2023-03-22 16:35] VITALS: RESP 18
[2023-03-22] MEDS ORDERED: METOCLOPRAMIDE 5 MG/ML 2 ML VIAL IM STA (17:08)
[2023-03-22] MEDS ORDERED: KETOROLAC 15 MG/ML 1 ML VIAL IM STA (17:08)
--- NOTE | 2023-03-22 17:13 | ED ---
Abdominal Pain HPI - General Chief Complaint: Abdominal Pain Stated Complaint: Poss Kidney Stone Time Seen by Provider: 03/22/23 16:59 Source: patient Mode of arrival: wheelchair - History of Present Illness Initial Comments: 62-year-old female with history of kidney stones presenting with chief complaint of right flank pain ongoing for the last 5 days. She admits to urinary urgency and frequency. No dysuria or hematuria. No fevers or chills. She admits to nausea and vomiting. No loss of bowel or bladder control or saddle paresthesia. No lower extremity numbness, tingling, weakness. - Related Data Home Medications Medication Instructions Recorded Confirmed Albuterol Nebulized [Ventolin 2.5 mg INHALATION RT-Q6H PRN 10/17/22 02/04/23 Nebulized] Aspirin [Aspirin EC] 1,000 - 1,500 mg PO Q6H PRN 10/17/22 02/04/23 Lansoprazole [Prevacid] 30 mg PO HS 10/17/22 02/04/23 carvediloL [Coreg] 6.25 mg PO BID 10/17/22 02/04/23 Levothyroxine Sodium [Levoxyl] 350 mcg PO DAILY 01/29/23 02/04/23 Previous Rx's Medication Instructions Recorded Cephalexin [Keflex] 500 mg PO Q12HR 7 Days #14 cap 03/22/23 Cyclobenzaprine [Flexeril] 10 mg PO HS PRN #10 tab 03/22/23 Allergies Allergy/AdvReac Type Severity Reaction Status Date / Time cantaloupe Allergy Anaphylaxis Verified 03/22/23 16:35 levothyroxine Allergy Anaphylaxis Verified 03/22/23 16:35 naproxen Allergy Dyspnea Verified 03/22/23 16:35 ondansetron [From Zofran] Allergy rapid Verified 03/22/23 16:35 heart rate,states "went into First degree AV block" acetaminophen [From Tylenol] AdvReac Nausea & Verified 03/22/23 16:35 Vomiting ibuprofen [From Motrin] AdvReac Nausea & Verified 03/22/23 16:35 Vomiting iron AdvReac itravenous Verified 03/22/23 16:35 iron infusion causes "bowel to stop" UNSURE OF NAME OF ANESTH. GAS Allergy DYSPNEA, Uncoded 03/22/23 16:35 "STOP BREATHING" Review of Systems ROS Statement: Those systems with pertinent positive or pertinent negative responses have been documented in the HPI. ROS Other: All systems not noted in ROS Statement are negative. 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 (PT STATES "BENIGN BRAIN TUMOR REMOVED THAT GREW BACK AND BEING WATCHED"), PROLAPSED UTERUS, Thyroid Cancer post thyroidectomy, THROAT CANCER AND HAD ALL TEETH AND PART OF JAW REMOVED, SCOLIOSIS, chronic constipation, IBS, nephrolithiasis, recurrent urinary tract infection,anxiety, previous history of osteomyelitis of the lumbar spine, CHRONIC BACK PAIN, CARPAL TUNNEL BILATERALLY, HEART VALVE DISEASE History of Any Multi-Drug Resistant Organisms: None Reported Past Surgical History: Unable to Obtain Additional Past Surgical History / Comment(s): BRAIN SURGERY to remove benign PITUITARY tumor, thyroid removal, partial jaw removal due to throat cancer, egd/colonoscopy(benign polyps removed, d&c, kidney stone removed Past Anesthesia/Blood Transfusion Reactions: No Reported Reaction Additional Past Anesthesia/Blood Transfusion Reaction / Comment(s): BLOOD TRANSFUSION-NO REACTION. states "gas anesthesia interacts with my asthma and stop breathing" Past Psychological History: Anxiety Smoking Status: Never smoker Past Alcohol Use History: None Reported Past Drug Use History: None Reported - Past Family History Sister(s) Family Medical History: Cancer Daughter(s) Additional Family Medical History / Comment(s): eosinophilic gastroenteropathy Son(s) Additional Family Medical History / Comment(s): eosinophilic gastroenteropathy Father Family Medical History: Myocardial Infarction ([place]) Additional Family Medical History / Comment(s): - HAD THE " MAKER" Mother Family Medical History: No Reported History Additional Family Medical History / Comment(s): AAA General Exam Limitations: no limitations General appearance: alert, in no apparent distress Head exam: Present: atraumatic, normocephalic, normal inspection Eye exam: Present: normal appearance, EOMI Neck exam: Present: normal inspection, full ROM Respiratory exam: Present: normal lung sounds bilaterally. Absent: respiratory distress, wheezes, rales, rhonchi, stridor Cardiovascular Exam: Present: regular rate, normal rhythm, normal heart sounds. Absent: systolic murmur, diastolic murmur, rubs, gallop, clicks Back exam: Present: CVA tenderness (R). Absent: CVA tenderness (L) Neurological exam: Present: alert, oriented X3, CN II-XII intact Psychiatric exam: Present: normal affect, normal mood Skin exam: Present: warm, dry, intact, normal color. Absent: rash Course Vital Signs 03/22/23 03/22/23 16:32 19:06 Temperature 98.9 F 99.0 F Pulse Rate 95 88 Respiratory 18 18 Rate Blood Pressure 133/70 147/70 O2 Sat by Pulse 96 Oximetry Medical Decision Making - Medical Decision Making Was pt. sent in by a medical professional or institution (, PA, [employer] OPERATOR, urgent care, hospital, or prison...) When possible be specific @ -No Did you speak to anyone other than the patient for history (EMS, parent, family, police, friend...)? What history was obtained from this source @ -No Did you review nursing and triage notes (agree or disagree)? Why? @ -I reviewed and agree with nursing and triage notes Were old charts reviewed (outside hosp., previous admission, EMS record, old EKG, old radiological studies, urgent care reports/EKG's, prison records)? Report findings @ -No old charts were reviewed Differential Diagnosis (chest pain, altered mental status, abdominal pain women, abdominal pain men, vaginal bleeding, weakness, fever, dyspnea, syncope, headache, dizziness, GI bleed, back pain, seizure, CVA, palpatations, mental health, musculoskeletal)? @ - [facility] Differential Back Pain: Strain, zoster, cauda equina syndrome, epidural abscess, vertebral osteomyelitis, discitis, fracture, subluxation, disc herniation, DJD, spinal stenosis, dissection, AAA, pancreatitis, peptic ulcer disease, pyelonephritis, kidney stone this is not meant to be an all-inclusive list. EKG interpreted by me (3pts min.). @ -As above X-rays interpreted by me (1pt min.). @ -None done CT interpreted by me (1pt min.). @ -No definitive evidence for acute right lower quadrant process. The appendix is normal. No obstructive uropathy. Nonobstructing bilateral renal calculi. U/S interpreted by me (1pt. min.). @ -None done What testing was considered but not performed or refused? (CT, X-rays, U/S, labs)? Why? @ -None What meds were considered but not given or refused? Why? @ -None Did you discuss the management of the patient with other professionals (sharlene oliver i.e. , PA, [employer]PERATOR, lab, RT, psych nurse, social media manager, assortment planner, teacher, boat officer, telehealth case manager)? Give summary @ -No Was smoking cessation discussed for >3mins.? @ -No Was critical care preformed (if so, how long)? @ -No Were there social determinants of health that impacted care today? How? (Homelessness, low income, unemployed, alcoholism, drug addiction, transportation, low edu. Level, literacy, decrease access to med. care, halfway, rehab)? @ -No Was there de-escalation of care discussed even if they declined (Discuss DNR or withdrawal of care, Hospice)? DNR status @ -No What co-morbidities impacted this encounter? (DM, HTN, Smoking, COPD, CAD, Cancer, CVA, ARF, Chemo, Hep., AIDS, mental health diagnosis, sleep apnea, morbid obesity)? @ -None Was patient admitted / discharged? Hospital course, mention meds given and route, prescriptions, significant lab abnormalities, going to OR and other pertinent info. @ -62-year-old female presenting with chief complaint of flank pain as well as urinary urgency and frequency. On physical examination there is CVA tenderness and paraspinal muscle tenderness. Urine has [address] negative for obstructive uropathy or appendicitis. Patient will be treated for UTI with Keflex. She is provided with Toradol and lidocaine patch for suspected musculoskeletal back pain. Educated on today's findings and treatment plan. Follow-up with PCP. Report back to ER with any new or worsening symptoms. Discussed return parameters and answered all questions. Patient conveyed verbal understanding and agreed to the plan. I discussed this case in detail with my attending Dr. Lopez Undiagnosed new problem with uncertain prognosis? @ -No Drug Therapy requiring intensive monitoring for toxicity (Heparin, Nitro, Insulin, Cardizem)? @ -No Were any procedures done? @ -No Diagnosis/symptom? @ -UTI, mechanical back pain Acute, or Chronic, or Acute on Chronic? @ -Acute Uncomplicated (without systemic symptoms) or Complicated (systemic symptoms)? @ -Uncomplicated Side effects of treatment? @ -No Exacerbation, Progression, or Severe Exacerbation? @ -No Poses a threat to life or bodily function? How? (Chest pain, [place], [place], pneumonia, PE, COPD, DKA, ARF, appy, cholecystitis, CVA, Diverticulitis, Homicidal, Suicidal, threat to staff... and all critical care pts) @ -No - Lab Data Lab Results 03/22/23 Range/Units 17:34 Urine Color Yellow Urine Appearance Cloudy H (Clear) Urine pH 5.5 (5.0-8.0) Ur Specific [place] 1.032 (1.001-1.035) Urine Protein Trace H (Negative) Urine Glucose (UA) Negative (Negative) Urine Ketones Negative (Negative) Urine Blood Negative (Negative) Urine Nitrite Negative (Negative) Urine Bilirubin Negative (Negative) Urine Urobilinogen <2.0 (<2.0) mg/dL Ur Leukocyte Esterase Trace H (Negative) Urine RBC 2 (0-5) /hpf Urine WBC 8 H (0-5) /hpf Ur Squamous Epith Cells 3 (0-4) /hpf Hyaline Casts 4 H (0-2) /lpf Urine Mucus Few H (None) /hpf Disposition Clinical Impression: UTI (urinary tract infection), Mechanical back pain Disposition: HOME SELF-CARE Condition: Good Instructions (If sedation given, give patient instructions): Urinary Tract Infection in Women (ED), Acute Low Back Pain (ED) Additional Instructions: Follow-up with PCP. Report back to ER with any new or worsening symptoms. Take medication as prescribed. Take Motrin and Tylenol as needed. Prescriptions: Cyclobenzaprine [Flexeril] 10 mg PO HS PRN #10 tab PRN Reason: Spasms Cephalexin [Keflex] 500 mg PO Q12HR 7 Days #14 cap Is patient prescribed a controlled substance at d/c from ED?: No Referrals: Samantha Jc MD [Primary Care Provider] - 1-2 days Time of Disposition: 18:51
[2023-03-22 18:16] LABS: Appearance,Urine Cloudy (Clear); Bilirubin,Urine Negative (Negative); Blood,Urine Negative (Negative); Glucose,Urine (UA) Negative (Negative); Hyaline Casts,Urine 4 /lpf (0-2); Ketones,Urine Negative (Negative); Leukocyte Esterase,Urine Trace (Negative); Mucus,Urine Few /hpf; Nitrite,Urine Negative (Negative); PH, Urine 5.5 (5.0-8.0); Protein,Urine Trace (Negative); RBC,Urine 2 /hpf (0-5); Specific Gravity,Urine 1.032 (1.001-1.035); Squamous Epithelial Cell,Urine 3 /hpf (0-4); Urobilinogen,Urine <2.0 mg/dL (<2.0); WBC,Urine 8 /hpf (0-5)
[2023-03-22 18:17] LABS: Color,Urine Yellow
--- NOTE | 2023-03-22 18:23 | CT ---
EXAMINATION TYPE: CT abdomen pelvis wo con CT DLP: 844.4 mGycm, Automated exposure control for dose reduction was used. DATE OF EXAM: 03/22/2023 6:15 PM COMPARISON: CT abdomen pelvis most recent from 05/30/2022 CLINICAL INDICATION:Female, 62 years old with history of R flank pain; RT flank pain. Hx renal stones TECHNIQUE: Axial CT of the abdomen and pelvis. Sagittal and coronal reformats were created on a [employer] workstation. Contrast used: mL of , (none if empty) Oral contrast used: without Oral Contrast (none if empty) FINDINGS: LOWER CHEST: Unremarkable ABDOMEN LIVER: Unremarkable GALLBLADDER AND BILE DUCTS: Unremarkable. PANCREAS: Unremarkable. SPLEEN: Unremarkable. ADRENAL GLANDS: Unremarkable. KIDNEYS AND URETERS: Nonobstructing right 2 mm calculus. No obstructive uropathy. Nonobstructing left 5 mm calculus. PELVIS BLADDER: Incompletely distended but grossly unremarkable. REPRODUCTIVE: Unremarkable. ABDOMEN & PELVIS STOMACH AND BOWEL: No evidence of bowel obstruction. PERITONEUM/RETROPERITONEUM: No evidence of pneumoperitoneum or free fluid. VASCULATURE: Mild atherosclerotic calcifications are present throughout the abdominal aorta and its b ranches. No evidence of aortic aneurysm. MUSCULOSKELETAL: No acute osseous abnormalities. Mild disc degeneration changes are present throughou t the thoracolumbar spine. A transitional vertebrae is present. LYMPH NODES: No gross evidence for lymphadenopathy. SOFT TISSUE/ABDOMINAL WALL: Unremarkable IMPRESSION: 1. No definitive evidence for acute right lower quadrant process. The appendix is normal. No obstruc tive uropathy. 2. Nonobstructing bilateral renal calculi.
[2023-03-22] MEDS ORDERED: LIDOCAINE 5% PATCH TOPICAL SCH (18:30)
[2023-03-22 19:09] VITALS: BP 147/70; PULSE 88; TEMP 99
== END 2023-03-22 19:12 | disposition home or self-care (01) ==
LOC: EC 16:07
DX: N39.0 Urinary tract infection, site not specified (principal); M54.9 Dorsalgia, unspecified; I10 Essential (primary) hypertension; J45.909 Unspecified asthma, uncomplicated; K21.9 Gastro-esophageal reflux disease without esophagitis; E07.9 Disorder of thyroid, unspecified; Z79.82 Long term (current) use of aspirin; Z79.890 Hormone replacement therapy; Z79.899 Other long term (current) drug therapy; Z88.6 Allergy status to analgesic agent; Z88.8 Allergy status to other drugs, medicaments and biological substances; Z91.09 Other allergy status, other than to drugs and biological substances
CPT/HCPCS: 81001; 74176; 99284; 96372 ×2; J2765; J1885

== ENCOUNTER 2023-04-06 13:54 | Emergency (ER) | payer MEDICARE, OTHER ==
[2023-04-06 13:59] VITALS: TEMP 99.2
--- NOTE | 2023-04-06 14:14 | ED ---
General Adult HPI - General Chief complaint: Shortness of Breath Stated complaint: SOB Time Seen by Provider: 04/06/23 14:02 Source: patient Mode of arrival: ambulatory Limitations: no limitations - History of Present Illness Initial comments: Dictation was produced using Down dictation software. please excuse any grammatical, word or spelling errors. Chief Complaint: 62-year-old female presents with sneezing, coughing and chest p ressure History of Present Illness: Patient 62-year-old female she has history of hypertension, brain tumor. States for the last 5 days she's been having worsening shortness of breath. States that she does have a little chest pressure is nonradiating. No associated with diaphoresis or nausea. No associated extremity symptoms. She has been doing updrafts at home with no result. She is history of brain tumor the pituitary. Denies any leg swelling. No history of DVT or PE. No obvious sick contacts. She does have a little bit of forehead pressure. She has been sneezing. Blood pressure typically is 200/100 at baseline. The ROS documented in this emergency department record has been reviewed and confirmed by me. Those systems with pertinent positive or negative responses have been documented in the HPI. All other systems are other negative and/or noncontributory. - Related Data Home Medications Medication Instructions Recorded Confirmed Albuterol Nebulized [Ventolin 2.5 mg INHALATION RT-Q6H PRN 10/17/22 02/04/23 Nebulized] Aspirin [Aspirin EC] 1,000 - 1,500 mg PO Q6H PRN 10/17/22 02/04/23 Lansoprazole [Prevacid] 30 mg PO HS 10/17/22 02/04/23 carvediloL [Coreg] 6.25 mg PO BID 10/17/22 02/04/23 Levothyroxine Sodium [Levoxyl] 350 mcg PO DAILY 01/29/23 02/04/23 Previous Rx's Medication Instructions Recorded Cephalexin [Keflex] 500 mg PO Q12HR 7 Days #14 cap 03/22/23 Cyclobenzaprine [Flexeril] 10 mg PO HS PRN #10 tab 03/22/23 Azithromycin [Zithromax Z Pack] 1 tab PO DIRECTED #6 tab 04/06/23 Allergies Allergy/AdvReac Type Severity Reaction Status Date / Time cantaloupe Allergy Anaphylaxis Verified 04/06/23 13:59 levothyroxine Allergy Anaphylaxis Verified 04/06/23 13:59 naproxen Allergy Dyspnea Verified 04/06/23 13:59 ondansetron [From Zofran] Allergy rapid Verified 04/06/23 13:59 heart rate,states "went into First degree AV block" acetaminophen [From Tylenol] AdvReac Nausea & Verified 04/06/23 13:59 Vomiting ibuprofen [From Motrin] AdvReac Nausea & Verified 04/06/23 13:59 Vomiting iron AdvReac itravenous Verified 04/06/23 13:59 iron infusion causes "bowel to stop" UNSURE OF NAME OF ANESTH. GAS Allergy DYSPNEA, Uncoded 04/06/23 13:59 "STOP BREATHING" Review of Systems ROS Statement: Those systems with pertinent positive or pertinent negative responses have been documented in the HPI. ROS Other: All systems not noted in ROS Statement are negative. 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 (PT STATES "BENIGN BRAIN TUMOR REMOVED THAT GREW BACK AND BEING WATCHED"), PROLAPSED UTERUS, Thyroid Cancer post thyroidectomy, THROAT CANCER AND HAD ALL TEETH AND PART OF JAW REMOVED, SCOLIOSIS, chronic constipation, IBS, nephrolithiasis, recurrent urinary tract infection,anxiety, previous history of osteomyelitis of the lumbar spine, CHRONIC BACK PAIN, CARPAL TUNNEL BILATERALLY, HEART VALVE DISEASE History of Any Multi-Drug Resistant Organisms: None Reported Past Surgical History: Unable to Obtain Additional Past Surgical History / Comment(s): BRAIN SURGERY to remove benign PITUITARY tumor, thyroid removal, partial jaw removal due to throat cancer, egd/colonoscopy(benign polyps removed, d&c, kidney stone removed Past Anesthesia/Blood Transfusion Reactions: No Reported Reaction Additional Past Anesthesia/Blood Transfusion Reaction / Comment(s): BLOOD TRANSFUSION-NO REACTION. states "gas anesthesia interacts with my asthma and stop breathing" Past Psychological History: Anxiety Smoking Status: Never smoker Past Alcohol Use History: None Reported Past Drug Use History: None Reported - Past Family History Sister(s) Family Medical History: Cancer Daughter(s) Additional Family Medical History / Comment(s): eosinophilic gastroenteropathy Son(s) Additional Family Medical History / Comment(s): eosinophilic gastroenteropathy Father Family Medical History: Myocardial Infarction ([place]) Additional Family Medical History / Comment(s): - HAD THE " MAKER" Mother Family Medical History: No Reported History Additional Family Medical History / Comment(s): AAA General Exam - General Exam Comments Initial Comments: PHYSICAL EXAM: General Impression: Alert and oriented x3, not in acute distress HEENT: Normocephalic atraumatic, extra-ocular movements intact, pupils equal and reactive to light bilaterally, mucous membranes moist. Cardiovascular: Heart regular rate and rhythm Chest: Able to complete full sentences, no retractions, no tachypnea, clear to auscultation bilaterally Abdomen: abdomen soft, non-tender, non-distended, no organomegaly Musculoskeletal: Pulses present and equal in all extremities, no peripheral edema Motor: no focal deficits noted Neurological: CN II-XII grossly intact, no focal motor or sensory deficits noted Skin: Intact with no visualized rashes Psych: Normal affect and mood Limitations: no limitations Course Vital Signs 04/06/23 13:57 Temperature 99.2 F Pulse Rate 93 Respiratory 24 Rate Blood Pressure 239/109 O2 Sat by Pulse 96 Oximetry EKG Findings - EKG Comments: EKG Findings:: My EKG interpretation: Ventricular rate 86, sinus rhythm, VT 196,. Ice, QTC 41. No VT prolongation, no QTC prolongation, no ST or T-wave changes noted. EKG compared to 10/18/2022 showing no changes. Overall, this EKG is unremarkable Medical Decision Making - Medical Decision Making Was pt. sent in by a medical professional or institution (, PA, FINISH INSPECTOR, urgent care, hospital, or care home...) When possible be specific @ -No Did you speak to anyone other than the patient for history (EMS, parent, family, police, friend...)? What history was obtained from this source @ -No Did you review nursing and triage notes (agree or disagree)? Why? @ -I reviewed and agree with nursing and triage notes Were old charts reviewed (outside hosp., previous admission, EMS record, old EKG, old radiological studies, urgent care reports/EKG's, care home records)? Report findings @ -No old charts were reviewed Differential Diagnosis (chest pain, altered mental status, abdominal pain women, abdominal pain men, vaginal bleeding, musculoskeletal, weakness, fever, dyspnea, syncope, headache, dizziness, GI bleed, back pain, seizure, CVA, palpatations, mental health)? @ -FDifferential Dyspnea: Coronary syndrome, arrhythmia, tamponade, asthma, COPD, pulmonary embolism, pneumonia, pneumothorax, pulmonary effusion, anaphylaxis, diabetic ketoacidosis, flailed chest, pulmonary contusion, diaphragmatic rupture, anemia, ne uromuscular, this is not meant to be an all-inclusive list. EKG interpreted by me (3pts min.). @ -As above X-rays interpreted by me (1pt min.). @ -Chest x-ray is nonacute CT interpreted by me (1pt min.). @ -CT angiography ordered for elevated d-dimer of the chest. No pulmonary embolism. No abnormalities noted otherwise. U/S interpreted by me (1pt. min.). @ -None done What testing was considered but not performed or refused? (CT, X-rays, U/S, labs)? Why? @ -None What meds were considered but not given or refused? Why? @ -None Did you discuss the management of the patient with other professionals (professionals i.e. , PA, FINISH INSPECTOR, lab, RT, psych nurse, social media content specialist, security engineer, teacher, chief juvenile probation officer, assistant case manager)? Give summary @ -No Was smoking cessation discussed for >3mins.? @ -No Was critical care preformed (if so, how long)? @ -No Were there social determinants of health that impacted care today? How? (Homelessness, low income, unemployed, alcoholism, drug addiction, transportation, low edu. Level, literacy, decrease access to med. care, intermediate, rehab)? @ -No Was there de-escalation of care discussed even if they declined (Discuss DNR or withdrawal of care, Hospice)? DNR status @ -No What co-morbidities impacted this encounter? (DM, HTN, Smoking, COPD, CAD, Cancer, CVA, ARF, Chemo, Hep., AIDS, mental health diagnosis, sleep apnea, morbid obesity)? @ -None Was patient admitted / discharged? Hospital course, mention meds given and route, prescriptions, significant lab abnormalities, going to OR and other pertinent info. @ -62-year-old female presents emergency department for dyspnea. No fever. Patient suffering from likely a viral URI. Imaging studies are negative. Labs are unremarkable. Patient be discharged. Undiagnosed new problem with uncertain prognosis? @ -No Drug Therapy requiring intensive monitoring for toxicity (Heparin, Nitro, Insulin, Cardizem)? @ -No Were any procedures done? @ -No Diagnosis/symptom? Acute, or Chronic, or Acute on Chronic? Uncomplicated (without systemic symptoms) or Complicated (systemic symptoms)? @ -1. Viral URI Side effects of treatment? @ -No Exacerbation, Progression, or Severe Exacerbation? @ -No Poses a threat to life or bodily function? How? (Chest pain, [place], [place], pneumonia, PE, COPD, DKA, ARF, appy, cholecystitis, CVA, Diverticulitis, Homicidal, Suicidal, threat to staff... and all critical care pts) @ -No - Lab Data Result diagrams: 04/06/23 14:24 04/06/23 14:24 Lab Results 04/06/23 04/06/23 04/06/23 Range/Units 14:24 14:24 14:24 WBC 7.6 (3.8-10.6) k/uL RBC 5.19 (3.80-5.40) m/uL Hgb 12.8 (11.4-16.0) gm/dL Hct 40.2 (34.0-46.0) % MCV 77.4 L (80.0-100.0) fL MCH 24.7 L (25.0-35.0) pg MCHC 31.9 (31.0-37.0) g/dL RDW 16.0 H (11.5-15.5) % Plt Count 358 (150-450) k/uL MPV 7.3 Neutrophils % 57 % Lymphocytes % 23 % Monocytes % 5 % Eosinophils % 12 % Basophils % 1 % Neutrophils # 4.3 (1.3-7.7) k/uL Lymphocytes # 1.8 (1.0-4.8) k/uL Monocytes # 0.4 (0-1.0) k/uL Eosinophils # 0.9 H (0-0.7) k/uL Basophils # 0.0 (0-0.2) k/uL Hypochromasia Slight Microcytosis Slight PT 9.8 (9.0-12.0) sec INR 0.9 (<1.2) APTT 24.6 (22.0-30.0) sec D-Dimer 0.85 H (<0.60) mg/L FEU Sodium 141 (137-145) mmol/L Potassium 3.9 (3.5-5.1) mmol/L Chloride 110 H (98-107) mmol/L Carbon Dioxide 24 (22-30) mmol/L Anion Gap 7 mmol/L BUN 23 H (7-17) mg/dL Creatinine 0.77 (0.52-1.04) mg/dL Est GFR (CKD-EPI)AfAm >90 (>60 ml/min/1.73 sqM) Est GFR (CKD-EPI)NonAf 82 (>60 ml/min/1.73 sqM) Glucose 94 (74-99) mg/dL Calcium 9.5 (8.4-10.2) mg/dL Total Bilirubin 0.3 (0.2-1.3) mg/dL AST 45 H (14-36) U/L ALT 34 (4-34) U/L Alkaline Phosphatase 112 (38-126) U/L Troponin I (0.000-0.034) ng/mL Total Protein 7.4 (6.3-8.2) g/dL Albumin 4.0 (3.5-5.0) g/dL Influenza Type A (PCR) (Not Detectd) Influenza Type B (PCR) (Not Detectd) RSV (PCR) (Not Detectd) SARS-CoV-2 (PCR) (Not Detectd) 04/06/23 04/06/23 Range/Units 14:24 14:51 WBC (3.8-10.6) k/uL RBC (3.80-5.40) m/uL Hgb (11.4-16.0) gm/dL Hct (34.0-46.0) % MCV (80.0-100.0) fL MCH (25.0-35.0) pg MCHC (31.0-37.0) g/dL RDW (11.5-15.5) % Plt Count (150-450) k/uL MPV Neutrophils % % Lymphocytes % % Monocytes % % Eosinophils % % Basophils % % Neutrophils # (1.3-7.7) k/uL Lymphocytes # (1.0-4.8) k/uL Monocytes # (0-1.0) k/uL Eosinophils # (0-0.7) k/uL Basophils # (0-0.2) k/uL Hypochromasia Microcytosis PT (9.0-12.0) sec INR (<1.2) APTT (22.0-30.0) sec D-Dimer (<0.60) mg/L FEU Sodium (137-145) mmol/L Potassium (3.5-5.1) mmol/L Chloride (98-107) mmol/L Carbon Dioxide (22-30) mmol/L Anion Gap mmol/L BUN (7-17) mg/dL Creatinine (0.52-1.04) mg/dL Est GFR (CKD-EPI)AfAm (>60 ml/min/1.73 sqM) Est GFR (CKD-EPI)NonAf (>60 ml/min/1.73 sqM) Glucose (74-99) mg/dL Calcium (8.4-10.2) mg/dL Total Bilirubin (0.2-1.3) mg/dL AST (14-36) U/L ALT (4-34) U/L Alkaline Phosphatase (38-126) U/L Troponin I <0.012 (0.000-0.034) ng/mL Total Protein (6.3-8.2) g/dL Albumin (3.5-5.0) g/dL Influenza Type A (PCR) Not Detected (Not Detectd) Influenza Type B (PCR) Not Detected (Not Detectd) RSV (PCR) Not Detected (Not Detectd) SARS-CoV-2 (PCR) Not Detected (Not Detectd) Disposition Clinical Impression: URI (upper respiratory infection), Bronchitis Disposition: HOME SELF-CARE Condition: Good Instructions (If sedation given, give patient instructions): Acute Bronchitis (ED) Prescriptions: Azithromycin [Zithromax Z Pack] 1 tab PO DIRECTED #6 tab Is patient prescribed a controlled substance at d/c from ED?: No Referrals: Samantha Jc MD [Primary Care Provider] - 1-2 days Time of Disposition: 15:43
[2023-04-06 14:38] LABS: Basophils % (A) 1 %; Eosinophils # (A) 0.9 k/uL (0-0.7); Eosinophils % (A) 12 %; HCT 40.2 % (34.0-46.0); HGB 12.8 gm/dL (11.4-16.0); Hypochromasia Slight; Lymphocytes # (A) 1.8 k/uL (1.0-4.8); Lymphocytes % (A) 23 %; MCH 24.7 pg (25.0-35.0); MCHC 31.9 g/dL (31.0-37.0); MCV 77.4 fL (80.0-100.0); Mean Platelet Volume 7.3; Microcytosis Slight; Monocytes # (A) 0.4 k/uL (0-1.0); Monocytes % (A) 5 %; Neutrophils # (A) 4.3 k/uL (1.3-7.7); Neutrophils % (A) 57 %; Platelet Count 358 k/uL (150-450); RBC 5.19 m/uL (3.80-5.40); WBC 7.6 k/uL (3.8-10.6)
--- NOTE | 2023-04-06 14:43 | XR ---
EXAMINATION TYPE: XR chest 2V DATE OF EXAM: 04/06/2023 2:33 PM COMPARISON: Chest radiographs from 10/17/2022 TECHNIQUE: XR chest 2V Frontal and lateral views of the chest. CLINICAL INDICATION:Female, 62 years old with history of dyspnea; FINDINGS: Lungs/Pleura: There is no evidence of pleural effusion, focal consolidation, or pneumothorax. Pulmonary vascularity: Unremarkable. Heart/mediastinum: Cardiomediastinal silhouette is unremarkable. Musculoskeletal: No acute osseous pathology. IMPRESSION: No acute cardiopulmonary disease/process.
[2023-04-06 14:51] LABS: ALT 34 U/L (4-34); AST 45 U/L (14-36); African American GFR (CKD) >90 (>60 ml/min/1.73 sqM); Alkaline Phosphatase 112 U/L (38-126); Anion Gap 7 mmol/L; Blood Urea Nitrogen 23 mg/dL (7-17); Calcium 9.5 mg/dL (8.4-10.2); Carbon Dioxide 24 mmol/L (22-30); Chloride 110 mmol/L (98-107); Glucose 94 mg/dL (74-99); Non-African American GFR(CKD) 82 (>60 ml/min/1.73 sqM); Potassium 3.9 mmol/L (3.5-5.1); Sodium 141 mmol/L (137-145); Total Bilirubin 0.3 mg/dL (0.2-1.3); Total Protein 7.4 g/dL (6.3-8.2)
[2023-04-06 14:52] LABS: INR 0.9 (<1.2); Partial Thromboplastin Time 24.6 sec (22.0-30.0); Prothrombin Time 9.8 sec (9.0-12.0)
--- NOTE | 2023-04-06 15:36 | CT ---
EXAMINATION TYPE: CT angio chest CT DLP: 508.3 mGycm, Automated exposure control for dose reduction was used. DATE OF EXAM: 04/06/2023 3:14 PM COMPARISON: Chest radiograph from same day. Multiple CTs of the chest with most recent on 06/12/2020 CLINICAL INDICATION:Female, 62 years old with history of positive D-dimer; SHRUTHI, Fever and elevated d- dimer TECHNIQUE/CONTRAST: CTA scan of the thorax is performed with IV Contrast, patient injected with 65ml mL of Isovue 370, CA P images are created and reviewed these are created on a separate workstation.. FINDINGS: Pulmonary Artery: There is no evidence for a filling defect within the pulmonary vasculature to sugge st acute pulmonary embolism. The pulmonary artery is of normal size. Lungs/Pleura: No evidence of focal consolidation, pleural effusion or pneumothorax. Airway: Large airways are patent. Heart: Heart is within normal limits for size. Vasculature: No evidence of aortic aneurysm. Mediastinum: No gross evidence of adenopathy. Small hiatal hernia is present. Musculoskeletal: No acute osseous abnormalities Soft Tissues: Unremarkable. Lower neck: No significant findings. Upper Abdomen: Nonobstructing bilateral renal calculi. IMPRESSION: 1. No evidence of pulmonary embolism. 2. Small hiatal hernia. 3. Bilateral nonobstructing renal calculi.
[2023-04-06] MEDS ORDERED: DEXAMETHASONE SOD PHOSPHATE 10 MG/ML 1 ML VIAL IV STA (15:43)
[2023-04-06] MEDS ORDERED: AZITHROMYCIN 500 MG TAB PO STA (15:44)
[2023-04-06 16:35] VITALS: BP 177/83; PULSE 81; RESP 18
== END 2023-04-06 16:35 | disposition home or self-care (01) ==
LOC: EC 13:54
DX: J06.9 Acute upper respiratory infection, unspecified (principal); J40 Bronchitis, not specified as acute or chronic; K44.9 Diaphragmatic hernia without obstruction or gangrene; N20.0 Calculus of kidney; K21.9 Gastro-esophageal reflux disease without esophagitis; I10 Essential (primary) hypertension; E07.9 Disorder of thyroid, unspecified; Z79.890 Hormone replacement therapy; Z79.82 Long term (current) use of aspirin; Z79.899 Other long term (current) drug therapy; Z88.6 Allergy status to analgesic agent; Z88.8 Allergy status to other drugs, medicaments and biological substances; Z88.1 Allergy status to other antibiotic agents; Z20.822 Contact with and (suspected) exposure to COVID-19; Z86.59 Personal history of other mental and behavioral disorders
CPT/HCPCS: 36415; 93005; 85379; 80053; 84484; 85025; 85610; 85730; 87636; 71046; 71275; 99285; 96374; J1100; Q9967

== ENCOUNTER 2023-06-01 15:04 | Emergency (ER) | payer MEDICARE, OTHER ==
[2023-06-01 15:34] VITALS: BP 183/93; PULSE 79; RESP 20; TEMP 98.7
--- NOTE | 2023-06-01 15:59 | XR ---
EXAMINATION TYPE: XR chest 2V DATE OF EXAM: 06/01/2023 COMPARISON: NONE TECHNIQUE: PA and lateral views submitted. HISTORY: Cough FINDINGS: There is no pleural effusion or focal pneumonia. Heart size normal and no overt failure. Osseous str uctures demonstrate hypertrophic and degenerative changes of the spine. Ectasia of the aorta. Lesion biapical pleural thickening. Subsegmental changes along the medial margin of the right lung base like ly within the right middle lobe on the lateral view. IMPRESSION: 1. Question early right middle lobe infiltrate..
[2023-06-01] MEDS ORDERED: DEXAMETHASONE SOD PHOSPHATE 10 MG/ML 1 ML VIAL IM STA (16:58)
[2023-06-01] MEDS ORDERED: AZITHROMYCIN 500 MG TAB PO STA (16:58)
--- NOTE | 2023-06-01 17:06 | ED ---
URI HPI - General Chief Complaint: Upper Respiratory Infection Stated Complaint: COVID+ Time Seen by Provider: 06/01/23 16:27 Source: patient, RN notes reviewed, old records reviewed Mode of arrival: ambulatory Limitations: no limitations - History of Present Illness Initial Comments: This is a 62-year-old female DF for evaluation today. Patient brought in for evaluation of known diagnosis of coronavirus and states her primary care sent her into the hospital tonight for antibody infusion. Patient states that she does have some cough and congestion does have underlying COPD and breathing treatments at home states she just been feeling weak with fever MD Complaint: fever, cough, sore throat -: days(s) (6) Severity: mild Severity scale (1-10): 2 Quality: dull Consistency: constant Improves With: nothing Associated Symptoms: fever, chills, myalgias, nasal congestion, cough Treatments Prior to Arrival: none - Related Data Home Medications Medication Instructions Recorded Confirmed Albuterol Nebulized [Ventolin 2.5 mg INHALATION RT-Q6H PRN 10/17/22 02/04/23 Nebulized] Aspirin [Aspirin EC] 1,000 - 1,500 mg PO Q6H PRN 10/17/22 02/04/23 Lansoprazole [Prevacid] 30 mg PO HS 10/17/22 02/04/23 carvediloL [Coreg] 6.25 mg PO BID 10/17/22 02/04/23 Levothyroxine Sodium [Levoxyl] 350 mcg PO DAILY 01/29/23 02/04/23 Previous Rx's Medication Instructions Recorded Cephalexin [Keflex] 500 mg PO Q12HR 7 Days #14 cap 03/22/23 Cyclobenzaprine [Flexeril] 10 mg PO HS PRN #10 tab 03/22/23 Azithromycin [Zithromax Z Pack] 1 tab PO DIRECTED #6 tab 04/06/23 Azithromycin [Zithromax] 500 mg PO DAILY 5 Days #1 tab 06/01/23 Azithromycin [Zithromax] 500 mg PO DAILY 5 Days #5 tab 06/01/23 dexAMETHasone [Decadron] 6 mg PO TID #15 tab 06/01/23 Allergies Allergy/AdvReac Type Severity Reaction Status Date / Time cantaloupe Allergy Anaphylaxis Verified 06/01/23 15:17 levothyroxine Allergy Anaphylaxis Verified 06/01/23 15:17 naproxen Allergy Dyspnea Verified 06/01/23 15:17 ondansetron [From Zofran] Allergy rapid Verified 06/01/23 15:17 heart rate,states "went into First degree AV block" acetaminophen [From Tylenol] AdvReac Nausea & Verified 06/01/23 15:17 Vomiting ibuprofen [From Motrin] AdvReac Nausea & Verified 06/01/23 15:17 Vomiting iron AdvReac itravenous Verified 06/01/23 15:17 iron infusion causes "bowel to stop" UNSURE OF NAME OF ANESTH. GAS Allergy DYSPNEA, Uncoded 06/01/23 15:17 "STOP BREATHING" Review of Systems ROS Statement: Those systems with pertinent positive or pertinent negative responses have been documented in the HPI. ROS Other: All systems not noted in ROS Statement are negative. 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 (PT STATES "BENIGN BRAIN TUMOR REMOVED THAT GREW BACK AND BEING WATCHED"), PROLAPSED UTERUS, Thyroid Cancer post thyroidectomy, THROAT CANCER AND HAD ALL TEETH AND PART OF JAW REMOVED, SCOLIOSIS, chronic constipation, IBS, nephrolithiasis, recurrent urinary tract infection,anxiety, previous history of osteomyelitis of the lumbar spine, CHRONIC BACK PAIN, CARPAL TUNNEL BILATERALLY, HEART VALVE DISEASE History of Any Multi-Drug Resistant Organisms: None Reported Past Surgical History: Unable to Obtain Additional Past Surgical History / Comment(s): BRAIN SURGERY to remove benign PITUITARY tumor, thyroid removal, partial jaw removal due to throat cancer, egd/colonoscopy(benign polyps removed, d&c, kidney stone removed Past Anesthesia/Blood Transfusion Reactions: No Reported Reaction Additional Past Anesthesia/Blood Transfusion Reaction / Comment(s): BLOOD TRANSFUSION-NO REACTION. states "gas anesthesia interacts with my asthma and stop breathing" Past Psychological History: Anxiety Smoking Status: Never smoker Past Alcohol Use History: None Reported Past Drug Use History: None Reported - Past Family History Sister(s) Family Medical History: Cancer Daughter(s) Additional Family Medical History / Comment(s): eosinophilic gastroenteropathy Son(s) Additional Family Medical History / Comment(s): eosinophilic gastroenteropathy Father Family Medical History: Myocardial Infarction ([place]) Additional Family Medical History / Comment(s): - HAD THE " MAKER" Mother Family Medical History: No Reported History Additional Family Medical History / Comment(s): AAA General Exam Limitations: no limitations General appearance: alert, in no apparent distress Head exam: Present: atraumatic, normocephalic, normal inspection Eye exam: Present: normal appearance, PERRL, EOMI. Absent: scleral icterus, conjunctival injection, periorbital swelling ENT exam: Present: normal exam, mucous membranes moist Neck exam: Present: normal inspection. Absent: tenderness, meningismus, lymphadenopathy Respiratory exam: Present: normal lung sounds bilaterally. Absent: respiratory distress, wheezes, rales, rhonchi, stridor Cardiovascular Exam: Present: regular rate, normal rhythm, normal heart sounds. Absent: systolic murmur, diastolic murmur, rubs, gallop, clicks GI/Abdominal exam: Present: soft, normal bowel sounds. Absent: distended, tenderness, guarding, rebound, rigid Extremities exam: Present: normal inspection, full ROM, normal capillary refill. Absent: tenderness, pedal edema, joint swelling, calf tenderness Back exam: Present: normal inspection Neurological exam: Present: alert, oriented X3, CN II-XII intact Psychiatric exam: Present: normal affect, normal mood Skin exam: Present: warm, dry, intact, normal color. Absent: rash Course Vital Signs 06/01/23 15:10 Temperature 98.7 F Pulse Rate 79 Respiratory 20 Rate Blood Pressure 183/93 O2 Sat by Pulse 97 Oximetry - Reevaluation(s) Reevaluation #1: Records reviewed Reevaluation #2: Patient symptoms unchanged Patient is informed that we no longer do antibody for coronavirus Reevaluation #3: Patient has no further complaints and prefers discharged home Reevaluation #4: Was pt. sent in by a medical professional or institution (, PA, [facility]BL[facility] MCKAY, urgent care, hospital, or jail...) When possible be specific @ -no Did you speak to anyone other than the patient for history (EMS, parent, family, police, friend...)? What history was obtained from this source @ -no Did you review nursing and triage notes (agree or disagree)? Why? @ -agree Are old charts reviewed (outside hosp., previous admission, EMS record, old EKG, old radiological studies, urgent care reports/EKG's, jail records)? Report findings @ -yes Differential Diagnosis (chest pain, altered mental status, abdominal pain women, abdominal pain men, vaginal bleeding, weakness, fever, dyspnea, syncope, headache, dizziness, GI bleed, back pain, seizure, CVA, palpatations, mental health, musculoskeletal)? @ -prior EKG interpreted by me (3pts min.). @ -no X-rays interpreted by me (1pt min.). @ -yes CT interpreted by me (1pt min.). @ -no U/S interpreted by me (1pt. min.). @ -no What testing was considered but not performed or refused? (CT, X-rays, U/S, labs)? Why? @ -none What meds were considered but not given or refused? Why? @ -none Did you discuss the management of the patient with other professionals (professionals i.e. , PA, [facility]CKAY, lab, RT, psych nurse, high school social science teacher, digital imaging specialist, teacher, sheriff officer, binder caser)? Give summary @ -no Was smoking cessation discussed for >3mins.? @ -no Was critical care preformed (if so, how long)? @ -no Were there social determinants of health that impacted care today? How? (Homelessness, low income, unemployed, alcoholism, drug addiction, transportation, low edu. Level, literacy, decrease access to med. care, skilled nursing, rehab)? @ -none Was there de-escalation of care discussed even if they declined (Discuss DNR or withdrawal of care, Hospice)? DNR status @ -no What co-morbidities impacted this encounter? (DM, HTN, Smoking, COPD, CAD, Cancer, CVA, ARF, Chemo, Hep., AIDS, mental health diagnosis, sleep apnea, morbid obesity)? @ -none Was patient admitted / discharged? Hospital course, mention meds given and route, prescriptions, significant lab abnormalities, going to OR and other pertinent info. @ - 62 female to the emergency department for evaluation. Patient comes in for evaluation regards to coronavirus tonight. Patient was also sent in for evaluation in possibility of needing antibody treatment. We do not have Ativan treatment here in the ER she is no distress and can be discharged home Discharge Undiagnosed new problem with uncertain prognosis? @ -no Drug Therapy requiring intensive monitoring for toxicity (Heparin, Nitro, Insulin, Cardizem)? @ -no Were any procedures done? @ -no Diagnosis/symptom? @ -Coronavirus Acute, or Chronic, or Acute on Chronic? @ -Acute Uncomplicated (without systemic symptoms) or Complicated (systemic symptoms)? @ -Complicated Side effects of treatment? @ -no Exacerbation, Progression, or Severe Exacerbation? @ -exacerbation Poses a threat to life or bodily function? How? (Chest pain, [place], [place], pneumonia, PE, COPD, DKA, ARF, appy, cholecystitis, CVA, Diverticulitis, Homicidal, Suicidal, threat to staff... and all critical care pts) @ -yes with coronavirus, was lead to Medical Decision Making - Medical Decision Making 62 female to the emergency department for evaluation. Patient comes in for evaluation regards to coronavirus tonight. Patient was also sent in for evaluation in possibility of needing antibody treatment. We do not have Ativan treatment here in the ER she is no distress and can be discharged home Disposition Clinical Impression: Coronavirus infection Disposition: HOME SELF-CARE Condition: Good Instructions (If sedation given, give patient instructions): Coronavirus Disease 2019 (COVID-19) Prescriptions: dexAMETHasone [Decadron] 6 mg PO TID #15 tab Azithromycin [Zithromax] 500 mg PO DAILY 5 Days #1 tab Azithromycin [Zithromax] 500 mg PO DAILY 5 Days #5 tab Is patient prescribed a controlled substance at d/c from ED?: No Referrals: Samantha Jc MD [Primary Care Provider] - 1-2 days Time of Disposition: 17:00
== END 2023-06-01 17:14 | disposition home or self-care (01) ==
LOC: EC 15:04
DX: U07.1 COVID-19 (principal); I10 Essential (primary) hypertension; J44.89 Other specified chronic obstructive pulmonary disease; K21.9 Gastro-esophageal reflux disease without esophagitis; E07.9 Disorder of thyroid, unspecified; Z79.890 Hormone replacement therapy; Z79.82 Long term (current) use of aspirin; Z79.899 Other long term (current) drug therapy; Z88.6 Allergy status to analgesic agent; Z88.8 Allergy status to other drugs, medicaments and biological substances; Z91.018 Allergy to other foods; Z91.09 Other allergy status, other than to drugs and biological substances
CPT/HCPCS: 99284 ×2; 96372 ×2; 71046; J1100

== ENCOUNTER → 2023-07-02 | Outpatient (CLI) | payer MEDICARE, OTHER | END | disposition home or self-care (01) | LOC: LABWHC1 13:12 | PROVIDERS: ATTEND Internal Medicine Endocrinology, Diabetes & Metabolism | DX: E03.8 Other specified hypothyroidism (principal) | CPT/HCPCS: 36415; 84443 ==

== ENCOUNTER → 2023-09-04 | Outpatient (CLI) | payer MEDICARE, OTHER ==
[2023-09-04 12:16] LABS: African American GFR (CKD) >90 (>60 ml/min/1.73 sqM); Blood Urea Nitrogen 19 mg/dL (7-17); Non-African American GFR(CKD) 80 (>60 ml/min/1.73 sqM)
--- NOTE | 2023-09-04 13:16 | CT ---
EXAMINATION TYPE: CT angio chest DATE OF EXAM: 09/04/2023 COMPARISON: Radiograph same day as well as prior CT 04/06/2023 HISTORY: 63-year-old female chest pain TECHNIQUE: Contiguous axial scanning of the chest after the administration of 100 mL of Isovue 370. Coronal/sagittal MIP reconstructions performed. CT DLP: 629mGycm. Automatic exposure control utilized for a dose reduction. FINDINGS: The heart is normal size without pericardial effusion. LAD coronary artery calcifications are present . Borderline ectasia aortic root at 3.5 cm and borderline aneurysm ascending aorta at 4.0 cm. Impressio n large vessel branching anatomy. No thoracic lymphadenopathy by CT size criteria. Satisfactory opacification of the pulmonary arterial system. No pulmonary embolus is seen. No consolidation or pleural effusion. Small hiatal hernia. Nonobstructive 3 mm left renal stone in the visualized upper abdomen. Bones: Mild degenerative disc disease midthoracic spine. IMPRESSION: 1. No evidence for pulmonary embolus. No acute pulmonary process. 2. LAD coronary artery calcifications and borderline ascending aortic aneurysm at 4.0 cm. 3. Small hiatal hernia and a 3 mm left renal stone.
== END | disposition home or self-care (01) ==
LOC: RADCTMAIN 11:24
PROVIDERS: ATTEND Internal Medicine
DX: K44.9 Diaphragmatic hernia without obstruction or gangrene (principal); N20.0 Calculus of kidney; I25.10 Atherosclerotic heart disease of native coronary artery without angina pectoris; R06.09 Other forms of dyspnea
CPT/HCPCS: 82565; 84520; 71275; 36415; Q9967

== ENCOUNTER → 2023-09-21 | Outpatient (CLI) | payer MEDICARE, OTHER ==
[2023-09-21 15:39] LABS: ALT 30 U/L (8-44); AST 30 U/L (13-35); Chol/HDL Ratio 5.35 Ratio; LDL Cholesterol,Calculated 151.2 mg/dL (0.0-131.0)
== END | disposition home or self-care (01) ==
LOC: LABWHC1 09:50
PROVIDERS: ATTEND Internal Medicine Interventional Cardiology
DX: E78.2 Mixed hyperlipidemia (principal)
CPT/HCPCS: 36415; 80061; 84450; 84460

== ENCOUNTER → 2023-09-21 | Outpatient (CLI) | payer MEDICARE, OTHER ==
[2023-09-21 15:22] LABS: HCT 41.9 % (37.2-46.3); HGB 12.7 g/dL (12.0-15.0); MCH 24.9 pg (27.0-32.0); MCHC 30.3 g/dL (32.0-37.0); Mean Platelet Volume 9.8 FL (9.5-12.2); NRBC Per 100 WBC 0 X 10*3/uL (0.00-0.01); Platelet Count 430 X 10*3/uL (140-440); RBC 5.11 X 10*6/uL (4.10-5.20); RDW 15.4 % (11.5-14.5); WBC 7.28 X 10*3/uL (4.50-10.00)
[2023-09-21 15:40] LABS: Blood Urea Nitrogen 20.6 mg/dL (9.0-27.0)
[2023-09-21 15:41] LABS: Carbon Dioxide 25.5 mmol/L (21.6-31.8); Chloride 105 mmol/L (96-109); Potassium 4.5 mmol/L (3.5-5.5); Sodium 142 mmol/L (135-145)
== END | disposition home or self-care (01) ==
LOC: LABPAT 09:47
PROVIDERS: ATTEND Internal Medicine Interventional Cardiology
DX: Z01.812 Encounter for preprocedural laboratory examination (principal); I35.1 Nonrheumatic aortic (valve) insufficiency; R07.9 Chest pain, unspecified
CPT/HCPCS: 80051; 82565; 84520; 85027

== ENCOUNTER 2023-10-06 09:57 | Day surgery (SDC) | payer MEDICARE, OTHER ==
[~2023-10-06 09:57] MED LIST changes: +ALPRAZolam 0.25 MG TAB PO PRN; -LACTATED RINGERS 1,000 ML IV SCH; -LIDOCAINE 1% (10MG/ML) FOR IV START INTRADERMA PRN; +NITROGLYCERIN SL TABS 0.4 MG TAB SUBLINGUAL PRN; +SODIUM CHLORIDE 0.9% 1,000 ML in EMPTY BAG 1 BAG IV SCH
[2023-10-06] MEDS: SODIUM CHLORIDE 0.9% 1,000 ML IV ONE (10:13)
[2023-10-06] MEDS: ALPRAZolam 0.5 MG TAB PO PRN (10:18)
[2023-10-06] MEDS ORDERED: LIDOCAINE 1% INJ 10MG/ML (20 ML MDV) ONE (12:11)
[2023-10-06] MEDS ORDERED: VERAPAMIL 2.5 MG/ML 2 ML AMP ONE (12:11)
[2023-10-06] MEDS ORDERED: HEPARIN SODIUM 1,000 UN/ML (10ML VL) ONE (12:11)
[2023-10-06] MEDS ORDERED: fentaNYL (PF) 50 MCG/ML 2 ML AMP ONE (12:12)
[2023-10-06] MEDS: LIDOCAINE 1% INJ 10MG/ML (20 ML MDV) SQ ONE (13:01)
[2023-10-06] MEDS: MIDAZOLAM 2 MG/2 ML VIAL IVP ONE (13:01)
[2023-10-06] MEDS: VERAPAMIL 2.5 MG/ML 4 ML VIAL INTRAARTER ONE (13:02)
[2023-10-06] MEDS: HEPARIN SODIUM 1,000 UN/ML (10ML VL) IVP ONE (13:04)
[2023-10-06] MEDS: IOPAMIDOL-370 100ML BTL INTRATHECA ONE (13:17)
[2023-10-06] MEDS ORDERED: RX INFO: IV CONTRAST WAS GIVEN 1 EACH MISC MISCELLANE PRN (13:23)
--- NOTE | 2023-10-06 13:30 | P.PCN ---
Date of Procedure: 10/06/23 Operative Findings: CARDIAC CATHETERIZATION PERFORMING PHYSICIAN: Jerry Brandon MD, RPVI PROCEDURE PERFORMED: 1. Selective right and left coronary angiogram 2. Ultrasound-guided access of the right radial artery INDICATION: Chest discomfort concerning for unstable angina COMPLICATION: None APPROACH: Right radial artery LEVEL OF SEDATION: Moderate with a sedation length of 20 minutes PROCEDURE DESCRIPTION: After obtaining an informed consent, the patient was brought to cardiac paint laboratory technician. Local anesthesia was performed using lidocaine subcutaneously. The right radial artery was cannulated using Seldinger technique, the guidewire passed easily, following that we advanced a 5-Angolan sheath dilator assembly, the wire and dilator were removed and sheath was flushed. Following that, 2 mg of verapamil along with 5000 unit heparin were given. Selective right and left coronary angiogram using a 6-Angolan JR4 and JL 3.5 catheters. The procedure was completed there was no complication. SELECTIVE CORONARY ANGIOGRAM: The right coronary artery: Large-caliber vessel and a dominant vessel with severe disease involving the proximal to midportion Left main: Is angiographically normal. Bifurcates into an LCx and LAD The left circumflex: Large caliber vessel and a dominant vessel. The proximal left circumflex gives rise into an OM1 which has a tight lesion in the midportion. The mid left circumflex has mild disease only. The left circumflex distally bifurcates into PDA and PLV branches. The PLV branch has a tight lesion as well The left anterior descending artery: The left anterior descending artery has a long tubular lesion up to about 70 to 80%. Gives rise into first and second diagonal branches. CONCLUSION: 1. Severe triple-vessel coronary artery disease POSTPROCEDURE MANAGEMENT: Evaluating the patient for CABG
[2023-10-06] MEDS: SODIUM CHLORIDE 0.9% 1,000 ML IV SCH (13:35)
[2023-10-06 15:03] LABS: Appearance,Urine Clear (Clear); Bilirubin,Urine Negative (Negative); Blood,Urine Negative (Negative); Color,Urine Colorless; Glucose,Urine (UA) Negative (Negative); Ketones,Urine Negative (Negative); Leukocyte Esterase,Urine Small (Negative); Nitrite,Urine Negative (Negative); Protein,Urine Negative (Negative); RBC,Urine <1 /hpf (0-5); Specific Gravity,Urine 1.021 (1.001-1.035); Urobilinogen,Urine <2.0 mg/dL (<2.0); WBC,Urine 5 /hpf (0-5)
[2023-10-06 15:27] LABS: Basophils # (A) 0.1 k/uL (0-0.2); Basophils % (A) 1 %; Eosinophils # (A) 0.7 k/uL (0-0.7); Eosinophils % (A) 8 %; HCT 39.1 % (34.0-46.0); HGB 12.6 gm/dL (11.4-16.0); Hypochromasia Slight; Lymphocytes % (A) 33 %; MCH 25.9 pg (25.0-35.0); MCHC 32.1 g/dL (31.0-37.0); MCV 80.7 fL (80.0-100.0); Monocytes # (A) 0.3 k/uL (0-1.0); Monocytes % (A) 3 %; Neutrophils # (A) 4.7 k/uL (1.3-7.7); Neutrophils % (A) 52 %; Platelet Count 360 k/uL (150-450); RBC 4.85 m/uL (3.80-5.40); RDW 15.4 % (11.5-15.5)
[2023-10-06 15:52] LABS: Partial Thromboplastin Time 60.6 sec (22.0-30.0)
[2023-10-06 16:08] LABS: ALT 20 U/L (4-34); AST 31 U/L (14-36); African American GFR (CKD) 61 (>60 ml/min/1.73 sqM); Alkaline Phosphatase 111 U/L (38-126); Anion Gap 9 mmol/L; Blood Urea Nitrogen 15 mg/dL (7-17); Carbon Dioxide 26 mmol/L (22-30); Chloride 105 mmol/L (98-107); Glucose 119 mg/dL (74-99); Magnesium 1.9 mg/dL (1.6-2.3); Non-African American GFR(CKD) 53 (>60 ml/min/1.73 sqM); Potassium 3.2 mmol/L (3.5-5.1); Sodium 140 mmol/L (137-145); Total Bilirubin 0.3 mg/dL (0.2-1.3); Total Protein 6.9 g/dL (6.3-8.2)
--- NOTE | 2023-10-06 16:14 | US ---
EXAMINATION TYPE: US carotid duplex BILAT DATE OF EXAM: 10/06/2023 COMPARISON: NONE CLINICAL INDICATION: Female, 63 years old with history of Pre-Op Cardiac Surgery, Ankle Brachial Inde x (NICOLÁS) ; Pre-OP CABG TECHNIQUE: Carotid duplex ultrasound examination. Indirect Doppler criteria was utilized. FINDINGS: EXAM MEASUREMENTS: RIGHT: Peak Systolic Velocity (PSV) cm/sec ----- Right CCA: 69.5 ----- Right ICA: 88.3 ----- Right ECA: 143 ICA/CCA ratio: 1.3 RIGHT: End Diastole cm/sec ----- Right CCA: 12.3 ----- Right ICA: 24.7 ----- Right ECA: 0.0 LEFT: Peak Systolic Velocity (PSV) cm/sec ----- Left CCA: 64.3 ----- Left ICA: 100 ----- Left ECA: 81.9 ICA/CCA ratio: 1.6 LEFT: End Diastole cm/sec ----- Left CCA: 12.6 ----- Left ICA: 28.7 ----- Left ECA: 4.6 VERTEBRALS (direction of flow): Right Vertebral: Antegrade Left Vertebral: Antegrade Rhythm: Normal MACHINE DEICER ELEMENT WINDER NOTES: No significant stenosis seen IMPRESSION: No hemodynamically significant internal carotid artery stenosis on either side. Criteria for Assigning % of Stenosis / Diameter reduction (Estimation based on the indirect measurements of the internal carotid artery velocities (ICA PSV). 1. Normal (no stenosis)=ICA PSV < 125 cm/s: ratio < 2.0: ICA EDV<40 cm/s. 2. Less than 50% stenosis=ICA PSV < 125 cm/s: ratio < 2.0: ICA EDV<40 cm/s. 3. 50 to 69% stenosis=ICA PSV of 125 to 230 cm/s: ration 2.0 ? 4.0: ICA EDV 40-100 cm/s. 4. Greater than 70% stenosis to near occlusion= ICA PSV > 230 cm/s: ratio > 4.0: ICA EDV > 100 cm/s. 5. Near occlusion= ICA PSV velocities may be low or undetectable: variable ratio and ICA EDV. 6. Total occlusion=unable to detect flow.
--- NOTE | 2023-10-06 17:03 | P.CNPUL ---
History of Present Illness Consult date: 10/06/23 Requesting physician: Jerry Brandon Reason for consult: other (Preoperative pulmonary consult) Chief complaint: Dyspnea on exertion History of present illness: This is a 63-year-old female with known history of mild intermittent asthma, however her FEV1 is in the range of 2.11, 78% of the predicted value, FEV1/FVC is 76%. Patient has mostly reversible airway obstruction, patient's FEV1 improved in the past about 13% after bronchodilator treatment and she was treated mostly for mild intermittent asthma. On her last visit to my office, this was dated 09/11/2023, patient had more symptoms of dyspnea on exertion, workup in my office was basically nondiagnostic,, and I felt that her shortness of breath is either cardiac related or deconditioning related. I recommended to make an appointment for the patient with Dr. Jones, and the patient underwent cardiac catheterization today. Patient was found to have severe triple-vessel coronary artery disease, hence patient will be seen by thoracic surgery and she will be scheduled for myocardial revascularization next Thursday. I saw her today mostly for preoperative clearance. Again based on her PFT which I had in my office recently patient is considered low operative risk. Asthma has been relatively stable over the years . Last PFT in my office was dated 11/17/2022. And this was a full PFT. However if the patient is going to be discharged home today, I will see her again early next week, and repeat her PFT again. Review of Systems REVIEW OF SYSTEMS: CONSTITUTIONAL: Negative. EYES: Negative. ENT: Negative. CARDIAC: Dyspnea on exertion and some vague chest discomfort PULMONARY: As noted in HPI GI: Negative. GENITOURINARY: Negative. MUSCULOSKELETAL: Negative. SKIN: Negative. NEUROPSYCH: Negative. ENDOCRINE: Negative. HEMATOLOGIC: Negative. 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 (PT STATES "BENIGN BRAIN TUMOR REMOVED THAT GREW BACK AND BEING WATCHED"), PROLAPSED UTERUS, Thyroid Cancer post thyroidectomy, THROAT CANCER AND HAD ALL TEETH AND PART OF JAW REMOVED, SCOLIOSIS, chronic constipation, IBS, nephrolithiasis, recurrent urinary tract infection,anxiety, previous history of osteomyelitis of the lumbar spine, CHRONIC BACK PAIN, CARPAL TUNNEL BILATERALLY, HEART VALVE DISEASE, gastric ulcer - advised to stop ASA Dr. Barbra Soares, dyspnea on exertion History of Any Multi-Drug Resistant Organisms: None Reported Past Surgical History: Unable to Obtain Additional Past Surgical History / Comment(s): BRAIN SURGERY to remove benign PITUITARY tumor, thyroidectomy, partial jaw removal due to throat cancer - has not affected mouth opening, egd/colonoscopy,benign polyps removed, D&C, lithotripsy Past Anesthesia/Blood Transfusion Reactions: No Reported Reaction Additional Past Anesthesia/Blood Transfusion Reaction / Comment(s): BLOOD TRANSFUSION-NO REACTION. states "gas anesthesia interacts with my asthma and stop breathing". claustophobia - cannot wear mask. no problems w/ IV sedation Smoking Status: Never smoker - Past Family History Sister(s) Family Medical History: Cancer Daughter(s) Additional Family Medical History / Comment(s): eosinophilic gastroenteropathy Son(s) Additional Family Medical History / Comment(s): eosinophilic gastroenteropathy Father Family Medical History: Myocardial Infarction ([place]) Additional Family Medical History / Comment(s): - HAD THE " MAKER" Mother Family Medical History: No Reported History Additional Family Medical History / Comment(s): AAA Medications and Allergies Home Medications Medication Instructions Recorded Confirmed Type Albuterol Nebulized [Ventolin 2.5 mg INHALATION RT-Q6H PRN 10/17/22 10/02/23 History Nebulized] Lansoprazole [Prevacid] 30 mg PO BID 10/17/22 10/06/23 History carvediloL [Coreg] 6.25 mg PO BID 10/17/22 10/06/23 History Levothyroxine Sodium [Levoxyl] 350 mcg PO DAILY 01/29/23 10/06/23 History Albuterol Inhaler [Ventolin Hfa 1 - 2 puff INHALATION Q6H PRN 10/02/23 10/02/23 History Inhaler] Famotidine [Pepcid] 10 mg PO TID 10/02/23 10/06/23 History Allergies Allergy/AdvReac Type Severity Reaction Status Date / Time cantaloupe Allergy Anaphylaxis Verified 10/02/23 09:06 levothyroxine Allergy Anaphylaxis Verified 10/02/23 09:06 naproxen Allergy Dyspnea Verified 10/02/23 09:06 ondansetron [From Zofran] Allergy rapid Verified 10/02/23 09:06 heart rate,states "went into First degree AV block" acetaminophen [From Tylenol] AdvReac Nausea & Verified 10/02/23 09:06 Vomiting ibuprofen [From Motrin] AdvReac Nausea & Verified 10/02/23 09:06 Vomiting iron AdvReac itravenous Verified 10/02/23 09:06 iron infusion causes "bowel to stop" UNSURE OF NAME OF ANESTH. GAS Allergy DYSPNEA, Uncoded 10/02/23 09:06 "STOP BREATHING" Physical Exam Vitals: Vital Signs Temp Pulse Resp BP BP Pulse Ox 10/06/23 16:11 69 16 148/62 98 10/06/23 15:17 67 16 152/62 99 10/06/23 14:47 66 16 156/84 98 10/06/23 14:17 59 L 16 160/74 98 10/06/23 14:02 58 L 16 157/86 99 10/06/23 13:47 60 16 162/83 98 10/06/23 13:32 60 16 145/83 98 10/06/23 10:20 98.5 F 71 16 183/98 201/102 98 Intake and Output 10/06/23 10/06/23 10/06/23 06:59 14:59 22:59 Intake Total 650 Balance 650 Intake: IV 650 Other: # Voids 400 Weight 97.2 kg General: Revealed a 63-year-old female in no distress extremely pleasant Head: Atraumatic normocephalic Skin: Skin is warm and dry and no rashes or lesions are noted. Eye: Pupils are equal, round and reactive to light, extra-ocular movements are intact; there is normal conjunctiva bilaterally. Ears, nose, mouth and throat: There are moist mucous membranes and no oral lesions. Neck: The neck is supple, there is no tenderness or JVD. Cardiovascular: There is a regular rate and rhythm. No murmur, rub or gallop is appreciated. Respiratory: Bilaterally no crackles rhonchi or wheezes Gastrointestinal: Soft nontender no megaly no rebound no guarding. Back: There is no tenderness to palpation in the midline. There is no obvious deformity. Musculoskeletal: Normal ROM, no tenderness, There is no pedal edema. There is no calf tenderness or swelling. No cords were appreciated. Neurological: CN II-XII intact, Cranial nerves III through XII are intact. There are no obvious motor or sensory deficits. Coordination appears grossly intact. Speech is normal. Psychiatric: Cooperative, appropriate mood & affect, normal judgment. Results - Laboratory Findings CBC and BMP: 10/06/23 15:00 10/06/23 15:00 PT/INR, D-dimer PT 11.0 sec (10.0-12.5) 10/06/23 15:00 INR 1.0 (<1.2) 10/06/23 15:00 Abnormal lab findings: Abnormal Labs 10/06/23 10/06/23 10/06/23 14:55 15:00 15:00 APTT 60.6 H Potassium 3.2 L Creatinine 1.10 H Glucose 119 H TSH 50.800 H Ur Leukocyte Esterase Small H Assessment and Plan Assessment: Impression: Triple-vessel coronary artery disease Dyspnea on exertion secondary to coronary arteriosclerosis Mild intermittent asthma Benign essential hypertension Dyslipidemia Family history of premature coronary artery disease Lifetime non-smoker History of hypothyroidism History of GERD without esophagitis Recommendation: Reviewed previous PFT in the office Reviewed patient's present medications Patient is considered low operative risk for myocardial revascularization. Would recommend repeat PFT in the office next week Patient to see me back in the office in 1 week. Time with Patient: Greater than 30
--- NOTE | 2023-10-06 18:05 | US ---
EXAMINATION TYPE: Pre-Operative Non-Invasive Evaluation of the hand for Potential Radial Artery Penny werner, Measurements only DATE OF EXAM: 10/06/2023 3:42 PM CLINICAL INDICATION: Female, 63 years old with history of Pre-Op Cardiac Surgery; Pre-OP CABG SIDE PERFORMED: Left TECHNIQUE: Radial artery is measured utilizing real time linear array sonography. Dominant hand: Right Duplex Findings: Radial Artery: Color flow seen Measurements in mm, transverse view: Left Radial: Proximal: 2.6 x 2.3 mm Mid: 2.0 x 2.3 mm Distal: 1.9 x 2.4 mm IMPRESSION: 1. Left radial measurements listed above. 2. Performing surgeon to determine viability as conduit.
--- NOTE | 2023-10-06 18:06 | US ---
EXAMINATION TYPE: US vein mapping BILAT DATE OF EXAM: 10/06/2023 3:42 PM COMPARISON: NONE CLINICAL INDICATION: Female, 63 years old with history of PreOp Cardiac Surgery; Pre-OP CABG SIDE PERFORMED: Bilateral TECHNIQUE: Lower extremity saphenous vein is examined and measured utilizing real time linear array sonography. DUPLEX FINDINGS: Greater Saphenous: Color flow seen Measurements in mm: Right Greater Saphenous: Groin: 7.9 x 6.7 mm High Thigh: 5.5 x 5.2 mm Mid Thigh: 4.5 x 5.3 mm Above Knee: 4.5 x 4.6 mm Knee: 4.6 x 5.0 mm Below Knee: 3.6 x 3.3 mm Mid Calf: 2.3 x 3.0 mm At Ankle: 2.2 x 2.6 mm Left Greater Saphenous: Groin: 7.3 x 7.7 mm High Thigh: 4.9 x 4.2 mm Mid Thigh: 4.7 x 4.8 mm Above Knee: 3.9 x 4.4 mm Knee: 5.1 x 5.0 mm Below Knee: 3.2 x 3.1 mm Mid Calf: 2.9 x 3.1 mm At Ankle: 2.9 x 3.2 mm IMPRESSION: 1. Bilateral GSV measurements listed above. 2. Performing surgeon to determine viability as conduit.
[2023-10-06 19:19] LABS: Hepatitis A Antibody IgM Nonreactive; Hepatitis B Core IgM Nonreactive; Hepatitis B Surface Antigen Nonreactive; Hepatitis C IgG Antibody Nonreactive
[2023-10-06 20:07] VITALS: BP 155/76; PULSE 66; RESP 18; TEMP 97.5
--- NOTE | 2023-10-06 23:34 | US ---
EXAMINATION TYPE: US arterial LE single level DATE OF EXAM: 10/06/2023 7:07 PM CLINICAL INDICATION: Female, 63 years old with history of Ankle Brachial Index (NICOLÁS) ; open heart pt History of: Smoker: No Hypertension: Yes Diabetic: No Hyperlipidemia: No TIA/CVA: No Previous Vascular Surgery: No CAD: No [place]: No Vascular Ulcers: No Right Brachial Pressure: Deferred due to radial approach Left Brachial Pressure: 156 Ankle-Brachial Indices: Right: 1.27 Left: 1.25 Toe Brachial Indices: Right: 0.98 Left: 0.99 IMPRESSION: Normal ankle-brachial indices bilaterally.
[2023-10-07 04:40] LABS: Chol/HDL Ratio 6.85 Ratio; LDL Cholesterol,Calculated 221.1 mg/dL (0.0-131.0)
[2023-10-07 05:53] LABS: T4, Free (Free Thyroxine) <0.11 ng/dL (0.80-1.80)
--- NOTE | 2023-10-07 11:40 | CA ---
Transthoracic Echo Report Name: Kristy Maldonado Age: 63 Gender: F : 1960 Exam Date: 10/06/2023 16:56 Exam Location: [facility] Ht (in): 63 Wt (lb): 214 Ordering Physician: David Marte Attending/Referring Phys: Estuardo LEONARD [employer] Judge Altagracia Collins RDCS Procedure CPT: Indications: Preop CABG, eval valves and LV function Cardiac Hx: Technical Quality: Fair Contrast 1: Total Dose (mL): Contrast 2: Total Dose (mL): MEASUREMENTS (Male / Female) Normal Values 2D ECHO LV Diastolic Diameter PLAX 3.8 cm 4.2 - 5.9 / 3.9 - 5.3 cm LV Systolic Diameter PLAX 2.3 cm IVS Diastolic Thickness 1.7 cm 0.6 - 1.0 / 0.6 - 0.9 cm LVPW Diastolic Thickness 1.6 cm 0.6 - 1.0 / 0.6 - 0.9 cm LV Relative Wall Thickness 0.9 RV Internal Dim ED PLAX 4.5 cm LVOT Diameter 1.7 cm LA Volume 84.6 cm??? 18 - 58 / 22 - 52 cm??? LA Volume Index 39.8 cm???/m??? 16 - 28 cm???/m??? DOPPLER AV Peak Velocity 143.0 cm/s AV Peak Gradient 8.2 mmHg AV Mean Velocity 98.2 cm/s AV Mean Gradient 4.3 mmHg AV Velocity Time Integral 26.9 cm AI Peak Velocity 561.5 cm/s AI Peak Gradient 126.1 mmHg AI Pressure Half Time 504.5 ms LVOT Peak Velocity 129.5 cm/s LVOT Peak Gradient 6.7 mmHg LVOT Velocity Time Integral 26.6 cm LVOT Stroke Volume 62.9 cm??? LVOT Stroke Volume Index 31.6 ml/m??? LVOT Cardiac Index 2487.8 cm???/min???m??? AV Area Cont Eq vti 2.3 cm??? AV Area Cont Eq pk 2.1 cm??? MV Area PHT 3.2 cm??? Mitral E Point Velocity 47.5 cm/s Mitral A Point Velocity 82.2 cm/s Mitral E to A Ratio 0.6 MV Deceleration Time 238.1 ms MV E' Velocity 3.6 cm/s Mitral E to MV E' Ratio 13.1 TR Peak Velocity 163.0 cm/s TR Peak Gradient 10.6 mmHg Right Ventricular Systolic Press 15.1 mmHg FINDINGS Left Ventricle Severely increased left ventricular wall thickness. Left ventricular cavity size normal. Normal left ventricular systolic function with no obvious regional wall motion abnormalities. Left ventricular ejection fraction is estimated at 55-60 %. Right Ventricle Right ventricular dilatation. Right ventricular systolic pressure within normal limits. Right Atrium Normal right atrial size. Left Atrium Moderately increased left atrial volume. Mildly increased left atrial area. Mitral Valve Structurally normal mitral valve. Mitral valve thickened. Moderate mitral annular calcification. Clyn-na-hghvsqvd mitral regurgitation. Aortic Valve Trileaflet aortic valve. No aortic stenosis. Tzac-uy-svsmygfo aortic regurgitation. Tricuspid Valve Structurally normal tricuspid valve. Mild tricuspid regurgitation. Pulmonic Valve Structurally normal pulmonic valve. Trace pulmonic regurgitation. Pericardium No pericardial effusion. Aorta Normal size aortic root and proximal ascending aorta. CONCLUSIONS Normal LV function Mild to moderate mitral regurgitation Mild to moderate aortic regurgitation Previewed by: Dr. Albert Soares MD (Electronically Signed) Final Date: 07 October 2023 11:39
== END 2023-10-06 20:02 | disposition home or self-care (01) ==
LOC: CATHCVL 09:57 → 6NMEDSUR 13:20 → CATHCVL 20:02
PROVIDERS: ATTEND Internal Medicine Interventional Cardiology
DX: I25.110 Atherosclerotic heart disease of native coronary artery with unstable angina pectoris (principal); I10 Essential (primary) hypertension; E78.5 Hyperlipidemia, unspecified; E03.9 Hypothyroidism, unspecified; J45.20 Mild intermittent asthma, uncomplicated; K21.9 Gastro-esophageal reflux disease without esophagitis; M19.90 Unspecified osteoarthritis, unspecified site; M41.9 Scoliosis, unspecified; Z79.890 Hormone replacement therapy; Z85.850 Personal history of malignant neoplasm of thyroid; Z88.6 Allergy status to analgesic agent; Z88.8 Allergy status to other drugs, medicaments and biological substances; Z79.899 Other long term (current) drug therapy
CPT/HCPCS: 94150; 93306; 93454; 76937; 84439; 80061; 80053; 80074; 84443; 83735; 85025; 85610; 85730; 81001; 87070; 83036; 93931; 93970; 93922; 93880; 99152; C1769; C1894; J2250; J2001; J1644; Q9967

== ENCOUNTER → 2023-10-20 | Outpatient (CLI) | payer MEDICARE, OTHER ==
[2023-10-20 10:14] LABS: Partial Thromboplastin Time 29.2 sec (22.0-30.0); Prothrombin Time 11.3 sec (10.0-12.5)
[2023-10-20 17:07] LABS: Appearance,Urine Cloudy (Clear); Bilirubin,Urine Negative (Negative); Blood,Urine Trace (Negative); Color,Urine Yellow (Yellow); Ketones,Urine Negative (Negative); Nitrite,Urine Negative (Negative); PH, Urine 6.5; Specific Gravity,Urine 1.013 (1.001-1.030); Urobilinogen,Urine 0.2 E.U./DL
[2023-10-20 17:14] LABS: Bacteria,Urine Trace (None Seen)
[2023-10-20 17:30] LABS: ALT 32 U/L (8-44); AST 44 U/L (13-35); Albumin 4.5 g/dL (3.8-4.9); Albumin/Globulin Ratio 1.55 Ratio (1.60-3.17); Alkaline Phosphatase 109 U/L (41-126); BUN/Creat Ratio 14.55 Ratio (12.00-20.00); Calcium 8.5 mg/dL (8.7-10.3); Carbon Dioxide 24.4 mmol/L (21.6-31.8); Chloride 99 mmol/L (96-109); Globulin 2.9 g/dL (1.6-3.3); Glucose 91 mg/dL (70-110); Magnesium 2.1 mg/dL (1.5-2.4); Potassium 3.7 mmol/L (3.5-5.5); Sodium 136 mmol/L (135-145); Total Bilirubin 0.3 mg/dL (0.3-1.2); Total Protein 7.4 g/dL (6.2-8.2)
[2023-10-20 17:35] LABS: HGB 12.5 g/dL (12.0-15.0); MCH 24.9 pg (27.0-32.0); MCHC 30.5 g/dL (32.0-37.0); MCV 81.5 FL (80.0-97.0); Mean Platelet Volume 10.4 FL (9.5-12.2); NRBC Per 100 WBC 0 X 10*3/uL (0.00-0.01); Platelet Count 379 X 10*3/uL (140-440); RBC 5.03 X 10*6/uL (4.10-5.20); RDW 15.9 % (11.5-14.5); WBC 5.96 X 10*3/uL (4.50-10.00)
== END | disposition home or self-care (01) ==
LOC: LABWHC1 09:12
PROVIDERS: ATTEND Thoracic Surgery (Cardiothoracic Vascular Surgery)
DX: Z01.812 Encounter for preprocedural laboratory examination (principal)
CPT/HCPCS: 36415; 80053; 81001; 83036; 83735; 85027; 85610; 85730; 86850; 86900; 86901; 86920; 87086

== ENCOUNTER 2023-10-28 05:33 | Inpatient (IN) | payer MEDICARE, OTHER ==
[~2023-10-28 05:33] MED LIST changes: +ALBUMIN HUMAN 25% 50 ML IV ONE; +ALBUMIN HUMAN 5% 500 ML IVPB ONE; -ALPRAZolam 0.25 MG TAB PO PRN; +ASPIRIN 325 MG TAB PO ONE; +CALCIUM CHLORIDE 100 MG/ML 10 ML SYRINGE IV ONE; +CHLORHEXIDINE GLUCONATE 15 ML CUP MUCOUS MEM ONE; +CLEVIDIPINE BUTYRATE 25 MG in EMPTY BAG 1 BAG IV ONE; +DILTIAZEM 125 MG in SODIUM CHLORIDE 0.9% 100 ML IV ONE; +ELECTROLYTE-A SOLUTION 1,000 ML with POTASSIUM CHLORIDE 100 MEQ, MAGNESIUM SULFATE 16 M... IV ONE; +ELECTROLYTE-A SOLUTION 1,000 ML with POTASSIUM CHLORIDE 40 MEQ, MAGNESIUM SULFATE 16 ME... IV ONE; +HEPARIN SODIUM 1,000 UN/ML (10ML VL) IV ONE; +INSULIN REGULAR 100 UNIT in SODIUM CHLORIDE 0.9% 100 ML IV ONE; +MAGNESIUM SULFATE 16.24 MEQ in EMPTY SYRINGE 1 SYR IV ONE; +MANNITOL 25% 12.5 GM/50 ML VIAL IV ONE; +NITROGLYCERIN SL TABS 0.4 MG TAB SUBLINGUAL ONE; -NITROGLYCERIN SL TABS 0.4 MG TAB SUBLINGUAL PRN; +NITROGLYCERIN-D5W PMX 25 MG/250 ML BTL IV ONE; +NITROGLYCERIN-D5W PMX 50 MG in DEXTROSE/WATER 1 250ML.BAG IV ONE; +NOREPINEPHRINE 4 MG in SODIUM CHLORIDE 0.9% 250 ML IV ONE; +PHENYLEPHRINE 10 MG/ML VIAL IV ONE; +PHENYLEPHRINE 40 MG in SODIUM CHLORIDE 0.9% 250 ML IV ONE; +PROTAMINE SULFATE 10 MG/ML 25 ML VIAL IV ONE; +PROTAMINE SULFATE 250 MG in EMPTY BAG 1 BAG IV ONE; +SODIUM BICARB 8.4% 50 ML SYR (1 MEQ/ML) IV ONE; +SODIUM CHLORIDE 0.9% 1,000 ML IV ONE; -SODIUM CHLORIDE 0.9% 1,000 ML in EMPTY BAG 1 BAG IV SCH; +TRANEXAMIC ACID 2,000 MG in SODIUM CHLORIDE 0.9% 80 ML IV ONE; +propofoL 1,000 MG/100 ML VIAL IV ONE
[2023-10-28] MEDS: LACTATED RINGERS 1,000 ML IV ONE (06:27)
[2023-10-28] MEDS: METOPROLOL TARTRATE 12.5 MG TAB PO ONE (06:28)
[2023-10-28] MEDS: ATORVASTATIN 10 MG TAB PO ONE (06:28)
[2023-10-28 06:44] LABS: Glucose,Whole Blood 99 mg/dL (70-110)
[2023-10-28] MEDS ORDERED: fentaNYL (PF) 50 MCG/ML 50 ML VIAL ONE (07:51)
[2023-10-28] MEDS ORDERED: TRANEXAMIC 1,000 MG/100ML-NACL PREMIX BAG ONE (07:51)
[2023-10-28] MEDS ORDERED: VECURONIUM 10 MG VIAL IV ONE (07:51)
[2023-10-28] MEDS ORDERED: LIDOCAINE 2% SYG (PF) 100 MG/5 ML ONE (07:51)
[2023-10-28] MEDS ORDERED: SUCCINYLCHOLINE CHLORIDE 200 MG/10 ML VIAL IV ONE (07:51)
[2023-10-28] MEDS ORDERED: GLYCOPYRROLATE 0.2 MG/ML 2 ML VIAL ONE (07:51)
[2023-10-28] MEDS ORDERED: PROPOFOL 10 MG/ML 20 ML VIAL IV ONE (07:51)
[2023-10-28] MEDS ORDERED: ALBUMIN HUMAN 5% (25gm) 500 ML VIAL IVPB ONE (07:51)
[2023-10-28] MEDS ORDERED: PHENYLEPHRINE-0.9% NACL SYG 1,000 MCG/10 ML SYRINGE ONE (07:51)
[2023-10-28] MEDS ORDERED: HEPARIN SODIUM,PORCINE 5,000 UNIT/ML 1 ML VIAL ONE (07:51)
[2023-10-28] MEDS ORDERED: VASOPRESSIN 20 UNIT/ML 1 ML VIAL ONE (07:51)
[2023-10-28] MEDS ORDERED: MIDAZOLAM HCL 10 MG/10 ML VIAL ONE (07:51)
[2023-10-28] MEDS ORDERED: PROTAMINE SULFATE 10 MG/ML 25 ML VIAL IV ONE (07:51)
[2023-10-28] MEDS ORDERED: HEPARIN SODIUM,PORCINE 10,000 UNIT/ML 1 ML VIAL ONE (07:51)
[2023-10-28] MEDS ORDERED: WATER FOR INJECTION, STERILE 10 ML VIAL IV ONE (07:51)
[2023-10-28] MEDS ORDERED: ePHEDrine 50 MG/ML 1 ML VIAL ONE (07:51)
[2023-10-28] MEDS ORDERED: CALCIUM CHLORIDE 100 MG/ML 10 ML SYRINGE ONE (07:51)
[2023-10-28 08:35] LABS: ABG Glucose Whole Blood 108 mg/dL (75-99); ABG HCO3 24 mmol/L (21-25); ABG Hematocrit 33 % (34.0-46.0); ABG Ionized Calcium 4.6 mg/dL (4.5-5.3); ABG Lactic Acid Whole Blood 0.9 mmol/L (0.5-1.6); ABG Oxygen Saturation 97.4 % (94-97); ABG PCO2 43 mmHg (35-45); ABG PH 7.35 (7.35-7.45); ABG PO2 107 mmHg (83-108); ABG Potassium Whole Blood 3.6 mmol/L (3.4-4.5); ABG Sodium Whole Blood 141 mmol/L (135-146); Allen Test Performed? Yes
--- NOTE | 2023-10-28 09:35 | P.ANPRN ---
Procedure Note - Anesthesia - Invasive Line Right Central Line Time Out Performed: Yes Date of Procedure: 10/28/23 Preparation: Sterile Prep, Sterile Dressing Central Line Location: Internal Jugular Ultrasound Used: Yes Purpose - Visualization and Identification of Vasculature: Yes Image Stored and Saved: Yes Narrative: Invasive line placement per sterile protocol utilized. Informed consent obtained.Right Internal jugular vein cannulated under aseptic precautions. 3cc 1% lidocaine infiltrated initially after cleaning with iodine based prep and draping. Ultrasound used to locate the vein and Seldinger technique used. 9Fr introduced sheath inserted and after the finding the needle with engine pilot needle/catheter. The introducer sheath was sutured in place. After the insertion of PA Catheter the insertion site was dressed with biopatch and tegaderm. Off note patient was talking even after sedation before central line insertion, after giving little more sedation and while doing the central line, patient became apneic and desaturated to 88%. Immediately patient was put on back and mask ventilation and saturation remained down and came up to 98%. As she was still not breathing very well at this time, she was intubated. 8.0 ET tube and put on ventilator. She was sedated and paralyzed for the procedure. Right [place] Time Out Performed: Yes Date of Procedure: 10/28/23 Location of Patient: PreOp Preparation: Sterile Prep, Sterile Dressing [place] Line Location: Internal Jugular Narrative: Invasive line placement per sterile protocol utilized. 8Ff PA catheter threaded through the Right IJ introducer sheath under asepsis with continuous waveform monitoring. Catheter at 48 cms jay. - ABRIL Intraop Pre Bypass ABRIL Intraop - Anesthesia Indication: Coronary artery disease, severe aortic stenosis Date of Procedure: 10/28/23 Pre-operative Diagnosis: Coronary artery disease, severe aortic stenosis Post-operative Diagnosis: Status post coronary artery bypass graft and aortic valve replacement. Surgeon: Jared Segovia Left Ventricle: Ejection fraction 55-60% Ejection Fraction: Normal Regional Wall Motion Abnormalities: None Left Ventricle Hypertrophy: Yes (Moderate) R. Ventricle Function: Normal Aortic Valve: Vena contracta 0.4cm and pressure half time 389 ms Anatomy: Trileaflet Aortic Stenosis: None Aortic Regurgitation: Moderate Mitral Stenosis: None Mitral Regurgitation: Mild Tricuspid Stenosis: None Tricuspid Regurgitation: Mild Pulmonic Stenosis: None Pulmonic Regurgitation: Trace R. Atrial Dilation: No R. Atrial PFO: No L. Atrial Dilation: Yes Aortic Dissection: No Aortic Calcification: None Plural Effusion: None - ABRIL Intraop Post Bypass ABRIL Intraop Post Bypass Procedure Performed: Coronary artery bypass graft and aortic valve replacement Left Ventricle: Ejection fraction 55-60%, no new new regional wall motion abnormalities noted. Ejection Fraction: Normal R. Ventricle Function: Normal Aortic Valve: Prosthetic aortic valve in situ. Appears to be seated well and no significant paravalvular leak seen. Peak gradient across the valve is 5 mmHg and mean gradient is 2 mmHg. Mitral Valve: Unchanged Tricuspid: Unchanged Pulmonic: Unchanged Aortic Dissection: No
[2023-10-28] MEDS: PAPAVERINE 360 MG in SODIUM CHLORIDE 0.9% 90 ML IV ONE (09:48)
[2023-10-28] MEDS: ceFAZolin 1,000 MG in SODIUM CHLORIDE 0.9% IRRIGATIO 1,000 ML IRRIGATION ONE (09:48)
[2023-10-28] MEDS: HEPARIN SODIUM,PORCINE (1 ML) 5,000 UNIT in SODIUM CHLORIDE 0.9% 500 ML 500 ML IV ONE (09:48)
[2023-10-28 10:12] LABS: ABG Base Excess -7.2 mmol/L; ABG Glucose Whole Blood 123 mg/dL (75-99); ABG HCO3 19 mmol/L (21-25); ABG Hematocrit 26 % (34.0-46.0); ABG Ionized Calcium 3.9 mg/dL (4.5-5.3); ABG Lactic Acid Whole Blood 0.6 mmol/L (0.5-1.6); ABG Oxygen Saturation 98.1 % (94-97); ABG PCO2 41 mmHg (35-45); ABG PH 7.28 (7.35-7.45); ABG PO2 115 mmHg (83-108); ABG Sodium Whole Blood 143 mmol/L (135-146)
[2023-10-28 11:18] LABS: ABG Base Excess 0.4 mmol/L; ABG Glucose Whole Blood 127 mg/dL (75-99); ABG HCO3 25 mmol/L (21-25); ABG Ionized Calcium 3.6 mg/dL (4.5-5.3); ABG Lactic Acid Whole Blood 1.3 mmol/L (0.5-1.6); ABG Oxygen Saturation >99.4 % (94-97); ABG PCO2 37 mmHg (35-45); ABG PH 7.43 (7.35-7.45); ABG Potassium Whole Blood 4.6 mmol/L (3.4-4.5); ABG Sodium Whole Blood 140 mmol/L (135-146); Allen Test Performed? Yes
[2023-10-28 11:36] LABS: ABG Base Excess 0.4 mmol/L; ABG Glucose Whole Blood 117 mg/dL (75-99); ABG HCO3 24 mmol/L (21-25); ABG Ionized Calcium 3.6 mg/dL (4.5-5.3); ABG Lactic Acid Whole Blood 1.3 mmol/L (0.5-1.6); ABG Oxygen Saturation >99.4 % (94-97); ABG PCO2 33 mmHg (35-45); ABG PH 7.47 (7.35-7.45); ABG Potassium Whole Blood 4.2 mmol/L (3.4-4.5); ABG Sodium Whole Blood 140 mmol/L (135-146); Allen Test Performed? Yes
[2023-10-28 11:57] LABS: ABG Base Excess 0.5 mmol/L; ABG Glucose Whole Blood 112 mg/dL (75-99); ABG HCO3 24 mmol/L (21-25); ABG Ionized Calcium 3.6 mg/dL (4.5-5.3); ABG Lactic Acid Whole Blood 1.4 mmol/L (0.5-1.6); ABG Oxygen Saturation >99.4 % (94-97); ABG PCO2 32 mmHg (35-45); ABG PH 7.48 (7.35-7.45); ABG Potassium Whole Blood 4.3 mmol/L (3.4-4.5); ABG Sodium Whole Blood 140 mmol/L (135-146); Allen Test Performed? Yes
[2023-10-28 12:23] LABS: ABG Base Excess -0.3 mmol/L; ABG Glucose Whole Blood 104 mg/dL (75-99); ABG HCO3 25 mmol/L (21-25); ABG Ionized Calcium 3.6 mg/dL (4.5-5.3); ABG Lactic Acid Whole Blood 1.6 mmol/L (0.5-1.6); ABG Oxygen Saturation >99.4 % (94-97); ABG PCO2 43 mmHg (35-45); ABG PH 7.37 (7.35-7.45); ABG Potassium Whole Blood 4.3 mmol/L (3.4-4.5); ABG Sodium Whole Blood 141 mmol/L (135-146); Allen Test Performed? Yes
[2023-10-28 13:22] LABS: ABG Base Excess -1.2 mmol/L; ABG Glucose Whole Blood 114 mg/dL (75-99); ABG HCO3 23 mmol/L (21-25); ABG Oxygen Saturation 99.4 % (94-97); ABG PCO2 31 mmHg (35-45); ABG PH 7.46 (7.35-7.45); ABG Potassium Whole Blood 4.6 mmol/L (3.4-4.5); ABG Sodium Whole Blood 139 mmol/L (135-146); Allen Test Performed? Yes
[2023-10-28 13:36] LABS: ABG Base Excess 0.7 mmol/L; ABG Glucose Whole Blood 140 mg/dL (75-99); ABG HCO3 24 mmol/L (21-25); ABG Hematocrit 25 % (34.0-46.0); ABG Ionized Calcium 4.4 mg/dL (4.5-5.3); ABG Oxygen Saturation >99.4 % (94-97); ABG PCO2 33 mmHg (35-45); ABG PH 7.48 (7.35-7.45); ABG Potassium Whole Blood 4.7 mmol/L (3.4-4.5); ABG Sodium Whole Blood 141 mmol/L (135-146); Allen Test Performed? Yes
[2023-10-28 14:09] LABS: ABG Potassium Whole Blood 2.9 mmol/L (3.4-4.5)
[2023-10-28 14:11] LABS: ABG Hematocrit 21 % (34.0-46.0); ABG PO2 >420 mmHg (83-108)
[2023-10-28 14:12] LABS: ABG PO2 >420 mmHg (83-108)
[2023-10-28 14:13] LABS: ABG Hematocrit 19 % (34.0-46.0)
[2023-10-28 14:14] LABS: ABG Hematocrit 20 % (34.0-46.0); ABG PO2 >420 mmHg (83-108)
[2023-10-28 14:15] LABS: ABG Hematocrit 19 % (34.0-46.0); ABG PO2 >420 mmHg (83-108)
[2023-10-28 14:16] LABS: ABG Hematocrit 19 % (34.0-46.0); ABG Ionized Calcium 3.2 mg/dL (4.5-5.3); ABG Lactic Acid Whole Blood 2.3 mmol/L (0.5-1.6); ABG PO2 >420 mmHg (83-108)
[2023-10-28 14:18] LABS: ABG Base Excess -2.8 mmol/L; ABG Glucose Whole Blood 116 mg/dL (75-99); ABG HCO3 23 mmol/L (21-25); ABG Hematocrit 29 % (34.0-46.0); ABG Ionized Calcium 4.5 mg/dL (4.5-5.3); ABG Oxygen Saturation 98.6 % (94-97); ABG PCO2 41 mmHg (35-45); ABG PH 7.35 (7.35-7.45); ABG PO2 138 mmHg (83-108); ABG Potassium Whole Blood 3.8 mmol/L (3.4-4.5); ABG Sodium Whole Blood 142 mmol/L (135-146); Allen Test Performed? Yes
[2023-10-28 14:18] LABS: ABG Lactic Acid Whole Blood 3.2 mmol/L (0.5-1.6); ABG PO2 >420 mmHg (83-108)
[2023-10-28] MEDS ORDERED: BENZOCAINE/MENTHOL LOZENG 1 EACH LOZENGE MUCOUS MEM PRN (15:01)
[2023-10-28] MEDS ORDERED: DEXTROSE 5% IN WATER 100 ML with AMIODARONE 150 MG IV PRN (15:01)
[2023-10-28] MEDS ORDERED: AMIODARONE 360 MG in DEXTROSE 5% IN WATER 200 ML IV PRN (15:01)
[2023-10-28] MEDS ORDERED: Potassium Replacement Protocol 1 EACH MISC MISCELLANE PRN (15:01)
[2023-10-28] MEDS ORDERED: Magnesium Replacement Protocol 1 EACH MISC MISCELLANE PRN (15:01)
[2023-10-28] MEDS ORDERED: DEXTROSE 50% SYRINGE 50 ML IVP PRN ×2 (15:01)
[2023-10-28] MEDS ORDERED: AMIODARONE 450 MG in DEXTROSE 5% IN WATER 250 ML IV PRN (15:01)
[2023-10-28] MEDS ORDERED: DEXMEDETOMIDINE/0.9% NACL(PMX) 400 MCG in EMPTY BAG 1 BAG IV SCH (15:30)
[2023-10-28] MEDS: INSULIN REGULAR 100 UNIT in SODIUM CHLORIDE 0.9% 100 ML IV SCH (15:45)
[2023-10-28 15:50] LABS: Glucose,Whole Blood 121 mg/dL (70-110)
[2023-10-28 16:05] LABS: ABG Base Excess -3.2 mmol/L; ABG HCO3 22 mmol/L (21-25); ABG PCO2 38 mmHg (35-45); ABG PH 7.38 (7.35-7.45); ABG PO2 288 mmHg (83-108); ABG TCO2 23 mmol/L (19-24)
[2023-10-28 16:12] LABS: Anisocytosis Slight; Basophils # (A) 0.1 k/uL (0-0.2); Basophils % (A) 1 %; Eosinophils # (A) 0.2 k/uL (0-0.7); Eosinophils % (A) 2 %; HCT 25.8 % (34.0-46.0); Lymphocytes # (A) 1.4 k/uL (1.0-4.8); Lymphocytes % (A) 16 %; MCH 26.1 pg (25.0-35.0); MCHC 31.6 g/dL (31.0-37.0); MCV 82.5 fL (80.0-100.0); Monocytes # (A) 0.4 k/uL (0-1.0); Monocytes % (A) 4 %; Neutrophils % (A) 77 %; RBC 3.13 m/uL (3.80-5.40); RDW 16.3 % (11.5-15.5); WBC 9.1 k/uL (3.8-10.6)
[2023-10-28] MEDS: IPRATROPIUM-ALBUTEROL 3 ML NEB INHALATION SCH (16:18)
--- NOTE | 2023-10-28 16:20 | XR ---
EXAMINATION TYPE: XR chest 1V portable DATE OF EXAM: 10/28/2023 COMPARISON: 06/01/2023 HISTORY: Post cardiac surgery TECHNIQUE: Single frontal view of the chest is obtained. FINDINGS: ET tube is seen 1 cm above the [place]. Postsurgical changes are noted near is a [place]cel[place] catheter overlying the proximal pulmonary outflow tract. The prominence of the mediastinum which coul d be positional correlate clinically for recent surgery. NG tube seen coursing the left upper quadran t. Mediastinal drain and chest tube noted. No sizable pneumothorax. Bilateral interstitial prominence and subsegmental areas of consolidation with tiny left pleural effusion. IMPRESSION: 1. ET tube somewhat low in position 1 cm above [place]. 2. A prominent mediastinum may be related to portable technique and recent surgery. Correlate with fo llow-up x-ray or CT scan as clinically warranted. 3. Mild venous congestion with postoperative basilar atelectasis favored over pneumonia.
[2023-10-28 16:21] LABS: HGB 8.2 gm/dL (11.4-16.0); Platelet Count 135 k/uL (150-450)
[2023-10-28 16:23] LABS: Ionized Calcium 4.4 mg/dL (4.5-5.3)
[2023-10-28 16:33] LABS: ALT 11 U/L (4-34); AST 34 U/L (14-36); African American GFR (CKD) 72 (>60 ml/min/1.73 sqM); Alkaline Phosphatase 35 U/L (38-126); Anion Gap 9 mmol/L; Blood Urea Nitrogen 19 mg/dL (7-17); Calcium 7.4 mg/dL (8.4-10.2); Carbon Dioxide 20 mmol/L (22-30); Chloride 112 mmol/L (98-107); Glucose 104 mg/dL (74-99); Magnesium 3.3 mg/dL (1.6-2.3); Non-African American GFR(CKD) 62 (>60 ml/min/1.73 sqM); Potassium 3.7 mmol/L (3.5-5.1); Sodium 141 mmol/L (137-145); Total Bilirubin 0.6 mg/dL (0.2-1.3); Total Protein 4.5 g/dL (6.3-8.2)
[2023-10-28] MEDS: CLEVIDIPINE BUTYRATE 25 MG in EMPTY BAG 1 BAG IV SCH (16:35)
[2023-10-28] MEDS: NITROGLYCERIN-D5W PMX 50 MG in DEXTROSE/WATER 1 250ML.BAG IV SCH (16:36)
[2023-10-28] MEDS: LACTATED RINGERS 1,000 ML IV SCH (16:36)
[2023-10-28 16:38] LABS: INR 1.7 (<1.2); Partial Thromboplastin Time 49.5 sec (22.0-30.0); Prothrombin Time 17.2 sec (10.0-12.5)
[2023-10-28] MEDS: ALBUMIN HUMAN 5% 250 ML in EMPTY BAG 1 BAG IVPB PRN (16:45)
[2023-10-28] MEDS: HEPARIN SODIUM,PORCINE 5,000 UNIT/ML 1 ML VIAL SQ SCH (16:49)
--- NOTE | 2023-10-28 17:07 | P.OP ---
Date of Procedure: 10/28/23 Preoperative Diagnosis: 3v CAD with stable angina Moderate Aortic Regurgitation HTN HLD MO Thyroid CA s/p Thyroidectomy Postoperative Diagnosis: Same Procedure(s) Performed: 1. Coronary artery bypass grafting x 4. Left internal thoracic artery (in-situ) sequential to diagonal artery and left anterior descending coronary artery. Radial artery from aorta to obtuse marginal artery. Saphenous vein from aorta to posterior descending coronary artery. 2. Aortic Valve Replacement with #23mm Inspiris Bioprosthetic 3. Left atrial appendage ligation using #35mm AtriClip 4. Endoscopic left radial and left greater saphenous vein harvest 5. Graft flow measurements using the medi-stim flow meter system. 6. Sternal closure using the Mary Anne Sterna-lock plating system and pioneer cables 7. Trans-esophageal echo Implants: #35 AtriClip Anesthesia: BLAIRA Surgeon: Jared Segovia Rehabilitation Director #1: David Marte Pathology: other (AV) Condition: critical Disposition: ICU Indications for Procedure: This patient is a 63 year-old F with progressive SOB who underwent cardiac cath which revealed significant 3v CAD. She also underwent echo which revealed moderate aortic regurgitation. She was deemed a good candidate for CABG, AVR which was recommended. Her STS risk of morbidity and mortality was discussed with the patient and she was in agreement to proceed. Operative Findings: Tri-leaflet valve with mild calcified leaflets. J CARLOS 2.25mm great conduit. Diag 1.25mm good target. LAD 1.5mm good target. J CARLOS- DIAG Flow 25ml/min, P.I. 2.6. DIAG- LAD Flow 29ml/min, P.I. 3.9 Radial artery 2.0mm good conduit. OM 2.25mm good target. RA-OM Saphenous vein 2.5mm good conduit. PDA 1.5mm good target. GSV-PDA 15ml/min, P.I. 3.4 Description of Procedure: The patient underwent central line, [place]-Arcelia catheter, and right radial arterial line placement by the anesthesia team. The patient desaturated during the procedure and required intubation. The patient was brought back to the operating room and placed on the table supine. General endotracheal anesthesia was induced and the patient was prepped and draped in the usual sterile fashion from the chin to the ankles. A time-out was performed and antibiotics were given. A midline incision was made on the chest. This was carried down to bone and a median sternotomy was performed. Hemostasis on the bone was achieved with electrocautery only. The left and right pleura was entered and the left internal thoracic artery was harvested in a skeletonized fashion. Simultaneously two other assistants harvested the left radial artery and left greater saphenous vein endoscopically. The patient was systemically heparinized and the J CARLOS was transected and placed in a papaverine jacuzzi. A left sided chest tube was placed. The pericardium was opened in a reverse T-fashion and a pericardial cradle was created. We then cannulated the aortic arch with a 20F arch cannula and right atrial appendage with a dual stage venous cannula. Only the aortic cannulation site was pledgeted. Antegrade and retrograde cannulas were placed in the ascending aorta and indirectly in the coronary sinus respectively. The conduits were prepared. Once the ACT > 480 we initiated cardiopulmonary bypass and evaluated our targets. We then arrested the heart with 1L antegrade and 500cc retrograde blood based cardioplegia. The posterior descending artery was identified, and arteriotomy was created. We then performed an end to side with the saphenous vein to the posterior descending artery using a running 7-0 Prolene. The PDA was 1.5mm but otherwise a descent target. Next we placed a 35mm AtriClip on the left atrial appendage effectively ligating it. Next the lateral wall of the heart was examined and the obtuse marginal artery was identified and arteriotomy created. Next we performed the distal end to side anastomosis with the radial artery to obtuse marginal artery using a running 7-0 Prolene. Next, we dissected out the diagonal artery which was 1.25mm and a good target. A side to side anastomosis between the J CARLOS and diag was performed using a running 7-0 prolene. Next, the LAD was opened and it was a good target distally. An end to side anastomosis between the LAD and the J CARLOS was performed using a running 7-0 prolene. At this point, aortotomy was made and the trileaflet valve was cut out. The valve was somewhat calcified. LVOT was irrigated and 12 non-pledgeted 2-0 ticron sutures were placed circumferentially around the annulus and passed through the sewing ring of a 23mm Inspiris bioprosthetic valve. These was fastened using kor-knot. The aortotomy was closed using a pledgeted 5-0 prolene x 2. Next the radial artery and saphenous vein were fastened to the ascending aorta in an end to side fashion using a running 7-0 prolene. The cross-clamp was removed and two ventricular wires were placed on the inferior RV. Atrial wires were placed on the RA. The patient was then weaned from cardiopulmonary bypass and decannulated. The retrograde site was oversewn and hemostasis was secured. A 19F gonzalez and 32F chest tube was placed in the right pleura and mediastinum respectively. The sternum was closed with sterna- lock mary anne plates and pioneer cables. The fascia was closed with Ethibond. The subcutaneous tissues and skin of the sternum, arm and leg were closed in layers of vicryl. All counts were correct and the patient was transported to the CVICU in critical condition on nitro gtt.
[2023-10-28 17:09] LABS: Glucose,Whole Blood 132 mg/dL (70-110)
[2023-10-28] MEDS: VASOPRESSIN 20 UNIT in SODIUM CHLORIDE 0.9% 50 ML IV SCH (18:00)
[2023-10-28 18:06] LABS: Glucose,Whole Blood 130 mg/dL (70-110)
[2023-10-28] MEDS: ACETAMINOPHEN IV (For NPO) 1,000 MG in EMPTY BAG 1 BAG IVPB SCH (18:32)
[2023-10-28 18:59] LABS: Glucose,Whole Blood 137 mg/dL (70-110)
[2023-10-28 19:22] LABS: Anisocytosis Slight; Basophils % (A) 1 %; Eosinophils # (A) 0.1 k/uL (0-0.7); Eosinophils % (A) 1 %; HCT 20.8 % (34.0-46.0); Hypochromasia Slight; Lymphocytes # (A) 1.2 k/uL (1.0-4.8); Lymphocytes % (A) 14 %; MCH 26.1 pg (25.0-35.0); MCHC 31.5 g/dL (31.0-37.0); MCV 82.9 fL (80.0-100.0); Mean Platelet Volume 8.3; Monocytes # (A) 0.4 k/uL (0-1.0); Monocytes % (A) 5 %; Neutrophils # (A) 6.6 k/uL (1.3-7.7); Neutrophils % (A) 78 %; Platelet Count 124 k/uL (150-450); RBC 2.51 m/uL (3.80-5.40); RDW 16.5 % (11.5-15.5); WBC 8.4 k/uL (3.8-10.6)
[2023-10-28 19:26] LABS: HGB 6.6 gm/dL (11.4-16.0)
[2023-10-28 20:12] LABS: Glucose,Whole Blood 163 mg/dL (70-110)
[2023-10-28 20:26] LABS: ABG Base Excess -3.9 mmol/L; ABG HCO3 22 mmol/L (21-25); ABG PCO2 39 mmHg (35-45); ABG PH 7.35 (7.35-7.45); ABG PO2 80 mmHg (83-108); ABG TCO2 23 mmol/L (19-24); Allen Test Performed? Yes
[2023-10-28 20:27] LABS: ABG Oxygen Saturation 96.9 % (94-97)
[2023-10-28 20:54] LABS: Glucose,Whole Blood 149 mg/dL (70-110)
[2023-10-28 21:21] LABS: Anisocytosis Slight; Basophils % (A) 0 %; Eosinophils % (A) 0 %; HCT 21.1 % (34.0-46.0); Hypochromasia Slight; Lymphocytes # (A) 0.9 k/uL (1.0-4.8); Lymphocytes % (A) 10 %; MCH 26.7 pg (25.0-35.0); MCHC 32.3 g/dL (31.0-37.0); MCV 82.6 fL (80.0-100.0); Mean Platelet Volume 8.7; Monocytes # (A) 0.4 k/uL (0-1.0); Monocytes % (A) 5 %; Neutrophils # (A) 7.6 k/uL (1.3-7.7); Neutrophils % (A) 84 %; Platelet Count 127 k/uL (150-450); RBC 2.55 m/uL (3.80-5.40); RDW 16.1 % (11.5-15.5); WBC 9.1 k/uL (3.8-10.6)
[2023-10-28 21:34] LABS: HGB 6.8 gm/dL (11.4-16.0)
[2023-10-28 22:01] LABS: Glucose,Whole Blood 139 mg/dL (70-110)
[2023-10-28] MEDS: SENNOSIDES-DOCUSATE SODIUM 1 EACH TAB PO SCH (22:46)
[2023-10-28 22:55] LABS: Glucose,Whole Blood 135 mg/dL (70-110)
[2023-10-28] MEDS: MUPIROCIN 2% OINT 22 GM TUBE NASAL SCH (23:31)
[2023-10-28] MEDS: hydrALAZINE HCL 20 MG/ML 1 ML VIAL IVP PRN (23:40)
[2023-10-29 00:08] LABS: Glucose,Whole Blood 124 mg/dL (70-110)
[2023-10-29 01:00] LABS: Glucose,Whole Blood 119 mg/dL (70-110)
[2023-10-29 01:53] LABS: Glucose,Whole Blood 116 mg/dL (70-110)
--- NOTE | 2023-10-29 02:29 | P.CNPUL ---
History of Present Illness Consult date: 10/29/23 Requesting physician: Shari Collier Reason for consult: other (Post open heart surgery, ICU management) Chief complaint: Elective CABG/aortic valve replacement History of present illness: Patient is a 63-year-old white female with past medical history significant for mild intermittent asthma, coronary artery disease, moderate aortic valve stenosis, among other things. Patient has followed in the pulmonary office with Dr. Kemp for evaluation of her mild intermittent asthma. A recent PFT done in the office, consistent with mild obstructive disease. FEV1 81% of predicted with FEV1/FVC ratio of 69%. 13% increase post-bronchodilator. She had been having worsening exertional dyspnea, and had a full cardiac workup. Heart cath done 10/06/2023 consistent with severe triple-vessel coronary artery disease. She was also noted to have moderate to severe aortic regurgitation. Yesterday, the patient underwent a four-vessel coronary bypass including a GOLDBERG sequentially to the diagonal and LAD, left radial artery from the aorta to the obtuse marginal artery, and saphenous vein graft from aorta to posterior descending artery. Patient also had an aortic valve replacement with a biopros thetic, and left atrial appendage ligation. No intraoperative complications reported. Patient was transferred to the intensive care unit postoperatively. Her weaning parameters were adequate and her ABG done on pressure support included a PaO2 of 80, pCO2 of 39, and a pH of 7.35. Hence, the patient was extubated at 2030 last night. Patient is currently lying in bed, on a 40% Ventimask, in no acute distress. SpO2 is 99%. She is awake and alert and answers all my questions. She is reporting a mild to moderate amount of incisional chest pain, especially with coughing and deep breathing. Bear hugger is on. Incentive spirometer is at bedside. Postoperative chest x-ray shows mild vascular congestion and postoperative basilar atelectasis. Possible trace left pleural effusion. No pneumothorax. There is a prominent mediastinum. There is a mediastinal chest tube that has a total of 290 cc of sanguinous drainage, and patient has bilateral pleural chest tubes that are Yd together which have had a total of 460 mL of sanguinous output. No airleak. Postoperative CBC: WBC count 9.1, hemoglobin 6.8, hematocrit 21.1, platelets 127. She has received a total of 4 units of PRBCs. Acute blood loss anemia, is an expected outcome of surgery. She was initially hypotensive postoperatively, and was temporarily on vasopressors including vasopressin, these have since been discontinued. Blood pressure is improved after PRBC transfusions. Patient is also received a total of 1 L of 5% albumin. There is a right IJ introducer sheath with [place] Ivis catheter. Current CO/CI eyes are hyperdynamic, 9 and 4.4 respectively. Blood pressure is normotensive, PA pressures 29/15, CVP 13. Hear t rhythm appears normal sinus on bedside monitor, in the 90s. Epicardial pacemaker is currently set at backup rate of 80 bpm. Nitro is infusing at 5 mcg/min for vasospasm prophylaxis. Insulin infusing at 2.5 units/h. Lactated Ringer's is infusing at 50 MLS per hour. Patient does have urinary catheter, and urine output has been adequate in the order of 100-150 MLS per hour. Postoperative CMP includes a sodium of 141, potassium 3.7, chloride 112, serum bicarb 20, BUN 19, creatinine 0.96, glucose 135. LFTs not elevated. She will continue to be monitored closely in the intensive care unit. Review of Systems REVIEW OF SYSTEMS: CONSTITUTIONAL: Denies any recent significant weight loss or weight gain. EYES: Denies change in vision. EARS, NOSE, MOUTH, THROAT: Denies headaches, denies sore throat. CARDIOVASCULAR: palpitations or syncopal episodes. Admits incisional chest pain with coughing and deep breathing. RESPIRATORY: Denies shortness of breath, cough, congestion or hemoptysis. GASTROINTESTINAL: Denies change in appetite, abdominal pain, nausea and vom iting, or diarrhea GENITOURINARY: Denies hematuria, denies infections. MUSKULOSKELETAL: Denies pain, denies swelling. INTEGUMENTARY: Denies rash, denies eczema. NEUROLOGICAL: Denies recent memory loss, no recent seizure activity. PSYCHIATRIC: Denies anxiety, denies depression. HEMATOLOGIC/LYMPHATIC: Denies anemia, denies enlarged lymph node Past Medical History Past Medical History: Asthma, Cancer, GERD/Reflux, Hypertension, Osteoarthritis (OA), Pneumonia, Thyroid Disorder, Vascular Disorder Additional Past Medical History / Comment(s): SOB,heart valve disea,Gastic ulcer(was advised by Dr Nathan Soares to stop ASA),anemia,history of a pituitary tumor-adenoma that was resected (PT STATES "BENIGN BRAIN TUMOR REMOVED THAT GREW BACK AND BEING WATCHED"), PROLAPSED UTERUS, Thyroid Cancer-rec 3-4 radiation tx's-thyroidectomy, 2000 THROAT CANCER AND HAD ALL TEETH AND PART OF JAW REMOVED, SCOLIOSIS, chronic constipation, IBS, nephrolithiasis, recurrent urinary tract infection,anxiety, CHRONIC BACK PAIN, CARPAL TUNNEL BILATERALLY History of Any Multi-Drug Resistant Organisms: None Reported Past Surgical History: Heart Catheterization Additional Past Surgical History / Comment(s): BRAIN SURGERY to remove benign PITUITARY tumor, thyroid removal, partial jaw removal due to throat cancer, egd/colonoscopy(benign polyps removed, d&c, kidney stone removed,D&C,lithotripsy Past Anesthesia/Blood Transfusion Reactions: Previous Problems w/ Anesthesia Additional Past Anesthesia/Blood Transfusion Reaction / Comment(s): BLOOD TRANSFUSION-NO REACTION. states "gas anesthesia interacts with my asthma and stop breathing"-no problems w/ IV sedation,. Claustrophobic-unable to wear mask Smoking Status: Never smoker - Past Family History Sister(s) Family Medical History: Cancer Daughter(s) Additional Family Medical History / Comment(s): eosinophilic gastroenteropathy Son(s) Additional Family Medical History / Comment(s): eosinophilic gastroenteropathy Father Family Medical History: Myocardial Infarction ([place]) Additional Family Medical History / Comment(s): - HAD THE " MAKER" Mother Family Medical History: No Reported History Additional Family Medical History / Comment(s): AAA Medications and Allergies Home Medications Medication Instructions Recorded Confirmed Type Albuterol Nebulized [Ventolin 2.5 mg INHALATION RT-Q6H PRN 10/17/22 10/22/23 History Nebulized] Lansoprazole [Prevacid] 30 mg PO BID 10/17/22 10/22/23 History carvediloL [Coreg] 6.25 mg PO BID 10/17/22 10/22/23 History Levothyroxine Sodium [Levoxyl] 350 mcg PO DAILY 01/29/23 10/22/23 History Albuterol Inhaler [Ventolin Hfa 1 - 2 puff INHALATION Q6H PRN 10/02/23 10/22/23 History Inhaler] Famotidine [Pepcid] 10 mg PO TID 10/02/23 10/22/23 History Mupirocin [Mupirocin 2%] 1 applic NASAL BID #1 tub 10/16/23 10/22/23 Rx Aspirin [Aspirin EC] 500 - 1,000 mg PO DAILY PRN 10/22/23 10/22/23 History Promethazine HCl 12.5 mg PO QID PRN 10/22/23 10/22/23 History Allergies Allergy/AdvReac Type Severity Reaction Status Date / Time cantaloupe Allergy Anaphylaxis Verified 10/28/23 06:05 levothyroxine Allergy Anaphylaxis Verified 10/28/23 06:05 naproxen Allergy Dyspnea Verified 10/28/23 06:05 ondansetron [From Zofran] Allergy rapid Verified 10/28/23 06:05 heart rate,states "went into First degree AV block" acetaminophen [From Tylenol] AdvReac Nausea & Verified 10/28/23 06:05 Vomiting ibuprofen [From Motrin] AdvReac Nausea & Verified 10/28/23 06:05 Vomiting UNSURE OF NAME OF ANESTH. GAS Allergy DYSPNEA, Uncoded 10/28/23 06:05 "STOP BREATHING" Physical Exam Vitals: Vital Signs Temp Pulse Pulse Pulse Resp BP BP 10/29/23 01:00 96 12 89/66 10/29/23 00:52 10/29/23 00:45 99.1 F 96 11 L 89/66 10/29/23 00:30 95 16 89/66 10/29/23 00:15 96 13 89/66 10/29/23 00:00 99.1 F 97 96 23 89/66 10/28/23 23:45 96 20 89/66 10/28/23 23:30 96 28 H 89/66 10/28/23 23:15 96 18 89/66 10/28/23 23:03 94 13 89/66 10/28/23 23:00 97 21 89/66 10/28/23 22:45 96 15 89/66 10/28/23 22:30 96 15 89/66 10/28/23 22:18 37.3 F L 95 21 125/66 10/28/23 22:15 98 18 89/66 10/28/23 22:00 98 21 89/66 10/28/23 21:58 99.3 F 97 15 114/65 10/28/23 21:51 99.3 F 96 13 120/67 10/28/23 21:45 97 17 89/66 10/28/23 21:30 95 16 89/66 10/28/23 21:15 96 18 89/66 10/28/23 21:00 93 17 89/66 10/28/23 20:45 90 17 89/66 10/28/23 20:30 89 17 89/66 10/28/23 20:15 88 27 H 89/66 10/28/23 20:00 98.1 F 80 28 H 89/66 10/28/23 19:53 10/28/23 19:45 80 14 89/66 10/28/23 19:30 80 14 89/66 10/28/23 19:15 80 14 89/66 10/28/23 19:00 80 20 10/28/23 18:50 80 20 10/28/23 18:40 80 18 10/28/23 18:30 80 16 10/28/23 18:20 80 16 10/28/23 18:10 80 16 10/28/23 18:00 80 16 10/28/23 17:50 80 16 76/50 10/28/23 17:40 80 16 10/28/23 17:32 10/28/23 17:30 80 16 10/28/23 17:15 65 2 L 10/28/23 17:00 65 16 10/28/23 16:45 65 16 10/28/23 16:34 69 10/28/23 16:30 68 16 10/28/23 16:21 68 10/28/23 16:15 70 16 10/28/23 16:06 10/28/23 16:00 16 10/28/23 15:50 10/28/23 15:45 71 16 10/28/23 15:40 72 10/28/23 07:45 10/28/23 06:35 96.8 F L 74 16 165/87 BP Pulse Ox FiO2 10/29/23 01:00 97 10/29/23 00:52 97 40 10/29/23 00:45 97 10/29/23 00:30 97 10/29/23 00:15 96 10/29/23 00:00 96 40 10/28/23 23:45 96 10/28/23 23:30 97 10/28/23 23:15 96 10/28/23 23:03 96 10/28/23 23:00 97 10/28/23 22:45 97 10/28/23 22:30 96 10/28/23 22:18 98 10/28/23 22:15 96 10/28/23 22:00 96 10/28/23 21:58 96 10/28/23 21:51 96 10/28/23 21:45 96 10/28/23 21:30 96 10/28/23 21:15 95 10/28/23 21:00 94 L 40 10/28/23 20:45 95 10/28/23 20:30 95 10/28/23 20:15 96 10/28/23 20:00 95 40 10/28/23 19:53 40 10/28/23 19:45 99 10/28/23 19:30 100 10/28/23 19:15 100 10/28/23 19:00 100 10/28/23 18:50 100 10/28/23 18:40 99 10/28/23 18:30 100 10/28/23 18:20 100 10/28/23 18:10 98 10/28/23 18:00 98 10/28/23 17:50 97 10/28/23 17:40 97 10/28/23 17:32 40 10/28/23 17:30 90 L 10/28/23 17:15 99 10/28/23 17:00 99 10/28/23 16:45 100 10/28/23 16:34 10/28/23 16:30 100 10/28/23 16:21 10/28/23 16:15 99 10/28/23 16:06 40 10/28/23 16:00 100 40 10/28/23 15:50 100 10/28/23 15:45 100 100 10/28/23 15:40 10/28/23 07:45 100 10/28/23 06:35 179/88 97 Intake and Output 10/28/23 10/28/23 10/29/23 14:59 22:59 06:59 Intake Total 673 7093.089 7236.323 Output Total 3038 365 Balance 673 -1316.778 941.323 Intake: IV 53 1623 657 ACETAMINOPHEN IV (For NPO 400 ) 1,000 mg In Empty Bag 1 bag @ 400 mls/hr IVPB Q6HR SHAR Rx#:[id number] Albumin Human 5% 250 ml 1000 In Empty Bag 1 bag @ 250 mls/hr IVPB Q1HR PRN Rx#: [id number] CO/CI 210 30 Lactated Ringers 1,000 ml 350 150 @ 50 mls/hr IV .Q20H SHAR Rx#:[id number] Pressure bag 63 27 ceFAZolin 2 gm In Sodium 50 Chloride 0.9% 50 ml @ 100 mls/hr IVPB Q8HR SHAR Rx# :[id number] Intake, IV Titration 58.222 9.323 Amount Insulin Regular 100 unit 9.957 4.478 In Sodium Chloride 0.9% 100 ml @ Per Protocol IV .Q0M SHAR Rx#:[id number] Vasopressin 20 unit In 18.488 4.845 Sodium Chloride 0.9% 50 ml @ 0.04 UNITS/MIN 6.12 mls/hr IV .Q8H20M SHAR Rx# :[id number] propofoL 1,000 mg In 29.777 Empty Bag 1 bag @ Titrate IV .Q0M SHAR Rx#: [id number] Oral 20 Blood Product 620 0 620 Rc As-1 Unit 310 [id number] Rc As-1 Unit 310 [id number] Rc As-1 Unit 0 310 [id number] Other 40 Output: Chest Tube Drainage 613 160 Chest Tube Bilateral 434 50 Chest Tube Mediastinal 179 110 Urine 1625 205 Estimated Blood Loss 800 Other: Voiding Method Indwelling Catheter Indwelling Catheter ABP, PAP, CO, CI - Last 8 Hours Arterial Blood Pressure 128/68 Arterial Blood Pressure 125/66 Arterial Blood Pressure 130/67 Arterial Blood Pressure 132/68 Arterial Blood Pressure 132/64 Arterial Blood Pressure 148/75 Arterial Blood Pressure 148/78 Arterial Blood Pressure 148/78 Arterial Blood Pressure 123/70 Arterial Blood Pressure 143/75 Arterial Blood Pressure 133/73 Arterial Blood Pressure 126/70 Arterial Blood Pressure 133/72 Arterial Blood Pressure 113/66 Arterial Blood Pressure 128/67 Arterial Blood Pressure 124/69 Arterial Blood Pressure 126/70 Arterial Blood Pressure 114/66 Arterial Blood Pressure 119/66 Arterial Blood Pressure 126/70 Arterial Blood Pressure 112/66 Arterial Blood Pressure 104/64 Arterial Blood Pressure 110/66 Arterial Blood Pressure 114/67 Arterial Blood Pressure 112/67 Arterial Blood Pressure 104/62 Arterial Blood Pressure 113/69 Arterial Blood Pressure 96/60 Arterial Blood Pressure 131/76 Arterial Blood Pressure 103/67 Arterial Blood Pressure 83/57 Arterial Blood Pressure 82/53 Arterial Blood Pressure 85/55 Pulmonary Artery Pressure 24/15 Pulmonary Artery Pressure 27/18 Pulmonary Artery Pressure 28/17 Pulmonary Artery Pressure 27/17 Pulmonary Artery Pressure 26/13 Pulmonary Artery Pressure 27/13 Pulmonary Artery Pressure 33/20 Pulmonary Artery Pressure 29/13 Pulmonary Artery Pressure 28/18 Pulmonary Artery Pressure 30/20 Pulmonary Artery Pressure 27/13 Pulmonary Artery Pressure 28/18 Pulmonary Artery Pressure 29/14 Pulmonary Artery Pressure 28/16 Pulmonary Artery Pressure 24/13 Pulmonary Artery Pressure 27/11 Pulmonary Artery Pressure 27/17 Pulmonary Artery Pressure 31/15 Pulmonary Artery Pressure 29/13 Pulmonary Artery Pressure 32/18 Pulmonary Artery Pressure 50/17 Pulmonary Artery Pressure 55/25 Pulmonary Artery Pressure 34/21 Pulmonary Artery Pressure 32/21 Pulmonary Artery Pressure 34/22 Pulmonary Artery Pressure 34/24 Pulmonary Artery Pressure 35/22 Pulmonary Artery Pressure 35/24 Pulmonary Artery Pressure 38/26 Pulmonary Artery Pressure 33/22 Pulmonary Artery Pressure 34/25 Pulmonary Artery Pressure 31/19 Pulmonary Artery Pressure 31/20 Cardiac Output 13.1 Cardiac Output 10.1 Cardiac Output 9.0 Cardiac Output 8.5 Cardiac Index 6.5 Cardiac Index 5 Cardiac Index 4.1 Cardiac Index 4.2 GENERAL EXAM: Alert, 63-year-old obese white female, lying in Semi-Brewer's position, with a Ventimask on, comfortable in no apparent distress. She is very talkative. HEAD: Normocephalic and atraumatic EYES: Normal reaction of pupils, equal size. NOSE: Clear with pink turbinates. THROAT: No erythema or exudates. NECK: No masses, no JVD. Right IJ introducer sheath with [place]-Arcelia catheter locked CHEST: Midsternal wound VAC incisional dressing clean, dry, intact. Bilateral right and left pleural chest tubes. Mediastinal chest tube. No airleak. LUNGS: Equal air entry with diminished bibasilar lung sounds. No crackles, wheeze, rhonchi or dullness. On a 40% Ventimask, SpO2 99%. No conversational dyspnea or accessory muscle use.. CVS: S1 and S2 diminished with no audible murmur, regular rhythm. No extra heart sounds ABDOMEN: No hepatosplenomegaly, hypoactive bowel sounds, no guarding or rigidity. SPINE: No scoliosis or deformity SKIN: No rashes CENTRAL NERVOUS SYSTEM: No focal deficits, tone is normal in all 4 extremities. EXTREMITIES: Bilateral lower extremities are wrapped with Todd bandages, mild nonpitting edema bilaterally. No clubbing, or cyanosis. Peripheral pulses are intact. Results - Laboratory Findings CBC and BMP: 10/28/23 20:40 10/28/23 15:45 ABG ABG pH 7.35 (7.35-7.45) 10/28/23 20:22 ABG pCO2 39 mmHg (35-45) 10/28/23 20:22 ABG pO2 80 mmHg (83-108) L 10/28/23 20:22 ABG O2 Saturation 96.9 % (94-97) 10/28/23 20:22 PT/INR, D-dimer PT 17.2 sec (10.0-12.5) H 10/28/23 15:45 INR 1.7 (<1.2) H 10/28/23 15:45 Abnormal lab findings: Abnormal Labs 10/20/23 10/28/23 10/28/23 09:20 15:45 15:45 RBC 3.13 L Hgb 8.2 L D Hct 25.8 L RDW 16.3 H Plt Count 135 L D Lymphocytes # PT 17.2 H INR 1.7 H APTT 49.5 H ABG pO2 ABG O2 Saturation Chloride Carbon Dioxide BUN Glucose POC Glucose (mg/dL) Calcium Ionized Calcium Aurelio Magnesium Alkaline Phosphatase Total Protein Albumin Crossmatch See Detail 10/28/23 10/28/23 10/28/23 15:45 15:47 16:03 RBC Hgb Hct RDW Plt Count Lymphocytes # PT INR APTT ABG pO2 288 H ABG O2 Saturation 99.0 H Chloride 112 H Carbon Dioxide 20 L BUN 19 H Glucose 104 H POC Glucose (mg/dL) 121 H Calcium 7.4 L Ionized Calcium Aurelio 4.4 L Magnesium 3.3 H Alkaline Phosphatase 35 L Total Protein 4.5 L Albumin 3.0 L Crossmatch 10/28/23 10/28/23 10/28/23 17:08 17:43 18:04 RBC 2.51 L Hgb 6.6 L* D Hct 20.8 L RDW 16.5 H Plt Count 124 L Lymphocytes # PT INR APTT ABG pO2 ABG O2 Saturation Chloride Carbon Dioxide BUN Glucose POC Glucose (mg/dL) 132 H 130 H Calcium Ionized Calcium Aurelio Magnesium Alkaline Phosphatase Total Protein Albumin Crossmatch 10/28/23 10/28/23 10/28/23 18:58 20:09 20:22 RBC Hgb Hct RDW Plt Count Lymphocytes # PT INR APTT ABG pO2 80 L ABG O2 Saturation Chloride Carbon Dioxide BUN Glucose POC Glucose (mg/dL) 137 H 163 H Calcium Ionized Calcium Aurelio Magnesium Alkaline Phosphatase Total Protein Albumin Crossmatch 10/28/23 10/28/23 10/28/23 20:40 20:52 21:59 RBC 2.55 L Hgb 6.8 L* Hct 21.1 L RDW 16.1 H Plt Count 127 L Lymphocytes # 0.9 L PT INR APTT ABG pO2 ABG O2 Saturation Chloride Carbon Dioxide BUN Glucose POC Glucose (mg/dL) 149 H 139 H Calcium Ionized Calcium Aurelio Magnesium Alkaline Phosphatase Total Protein Albumin Crossmatch 10/28/23 10/29/23 10/29/23 22:52 00:06 00:58 RBC Hgb Hct RDW Plt Count Lymphocytes # PT INR APTT ABG pO2 ABG O2 Saturation Chloride Carbon Dioxide BUN Glucose POC Glucose (mg/dL) 135 H 124 H 119 H Calcium Ionized Calcium Aurelio Magnesium Alkaline Phosphatase Total Protein Albumin Crossmatch - Diagnostic Findings Chest x-ray: image reviewed Assessment and Plan Assessment: Status postoperative day #1 following a four-vessel CABG including a GOLDBERG sequentially to the diagonal and LAD, left radial artery from the aorta to the obtuse marginal artery, and saphenous vein graft from aorta to posterior descending artery. Patient also had an aortic valve replacement with a bioprosthetic and left atrial appendage ligation. No immediate perioperative complications reported. Routine postoperative ventilator management, extubated without difficulty at 2030 last night. Acute blood loss anemia, expected outcome of surgery, status post 4 units PRBCs Postoperative hypotension, temporarily requiring vasopressors, improved Severe multi-vessel coronary artery disease History of moderate to severe aortic valve incompetence History of hyperlipidemia History of hypertension History of mild intermittent asthma, stable History of thyroid cancer status post thyroidectomy and hypothyroidism History of pituitary adenoma status postsurgical resection History of GERD without esophagitis Lifelong non-smoker Obesity, with a BMI of 38.5 kg/m Plan: Patient's medications, labs, chest x-ray reviewed Patient was transferred to the intensive care unit postoperatively. No immediate perioperative complications reported. Patient was temporarily hypotensive postoperatively. She did receive a total of 4 units PRBCs for her anemia and a total of 1 L albumin. Blood pressure is since improved. Currently not requiring any vasopressors. Continue nitroglycerin for vasospasm prophylaxis. Also on insulin infusion for tight blood glucose control. Prior to my arrival, patient was extubated successfully at 2030 last night. Weaning parameters were adequate. ABGs adequate on pressure support. Continue supplemental oxygen, and wean FiO2 as tolerated. Currently on 40% Ventimask, because this provides her more comfort than nasal cannula. SpO2 currently 99%. Incentive spirometer requires encouragement. Repeat chest x-ray in the morning. Continue to monitor chest tube output. Repeat labs are pending for the morning. Patient is status post 4 units PRBC transfusion. Continue as needed bronchodilators, asthma is not active. Receiving prophylactic cefazolin. Pain management appears adequate Patient will be monitored in the intensive care unit during her postoperative recovery. I have personally seen and examined the patient, performed the documentation and the assessment and plan as written. Number of minutes spent on the visit:20 Time with Patient: Greater than 30
[2023-10-29 02:51] LABS: Glucose,Whole Blood 109 mg/dL (70-110)
[2023-10-29 03:46] LABS: Glucose,Whole Blood 109 mg/dL (70-110)
[2023-10-29 03:54] LABS: Anisocytosis Slight; Basophils # (A) 0.1 k/uL (0-0.2); Basophils % (A) 1 %; Eosinophils % (A) 1 %; HCT 24.2 % (34.0-46.0); HGB 7.8 gm/dL (11.4-16.0); Lymphocytes # (A) 1.1 k/uL (1.0-4.8); Lymphocytes % (A) 13 %; MCH 27.2 pg (25.0-35.0); MCHC 32.3 g/dL (31.0-37.0); MCV 84.2 fL (80.0-100.0); Mean Platelet Volume 10.3; Monocytes # (A) 0.5 k/uL (0-1.0); Monocytes % (A) 6 %; Neutrophils # (A) 6.7 k/uL (1.3-7.7); Neutrophils % (A) 79 %; Platelet Count 122 k/uL (150-450); Poikilocytosis Slight; RBC 2.87 m/uL (3.80-5.40); RDW 16.1 % (11.5-15.5); WBC 8.6 k/uL (3.8-10.6)
[2023-10-29 04:20] LABS: Ionized Calcium 4.2 mg/dL (4.5-5.3)
[2023-10-29 04:29] LABS: ALT 16 U/L (4-34); AST 85 U/L (14-36); African American GFR (CKD) 74 (>60 ml/min/1.73 sqM); Albumin 3.2 g/dL (3.5-5.0); Alkaline Phosphatase 37 U/L (38-126); Anion Gap 8 mmol/L; Blood Urea Nitrogen 17 mg/dL (7-17); Carbon Dioxide 20 mmol/L (22-30); Chloride 111 mmol/L (98-107); Glucose 101 mg/dL (74-99); Magnesium 2.5 mg/dL (1.6-2.3); Non-African American GFR(CKD) 64 (>60 ml/min/1.73 sqM); Potassium 3.7 mmol/L (3.5-5.1); Sodium 139 mmol/L (137-145); Total Bilirubin 0.4 mg/dL (0.2-1.3); Total Protein 4.8 g/dL (6.3-8.2)
[2023-10-29 04:52] LABS: Glucose,Whole Blood 117 mg/dL (70-110)
[2023-10-29] MEDS: CALCIUM GLUCONATE IN NACL 1 GM in SALINE 1 100ML.BAG IVPB ONE (04:53)
[2023-10-29 06:17] LABS: Glucose,Whole Blood 146 mg/dL (70-110)
[2023-10-29] MEDS: POTASSIUM CHLORIDE 10 MEQ in WATER FOR INJECTION 1 100ML.BAG IVPB SCH (06:29)
[2023-10-29 06:38] LABS: Allen Test Performed? No
[2023-10-29 06:49] LABS: Glucose,Whole Blood 139 mg/dL (70-110)
[2023-10-29] MEDS ORDERED: LEVOTHYROXINE 100 MCG TAB PO SCH (07:30)
[2023-10-29] MEDS ORDERED: LEVOTHYROXINE 50 MCG TAB PO SCH (07:30)
--- NOTE | 2023-10-29 08:06 | XR ---
EXAMINATION TYPE: XR chest 1V portable DATE OF EXAM: 10/29/2023 COMPARISON: 10/28/2023 HISTORY: Postop TECHNIQUE: Single frontal view of the chest is obtained. FINDINGS: ET and NG tube have been removed. Postsurgical changes are noted near is a [place]-Arcelia jessica ter overlying the proximal pulmonary outflow tract. The prominence of the mediastinum which could be positional correlate clinically for recent surgery. Mediastinal drain and chest tube noted. No sizable pneumothorax. Bilateral interstitial prominence an d subsegmental areas of consolidation with tiny left pleural effusion. IMPRESSION: 1. Postoperative changes 2. Bilateral consolidation greater on the left favor atelectasis over pneumonia.
[2023-10-29 08:19] LABS: Glucose,Whole Blood 128 mg/dL (70-110)
--- NOTE | 2023-10-29 08:26 | P.PN ---
Subjective Progress Note Date: 10/29/23 Principal diagnosis: Triple-vessel coronary artery disease with stable angina, moderate aortic regurgitation. History of hypertension, hyperlipidemia, obesity, mild asthma, thyroid cancer s/p thyroidectomy and radiation, throat cancer status post full teeth extraction and partial jaw removal, benign pituitary tumor, lifelong non- smoker, and family history of premature coronary artery disease with father who early from myocardial infarction. Preoperative nasal swab positive for MRSA, treated POD #1 coronary artery bypass grafting x 4, left internal thoracic artery (in- situ) sequential to diagonal artery and left anterior descending coronary artery, radial artery from aorta to obtuse marginal artery, saphenous vein from aorta to posterior descending coronary artery, aortic valve replacement with #23mm Inspiris Bioprosthetic, left atrial appendage ligation using #35mm AtriClip, endoscopic left radial and left greater saphenous vein harvest, graft flow measurements using the [employer]-stim flow meter system, sternal closure using the [employer] Sterna-lock plating system and pioneer cables, trans-esophageal echo Postoperative acute blood loss anemia and thrombocytopenia, expected given hemodilution and cardiopulmonary bypass pump Hypotension requiring minimal vasopressors, expected given blood loss The patient was seen and examined this morning with Dr. Segovia sitting up in recliner in the intensive care unit in no acute distress. She was successfully extubated last night at 20:32. Currently in sinus rhythm and hemodynamically stable on low-dose vasopressin. Does complain of significant postoperative pain especially with taking deep breaths and coughing, denies shortness of breath. Currently on 5 L nasal cannula with oxygen saturation in the high 90s, able to achieve 750 mL on her incentive spirometry. Right internal jugular [place]/Cordis, right radial arterial line, mediastinal/right/left pleural chest tubes all remain. Chest x-ray, labs reviewed. Patient did receive packed red blood cells intra and postoperatively. No other new concerns at this time. Objective - Vital Signs Vital signs: Vital Signs Temp 99.5 F 10/29/23 04:00 Pulse 88 10/29/23 07:00 Resp 13 10/29/23 07:00 BP 92/63 10/29/23 06:00 Pulse Ox 98 10/29/23 07:00 FiO2 35 10/29/23 04:00 Intake & Output 10/28/23 10/29/23 10/29/23 18:59 06:59 18:59 Intake Total 2032.905 3216.681 Output Total 2242 1881 Balance -511.451 0023.681 Weight 100.1 kg Intake: IV 1380 2467 ACETAMINOPHEN IV (For NPO 800 ) 1,000 mg In Empty Bag 1 bag @ 400 mls/hr IVPB Q6HR [facility] Rx#:[id number] Albumin Human 25% 50 ml @ 500 Per Protocol IV ONCE ONE Rx#:[id number] Albumin Human 5% 250 ml 1000 In Empty Bag 1 bag @ 250 mls/hr IVPB Q1HR PRN Rx#: [id number] CO/CI 150 150 Calcium Gluconate in NaCl 100 1 gm In Saline 1 100ml. bag @ 100 mls/hr IVPB ONCE ONE Rx#:[id number] Lactated Ringers 1,000 ml 150 650 @ 20 mls/hr IV .Q24H [facility] Rx#:[id number] Potassium Chloride 10 meq 100 In Water For Injection 1 100ml.bag @ 100 mls/hr IVPB Q1H [facility] Rx#: [id number] Pressure bag 27 117 ceFAZolin 2 gm In Sodium 50 Chloride 0.9% 50 ml @ 100 mls/hr IVPB Q8HR [facility] Rx# :[id number] Intake, IV Titration 32.905 39.681 Amount Insulin Regular 100 unit 19.476 In Sodium Chloride 0.9% 100 ml @ Per Protocol IV .Q0M [facility] Rx#:[id number] Vasopressin 20 unit In 5.1 18.233 Sodium Chloride 0.9% 50 ml @ 0.04 UNITS/MIN 6.12 mls/hr IV .Q8H20M [facility] Rx# :[id number] propofoL 1,000 mg In 27.805 1.972 Empty Bag 1 bag @ Titrate IV .Q0M [facility] Rx#: [id number] Oral 50 Blood Product 620 620 Rc As-1 Unit 310 [id number] Rc As-1 Unit 310 [id number] Rc As-1 Unit 310 [id number] Other 40 Output: Chest Tube Drainage 357 776 Chest Tube Bilateral 314 370 Chest Tube Mediastinal 43 406 Drainage 60 Left Thigh 60 Urine 1085 1045 Estimated Blood Loss 800 Other: Voiding Method Indwelling Catheter Indwelling Catheter ABP, PAP, CO, CI - Last Documented Arterial Blood Pressure 98/49 Pulmonary Artery Pressure 21/9 Cardiac Output 11.9 Cardiac Index 5.9 - Exam CONSTITUTIONAL: Appears somewhat comfortable, cooperative, no acute distress, very talkative RESPIRATORY: Lungs sounds diminished bilaterally. Respirations even, nonlabored. Currently on 5 L nasal cannula with oxygen saturation 97%. Able to achieve 750 mL on incentive spirometry. Strong cough. CARDIOVASCULAR: S1, S2 present. Regular rate and rhythm, sinus rhythm on telemetry. Sternum stable. Palpable peripheral pulses bilaterally. Trace generalized edema present. No calf pain or tenderness noted. Heart hugger in place with patient demonstrating appropriate use. Antiembolism stockings, SCDs present. GASTROINTESTINAL: Abdomen soft, nontender, nondistended. Hypoactive bowel sounds present 4 quadrants. Tolerating minimal clear liquids. Positive flatus GENITOURINARY: Mejia present draining clear, yellow urine. Output overnight 35-60 mL per hour INTEGUMENTARY: Skin is warm and dry with evidence of good perfusion. Anterior chest incision well approximated and covered with dry intact dressing. Left radial artery harvest site as well as left lower extremity EVH site well approximated without redness, GONZALEZ drain present to EVH site with minimal drainage NEUROLOGIC: Cranial nerves II through XII intact MUSKULOSKELETAL: Able to move all extremities, strength equal bilaterally PSYCHIATRIC: Alert and oriented to person place and time, appropriate affect, intact judgment and insight INVASIVE LINES AND TUBES: Mediastinal/left/right pleural chest tubes present and connected to wall suction, no air leaks present. Mediastinal tube with 260 mL serosanguineous drainage overnight, 450 mL since surgery. Left/right pleural chest tubes with 230 mL serosanguineous drainage overnight, 700 mL since surgery. A/V epicardial pacemaker wires present, connected to generator, backup rate 50 bpm. Right internal jugular [place]/Cordis, right radial arterial line present. Last CO/CI 11.9/5.9, PA 22/12, CVP 10. - Allied health notes Allied health notes reviewed: nursing - Labs CBC & Chem 7: 10/29/23 03:45 10/29/23 03:45 Labs: Abnormal Lab Results - Last 24 Hours (Table) 10/20/23 10/28/23 10/28/23 Range/Units 09:20 08:34 10:16 RBC (3.80-5.40) m/uL Hgb (11.4-16.0) gm/dL Hct (34.0-46.0) % RDW (11.5-15.5) % Plt Count (150-450) k/uL Lymphocytes # (1.0-4.8) k/uL PT (10.0-12.5) sec INR (<1.2) APTT (22.0-30.0) sec ABG pH 7.28 L (7.35-7.45) ABG pCO2 (35-45) mmHg ABG pO2 115 H (83-108) mmHg ABG HCO3 19 L (21-25) mmol/L ABG O2 Saturation 97.4 H 98.1 H (94-97) % ABG Hematocrit 33 L 26 L (34.0-46.0) % ABG Potassium 2.9 L* (3.4-4.5) mmol/L ABG Ionized Calcium 3.9 L (4.5-5.3) mg/dL ABG Glucose 108 H 123 H (75-99) mg/dL ABG Lactic Acid (0.5-1.6) mmol/L Hemoglobin 10.9 L 8.6 L (11.4-16.0) gm/dL Chloride (98-107) mmol/L Carbon Dioxide (22-30) mmol/L BUN (7-17) mg/dL Glucose (74-99) mg/dL POC Glucose (mg/dL) (70-110) mg/dL Calcium (8.4-10.2) mg/dL Ionized Calcium Aurelio (4.5-5.3) mg/dL Magnesium (1.6-2.3) mg/dL AST (14-36) U/L Alkaline Phosphatase (38-126) U/L Total Protein (6.3-8.2) g/dL Albumin (3.5-5.0) g/dL Arterial Blood Potassium 2.9 L* (3.4-4.5) mmol/L Arterial Blood Glucose 108 H 123 H (75-99) mg/dL Crossmatch See Detail 10/28/23 10/28/23 10/28/23 Range/Units 11:17 11:35 11:57 RBC (3.80-5.40) m/uL Hgb (11.4-16.0) gm/dL Hct (34.0-46.0) % RDW (11.5-15.5) % Plt Count (150-450) k/uL Lymphocytes # (1.0-4.8) k/uL PT (10.0-12.5) sec INR (<1.2) APTT (22.0-30.0) sec ABG pH 7.47 H 7.48 H (7.35-7.45) ABG pCO2 33 L 32 L (35-45) mmHg ABG pO2 >420 H >420 H >420 H (83-108) mmHg ABG HCO3 (21-25) mmol/L ABG O2 Saturation >99.4 H >99.4 H >99.4 H (94-97) % ABG Hematocrit 21 L 19 L* 20 L* (34.0-46.0) % ABG Potassium 4.6 H (3.4-4.5) mmol/L ABG Ionized Calcium 3.6 L 3.6 L 3.6 L (4.5-5.3) mg/dL ABG Glucose 127 H 117 H 112 H (75-99) mg/dL ABG Lactic Acid (0.5-1.6) mmol/L Hemoglobin 6.8 L* 6.3 L* 6.4 L* (11.4-16.0) gm/dL Chloride (98-107) mmol/L Carbon Dioxide (22-30) mmol/L BUN (7-17) mg/dL Glucose (74-99) mg/dL POC Glucose (mg/dL) (70-110) mg/dL Calcium (8.4-10.2) mg/dL Ionized Calcium Aurelio (4.5-5.3) mg/dL Magnesium (1.6-2.3) mg/dL AST (14-36) U/L Alkaline Phosphatase (38-126) U/L Total Protein (6.3-8.2) g/dL Albumin (3.5-5.0) g/dL Arterial Blood Potassium 4.6 H (3.4-4.5) mmol/L Arterial Blood Glucose 127 H 117 H 112 H (75-99) mg/dL Crossmatch 10/28/23 10/28/23 10/28/23 Range/Units 12:22 13:22 13:35 RBC (3.80-5.40) m/uL Hgb (11.4-16.0) gm/dL Hct (34.0-46.0) % RDW (11.5-15.5) % Plt Count (150-450) k/uL Lymphocytes # (1.0-4.8) k/uL PT (10.0-12.5) sec INR (<1.2) APTT (22.0-30.0) sec ABG pH 7.46 H 7.48 H (7.35-7.45) ABG pCO2 31 L 33 L (35-45) mmHg ABG pO2 >420 H >420 H >420 H (83-108) mmHg ABG HCO3 (21-25) mmol/L ABG O2 Saturation >99.4 H 99.4 H >99.4 H (94-97) % ABG Hematocrit 19 L* 19 L* 25 L (34.0-46.0) % ABG Potassium 4.6 H 4.7 H (3.4-4.5) mmol/L ABG Ionized Calcium 3.6 L 3.2 L* 4.4 L (4.5-5.3) mg/dL ABG Glucose 104 H 114 H 140 H (75-99) mg/dL ABG Lactic Acid 2.3 H* 3.2 H* (0.5-1.6) mmol/L Hemoglobin 6.2 L* 6.1 L* 8.2 L (11.4-16.0) gm/dL Chloride (98-107) mmol/L Carbon Dioxide (22-30) mmol/L BUN (7-17) mg/dL Glucose (74-99) mg/dL POC Glucose (mg/dL) (70-110) mg/dL Calcium (8.4-10.2) mg/dL Ionized Calcium Aurelio (4.5-5.3) mg/dL Magnesium (1.6-2.3) mg/dL AST (14-36) U/L Alkaline Phosphatase (38-126) U/L Total Protein (6.3-8.2) g/dL Albumin (3.5-5.0) g/dL Arterial Blood Potassium 4.6 H 4.7 H (3.4-4.5) mmol/L Arterial Blood Glucose 104 H 114 H 140 H (75-99) mg/dL Crossmatch 03/10/28/23 10/28/23 Range/Units 14:15 15:45 15:45 RBC 3.13 L (3.80-5.40) m/uL Hgb 8.2 L D (11.4-16.0) gm/dL Hct 25.8 L (34.0-46.0) % RDW 16.3 H (11.5-15.5) % Plt Count 135 L D (150-450) k/uL Lymphocytes # (1.0-4.8) k/uL PT 17.2 H (10.0-12.5) sec INR 1.7 H (<1.2) APTT 49.5 H (22.0-30.0) sec ABG pH (7.35-7.45) ABG pCO2 (35-45) mmHg ABG pO2 138 H (83-108) mmHg ABG HCO3 (21-25) mmol/L ABG O2 Saturation 98.6 H (94-97) % ABG Hematocrit 29 L (34.0-46.0) % ABG Potassium (3.4-4.5) mmol/L ABG Ionized Calcium (4.5-5.3) mg/dL ABG Glucose 116 H (75-99) mg/dL ABG Lactic Acid 2.0 H (0.5-1.6) mmol/L Hemoglobin 9.5 L (11.4-16.0) gm/dL Chloride (98-107) mmol/L Carbon Dioxide (22-30) mmol/L BUN (7-17) mg/dL Glucose (74-99) mg/dL POC Glucose (mg/dL) (70-110) mg/dL Calcium (8.4-10.2) mg/dL Ionized Calcium Aurelio (4.5-5.3) mg/dL Magnesium (1.6-2.3) mg/dL AST (14-36) U/L Alkaline Phosphatase (38-126) U/L Total Protein (6.3-8.2) g/dL Albumin (3.5-5.0) g/dL Arterial Blood Potassium (3.4-4.5) mmol/L Arterial Blood Glucose 116 H (75-99) mg/dL Crossmatch 10/28/23 10/28/23 10/28/23 Range/Units 15:45 15:47 16:03 RBC (3.80-5.40) m/uL Hgb (11.4-16.0) gm/dL Hct (34.0-46.0) % RDW (11.5-15.5) % Plt Count (150-450) k/uL Lymphocytes # (1.0-4.8) k/uL PT (10.0-12.5) sec INR (<1.2) APTT (22.0-30.0) sec ABG pH (7.35-7.45) ABG pCO2 (35-45) mmHg ABG pO2 288 H (83-108) mmHg ABG HCO3 (21-25) mmol/L ABG O2 Saturation 99.0 H (94-97) % ABG Hematocrit (34.0-46.0) % ABG Potassium (3.4-4.5) mmol/L ABG Ionized Calcium (4.5-5.3) mg/dL ABG Glucose (75-99) mg/dL ABG Lactic Acid (0.5-1.6) mmol/L Hemoglobin (11.4-16.0) gm/dL Chloride 112 H (98-107) mmol/L Carbon Dioxide 20 L (22-30) mmol/L BUN 19 H (7-17) mg/dL Glucose 104 H (74-99) mg/dL POC Glucose (mg/dL) 121 H (70-110) mg/dL Calcium 7.4 L (8.4-10.2) mg/dL Ionized Calcium Aurelio 4.4 L (4.5-5.3) mg/dL Magnesium 3.3 H (1.6-2.3) mg/dL AST (14-36) U/L Alkaline Phosphatase 35 L (38-126) U/L Total Protein 4.5 L (6.3-8.2) g/dL Albumin 3.0 L (3.5-5.0) g/dL Arterial Blood Potassium (3.4-4.5) mmol/L Arterial Blood Glucose (75-99) mg/dL Crossmatch 10/28/23 10/28/23 10/28/23 Range/Units 17:08 17:43 18:04 RBC 2.51 L (3.80-5.40) m/uL Hgb 6.6 L* D (11.4-16.0) gm/dL Hct 20.8 L (34.0-46.0) % RDW 16.5 H (11.5-15.5) % Plt Count 124 L (150-450) k/uL Lymphocytes # (1.0-4.8) k/uL PT (10.0-12.5) sec INR (<1.2) APTT (22.0-30.0) sec ABG pH (7.35-7.45) ABG pCO2 (35-45) mmHg ABG pO2 (83-108) mmHg ABG HCO3 (21-25) mmol/L ABG O2 Saturation (94-97) % ABG Hematocrit (34.0-46.0) % ABG Potassium (3.4-4.5) mmol/L ABG Ionized Calcium (4.5-5.3) mg/dL ABG Glucose (75-99) mg/dL ABG Lactic Acid (0.5-1.6) mmol/L Hemoglobin (11.4-16.0) gm/dL Chloride (98-107) mmol/L Carbon Dioxide (22-30) mmol/L BUN (7-17) mg/dL Glucose (74-99) mg/dL POC Glucose (mg/dL) 132 H 130 H (70-110) mg/dL Calcium (8.4-10.2) mg/dL Ionized Calcium Aurelio (4.5-5.3) mg/dL Magnesium (1.6-2.3) mg/dL AST (14-36) U/L Alkaline Phosphatase (38-126) U/L Total Protein (6.3-8.2) g/dL Albumin (3.5-5.0) g/dL Arterial Blood Potassium (3.4-4.5) mmol/L Arterial Blood Glucose (75-99) mg/dL Crossmatch 10/28/23 10/28/23 10/28/23 Range/Units 18:58 20:09 20:22 RBC (3.80-5.40) m/uL Hgb (11.4-16.0) gm/dL Hct (34.0-46.0) % RDW (11.5-15.5) % Plt Count (150-450) k/uL Lymphocytes # (1.0-4.8) k/uL PT (10.0-12.5) sec INR (<1.2) APTT (22.0-30.0) sec ABG pH (7.35-7.45) ABG pCO2 (35-45) mmHg ABG pO2 80 L (83-108) mmHg ABG HCO3 (21-25) mmol/L ABG O2 Saturation (94-97) % ABG Hematocrit (34.0-46.0) % ABG Potassium (3.4-4.5) mmol/L ABG Ionized Calcium (4.5-5.3) mg/dL ABG Glucose (75-99) mg/dL ABG Lactic Acid (0.5-1.6) mmol/L Hemoglobin (11.4-16.0) gm/dL Chloride (98-107) mmol/L Carbon Dioxide (22-30) mmol/L BUN (7-17) mg/dL Glucose (74-99) mg/dL POC Glucose (mg/dL) 137 H 163 H (70-110) mg/dL Calcium (8.4-10.2) mg/dL Ionized Calcium Aurelio (4.5-5.3) mg/dL Magnesium (1.6-2.3) mg/dL AST (14-36) U/L Alkaline Phosphatase (38-126) U/L Total Protein (6.3-8.2) g/dL Albumin (3.5-5.0) g/dL Arterial Blood Potassium (3.4-4.5) mmol/L Arterial Blood Glucose (75-99) mg/dL Crossmatch 10/28/23 10/28/23 10/28/23 Range/Units 20:40 20:52 21:59 RBC 2.55 L (3.80-5.40) m/uL Hgb 6.8 L* (11.4-16.0) gm/dL Hct 21.1 L (34.0-46.0) % RDW 16.1 H (11.5-15.5) % Plt Count 127 L (150-450) k/uL Lymphocytes # 0.9 L (1.0-4.8) k/uL PT (10.0-12.5) sec INR (<1.2) APTT (22.0-30.0) sec ABG pH (7.35-7.45) ABG pCO2 (35-45) mmHg ABG pO2 (83-108) mmHg ABG HCO3 (21-25) mmol/L ABG O2 Saturation (94-97) % ABG Hematocrit (34.0-46.0) % ABG Potassium (3.4-4.5) mmol/L ABG Ionized Calcium (4.5-5.3) mg/dL ABG Glucose (75-99) mg/dL ABG Lactic Acid (0.5-1.6) mmol/L Hemoglobin (11.4-16.0) gm/dL Chloride (98-107) mmol/L Carbon Dioxide (22-30) mmol/L BUN (7-17) mg/dL Glucose (74-99) mg/dL POC Glucose (mg/dL) 149 H 139 H (70-110) mg/dL Calcium (8.4-10.2) mg/dL Ionized Calcium Aurelio (4.5-5.3) mg/dL Magnesium (1.6-2.3) mg/dL AST (14-36) U/L Alkaline Phosphatase (38-126) U/L Total Protein (6.3-8.2) g/dL Albumin (3.5-5.0) g/dL Arterial Blood Potassium (3.4-4.5) mmol/L Arterial Blood Glucose (75-99) mg/dL Crossmatch 10/28/23 10/29/23 10/29/23 Range/Units 22:52 00:06 00:58 RBC (3.80-5.40) m/uL Hgb (11.4-16.0) gm/dL Hct (34.0-46.0) % RDW (11.5-15.5) % Plt Count (150-450) k/uL Lymphocytes # (1.0-4.8) k/uL PT (10.0-12.5) sec INR (<1.2) APTT (22.0-30.0) sec ABG pH (7.35-7.45) ABG pCO2 (35-45) mmHg ABG pO2 (83-108) mmHg ABG HCO3 (21-25) mmol/L ABG O2 Saturation (94-97) % ABG Hematocrit (34.0-46.0) % ABG Potassium (3.4-4.5) mmol/L ABG Ionized Calcium (4.5-5.3) mg/dL ABG Glucose (75-99) mg/dL ABG Lactic Acid (0.5-1.6) mmol/L Hemoglobin (11.4-16.0) gm/dL Chloride (98-107) mmol/L Carbon Dioxide (22-30) mmol/L BUN (7-17) mg/dL Glucose (74-99) mg/dL POC Glucose (mg/dL) 135 H 124 H 119 H (70-110) mg/dL Calcium (8.4-10.2) mg/dL Ionized Calcium Aurelio (4.5-5.3) mg/dL Magnesium (1.6-2.3) mg/dL AST (14-36) U/L Alkaline Phosphatase (38-126) U/L Total Protein (6.3-8.2) g/dL Albumin (3.5-5.0) g/dL Arterial Blood Potassium (3.4-4.5) mmol/L Arterial Blood Glucose (75-99) mg/dL Crossmatch 10/29/23 10/29/23 10/29/23 Range/Units 01:51 03:45 03:45 RBC 2.87 L (3.80-5.40) m/uL Hgb 7.8 L (11.4-16.0) gm/dL Hct 24.2 L (34.0-46.0) % RDW 16.1 H (11.5-15.5) % Plt Count 122 L (150-450) k/uL Lymphocytes # (1.0-4.8) k/uL PT (10.0-12.5) sec INR (<1.2) APTT (22.0-30.0) sec ABG pH (7.35-7.45) ABG pCO2 (35-45) mmHg ABG pO2 (83-108) mmHg ABG HCO3 (21-25) mmol/L ABG O2 Saturation (94-97) % ABG Hematocrit (34.0-46.0) % ABG Potassium (3.4-4.5) mmol/L ABG Ionized Calcium (4.5-5.3) mg/dL ABG Glucose (75-99) mg/dL ABG Lactic Acid (0.5-1.6) mmol/L Hemoglobin (11.4-16.0) gm/dL Chloride 111 H (98-107) mmol/L Carbon Dioxide 20 L (22-30) mmol/L BUN (7-17) mg/dL Glucose 101 H (74-99) mg/dL POC Glucose (mg/dL) 116 H (70-110) mg/dL Calcium 7.0 L (8.4-10.2) mg/dL Ionized Calcium Aurelio 4.2 L (4.5-5.3) mg/dL Magnesium 2.5 H (1.6-2.3) mg/dL AST 85 H (14-36) U/L Alkaline Phosphatase 37 L (38-126) U/L Total Protein 4.8 L (6.3-8.2) g/dL Albumin 3.2 L (3.5-5.0) g/dL Arterial Blood Potassium (3.4-4.5) mmol/L Arterial Blood Glucose (75-99) mg/dL Crossmatch 10/29/23 10/29/23 10/29/23 Range/Units 04:49 06:15 06:47 RBC (3.80-5.40) m/uL Hgb (11.4-16.0) gm/dL Hct (34.0-46.0) % RDW (11.5-15.5) % Plt Count (150-450) k/uL Lymphocytes # (1.0-4.8) k/uL PT (10.0-12.5) sec INR (<1.2) APTT (22.0-30.0) sec ABG pH (7.35-7.45) ABG pCO2 (35-45) mmHg ABG pO2 (83-108) mmHg ABG HCO3 (21-25) mmol/L ABG O2 Saturation (94-97) % ABG Hematocrit (34.0-46.0) % ABG Potassium (3.4-4.5) mmol/L ABG Ionized Calcium (4.5-5.3) mg/dL ABG Glucose (75-99) mg/dL ABG Lactic Acid (0.5-1.6) mmol/L Hemoglobin (11.4-16.0) gm/dL Chloride (98-107) mmol/L Carbon Dioxide (22-30) mmol/L BUN (7-17) mg/dL Glucose (74-99) mg/dL POC Glucose (mg/dL) 117 H 146 H 139 H (70-110) mg/dL Calcium (8.4-10.2) mg/dL Ionized Calcium Aurelio (4.5-5.3) mg/dL Magnesium (1.6-2.3) mg/dL AST (14-36) U/L Alkaline Phosphatase (38-126) U/L Total Protein (6.3-8.2) g/dL Albumin (3.5-5.0) g/dL Arterial Blood Potassium (3.4-4.5) mmol/L Arterial Blood Glucose (75-99) mg/dL Crossmatch Microbiology - Last 24 Hours (Table) 10/28/23 14:26 Gram Stain - Preliminary Sputum - Imaging and Cardiology Chest x-ray: report reviewed, image reviewed Assessment and Plan Assessment: Triple-vessel coronary artery disease with stable angina, status post four- vessel CABG Moderate aortic regurgitation, status post aortic valve replacement History of hypertension, currently hypotensive requiring minimal vasopressors Hyperlipidemia, untreated, cholesterol 298, LDL 221, triglycerides 167 Obesity Mild asthma, preoperative FEV1 73% of predicted Thyroid cancer s/p thyroidectomy and radiation Throat cancer status post full teeth extraction and partial jaw removal Benign pituitary tumor Lifelong non-smoker Family history of premature coronary artery disease with father who early from myocardial infarction Preoperative nasal swab positive for MRSA, treated Postoperative acute blood loss anemia and thrombocytopenia, expected Plan: Continue to maximize medical therapy with aspirin, statin, Plavix, beta-steve. Will increase beta-steve therapy as tolerated Wean vaso as tolerated, keep MAP greater than 65 Wean O2 as tolerated. Encourage incentive spirometry use 10 times every hour while awake. Bronchodilators per pulmonology Will monitor daily labs and x-rays. Electrolyte replacement per protocol Increase activity, ambulate as tolerated. PT/OT/cardiac rehab consulted GI/DVT prophylaxis Insulin management per internal medicine, patient is not diabetic, preoperative hemoglobin A1c 5.6%. Recommend continuous IV insulin for 48 hours for tight blood sugar control, then may transition to subcutaneous per protocol Pain control per current medication regimen. Avoid Toradol due to NSAID allergy Will discontinue [place] later today, connect Cordis to continuous CVP monitoring Will discontinue GONZALEZ drain Continue chest tubes for another 24 hours, monitor output Continue Mejia catheter for another 24 hours, continue to record strict accurate intake and output Daily weights Resume HOME Levoxyl, medication to twice daily by pharmacy, avoid Synthroid as patient has anaphylactic reaction to Synthroid More recommendations to follow based on patient's progress
[2023-10-29] MEDS: IPRATROPIUM-ALBUTEROL 3 ML NEB INHALATION SCH (08:41)
[2023-10-29] MEDS ORDERED: MAGNESIUM HYDROXIDE 2,400 MG/30 ML CUP PO PRN (09:00)
[2023-10-29] MEDS ORDERED: bisacodyL 10 MG SUPP RECTAL PRN (09:00)
[2023-10-29 09:08] LABS: Glucose,Whole Blood 111 mg/dL (70-110)
[2023-10-29] MEDS: PANTOPRAZOLE 40 MG/10 ML VIAL IVP SCH (09:10)
[2023-10-29] MEDS: METOPROLOL TARTRATE 12.5 MG TAB PO SCH (09:34)
[2023-10-29] MEDS: ATORVASTATIN 40 MG TAB PO SCH (09:51)
[2023-10-29] MEDS: CLOPIDOGREL 75 MG TAB PO SCH (09:52)
[2023-10-29] MEDS: ASPIRIN 325 MG TAB PO SCH (09:52)
[2023-10-29] MEDS: ASCORBIC ACID 500 MG TAB PO SCH (09:52)
[2023-10-29] MEDS: FERROUS SULFATE 325 MG TAB PO SCH (09:52)
[2023-10-29 10:07] LABS: Glucose,Whole Blood 113 mg/dL (70-110)
--- NOTE | 2023-10-29 10:42 | CONS ---
CONSULTATION HISTORY OF PRESENT ILLNESS: This is a 63-year-old lady, who underwent aortic valve replacement with bypass surgery yesterday, extubated last night and she is sitting up in a sinus rhythm with a long KS interval. She is hemodynamically stable, not on any pressors and making a decent amount of urine. She had moderate aortic regurgitation and significant triple-vessel disease. She had aortic valve replacement along with bypass surgery performed yesterday. She had a sequential graft from the GOLDBERG to LAD and diagonal and a free radial artery graft from the aorta to obtuse marginal and a vein graft from the aorta to PDA branch of RCA. She has no diabetes mellitus. She is progressing well after surgery making a decent effort on incentive spirometry. Please refer to the note from Dr. Segovia and ritual circumciser regarding other medical issues. Her ejection fraction on echocardiogram was normal with a thick ventricle. No pulmonary hypertension and moderate aortic regurgitation was noted. Cardiac catheterization performed on the 05 of October revealed significant triple-vessel disease with a dominant circumflex, which gave rise to a high first obtuse marginal, and also the PLV had a tight lesion as well. LAD had a long tubular 70% to 80% stenosis. Right coronary artery is a dominant vessel with severe disease involving the proximal to midportion. PHYSICAL EXAMINATION: VITAL SIGNS: Blood pressure is 100/60, pulse rate is about 80. HEENT: Unremarkable. Fundus was not examined. CARDIAC: S1, S2 heard normally. Short systolic murmur at the base. LUNGS: Revealed fair air entry. ABDOMEN: Deferred. LOWER EXTREMITIES: Revealed diminished pulses. CENTRAL NERVOUS SYSTEM: No focal deficits. IMPRESSION: 1. Status post aortic valve replacement and bypass surgery. 2. Hypertension. 3. Hyperlipidemia. 4. History of hypothyroidism. RECOMMENDATIONS: I would recommend that we hold the beta steve for now in view of the long first- degree AV block and recent aortic valve surgery. I will also suggest that we continue incentive spirometry, and pulmonary toilet, and based on clinical course, we will make further recommendations. Thank you very much for the consult. MMODL / IJN: [id number] /
[2023-10-29 11:12] LABS: Glucose,Whole Blood 117 mg/dL (70-110)
[2023-10-29] MEDS ORDERED: DEXTROSE 50% SYRINGE 50 ML IVP PRN ×2 (11:48)
--- NOTE | 2023-10-29 11:49 | P.CONS ---
History of Present Illness - Reason for Consult Consult date: 10/29/23 - Chief Complaint S/p CABG - History of Present Illness * 63-year-old lady with past medical history significant for coronary artery disease, valvular heart disease with aortic regurgitation, history of asthma, history of thyroid cancer status post thyroidectomy, history of benign pituitary tumor, hypertension, hyperlipidemia admitted to the hospital for coronary artery bypass grafting x 4, left internal thoracic artery (in-situ) sequential to diagonal artery and left anterior descending coronary artery, radial artery from aorta to obtuse marginal artery, saphenous vein from aorta to posterior descending coronary artery, aortic valve replacement with #23mm Inspiris Bioprosthetic, left atrial appendage ligation using #35mm AtriClip, endoscopic left radial and left greater saphenous vein harvest, graft flow measurements using the Avnera-stim flow meter system, sternal closure using the Francheska Sterna-lock plating system and pioneer cables, trans-esophageal echo * Postoperatively patient is admitted under surgical service with internal medicine consulted. Patient is evaluated on 10/29/2023. Postoperatively patient was noted to have anemia, thrombocytopenia. Postprocedure patient was intubated however extubated on 10/28/2023. Follow-up hemoglobin reviewed, burak bharath remains on oxygen to nasal cannula. Central line in place, chest tubes remain in place to be managed by surgery team. Patient given a4.. Continue to follow-up on H&H unit of packed RBC follow-up hemoglobin improved REVIEW OF SYSTEMS: Difficulty in breathing, fatigue, malaise CONSTITUTIONAL: No fever, no malaise, no fatigue. HEENT: No recent visual problems or hearing problems. Denied any sore throat. CARDIOVASCULAR: Difficulty in breathing, fatigue, malaise PULMONARY: No shortness of breath, no cough, no hemoptysis. GASTROINTESTINAL: No diarrhea, no nausea, no vomiting, no abdominal pain. NEUROLOGICAL: No headaches, no weakness, no numbness. HEMATOLOGICAL: Denies any bleeding or petechiae. GENITOURINARY: Denies any burning micturition, frequency, or urgency. MUSCULOSKELETAL/RHEUMATOLOGICAL: Denies any joint pain, swelling, or any muscle pain. ENDOCRINE: Denies any polyuria or polydipsia. PHYSICAL EXAMINATION: GENERAL: The patient is alert and oriented x3, nasal cannula in place central line in place HEENT: Pupils are round and equally reacting to light. CARDIOVASCULAR: S1 and S2 present. No murmurs, rubs, or gallops. Chest brace in place PULMONARY: Chest is clear to auscultation, no wheezing or crackles. Chest tube in place, Mejia catheter in place ABDOMEN: Soft, nontender, nondistended, normoactive bowel sounds. No palpable organomegaly. EXTREMITIES: Trace lower extremity edema NEUROLOGICAL: Gross neurological examination did not reveal any focal deficits. SKIN: No rashes. Assessment and plan * Coronary artery disease s/p four-vessel CABG postoperative * Postoperative anemia * Valvular heart disease with aortic regurgitation s/p aortic valve replacement * History of thyroidectomy secondary to thyroid cancer * MRSA colonization * Hypertension * Hyperlipidemia * History of pituitary adenoma * BMI of 39.1 * In regards to postoperative management, patient under medical ICU/cardiac surgery, patient successfully extubated,. Patient was given 4 units of packed RBC for anemia and albumin as well. Weaned off pressor support as tolerated * In regards to postoperative blood glucose management patient was on IV insulin drip which will be weaned off based on blood glucose levels, transition to subcu insulin with correctional insulin. Patient is not a diabetic * Regards to history of asthma continue patient on bronchodilators * In regards to coronary artery disease continue patient on aspirin, Plavix, Lipitor * Medicine team will continue to follow along Past Medical History Past Medical History: Asthma, Cancer, GERD/Reflux, Hypertension, Osteoarthritis (OA), Pneumonia, Thyroid Disorder, Vascular Disorder Additional Past Medical History / Comment(s): SOB,heart valve disea,Gastic ulcer(was advised by Dr Nathan Soares to stop ASA),anemia,history of a pituitary tumor-adenoma that was resected (PT STATES "BENIGN BRAIN TUMOR REMOVED THAT GREW BACK AND BEING WATCHED"), PROLAPSED UTERUS, Thyroid Cancer-rec 3-4 radiation tx's-thyroidectomy, 2000 THROAT CANCER AND HAD ALL TEETH AND PART OF JAW REMOVED, SCOLIOSIS, chronic constipation, IBS, nephrolithiasis, recurrent urinary tract infection,anxiety, CHRONIC BACK PAIN, CARPAL TUNNEL BILATERALLY History of Any Multi-Drug Resistant Organisms: None Reported Past Surgical History: Heart Catheterization Additional Past Surgical History / Comment(s): BRAIN SURGERY to remove benign PITUITARY tumor, thyroid removal, partial jaw removal due to throat cancer, egd/colonoscopy(benign polyps removed, d&c, kidney stone removed,D&C,lithotripsy Past Anesthesia/Blood Transfusion Reactions: Previous Problems w/ Anesthesia Additional Past Anesthesia/Blood Transfusion Reaction / Comm: BLOOD TRANSFUSION- NO REACTION. states "gas anesthesia interacts with my asthma and stop breathing"-no problems w/ IV sedation,. Claustrophobic-unable to wear mask Smoking Status: Never smoker - Past Family History Sister(s) Family Medical History: Cancer Daughter(s) Additional Family Medical History / Comment(s): eosinophilic gastroenteropathy Son(s) Additional Family Medical History / Comment(s): eosinophilic gastroenteropathy Father Family Medical History: Myocardial Infarction ([place]) Additional Family Medical History / Comment(s): - HAD THE " MAKER" Mother Family Medical History: No Reported History Additional Family Medical History / Comment(s): AAA Medications and Allergies Home Medications Medication Instructions Recorded Confirmed Type Albuterol Nebulized [Ventolin 2.5 mg INHALATION RT-Q6H PRN 10/17/22 10/22/23 History Nebulized] Lansoprazole [Prevacid] 30 mg PO BID 10/17/22 10/22/23 History carvediloL [Coreg] 6.25 mg PO BID 10/17/22 10/22/23 History Levothyroxine Sodium [Levoxyl] 350 mcg PO DAILY 01/29/23 10/22/23 History Albuterol Inhaler [Ventolin Hfa 1 - 2 puff INHALATION Q6H PRN 10/02/23 10/22/23 History Inhaler] Famotidine [Pepcid] 10 mg PO TID 10/02/23 10/22/23 History Mupirocin [Mupirocin 2%] 1 applic NASAL BID #1 tub 10/16/23 10/22/23 Rx Aspirin [Aspirin EC] 500 - 1,000 mg PO DAILY PRN 10/22/23 10/22/23 History Promethazine HCl 12.5 mg PO QID PRN 10/22/23 10/22/23 History Allergies Allergy/AdvReac Type Severity Reaction Status Date / Time cantaloupe Allergy Anaphylaxis Verified 10/28/23 06:05 levothyroxine Allergy Anaphylaxis Verified 10/28/23 06:05 naproxen Allergy Dyspnea Verified 10/28/23 06:05 ondansetron [From Zofran] Allergy rapid Verified 10/28/23 06:05 heart rate,states "went into First degree AV block" acetaminophen [From Tylenol] AdvReac Nausea & Verified 10/28/23 06:05 Vomiting ibuprofen [From Motrin] AdvReac Nausea & Verified 10/28/23 06:05 Vomiting UNSURE OF NAME OF ANESTH. GAS Allergy DYSPNEA, Uncoded 10/28/23 06:05 "STOP BREATHING" Physical Exam Vitals: Vital Signs Temp Pulse Pulse Resp BP Pulse Ox FiO2 10/29/23 08:57 89 10/29/23 08:47 88 10/29/23 08:42 94 L 10/29/23 07:00 88 13 98 10/29/23 06:45 86 12 97 10/29/23 06:30 86 18 97 10/29/23 06:15 86 17 96 10/29/23 06:00 95 13 92/63 95 10/29/23 05:45 96 18 96 10/29/23 05:30 92 18 97 10/29/23 05:15 19 98 10/29/23 05:00 92 16 96 10/29/23 04:45 90 14 97 10/29/23 04:30 89 16 96 10/29/23 04:15 91 13 96 10/29/23 04:00 99.5 F 91 13 96 35 10/29/23 03:45 91 12 97 10/29/23 03:30 92 14 97 10/29/23 03:15 93 12 97 10/29/23 03:00 92 12 97 10/29/23 02:45 93 14 97 10/29/23 02:30 92 12 97 10/29/23 02:15 93 13 97 10/29/23 02:00 93 16 96 10/29/23 01:45 93 13 96 10/29/23 01:30 95 16 97 10/29/23 01:15 96 12 97 10/29/23 01:00 96 12 97 10/29/23 00:52 97 40 10/29/23 00:45 99.1 F 96 11 L 125/66 97 10/29/23 00:30 95 16 97 10/29/23 00:15 96 13 96 10/29/23 00:00 99.1 F 97 96 23 96 40 10/28/23 23:45 96 20 96 10/28/23 23:30 96 28 H 97 10/28/23 23:15 96 18 96 10/28/23 23:03 94 13 96 10/28/23 23:00 97 21 97 10/28/23 22:45 96 15 97 10/28/23 22:30 96 15 96 10/28/23 22:18 37.3 F L 95 21 125/66 98 10/28/23 22:15 98 18 96 10/28/23 22:00 98 21 96 10/28/23 21:58 99.3 F 97 15 114/65 96 10/28/23 21:51 99.3 F 96 13 120/67 96 10/28/23 21:45 97 17 96 10/28/23 21:30 95 16 96 10/28/23 21:15 96 18 95 10/28/23 21:00 93 17 94 L 40 10/28/23 20:45 90 17 95 10/28/23 20:30 89 17 95 10/28/23 20:15 88 27 H 96 10/28/23 20:00 98.1 F 80 28 H 95 40 10/28/23 19:53 40 10/28/23 19:45 80 14 99 10/28/23 19:30 80 14 100 10/28/23 19:15 80 14 100 10/28/23 19:00 80 20 100 10/28/23 18:50 80 20 100 10/28/23 18:40 80 18 99 10/28/23 18:30 80 16 100 10/28/23 18:20 80 16 100 10/28/23 18:10 80 16 98 10/28/23 18:00 80 16 98 10/28/23 17:50 80 16 76/50 97 10/28/23 17:40 80 16 97 10/28/23 17:32 40 10/28/23 17:30 80 16 90 L 10/28/23 17:15 65 2 L 99 10/28/23 17:00 65 16 99 10/28/23 16:45 65 16 100 10/28/23 16:34 69 10/28/23 16:30 68 16 100 10/28/23 16:21 68 10/28/23 16:15 70 16 99 10/28/23 16:06 40 10/28/23 16:00 16 100 40 10/28/23 15:50 100 10/28/23 15:45 71 16 100 100 10/28/23 15:40 72 Intake and Output 10/28/23 10/29/23 10/29/23 22:59 06:59 14:59 Intake Total 4831.685 2250.364 Output Total 3038 1085 Balance -8193.944 8251.364 Intake: IV 1623 2171 ACETAMINOPHEN IV (For NPO 800 ) 1,000 mg In Empty Bag 1 bag @ 400 mls/hr IVPB Q6HR [facility] Rx#:[id number] Albumin Human 25% 50 ml @ 500 Per Protocol IV ONCE ONE Rx#:[id number] Albumin Human 5% 250 ml 1000 In Empty Bag 1 bag @ 250 mls/hr IVPB Q1HR PRN Rx#: [id number] CO/CI 210 90 Calcium Gluconate in NaCl 100 1 gm In Saline 1 100ml. bag @ 100 mls/hr IVPB ONCE ONE Rx#:[id number] Lactated Ringers 1,000 ml 350 450 @ 20 mls/hr IV .Q24H [facility] Rx#:[id number] Potassium Chloride 10 meq 100 In Water For Injection 1 100ml.bag @ 100 mls/hr IVPB Q1H [facility] Rx#: [id number] Pressure bag 63 81 ceFAZolin 2 gm In Sodium 50 Chloride 0.9% 50 ml @ 100 mls/hr IVPB Q8HR [facility] Rx# :[id number] Intake, IV Titration 58.222 14.364 Amount Insulin Regular 100 unit 9.957 9.519 In Sodium Chloride 0.9% 100 ml @ Per Protocol IV .Q0M [facility] Rx#:[id number] Vasopressin 20 unit In 18.488 4.845 Sodium Chloride 0.9% 50 ml @ 0.04 UNITS/MIN 6.12 mls/hr IV .Q8H20M [facility] Rx# :[id number] propofoL 1,000 mg In 29.777 Empty Bag 1 bag @ Titrate IV .Q0M [facility] Rx#: [id number] Oral 50 Blood Product 0 620 Rc As-1 Unit 0 310 [id number] Other 40 Output: Chest Tube Drainage 613 520 Chest Tube Bilateral 434 250 Chest Tube Mediastinal 179 270 Drainage 60 Left Thigh 60 Urine 1625 505 Estimated Blood Loss 800 Other: Voiding Method Indwelling Catheter Indwelling Catheter Weight 100.1 kg ABP, PAP, CO, CI - Last 8 Hours Arterial Blood Pressure 98/49 Arterial Blood Pressure 99/47 Arterial Blood Pressure 100/49 Arterial Blood Pressure 85/49 Arterial Blood Pressure 101/55 Arterial Blood Pressure 103/56 Arterial Blood Pressure 123/63 Arterial Blood Pressure 111/57 Arterial Blood Pressure 97/54 Arterial Blood Pressure 108/57 Arterial Blood Pressure 110/57 Arterial Blood Pressure 117/62 Arterial Blood Pressure 121/62 Arterial Blood Pressure 115/62 Arterial Blood Pressure 125/64 Arterial Blood Pressure 120/63 Arterial Blood Pressure 114/62 Arterial Blood Pressure 122/65 Arterial Blood Pressure 125/67 Arterial Blood Pressure 129/67 Arterial Blood Pressure 130/68 Arterial Blood Pressure 126/66 Arterial Blood Pressure 136/69 Pulmonary Artery Pressure 21/9 Pulmonary Artery Pressure 23/5 Pulmonary Artery Pressure 21/6 Pulmonary Artery Pressure 18/7 Pulmonary Artery Pressure 21/5 Pulmonary Artery Pressure 30/9 Pulmonary Artery Pressure 35/9 Pulmonary Artery Pressure 25/11 Pulmonary Artery Pressure 24/12 Pulmonary Artery Pressure 20/9 Pulmonary Artery Pressure 21/8 Pulmonary Artery Pressure 24/13 Pulmonary Artery Pressure 25/9 Pulmonary Artery Pressure 25/10 Pulmonary Artery Pressure 24/16 Pulmonary Artery Pressure 24/12 Pulmonary Artery Pressure 24/13 Pulmonary Artery Pressure 22/8 Pulmonary Artery Pressure 23/17 Pulmonary Artery Pressure 25/14 Pulmonary Artery Pressure 23/10 Pulmonary Artery Pressure 25/16 Pulmonary Artery Pressure 25/13 Cardiac Output 11.9 Cardiac Output 10.6 Cardiac Index 5.9 Cardiac Index 5.2 Results CBC & Chem 7: 10/29/23 03:45 10/29/23 03:45 Labs: Abnormal Lab Results - Last 24 Hours (Table) 10/20/23 10/28/23 10/28/23 Range/Units 09:20 08:34 10:16 RBC (3.80-5.40) m/uL Hgb (11.4-16.0) gm/dL Hct (34.0-46.0) % RDW (11.5-15.5) % Plt Count (150-450) k/uL Lymphocytes # (1.0-4.8) k/uL PT (10.0-12.5) sec INR (<1.2) APTT (22.0-30.0) sec ABG pH 7.28 L (7.35-7.45) ABG pCO2 (35-45) mmHg ABG pO2 115 H (83-108) mmHg ABG HCO3 19 L (21-25) mmol/L ABG O2 Saturation 97.4 H 98.1 H (94-97) % ABG Hematocrit 33 L 26 L (34.0-46.0) % ABG Potassium 2.9 L* (3.4-4.5) mmol/L ABG Ionized Calcium 3.9 L (4.5-5.3) mg/dL ABG Glucose 108 H 123 H (75-99) mg/dL ABG Lactic Acid (0.5-1.6) mmol/L Hemoglobin 10.9 L 8.6 L (11.4-16.0) gm/dL Chloride (98-107) mmol/L Carbon Dioxide (22-30) mmol/L BUN (7-17) mg/dL Glucose (74-99) mg/dL POC Glucose (mg/dL) (70-110) mg/dL Calcium (8.4-10.2) mg/dL Ionized Calcium Aurelio (4.5-5.3) mg/dL Magnesium (1.6-2.3) mg/dL AST (14-36) U/L Alkaline Phosphatase (38-126) U/L Total Protein (6.3-8.2) g/dL Albumin (3.5-5.0) g/dL Arterial Blood Potassium 2.9 L* (3.4-4.5) mmol/L Arterial Blood Glucose 108 H 123 H (75-99) mg/dL Crossmatch See Detail 10/28/23 10/28/23 10/28/23 Range/Units 11:17 11:35 11:57 RBC (3.80-5.40) m/uL Hgb (11.4-16.0) gm/dL Hct (34.0-46.0) % RDW (11.5-15.5) % Plt Count (150-450) k/uL Lymphocytes # (1.0-4.8) k/uL PT (10.0-12.5) sec INR (<1.2) APTT (22.0-30.0) sec ABG pH 7.47 H 7.48 H (7.35-7.45) ABG pCO2 33 L 32 L (35-45) mmHg ABG pO2 >420 H >420 H >420 H (83-108) mmHg ABG HCO3 (21-25) mmol/L ABG O2 Saturation >99.4 H >99.4 H >99.4 H (94-97) % ABG Hematocrit 21 L 19 L* 20 L* (34.0-46.0) % ABG Potassium 4.6 H (3.4-4.5) mmol/L ABG Ionized Calcium 3.6 L 3.6 L 3.6 L (4.5-5.3) mg/dL ABG Glucose 127 H 117 H 112 H (75-99) mg/dL ABG Lactic Acid (0.5-1.6) mmol/L Hemoglobin 6.8 L* 6.3 L* 6.4 L* (11.4-16.0) gm/dL Chloride (98-107) mmol/L Carbon Dioxide (22-30) mmol/L BUN (7-17) mg/dL Glucose (74-99) mg/dL POC Glucose (mg/dL) (70-110) mg/dL Calcium (8.4-10.2) mg/dL Ionized Calcium Aurelio (4.5-5.3) mg/dL Magnesium (1.6-2.3) mg/dL AST (14-36) U/L Alkaline Phosphatase (38-126) U/L Total Protein (6.3-8.2) g/dL Albumin (3.5-5.0) g/dL Arterial Blood Potassium 4.6 H (3.4-4.5) mmol/L Arterial Blood Glucose 127 H 117 H 112 H (75-99) mg/dL Crossmatch 10/28/23 10/28/23 10/28/23 Range/Units 12:22 13:22 13:35 RBC (3.80-5.40) m/uL Hgb (11.4-16.0) gm/dL Hct (34.0-46.0) % RDW (11.5-15.5) % Plt Count (150-450) k/uL Lymphocytes # (1.0-4.8) k/uL PT (10.0-12.5) sec INR (<1.2) APTT (22.0-30.0) sec ABG pH 7.46 H 7.48 H (7.35-7.45) ABG pCO2 31 L 33 L (35-45) mmHg ABG pO2 >420 H >420 H >420 H (83-108) mmHg ABG HCO3 (21-25) mmol/L ABG O2 Saturation >99.4 H 99.4 H >99.4 H (94-97) % ABG Hematocrit 19 L* 19 L* 25 L (34.0-46.0) % ABG Potassium 4.6 H 4.7 H (3.4-4.5) mmol/L ABG Ionized Calcium 3.6 L 3.2 L* 4.4 L (4.5-5.3) mg/dL ABG Glucose 104 H 114 H 140 H (75-99) mg/dL ABG Lactic Acid 2.3 H* 3.2 H* (0.5-1.6) mmol/L Hemoglobin 6.2 L* 6.1 L* 8.2 L (11.4-16.0) gm/dL Chloride (98-107) mmol/L Carbon Dioxide (22-30) mmol/L BUN (7-17) mg/dL Glucose (74-99) mg/dL POC Glucose (mg/dL) (70-110) mg/dL Calcium (8.4-10.2) mg/dL Ionized Calcium Aurelio (4.5-5.3) mg/dL Magnesium (1.6-2.3) mg/dL AST (14-36) U/L Alkaline Phosphatase (38-126) U/L Total Protein (6.3-8.2) g/dL Albumin (3.5-5.0) g/dL Arterial Blood Potassium 4.6 H 4.7 H (3.4-4.5) mmol/L Arterial Blood Glucose 104 H 114 H 140 H (75-99) mg/dL Crossmatch 10/28/23 10/28/23 10/28/23 Range/Units 14:15 15:45 15:45 RBC 3.13 L (3.80-5.40) m/uL Hgb 8.2 L D (11.4-16.0) gm/dL Hct 25.8 L (34.0-46.0) % RDW 16.3 H (11.5-15.5) % Plt Count 135 L D (150-450) k/uL Lymphocytes # (1.0-4.8) k/uL PT 17.2 H (10.0-12.5) sec INR 1.7 H (<1.2) APTT 49.5 H (22.0-30.0) sec ABG pH (7.35-7.45) ABG pCO2 (35-45) mmHg ABG pO2 138 H (83-108) mmHg ABG HCO3 (21-25) mmol/L ABG O2 Saturation 98.6 H (94-97) % ABG Hematocrit 29 L (34.0-46.0) % ABG Potassium (3.4-4.5) mmol/L ABG Ionized Calcium (4.5-5.3) mg/dL ABG Glucose 116 H (75-99) mg/dL ABG Lactic Acid 2.0 H (0.5-1.6) mmol/L Hemoglobin 9.5 L (11.4-16.0) gm/dL Chloride (98-107) mmol/L Carbon Dioxide (22-30) mmol/L BUN (7-17) mg/dL Glucose (74-99) mg/dL POC Glucose (mg/dL) (70-110) mg/dL Calcium (8.4-10.2) mg/dL Ionized Calcium Aurelio (4.5-5.3) mg/dL Magnesium (1.6-2.3) mg/dL AST (14-36) U/L Alkaline Phosphatase (38-126) U/L Total Protein (6.3-8.2) g/dL Albumin (3.5-5.0) g/dL Arterial Blood Potassium (3.4-4.5) mmol/L Arterial Blood Glucose 116 H (75-99) mg/dL Crossmatch 10/28/23 10/28/23 10/28/23 Range/Units 15:45 15:47 16:03 RBC (3.80-5.40) m/uL Hgb (11.4-16.0) gm/dL Hct (34.0-46.0) % RDW (11.5-15.5) % Plt Count (150-450) k/uL Lymphocytes # (1.0-4.8) k/uL PT (10.0-12.5) sec INR (<1.2) APTT (22.0-30.0) sec ABG pH (7.35-7.45) ABG pCO2 (35-45) mmHg ABG pO2 288 H (83-108) mmHg ABG HCO3 (21-25) mmol/L ABG O2 Saturation 99.0 H (94-97) % ABG Hematocrit (34.0-46.0) % ABG Potassium (3.4-4.5) mmol/L ABG Ionized Calcium (4.5-5.3) mg/dL ABG Glucose (75-99) mg/dL ABG Lactic Acid (0.5-1.6) mmol/L Hemoglobin (11.4-16.0) gm/dL Chloride 112 H (98-107) mmol/L Carbon Dioxide 20 L (22-30) mmol/L BUN 19 H (7-17) mg/dL Glucose 104 H (74-99) mg/dL POC Glucose (mg/dL) 121 H (70-110) mg/dL Calcium 7.4 L (8.4-10.2) mg/dL Ionized Calcium Aurelio 4.4 L (4.5-5.3) mg/dL Magnesium 3.3 H (1.6-2.3) mg/dL AST (14-36) U/L Alkaline Phosphatase 35 L (38-126) U/L Total Protein 4.5 L (6.3-8.2) g/dL Albumin 3.0 L (3.5-5.0) g/dL Arterial Blood Potassium (3.4-4.5) mmol/L Arterial Blood Glucose (75-99) mg/dL Crossmatch 10/28/23 10/28/23 10/28/23 Range/Units 17:08 17:43 18:04 RBC 2.51 L (3.80-5.40) m/uL Hgb 6.6 L* D (11.4-16.0) gm/dL Hct 20.8 L (34.0-46.0) % RDW 16.5 H (11.5-15.5) % Plt Count 124 L (150-450) k/uL Lymphocytes # (1.0-4.8) k/uL PT (10.0-12.5) sec INR (<1.2) APTT (22.0-30.0) sec ABG pH (7.35-7.45) ABG pCO2 (35-45) mmHg ABG pO2 (83-108) mmHg ABG HCO3 (21-25) mmol/L ABG O2 Saturation (94-97) % ABG Hematocrit (34.0-46.0) % ABG Potassium (3.4-4.5) mmol/L ABG Ionized Calcium (4.5-5.3) mg/dL ABG Glucose (75-99) mg/dL ABG Lactic Acid (0.5-1.6) mmol/L Hemoglobin (11.4-16.0) gm/dL Chloride (98-107) mmol/L Carbon Dioxide (22-30) mmol/L BUN (7-17) mg/dL Glucose (74-99) mg/dL POC Glucose (mg/dL) 132 H 130 H (70-110) mg/dL Calcium (8.4-10.2) mg/dL Ionized Calcium Aurelio (4.5-5.3) mg/dL Magnesium (1.6-2.3) mg/dL AST (14-36) U/L Alkaline Phosphatase (38-126) U/L Total Protein (6.3-8.2) g/dL Albumin (3.5-5.0) g/dL Arterial Blood Potassium (3.4-4.5) mmol/L Arterial Blood Glucose (75-99) mg/dL Crossmatch 10/28/23 10/28/23 10/28/23 Range/Units 18:58 20:09 20:22 RBC (3.80-5.40) m/uL Hgb (11.4-16.0) gm/dL Hct (34.0-46.0) % RDW (11.5-15.5) % Plt Count (150-450) k/uL Lymphocytes # (1.0-4.8) k/uL PT (10.0-12.5) sec INR (<1.2) APTT (22.0-30.0) sec ABG pH (7.35-7.45) ABG pCO2 (35-45) mmHg ABG pO2 80 L (83-108) mmHg ABG HCO3 (21-25) mmol/L ABG O2 Saturation (94-97) % ABG Hematocrit (34.0-46.0) % ABG Potassium (3.4-4.5) mmol/L ABG Ionized Calcium (4.5-5.3) mg/dL ABG Glucose (75-99) mg/dL ABG Lactic Acid (0.5-1.6) mmol/L Hemoglobin (11.4-16.0) gm/dL Chloride (98-107) mmol/L Carbon Dioxide (22-30) mmol/L BUN (7-17) mg/dL Glucose (74-99) mg/dL POC Glucose (mg/dL) 137 H 163 H (70-110) mg/dL Calcium (8.4-10.2) mg/dL Ionized Calcium Aurelio (4.5-5.3) mg/dL Magnesium (1.6-2.3) mg/dL AST (14-36) U/L Alkaline Phosphatase (38-126) U/L Total Protein (6.3-8.2) g/dL Albumin (3.5-5.0) g/dL Arterial Blood Potassium (3.4-4.5) mmol/L Arterial Blood Glucose (75-99) mg/dL Crossmatch 10/28/23 10/28/23 10/28/23 Range/Units 20:40 20:52 21:59 RBC 2.55 L (3.80-5.40) m/uL Hgb 6.8 L* (11.4-16.0) gm/dL Hct 21.1 L (34.0-46.0) % RDW 16.1 H (11.5-15.5) % Plt Count 127 L (150-450) k/uL Lymphocytes # 0.9 L (1.0-4.8) k/uL PT (10.0-12.5) sec INR (<1.2) APTT (22.0-30.0) sec ABG pH (7.35-7.45) ABG pCO2 (35-45) mmHg ABG pO2 (83-108) mmHg ABG HCO3 (21-25) mmol/L ABG O2 Saturation (94-97) % ABG Hematocrit (34.0-46.0) % ABG Potassium (3.4-4.5) mmol/L ABG Ionized Calcium (4.5-5.3) mg/dL ABG Glucose (75-99) mg/dL ABG Lactic Acid (0.5-1.6) mmol/L Hemoglobin (11.4-16.0) gm/dL Chloride (98-107) mmol/L Carbon Dioxide (22-30) mmol/L BUN (7-17) mg/dL Glucose (74-99) mg/dL POC Glucose (mg/dL) 149 H 139 H (70-110) mg/dL Calcium (8.4-10.2) mg/dL Ionized Calcium Aurelio (4.5-5.3) mg/dL Magnesium (1.6-2.3) mg/dL AST (14-36) U/L Alkaline Phosphatase (38-126) U/L Total Protein (6.3-8.2) g/dL Albumin (3.5-5.0) g/dL Arterial Blood Potassium (3.4-4.5) mmol/L Arterial Blood Glucose (75-99) mg/dL Crossmatch 10/28/23 10/29/23 10/29/23 Range/Units 22:52 00:06 00:58 RBC (3.80-5.40) m/uL Hgb (11.4-16.0) gm/dL Hct (34.0-46.0) % RDW (11.5-15.5) % Plt Count (150-450) k/uL Lymphocytes # (1.0-4.8) k/uL PT (10.0-12.5) sec INR (<1.2) APTT (22.0-30.0) sec ABG pH (7.35-7.45) ABG pCO2 (35-45) mmHg ABG pO2 (83-108) mmHg ABG HCO3 (21-25) mmol/L ABG O2 Saturation (94-97) % ABG Hematocrit (34.0-46.0) % ABG Potassium (3.4-4.5) mmol/L ABG Ionized Calcium (4.5-5.3) mg/dL ABG Glucose (75-99) mg/dL ABG Lactic Acid (0.5-1.6) mmol/L Hemoglobin (11.4-16.0) gm/dL Chloride (98-107) mmol/L Carbon Dioxide (22-30) mmol/L BUN (7-17) mg/dL Glucose (74-99) mg/dL POC Glucose (mg/dL) 135 H 124 H 119 H (70-110) mg/dL Calcium (8.4-10.2) mg/dL Ionized Calcium Aurelio (4.5-5.3) mg/dL Magnesium (1.6-2.3) mg/dL AST (14-36) U/L Alkaline Phosphatase (38-126) U/L Total Protein (6.3-8.2) g/dL Albumin (3.5-5.0) g/dL Arterial Blood Potassium (3.4-4.5) mmol/L Arterial Blood Glucose (75-99) mg/dL Crossmatch 10/29/23 10/29/23 10/29/23 Range/Units 01:51 03:45 03:45 RBC 2.87 L (3.80-5.40) m/uL Hgb 7.8 L (11.4-16.0) gm/dL Hct 24.2 L (34.0-46.0) % RDW 16.1 H (11.5-15.5) % Plt Count 122 L (150-450) k/uL Lymphocytes # (1.0-4.8) k/uL PT (10.0-12.5) sec INR (<1.2) APTT (22.0-30.0) sec ABG pH (7.35-7.45) ABG pCO2 (35-45) mmHg ABG pO2 (83-108) mmHg ABG HCO3 (21-25) mmol/L ABG O2 Saturation (94-97) % ABG Hematocrit (34.0-46.0) % ABG Potassium (3.4-4.5) mmol/L ABG Ionized Calcium (4.5-5.3) mg/dL ABG Glucose (75-99) mg/dL ABG Lactic Acid (0.5-1.6) mmol/L Hemoglobin (11.4-16.0) gm/dL Chloride 111 H (98-107) mmol/L Carbon Dioxide 20 L (22-30) mmol/L BUN (7-17) mg/dL Glucose 101 H (74-99) mg/dL POC Glucose (mg/dL) 116 H (70-110) mg/dL Calcium 7.0 L (8.4-10.2) mg/dL Ionized Calcium Aurelio 4.2 L (4.5-5.3) mg/dL Magnesium 2.5 H (1.6-2.3) mg/dL AST 85 H (14-36) U/L Alkaline Phosphatase 37 L (38-126) U/L Total Protein 4.8 L (6.3-8.2) g/dL Albumin 3.2 L (3.5-5.0) g/dL Arterial Blood Potassium (3.4-4.5) mmol/L Arterial Blood Glucose (75-99) mg/dL Crossmatch 10/29/23 10/29/23 10/29/23 Range/Units 04:49 06:15 06:47 RBC (3.80-5.40) m/uL Hgb (11.4-16.0) gm/dL Hct (34.0-46.0) % RDW (11.5-15.5) % Plt Count (150-450) k/uL Lymphocytes # (1.0-4.8) k/uL PT (10.0-12.5) sec INR (<1.2) APTT (22.0-30.0) sec ABG pH (7.35-7.45) ABG pCO2 (35-45) mmHg ABG pO2 (83-108) mmHg ABG HCO3 (21-25) mmol/L ABG O2 Saturation (94-97) % ABG Hematocrit (34.0-46.0) % ABG Potassium (3.4-4.5) mmol/L ABG Ionized Calcium (4.5-5.3) mg/dL ABG Glucose (75-99) mg/dL ABG Lactic Acid (0.5-1.6) mmol/L Hemoglobin (11.4-16.0) gm/dL Chloride (98-107) mmol/L Carbon Dioxide (22-30) mmol/L BUN (7-17) mg/dL Glucose (74-99) mg/dL POC Glucose (mg/dL) 117 H 146 H 139 H (70-110) mg/dL Calcium (8.4-10.2) mg/dL Ionized Calcium Aurelio (4.5-5.3) mg/dL Magnesium (1.6-2.3) mg/dL AST (14-36) U/L Alkaline Phosphatase (38-126) U/L Total Protein (6.3-8.2) g/dL Albumin (3.5-5.0) g/dL Arterial Blood Potassium (3.4-4.5) mmol/L Arterial Blood Glucose (75-99) mg/dL Crossmatch 10/29/23 Range/Units 08:18 RBC (3.80-5.40) m/uL Hgb (11.4-16.0) gm/dL Hct (34.0-46.0) % RDW (11.5-15.5) % Plt Count (150-450) k/uL Lymphocytes # (1.0-4.8) k/uL PT (10.0-12.5) sec INR (<1.2) APTT (22.0-30.0) sec ABG pH (7.35-7.45) ABG pCO2 (35-45) mmHg ABG pO2 (83-108) mmHg ABG HCO3 (21-25) mmol/L ABG O2 Saturation (94-97) % ABG Hematocrit (34.0-46.0) % ABG Potassium (3.4-4.5) mmol/L ABG Ionized Calcium (4.5-5.3) mg/dL ABG Glucose (75-99) mg/dL ABG Lactic Acid (0.5-1.6) mmol/L Hemoglobin (11.4-16.0) gm/dL Chloride (98-107) mmol/L Carbon Dioxide (22-30) mmol/L BUN (7-17) mg/dL Glucose (74-99) mg/dL POC Glucose (mg/dL) 128 H (70-110) mg/dL Calcium (8.4-10.2) mg/dL Ionized Calcium Aurelio (4.5-5.3) mg/dL Magnesium (1.6-2.3) mg/dL AST (14-36) U/L Alkaline Phosphatase (38-126) U/L Total Protein (6.3-8.2) g/dL Albumin (3.5-5.0) g/dL Arterial Blood Potassium (3.4-4.5) mmol/L Arterial Blood Glucose (75-99) mg/dL Crossmatch Microbiology - Last 24 Hours (Table) 10/28/23 14:26 Gram Stain - Preliminary Sputum
[2023-10-29 13:01] VITALS: BMI 39.1
[2023-10-29] MEDS: LEVOTHYROXINE SODIUM PO SCH (13:06)
[2023-10-29] MEDS: INSULIN ASPART (NovoLOG) 100 UNIT/ML VIAL SQ SCH (13:20)
[2023-10-29] MEDS: ALBUMIN HUMAN 5% 250 ML in EMPTY BAG 1 BAG IVPB ONE ×2 (15:44→15:52)
[2023-10-29 17:28] LABS: Glucose,Whole Blood 149 mg/dL (70-110)
[2023-10-29 20:44] LABS: Glucose,Whole Blood 119 mg/dL (70-110)
[2023-10-29] MEDS: KETOROLAC 15 MG/ML 1 ML VIAL IVP PRN (20:44)
[2023-10-30] MEDS: IPRATROPIUM-ALBUTEROL 3 ML NEB INHALATION PRN (03:46)
[2023-10-30] MEDS: FUROSEMIDE 10 MG/ML 2 ML VIAL IV ONE (04:44)
[2023-10-30 04:58] LABS: Ionized Calcium 4.4 mg/dL (4.5-5.3)
[2023-10-30] MEDS: LORazepam 2 MG/ML INJ IV STA (05:05)
[2023-10-30 05:06] LABS: ALT 21 U/L (4-34); AST 122 U/L (14-36); African American GFR (CKD) 55 (>60 ml/min/1.73 sqM); Albumin 3.3 g/dL (3.5-5.0); Alkaline Phosphatase 52 U/L (38-126); Anion Gap 9 mmol/L; Blood Urea Nitrogen 21 mg/dL (7-17); Calcium 7.5 mg/dL (8.4-10.2); Carbon Dioxide 19 mmol/L (22-30); Chloride 108 mmol/L (98-107); Glucose 116 mg/dL (74-99); Non-African American GFR(CKD) 48 (>60 ml/min/1.73 sqM); Potassium 3.7 mmol/L (3.5-5.1); Sodium 136 mmol/L (137-145); Total Bilirubin 0.5 mg/dL (0.2-1.3); Total Protein 5.1 g/dL (6.3-8.2)
[2023-10-30 05:22] LABS: Anisocytosis Slight; Basophils # (A) 0.1 k/uL (0-0.2); Basophils % (A) 1 %; Eosinophils # (A) 0.4 k/uL (0-0.7); Eosinophils % (A) 3 %; HCT 20.6 % (34.0-46.0); Hypochromasia Moderate; Lymphocytes # (A) 2.1 k/uL (1.0-4.8); Lymphocytes % (A) 16 %; MCH 28.5 pg (25.0-35.0); MCHC 32.9 g/dL (31.0-37.0); MCV 86.5 fL (80.0-100.0); Mean Platelet Volume 9.1; Monocytes # (A) 0.7 k/uL (0-1.0); Monocytes % (A) 5 %; Neutrophils # (A) 9.4 k/uL (1.3-7.7); Neutrophils % (A) 73 %; Platelet Count 136 k/uL (150-450); Poikilocytosis Slight; RBC 2.38 m/uL (3.80-5.40); RDW 16.7 % (11.5-15.5); WBC 12.9 k/uL (3.8-10.6)
[2023-10-30 05:29] LABS: HGB 6.8 gm/dL (11.4-16.0)
[2023-10-30 06:21] LABS: Glucose,Whole Blood 143 mg/dL (70-110)
[2023-10-30] MEDS: POTASSIUM CHLORIDE 10 MEQ in WATER FOR INJECTION 1 100ML.BAG IVPB SCH (06:26)
--- NOTE | 2023-10-30 08:09 | XR ---
EXAMINATION TYPE: XR chest 1V portable DATE OF EXAM: 10/30/2023 COMPARISON: 10/29/2023 HISTORY: Postop TECHNIQUE: Single frontal view of the chest is obtained. FINDINGS: [place]-Arcelia catheter has been removed. The prominence of the mediastinum which could be posi tional correlate clinically for recent surgery. Postsurgical changes are noted with atrial appendage clip. Prosthetic heart valve. Mediastinal drain and chest tube noted. No sizable pneumothorax. Bilateral interstitial prominence an d subsegmental areas of consolidation with tiny left pleural effusion. IMPRESSION: 1. Postoperative changes. 2. Bilateral consolidation small effusion greater on the left stable.
--- NOTE | 2023-10-30 08:24 | PN ---
PROGRESS NOTE SUBJECTIVE: Ms. Maldonado is in sinus rhythm. She apparently had an episode of difficulty breathing, shallow breathing, requiring BiPAP. Chest x-ray reveals a fairly moderate to large size left-sided pleural effusion or atelectasis. I am recommending that we work with incentive spirometry and if it is indeed fluid, she may need the chest tube adjusted. OBJECTIVE: VITAL SIGNS: Stable. CARDIOVASCULAR: S1, S2 heard normally. Short systolic murmur noted. LUNGS: Revealed diminished breath sounds on the left. ABDOMEN: Soft. LOWER EXTREMITIES: Revealed diminished pulses. I will await further input from Cardiac Surgery for possible chest tube adjustment or thoracentesis. Atelectasis also should be considered. The patient is status post aortic valve replacement with a tissue valve and bypass surgery. MMODL / IJN: [id number] /
--- NOTE | 2023-10-30 08:38 | P.PN ---
Subjective Progress Note Date: 10/30/23 Principal diagnosis: Triple-vessel coronary artery disease with stable angina, moderate aortic regurgitation. History of hypertension, hyperlipidemia, obesity, mild asthma, thyroid cancer s/p thyroidectomy and radiation, throat cancer status post full teeth extraction and partial jaw removal, benign pituitary tumor, lifelong non- smoker, and family history of premature coronary artery disease with father who early from myocardial infarction. Preoperative nasal swab positive for MRSA, treated POD #2 coronary artery bypass grafting x 4, left internal thoracic artery (in- situ) sequential to diagonal artery and left anterior descending coronary artery, radial artery from aorta to obtuse marginal artery, saphenous vein from aorta to posterior descending coronary artery, aortic valve replacement with #23mm Inspiris Bioprosthetic, left atrial appendage ligation using #35mm AtriClip, endoscopic left radial and left greater saphenous vein harvest, graft flow measurements using the [employer]-stim flow meter system, sternal closure using the [employer] Sterna-lock plating system and pioneer cables, trans-esophageal echo Postoperative acute blood loss anemia and thrombocytopenia, expected given hemodilution and cardiopulmonary bypass pump Hypotension requiring minimal vasopressors, expected given blood loss The patient was seen and examined this morning with Dr. Garcia sitting up in recliner in the intensive care unit in no acute distress. Currently in sinus rhythm and hemodynamically stable on no inotropes or pressors, lopressor not given yesterday at Dr. Hernandez's request, patient does have first degree AVB. She did have some episodes of hypoxia and decreased mentation last night and was placed on bipap, currently awake and very unhappy with the bipap. Was given IV lasix as well. Does complain of postoperative pain especially with taking deep breaths and coughing, denies shortness of breath. Right internal jugular cordis, right radial arterial line, mediastinal/right/left pleural chest tubes all remain. Chest x-ray, labs reviewed, hgb 6.8 this am, will receive 1 unit PRBCs. No other new concerns at this time. Objective - Vital Signs Vital signs: Vital Signs Temp 99.6 F 10/30/23 00:00 Pulse 90 10/30/23 07:00 Resp 12 10/30/23 07:00 BP 110/71 10/30/23 07:00 Pulse Ox 94 L 10/30/23 07:00 FiO2 50 10/30/23 05:00 Intake & Output 10/29/23 10/30/23 10/30/23 18:59 06:59 18:59 Intake Total 847.324 312 126 Output Total 725 995 125 Balance 122.324 -683 1 Weight 100.1 kg 100.2 kg Intake: IV 838 312 126 ACETAMINOPHEN IV (For NPO 100 ) 1,000 mg In Empty Bag 1 bag @ 400 mls/hr IVPB Q6HR SHAR Rx#:[id number] Albumin Human 5% 250 ml 250 In Empty Bag 1 bag @ 250 mls/hr IVPB Q1HR PRN Rx#: [id number] CO/CI 20 Lactated Ringers 1,000 ml 290 240 20 @ 20 mls/hr IV .Q24H SHAR Rx#:[id number] Potassium Chloride 10 meq 100 In Water For Injection 1 100ml.bag @ 100 mls/hr IVPB Q1H SHAR Rx#: [id number] Potassium Chloride 10 meq 100 In Water For Injection 1 100ml.bag @ 100 mls/hr IVPB Q1H SHAR Rx#: [id number] Pressure bag 78 72 6 Intake, IV Titration 9.324 Amount Insulin Regular 100 unit 3.459 In Sodium Chloride 0.9% 100 ml @ Per Protocol IV .Q0M SHAR Rx#:[id number] Vasopressin 20 unit In 5.865 Sodium Chloride 0.9% 50 ml @ 0.04 UNITS/MIN 6.12 mls/hr IV .Q8H20M SHAR Rx# :[id number] Output: Chest Tube Drainage 460 300 0 Chest Tube Bilateral 270 130 0 Chest Tube Mediastinal 190 170 0 Urine 265 695 125 Other: Voiding Method Indwelling Catheter Indwelling Catheter ABP, PAP, CO, CI - Last Documented Arterial Blood Pressure 77/73 Pulmonary Artery Pressure 41/15 Cardiac Output 4.9 Cardiac Index 2.4 - Exam CONSTITUTIONAL: Appears somewhat comfortable although not happy with the bipap, cooperative, no acute distress RESPIRATORY: Lungs sounds diminished bilaterally. Respirations even, nonla bored. Currently on bipap with oxygen saturation 96%. Strong cough. CARDIOVASCULAR: S1, S2 present. Regular rate and rhythm, sinus rhythm with first degree AVB on telemetry. Sternum stable. Palpable peripheral pulses bilaterally. Trace generalized edema present. No calf pain or tenderness noted. Heart hugger in place with patient demonstrating appropriate use. Antiembolism stockings, SCDs present. GASTROINTESTINAL: Abdomen soft, nontender, nondistended. Hypoactive bowel sounds present 4 quadrants. Tolerating minimal food yesterday. Positive flatus GENITOURINARY: Mejia present draining clear, yellow urine. Output overnight 10-20 mL per hour then 200 mL/hr after lasix given, 960 mL in the last 24 hours INTEGUMENTARY: Skin is warm and dry with evidence of good perfusion. Anterior chest incision well approximated and covered with dry intact dressing. Left radial artery harvest site as well as left lower extremity EVH site well approximated without redness NEUROLOGIC: Cranial nerves II through XII intact MUSKULOSKELETAL: Able to move all extremities, strength equal bilaterally PSYCHIATRIC: Alert and oriented to person place and time, appropriate affect, intact judgment and insight INVASIVE LINES AND TUBES: Mediastinal/left/right pleural chest tubes present a nd connected to wall suction, no air leaks present. Mediastinal tube with 130 mL serosanguineous drainage overnight, 450 mL in the last 24 hours. Left/right pleural chest tubes with 110 mL serosanguineous drainage overnight, 350 mL since surgery. A/V epicardial pacemaker wires present, connected to generator, backup rate 50 bpm. Right internal jugular cordis, right radial arterial line present. Last CVP 22. - Allied health notes Allied health notes reviewed: nursing - Labs CBC & Chem 7: 10/30/23 04:00 10/30/23 04:00 Labs: Abnormal Lab Results - Last 24 Hours (Table) 10/29/23 10/29/23 10/29/23 Range/Units 08:18 09:05 10:05 WBC (3.8-10.6) k/uL RBC (3.80-5.40) m/uL Hgb (11.4-16.0) gm/dL Hct (34.0-46.0) % RDW (11.5-15.5) % Plt Count (150-450) k/uL Neutrophils # (1.3-7.7) k/uL Sodium (137-145) mmol/L Chloride (98-107) mmol/L Carbon Dioxide (22-30) mmol/L BUN (7-17) mg/dL Creatinine (0.52-1.04) mg/dL Glucose (74-99) mg/dL POC Glucose (mg/dL) 128 H 111 H 113 H (70-110) mg/dL Calcium (8.4-10.2) mg/dL Ionized Calcium Aurelio (4.5-5.3) mg/dL AST (14-36) U/L Total Protein (6.3-8.2) g/dL Albumin (3.5-5.0) g/dL 10/29/23 10/29/23 10/29/23 Range/Units 11:10 17:26 20:33 WBC (3.8-10.6) k/uL RBC (3.80-5.40) m/uL Hgb (11.4-16.0) gm/dL Hct (34.0-46.0) % RDW (11.5-15.5) % Plt Count (150-450) k/uL Neutrophils # (1.3-7.7) k/uL Sodium (137-145) mmol/L Chloride (98-107) mmol/L Carbon Dioxide (22-30) mmol/L BUN (7-17) mg/dL Creatinine (0.52-1.04) mg/dL Glucose (74-99) mg/dL POC Glucose (mg/dL) 117 H 149 H 119 H (70-110) mg/dL Calcium (8.4-10.2) mg/dL Ionized Calcium Aurelio (4.5-5.3) mg/dL AST (14-36) U/L Total Protein (6.3-8.2) g/dL Albumin (3.5-5.0) g/dL 10/30/23 10/30/23 10/30/23 Range/Units 04:00 04:00 06:19 WBC 12.9 H (3.8-10.6) k/uL RBC 2.38 L (3.80-5.40) m/uL Hgb 6.8 L* (11.4-16.0) gm/dL Hct 20.6 L (34.0-46.0) % RDW 16.7 H (11.5-15.5) % Plt Count 136 L (150-450) k/uL Neutrophils # 9.4 H (1.3-7.7) k/uL Sodium 136 L (137-145) mmol/L Chloride 108 H (98-107) mmol/L Carbon Dioxide 19 L (22-30) mmol/L BUN 21 H (7-17) mg/dL Creatinine 1.20 H (0.52-1.04) mg/dL Glucose 116 H (74-99) mg/dL POC Glucose (mg/dL) 143 H (70-110) mg/dL Calcium 7.5 L (8.4-10.2) mg/dL Ionized Calcium Aurelio 4.4 L (4.5-5.3) mg/dL AST 122 H (14-36) U/L Total Protein 5.1 L (6.3-8.2) g/dL Albumin 3.3 L (3.5-5.0) g/dL Microbiology - Last 24 Hours (Table) 10/28/23 14:26 Gram Stain - Preliminary Sputum - Imaging and Cardiology Chest x-ray: image reviewed Assessment and Plan Assessment: Triple-vessel coronary artery disease with stable angina, status post four-v essel CABG Moderate aortic regurgitation, status post aortic valve replacement History of hypertension, currently hypotensive requiring minimal vasopressors Hyperlipidemia, untreated, cholesterol 298, LDL 221, triglycerides 167 Obesity Mild asthma, preoperative FEV1 73% of predicted Thyroid cancer s/p thyroidectomy and radiation Throat cancer status post full teeth extraction and partial jaw removal Benign pituitary tumor Lifelong non-smoker Family history of premature coronary artery disease with father who early from myocardial infarction Preoperative nasal swab positive for MRSA, treated Postoperative acute blood loss anemia and thrombocytopenia, expected Plan: Continue to maximize medical therapy with aspirin, statin, plavix. Will hold beta-steve therapy Wean O2 as tolerated. Encourage incentive spirometry use 10 times every hour while awake. Bronchodilators per pulmonology Will monitor daily labs and x-rays. Electrolyte replacement per protocol. Will give 1 unit PRBCs Increase activity, ambulate as tolerated. PT/OT/cardiac rehab consulted GI/DVT prophylaxis Insulin management per internal medicine, patient is not diabetic, preoperative hemoglobin A1c 5.6% Pain control per current medication regimen Continue chest tubes for another 24 hours, monitor output Continue Mejia catheter for another 24 hours, continue to record strict accurate intake and output Daily weights Resume HOME Levoxyl, medication to twice daily by pharmacy, avoid Synthroid as patient has anaphylactic reaction to Synthroid Will order Ensure as patient is not eating much More recommendations to follow based on patient's progress
[2023-10-30] MEDS: PANTOPRAZOLE 40 MG TABLET PO SCH (08:45)
[2023-10-30] MEDS: LEVOXYL 175 MCG PO SCH (08:46)
[2023-10-30] MEDS ORDERED: MD COMMUNICATION TO PHARMACY 1 EACH MISC PO PRN (09:01)
[2023-10-30 11:27] LABS: Glucose,Whole Blood 122 mg/dL (70-110)
--- NOTE | 2023-10-30 14:42 | P.PN ---
Subjective Progress Note Date: 10/30/23 Principal diagnosis: POD #2 coronary artery bypass grafting x 4, left internal thoracic artery (in- situ) sequential to diagonal artery and left anterior descending coronary artery , radial artery from aorta to obtuse marginal artery, saphenous vein from aorta to posterior descending coronary artery, aortic valve replacement with #23mm Inspiris Bioprosthetic Patient is a 63-year-old white female with past medical history significant for mild intermittent asthma, coronary artery disease, moderate aortic valve stenosis, among other things. Patient has followed in the pulmonary office with Dr. Kemp for evaluation of her mild intermittent asthma. A recent PFT done in the office, consistent with mild obstructive disease. FEV1 81% of predicted with FEV1/FVC ratio of 69%. 13% increase post-bronchodilator. She had been having worsening exertional dyspnea, and had a full cardiac workup. Heart cath done 10/06/2023 consistent with severe triple-vessel coronary artery disease. She was also noted to have moderate to severe aortic regurgitation. Yesterday, the patient underwent a four-vessel coronary bypass including a GOLDBERG sequentially to the diagonal and LAD, left radial artery from the aorta to the obtuse marginal artery, and saphenous vein graft from aorta to posterior descending artery. Patient also had an aortic valve replacement with a bioprosthetic, and left atrial appendage ligation. No intraoperative complications reported. Patient was transferred to the intensive care unit postoperatively. Her weaning parameters were adequate and her ABG done on pressure support included a PaO2 of 80, pCO2 of 39, and a pH of 7.35. Hence, the patient was extubated at 2030 last night. Patient is currently lying in bed, on a 40% Ventimask, in no acute distress. SpO2 is 99%. She is awake and alert and answers all my questions. She is reporting a mild to moderate amount of incisional chest pain, especially with coughing and deep breathing. Bear hugger is on. Incentive spirometer is at bedside. Postoperative chest x-ray shows mild vascular congestion and postoperative basilar atelectasis. Possible trace left pleural effusion. No pneumothorax. There is a prominent mediastinum. There is a mediastinal chest tube that has a total of 290 cc of sanguinous drainage, and patient has bilateral pleural chest tubes that are Yd together which have had a total of 460 mL of sanguinous output. No airleak. Postoperative CBC: WBC count 9.1, hemoglobin 6.8, hematocrit 21.1, platelets 127. She has received a total of 4 units of PRBCs. Acute blood loss anemia, is an expected outcome of surgery. She was initially hypotensive postoperatively, and was temporarily on vasopressors including vasopressin, these have since been discontinued. Blood pressure is improved after PRBC transfusions. Patient is also received a total of 1 L of 5% albumin. There is a right IJ introducer sheath with [place] Ivis catheter. Current CO/CI eyes are hyperdynamic, 9 and 4.4 respectively. Blood pressure is normotensive, PA pressures 29/15, CVP 13. Heart rhythm appears normal sinus on bedside monitor, in the 90s. Epicardial pacemaker is currently set at backup rate of 80 bpm. Nitro is infusing at 5 mcg/min for vasospasm prophylaxis. Insulin infusing at 2.5 units/h. Lactated Ringer's is infusing at 50 MLS per hour. Patient does have urinary catheter, and urine output has been adequate in the order of 100-150 MLS per hour. Postoperative CMP includes a sodium of 141, potassium 3.7, chloride 112, serum bicarb 20, BUN 19, creatinine 0.96, glucose 135. LFTs not elevated. She will continue to be monitored closely in the intensive care unit. Patient was reevaluated today on 10/30/2023, patient is now postoperative day #2, sitting in a bedside chair, feels cold, feels weak, patient is anemic and she will be receiving a unit of packed RBCs today. Last night patient dropped her O2 saturation, and she was placed on BiPAP for few hours, presently on nasal cannula, does not seem to be in any distress. Hemoglobin this morning is 6.8, and she is to receive a unit of packed RBCs. Chest x-ray showed mostly bibasilar atelectasis. Patient is not requiring any inotropes or any pressors at this point. Patient received Lasix last night, and she was briefly on BiPAP, she did not like BiPAP patch,WBC count today is 12.9 hemoglobin is 6.8 basic metabolic profile is normal bicarb is 19 BUN is 21 creatinine is up to 1.2 today. Again chest x-ray was reviewed showed postoperative changes and bibasilar atelectasis with small pleural effusions with Objective - Vital Signs Vital signs: Vital Signs Temp 97.5 F L 10/30/23 11:46 Pulse 105 H 10/30/23 13:30 Resp 18 10/30/23 13:30 BP 124/85 10/30/23 13:30 Pulse Ox 91 L 10/30/23 13:30 FiO2 50 10/30/23 05:00 Intake & Output 10/29/23 10/30/23 10/30/23 18:59 06:59 18:59 Intake Total 847.324 312 932 Output Total 725 995 755 Balance 122.324 -683 177 Weight 100.1 kg 100.2 kg Intake: IV 838 312 264 ACETAMINOPHEN IV (For NPO 100 ) 1,000 mg In Empty Bag 1 bag @ 400 mls/hr IVPB Q6HR SHAR Rx#:[id number] Albumin Human 5% 250 ml 250 In Empty Bag 1 bag @ 250 mls/hr IVPB Q1HR PRN Rx#: [id number] CO/CI 20 Lactated Ringers 1,000 ml 290 240 140 @ 20 mls/hr IV .Q24H SHAR Rx#:[id number] Potassium Chloride 10 meq 100 In Water For Injection 1 100ml.bag @ 100 mls/hr IVPB Q1H SHAR Rx#: [id number] Potassium Chloride 10 meq 100 In Water For Injection 1 100ml.bag @ 100 mls/hr IVPB Q1H SHAR Rx#: [id number] Pressure bag 78 72 24 Intake, IV Titration 9.324 Amount Insulin Regular 100 unit 3.459 In Sodium Chloride 0.9% 100 ml @ Per Protocol IV .Q0M SHAR Rx#:[id number] Vasopressin 20 unit In 5.865 Sodium Chloride 0.9% 50 ml @ 0.04 UNITS/MIN 6.12 mls/hr IV .Q8H20M SHAR Rx# :[id number] Oral 358 Blood Product 310 Rc As-1 Unit 310 [id number] Output: Chest Tube Drainage 460 300 120 Chest Tube Bilateral 270 130 20 Chest Tube Mediastinal 190 170 100 Urine 265 695 635 Other: Voiding Method Indwelling Catheter Indwelling Catheter Indwelling Catheter ABP, PAP, CO, CI - Last Documented Arterial Blood Pressure 77/73 Pulmonary Artery Pressure 41/15 Cardiac Output 4.9 Cardiac Index 2.4 - Exam General: Reveals 63-year-old female in no distress. RESPIRATORY: Symmetrical chest expansion diminished breath sounds at the bases no rhonchi no wheezes CARDIOVASCULAR: Distant S1-S2, no S3 gallop, 2/6 systolic murmur throughout the precordium Abdomen: Obese soft nontender no megaly no rebound no guarding Skin: No rashes NEUROLOGIC: Alert oriented x 3 no gross focal deficit MUSKULOSKELETAL: No deformities and no limitation range of motion PSYCHIATRIC: Normal mood affect and no mental status examination. INVASIVE LINES AND TUBES: Mediastinal/left/right pleural chest tubes present and connected to wall suction, no air leaks present. Mediastinal tube with 130 mL serosanguineous drainage overnight, 450 mL in the last 24 hours. Left/right pleural chest tubes with 110 mL serosanguineous drainage overnight, 350 mL since surgery. A/V epicardial pacemaker wires present, connected to generator, backup rate 50 bpm. Right internal jugular cordis, right radial arterial line present. Last CVP 22. - Labs CBC & Chem 7: 10/30/23 04:00 10/30/23 04:00 Labs: Abnormal Lab Results - Last 24 Hours (Table) 10/29/23 10/29/23 10/30/23 Range/Units 17:26 20:33 04:00 WBC 12.9 H (3.8-10.6) k/uL RBC 2.38 L (3.80-5.40) m/uL Hgb 6.8 L* (11.4-16.0) gm/dL Hct 20.6 L (34.0-46.0) % RDW 16.7 H (11.5-15.5) % Plt Count 136 L (150-450) k/uL Neutrophils # 9.4 H (1.3-7.7) k/uL Sodium (137-145) mmol/L Chloride (98-107) mmol/L Carbon Dioxide (22-30) mmol/L BUN (7-17) mg/dL Creatinine (0.52-1.04) mg/dL Glucose (74-99) mg/dL POC Glucose (mg/dL) 149 H 119 H (70-110) mg/dL Calcium (8.4-10.2) mg/dL Ionized Calcium Aurelio (4.5-5.3) mg/dL AST (14-36) U/L Total Protein (6.3-8.2) g/dL Albumin (3.5-5.0) g/dL Crossmatch 10/30/23 10/30/23 10/30/23 Range/Units 04:00 06:19 07:35 WBC (3.8-10.6) k/uL RBC (3.80-5.40) m/uL Hgb (11.4-16.0) gm/dL Hct (34.0-46.0) % RDW (11.5-15.5) % Plt Count (150-450) k/uL Neutrophils # (1.3-7.7) k/uL Sodium 136 L (137-145) mmol/L Chloride 108 H (98-107) mmol/L Carbon Dioxide 19 L (22-30) mmol/L BUN 21 H (7-17) mg/dL Creatinine 1.20 H (0.52-1.04) mg/dL Glucose 116 H (74-99) mg/dL POC Glucose (mg/dL) 143 H (70-110) mg/dL Calcium 7.5 L (8.4-10.2) mg/dL Ionized Calcium Aurelio 4.4 L (4.5-5.3) mg/dL AST 122 H (14-36) U/L Total Protein 5.1 L (6.3-8.2) g/dL Albumin 3.3 L (3.5-5.0) g/dL Crossmatch See Detail 10/30/23 Range/Units 11:24 WBC (3.8-10.6) k/uL RBC (3.80-5.40) m/uL Hgb (11.4-16.0) gm/dL Hct (34.0-46.0) % RDW (11.5-15.5) % Plt Count (150-450) k/uL Neutrophils # (1.3-7.7) k/uL Sodium (137-145) mmol/L Chloride (98-107) mmol/L Carbon Dioxide (22-30) mmol/L BUN (7-17) mg/dL Creatinine (0.52-1.04) mg/dL Glucose (74-99) mg/dL POC Glucose (mg/dL) 122 H (70-110) mg/dL Calcium (8.4-10.2) mg/dL Ionized Calcium Aurelio (4.5-5.3) mg/dL AST (14-36) U/L Total Protein (6.3-8.2) g/dL Albumin (3.5-5.0) g/dL Crossmatch Microbiology - Last 24 Hours (Table) 10/28/23 14:26 Gram Stain - Preliminary Sputum Sputum Culture - Preliminary Assessment and Plan Assessment: Impression: Triple-vessel coronary artery disease, status post four-vessel CABG Moderate severe aortic regurgitation and status post aortic valve replacement History of mild bronchial asthma/mild intermittent History of benign pituitary tumor Lifelong non-smoker History of thyroid cancer requiring thyroidectomy and radiation Postoperative blood loss anemia, expected Family history of premature coronary artery disease. Recommendation: Continue to monitor in the ICU today Transfuse with 1 unit of packed RBCs for hemoglobin of 6.8 Continue incentive spirometry and bronchodilators Continue to maximize medical therapy Plavix statin aspirin and eventually beta- blockers presently on hold Increase activity as tolerated GI and DVT prophylaxis Pain control management Discontinue unnecessary catheters and lines if unnecessary. Early ambulation Resume home meds Will continue to follow Time with Patient: Less than 30
[2023-10-30 16:27] LABS: Glucose,Whole Blood 115 mg/dL (70-110)
--- NOTE | 2023-10-30 16:53 | P.PN ---
Subjective Progress Note Date: 10/30/23 * 63-year-old lady with past medical history significant for coronary artery disease, valvular heart disease with aortic regurgitation, history of asthma, history of thyroid cancer status post thyroidectomy, history of benign pituitary tumor, hypertension, hyperlipidemia admitted to the hospital for coronary artery bypass grafting x 4, left internal thoracic artery (in-situ) sequential to diagonal artery and left anterior descending coronary artery, radial artery from aorta to obtuse marginal artery, saphenous vein from aorta to posterior descending coronary artery, aortic valve replacement with #23mm Inspiris Bioprosthetic, left atrial appendage ligation using #35mm AtriClip, endoscopic left radial and left greater saphenous vein harvest, graft flow measurements using the [employer]-stim flow meter system, sternal closure using the [employer] Sterna-lock plating system and pioneer cables, trans-esophageal echo * Postoperatively patient is admitted under surgical service with internal medicine consulted. Patient is evaluated on 10/29/2023. Postoperatively patient was noted to have anemia, thrombocytopenia. Postprocedure patient was intubated however extubated on 10/28/2023. Follow-up hemoglobin reviewed, patient remains on oxygen to nasal cannula. Central line in place, chest tubes remain in place to be managed by surgery team. Patient given a4.. Continue to follow-up on H&H unit of packed RBC follow-up hemoglobin improved Objective - Vital Signs Vital signs: Vital Signs Temp 98.4 F 10/30/23 08:30 Pulse 95 10/30/23 11:00 Resp 13 10/30/23 11:00 BP 120/73 10/30/23 11:00 Pulse Ox 97 10/30/23 11:00 FiO2 50 10/30/23 05:00 Intake & Output 10/29/23 10/30/23 10/30/23 18:59 06:59 18:59 Intake Total 847.324 312 267 Output Total 725 995 285 Balance 122.324 683 -18 Weight 100.1 kg 100.2 kg Intake: IV 838 312 149 ACETAMINOPHEN IV (For NPO 100 ) 1,000 mg In Empty Bag 1 bag @ 400 mls/hr IVPB Q6HR SHAR Rx#:[id number] Albumin Human 5% 250 ml 250 In Empty Bag 1 bag @ 250 mls/hr IVPB Q1HR PRN Rx#: [id number] CO/CI 20 Lactated Ringers 1,000 ml 290 240 40 @ 20 mls/hr IV .Q24H SHAR Rx#:[id number] Potassium Chloride 10 meq 100 In Water For Injection 1 100ml.bag @ 100 mls/hr IVPB Q1H SHAR Rx#: [id number] Potassium Chloride 10 meq 100 In Water For Injection 1 100ml.bag @ 100 mls/hr IVPB Q1H SHAR Rx#: [id number] Pressure bag 78 72 9 Intake, IV Titration 9.324 Amount Insulin Regular 100 unit 3.459 In Sodium Chloride 0.9% 100 ml @ Per Protocol IV .Q0M SHAR Rx#:[id number] Vasopressin 20 unit In 5.865 Sodium Chloride 0.9% 50 ml @ 0.04 UNITS/MIN 6.12 mls/hr IV .Q8H20M SHAR Rx# :[id number] Oral 118 Blood Product 0 Unit 0 Output: Chest Tube Drainage 460 300 10 Chest Tube Bilateral 270 130 0 Chest Tube Mediastinal 190 170 10 Urine 265 695 275 Other: Voiding Method Indwelling Catheter Indwelling Catheter ABP, PAP, CO, CI - Last Documented Arterial Blood Pressure 77/73 Pulmonary Artery Pressure 41/15 Cardiac Output 4.9 Cardiac Index 2.4 - Exam GENERAL: The patient is alert and oriented x3, nasal cannula in place central line in place HEENT: Pupils are round and equally reacting to light. CARDIOVASCULAR: S1 and S2 present. No murmurs, rubs, or gallops. Chest brace in place PULMONARY: Chest is clear to auscultation, no wheezing or crackles. Chest tube in place, Mejia catheter in place ABDOMEN: Soft, nontender, nondistended, normoactive bowel sounds. No palpable organomegaly. EXTREMITIES: Trace lower extremity edema NEUROLOGICAL: Gross neurological examination did not reveal any focal deficits. SKIN: No rashes. - Labs CBC & Chem 7: 10/30/23 04:00 10/30/23 04:00 Labs: Abnormal Lab Results - Last 24 Hours (Table) 10/29/23 10/29/23 10/29/23 Range/Units 11:10 17:26 20:33 WBC (3.8-10.6) k/uL RBC (3.80-5.40) m/uL Hgb (11.4-16.0) gm/dL Hct (34.0-46.0) % RDW (11.5-15.5) % Plt Count (150-450) k/uL Neutrophils # (1.3-7.7) k/uL Sodium (137-145) mmol/L Chloride (98-107) mmol/L Carbon Dioxide (22-30) mmol/L BUN (7-17) mg/dL Creatinine (0.52-1.04) mg/dL Glucose (74-99) mg/dL POC Glucose (mg/dL) 117 H 149 H 119 H (70-110) mg/dL Calcium (8.4-10.2) mg/dL Ionized Calcium Aurelio (4.5-5.3) mg/dL AST (14-36) U/L Total Protein (6.3-8.2) g/dL Albumin (3.5-5.0) g/dL Crossmatch 10/30/23 10/30/23 10/30/23 Range/Units 04:00 04:00 06:19 WBC 12.9 H (3.8-10.6) k/uL RBC 2.38 L (3.80-5.40) m/uL Hgb 6.8 L* (11.4-16.0) gm/dL Hct 20.6 L (34.0-46.0) % RDW 16.7 H (11.5-15.5) % Plt Count 136 L (150-450) k/uL Neutrophils # 9.4 H (1.3-7.7) k/uL Sodium 136 L (137-145) mmol/L Chloride 108 H (98-107) mmol/L Carbon Dioxide 19 L (22-30) mmol/L BUN 21 H (7-17) mg/dL Creatinine 1.20 H (0.52-1.04) mg/dL Glucose 116 H (74-99) mg/dL POC Glucose (mg/dL) 143 H (70-110) mg/dL Calcium 7.5 L (8.4-10.2) mg/dL Ionized Calcium Aurelio 4.4 L (4.5-5.3) mg/dL AST 122 H (14-36) U/L Total Protein 5.1 L (6.3-8.2) g/dL Albumin 3.3 L (3.5-5.0) g/dL Crossmatch 10/30/23 Range/Units 07:35 WBC (3.8-10.6) k/uL RBC (3.80-5.40) m/uL Hgb (11.4-16.0) gm/dL Hct (34.0-46.0) % RDW (11.5-15.5) % Plt Count (150-450) k/uL Neutrophils # (1.3-7.7) k/uL Sodium (137-145) mmol/L Chloride (98-107) mmol/L Carbon Dioxide (22-30) mmol/L BUN (7-17) mg/dL Creatinine (0.52-1.04) mg/dL Glucose (74-99) mg/dL POC Glucose (mg/dL) (70-110) mg/dL Calcium (8.4-10.2) mg/dL Ionized Calcium Aurelio (4.5-5.3) mg/dL AST (14-36) U/L Total Protein (6.3-8.2) g/dL Albumin (3.5-5.0) g/dL Crossmatch See Detail Microbiology - Last 24 Hours (Table) 10/28/23 14:26 Gram Stain - Preliminary Sputum Sputum Culture - Preliminary Assessment and Plan Assessment: * Coronary artery disease s/p four-vessel CABG postoperative * Postoperative anemia * Valvular heart disease with aortic regurgitation s/p aortic valve replacement * History of thyroidectomy secondary to thyroid cancer * MRSA colonization * Hypertension * Hyperlipidemia * History of pituitary adenoma * BMI of 39.1 * In regards to postoperative management, patient under medical ICU/cardiac surgery, patient successfully extubated,. Patient was given 4 units of packed RBC for anemia and albumin as well. Weaned off pressor support as tolerated * In regards to postoperative blood glucose management patient was on IV insulin drip which will be weaned off based on blood glucose levels, transition to subcu insulin with correctional insulin. Patient is not a diabetic * Regards to history of asthma continue patient on bronchodilators * In regards to coronary artery disease continue patient on aspirin, Plavix, Li pitor * Medicine team will continue to follow along
[2023-10-30] MEDS: LANSOPRAZOLE 30 MG PO SCH (17:58)
[2023-10-30 20:28] LABS: Glucose,Whole Blood 109 mg/dL (70-110)
[2023-10-30] MEDS: busPIRone HCl 5 MG TAB PO PRN (21:31)
[2023-10-30 21:38] LABS: Anisocytosis Slight; HCT 23.7 % (34.0-46.0); MCH 28.3 pg (25.0-35.0); MCHC 33.8 g/dL (31.0-37.0); MCV 83.7 fL (80.0-100.0); Mean Platelet Volume 9.2; Platelet Count 144 k/uL (150-450); Poikilocytosis Slight; RBC 2.83 m/uL (3.80-5.40); RDW 16.6 % (11.5-15.5)
[2023-10-31] MEDS: METOCLOPRAMIDE 5 MG/ML 2 ML VIAL IVP PRN (03:35)
[2023-10-31 06:08] LABS: Glucose,Whole Blood 118 mg/dL (70-110)
[2023-10-31 06:39] LABS: ALT 25 U/L (4-34); AST 140 U/L (14-36); African American GFR (CKD) 76 (>60 ml/min/1.73 sqM); Albumin 3.4 g/dL (3.5-5.0); Alkaline Phosphatase 68 U/L (38-126); Anion Gap 7 mmol/L; Blood Urea Nitrogen 15 mg/dL (7-17); Calcium 7.8 mg/dL (8.4-10.2); Carbon Dioxide 20 mmol/L (22-30); Chloride 106 mmol/L (98-107); Glucose 101 mg/dL (74-99); Non-African American GFR(CKD) 66 (>60 ml/min/1.73 sqM); Potassium 3.6 mmol/L (3.5-5.1); Sodium 133 mmol/L (137-145); Total Bilirubin 0.8 mg/dL (0.2-1.3); Total Protein 5.7 g/dL (6.3-8.2)
[2023-10-31] MEDS ORDERED: MAG HYDROX/AL HYDROX/SIMETH 30 ML CUP PO PRN (07:09)
[2023-10-31] MEDS: POTASSIUM CHLORIDE 10 MEQ in WATER FOR INJECTION 1 100ML.BAG IVPB SCH (07:16)
--- NOTE | 2023-10-31 07:36 | P.PN ---
Subjective Progress Note Date: 10/31/23 Principal diagnosis: Triple-vessel coronary artery disease with stable angina, moderate aortic regurgitation. History of hypertension, hyperlipidemia, obesity, mild asthma, thyroid cancer s/p thyroidectomy and radiation, throat cancer status post full teeth extraction and partial jaw removal, benign pituitary tumor, lifelong non- smoker, and family history of premature coronary artery disease with father who early from myocardial infarction. Preoperative nasal swab positive for MRSA, treated POD #3 coronary artery bypass grafting x 4, left internal thoracic artery (in- situ) sequential to diagonal artery and left anterior descending coronary artery, radial artery from aorta to obtuse marginal artery, saphenous vein from aorta to posterior descending coronary artery, aortic valve replacement with #23mm Inspiris Bioprosthetic, left atrial appendage ligation using #35mm AtriClip, endoscopic left radial and left greater saphenous vein harvest, graft flow measurements using the [employer]-stim flow meter system, sternal closure using the [employer] Sterna-lock plating system and pioneer cables, trans-esophageal echo Postoperative acute blood loss anemia and thrombocytopenia, expected given hemodilution and cardiopulmonary bypass pump Hypotension requiring minimal vasopressors, expected given blood loss The patient was seen and examined this morning sitting up in recliner in the intensive care unit. Currently in sinus rhythm and hemodynamically stable on no inotropes or pressors, has not been given any beta steve at Dr. Hernandez's request due to first degree AVB. Does complain of postoperative pain especially with taking deep breaths and coughing, denies shortness of breath, complains of nausea and sore throat. Right internal jugular cordis, mediastinal/right/left pleural chest tubes all remain. Chest x-ray, labs reviewed. No other new concerns at this time. Objective - Vital Signs Vital signs: Vital Signs Temp 98.8 F 10/31/23 04:00 Pulse 105 H 10/31/23 06:00 Resp 18 10/31/23 06:00 BP 107/61 10/31/23 06:00 Pulse Ox 96 10/31/23 06:00 FiO2 50 10/30/23 05:00 Intake & Output 10/30/23 10/31/23 10/31/23 18:59 06:59 18:59 Intake Total 1269 383 120 Output Total 1080 990 0 Balance 189 -607 120 Weight 107.4 kg Intake: IV 379 243 120 Lactated Ringers 1,000 ml 240 240 20 @ 20 mls/hr IV .Q24H SHAR Rx#:[id number] Potassium Chloride 10 meq 100 100 In Water For Injection 1 100ml.bag @ 100 mls/hr IVPB Q1H SHAR Rx#: [id number] Pressure bag 39 3 Oral 580 140 Blood Product 310 Rc As-1 Unit 310 [id number] Output: Chest Tube Drainage 180 140 Chest Tube Bilateral 40 60 Chest Tube Mediastinal 140 80 Urine 900 850 0 Other: Voiding Method Indwelling Catheter Bedside Commode ABP, PAP, CO, CI - Last Documented Arterial Blood Pressure 77/73 Pulmonary Artery Pressure 41/15 Cardiac Output 4.9 Cardiac Index 2.4 - Exam CONSTITUTIONAL: Appears somewhat comfortable, cooperative, no acute distress RESPIRATORY: Lungs sounds diminished bilaterally. Respirations even, nonlabored. Currently on room air with oxygen saturation 93%. Strong cough. A ble to achieve 750 mL on incentive spirometer CARDIOVASCULAR: S1, S2 present. Regular rate and rhythm, sinus rhythm to sinus tach with first degree AVB on telemetry. Sternum stable. Palpable peripheral pulses bilaterally. Generalized edema present. No calf pain or tenderness noted. Heart hugger in place with patient demonstrating appropriate use. Antiembolism stockings, SCDs present. GASTROINTESTINAL: Abdomen soft, nontender, nondistended. Hypoactive bowel sounds present 4 quadrants. Tolerating minimal food. Positive flatus GENITOURINARY: Mejia discontinued yesterday, continues to void clear, yellow urine. Output 1650 mL in the last 24 hours INTEGUMENTARY: Skin is warm and dry with evidence of good perfusion. Anterior chest incision well approximated and covered with dry intact dressing. Left radial artery harvest site as well as left lower extremity EVH site well appr oximated without redness NEUROLOGIC: Cranial nerves II through XII intact MUSKULOSKELETAL: Able to move all extremities, strength equal bilaterally PSYCHIATRIC: Alert and oriented to person place and time INVASIVE LINES AND TUBES: Mediastinal/left/right pleural chest tubes present and connected to wall suction, no air leaks present. Mediastinal tube with 40 mL serosanguineous drainage overnight, 300 mL in the last 24 hours. Left/right pleural chest tubes with 10 mL serosanguineous drainage overnight, 150 mL in the last 24 hours. A/V epicardial pacemaker wires present, connected to generator, backup rate 50 bpm. Right internal jugular cordis present. Last CVP 11. - Allied health notes Allied health notes reviewed: nursing - Labs CBC & Chem 7: 10/30/23 21:28 10/31/23 05:47 Labs: Abnormal Lab Results - Last 24 Hours (Table) 10/30/23 10/30/23 10/30/23 Range/Units 07:35 11:24 16:25 WBC (3.8-10.6) k/uL RBC (3.80-5.40) m/uL Hgb (11.4-16.0) gm/dL Hct (34.0-46.0) % RDW (11.5-15.5) % Plt Count (150-450) k/uL Sodium (137-145) mmol/L Carbon Dioxide (22-30) mmol/L Glucose (74-99) mg/dL POC Glucose (mg/dL) 122 H 115 H (70-110) mg/dL Calcium (8.4-10.2) mg/dL AST (14-36) U/L Total Protein (6.3-8.2) g/dL Albumin (3.5-5.0) g/dL Crossmatch See Detail 10/30/23 10/31/23 10/31/23 Range/Units 21:28 05:47 06:06 WBC 15.0 H (3.8-10.6) k/uL RBC 2.83 L (3.80-5.40) m/uL Hgb 8.0 L (11.4-16.0) gm/dL Hct 23.7 L (34.0-46.0) % RDW 16.6 H (11.5-15.5) % Plt Count 144 L (150-450) k/uL Sodium 133 L (137-145) mmol/L Carbon Dioxide 20 L (22-30) mmol/L Glucose 101 H (74-99) mg/dL POC Glucose (mg/dL) 118 H (70-110) mg/dL Calcium 7.8 L (8.4-10.2) mg/dL AST 140 H (14-36) U/L Total Protein 5.7 L (6.3-8.2) g/dL Albumin 3.4 L (3.5-5.0) g/dL Crossmatch Microbiology - Last 24 Hours (Table) 10/28/23 14:26 Gram Stain - Preliminary Sputum Sputum Culture - Preliminary - Imaging and Cardiology Chest x-ray: image reviewed Assessment and Plan Assessment: Triple-vessel coronary artery disease with stable angina, status post four- vessel CABG Moderate aortic regurgitation, status post aortic valve replacement History of hypertension, currently hypotensive requiring minimal vasopressors Hyperlipidemia, untreated, cholesterol 298, LDL 221, triglycerides 167 Obesity Mild asthma, preoperative FEV1 73% of predicted Thyroid cancer s/p thyroidectomy and radiation Throat cancer status post full teeth extraction and partial jaw removal Benign pituitary tumor Lifelong non-smoker Family history of premature coronary artery disease with father who early from myocardial infarction Preoperative nasal swab positive for MRSA, treated Postoperative acute blood loss anemia and thrombocytopenia, expected Plan: Continue to maximize medical therapy with aspirin, statin, plavix. Will hold beta-steev therapy for now Wean O2 as tolerated. Encourage incentive spirometry use 10 times every hour while awake. Bronchodilators per pulmonology Will monitor daily labs and x-rays. Electrolyte replacement per protocol. Will give IV lasix Increase activity, ambulate as tolerated. PT/OT/cardiac rehab consulted GI/DVT prophylaxis Insulin management per internal medicine, patient is not diabetic, preoperative hemoglobin A1c 5.6% Pain control per current medication regimen Will discontinue chest tubes, DC cordis Continue to record strict accurate intake and output Daily weights Resume HOME Levoxyl, medication to twice daily by pharmacy, avoid Synthroid as patient has anaphylactic reaction to Synthroid Ground epicardial wires, leave in place until beta steve started to make sure patient doesn't need pacing More recommendations to follow based on patient's progress
[2023-10-31] MEDS: FUROSEMIDE 10 MG/ML 2 ML VIAL IV ONE (07:53)
[2023-10-31 07:55] LABS: Anisocytosis Slight; Basophils # (A) 0.1 k/uL (0-0.2); Basophils % (A) 1 %; Eosinophils # (A) 0.5 k/uL (0-0.7); Eosinophils % (A) 4 %; HCT 23.8 % (34.0-46.0); HGB 7.6 gm/dL (11.4-16.0); Hypochromasia Slight; Lymphocytes # (A) 1.7 k/uL (1.0-4.8); Lymphocytes % (A) 14 %; MCH 27.9 pg (25.0-35.0); MCHC 31.9 g/dL (31.0-37.0); MCV 87.3 fL (80.0-100.0); Mean Platelet Volume 8.6; Monocytes # (A) 0.6 k/uL (0-1.0); Monocytes % (A) 5 %; Neutrophils # (A) 8.9 k/uL (1.3-7.7); Neutrophils % (A) 74 %; Platelet Count 176 k/uL (150-450); Poikilocytosis Slight; RBC 2.72 m/uL (3.80-5.40)
[2023-10-31] MEDS: traMADol 50 MG TAB PO PRN (09:47)
[2023-10-31 11:09] LABS: Glucose,Whole Blood 120 mg/dL (70-110)
[2023-10-31 12:19] LABS: Anisocytosis Slight; HGB 7.7 gm/dL (11.4-16.0); Hypochromasia Moderate; MCH 28.4 pg (25.0-35.0); MCHC 32.2 g/dL (31.0-37.0); MCV 88.4 fL (80.0-100.0); Mean Platelet Volume 8.7; Platelet Count 173 k/uL (150-450); Poikilocytosis Slight; RBC 2.71 m/uL (3.80-5.40); RDW 17.1 % (11.5-15.5); WBC 11.3 k/uL (3.8-10.6)
--- NOTE | 2023-10-31 12:35 | P.PN ---
Subjective Progress Note Date: 10/31/23 Principal diagnosis: POD #3 coronary artery bypass grafting x 4, left internal thoracic artery (in- situ) sequential to diagonal artery and left anterior descending coronary artery , radial artery from aorta to obtuse marginal artery, saphenous vein from aorta to posterior descending coronary artery, aortic valve replacement with #23mm Inspiris Bioprosthetic Patient is a 63-year-old white female with past medical history significant for mild intermittent asthma, coronary artery disease, moderate aortic valve stenosis, among other things. Patient has followed in the pulmonary office with Dr. Kemp for evaluation of her mild intermittent asthma. A recent PFT done in the office, consistent with mild obstructive disease. FEV1 81% of predicted with FEV1/FVC ratio of 69%. 13% increase post-bronchodilator. She had been having worsening exertional dyspnea, and had a full cardiac workup. Heart cath done 10/06/2023 consistent with severe triple-vessel coronary artery disease. She was also noted to have moderate to severe aortic regurgitation. Yesterday, the patient underwent a four-vessel coronary bypass including a GOLDBERG sequentially to the diagonal and LAD, left radial artery from the aorta to the obtuse marginal artery, and saphenous vein graft from aorta to posterior descending artery. Patient also had an aortic valve replacement with a bioprosthetic, and left atrial appendage ligation. No intraoperative complications reported. Patient was transferred to the intensive care unit postoperatively. Her weaning parameters were adequate and her ABG done on pressure support included a PaO2 of 80, pCO2 of 39, and a pH of 7.35. Hence, the patient was extubated at 2030 last night. Patient is currently lying in bed, on a 40% Ventimask, in no acute distress. SpO2 is 99%. She is awake and alert and answers all my questions. She is reporting a mild to moderate amount of incisional chest pain, especially with coughing and deep breathing. Bear hugger is on. Incentive spirometer is at bedside. Postoperative chest x-ray shows mild vascular congestion and postoperative basilar atelectasis. Possible trace left pleural effusion. No pneumothorax. There is a prominent mediastinum. There is a mediastinal chest tube that has a total of 290 cc of sanguinous drainage, and patient has bilateral pleural chest tubes that are Yd together which have had a total of 460 mL of sanguinous output. No airleak. Postoperative CBC: WBC count 9.1, hemoglobin 6.8, hematocrit 21.1, platelets 127. She has received a total of 4 units of PRBCs. Acute blood loss anemia, is an expected outcome of surgery. She was initially hypotensive postoperatively, and was temporarily on vasopressors including vasopressin, these have since been discontinued. Blood pressure is improved after PRBC transfusions. Patient is also received a total of 1 L of 5% albumin. There is a right IJ introducer sheath with [place] Ivis catheter. Current CO/CI eyes are hyperdynamic, 9 and 4.4 respectively. Blood pressure is normotensive, PA pressures 29/15, CVP 13. Heart rhythm appears normal sinus on bedside monitor, in the 90s. Epicardial pacemaker is currently set at backup rate of 80 bpm. Nitro is infusing at 5 mcg/min for vasospasm prophylaxis. Insulin infusing at 2.5 units/h. Lactated Ringer's is infusing at 50 MLS per hour. Patient does have urinary catheter, and urine output has been adequate in the order of 100-150 MLS per hour. Postoperative CMP includes a sodium of 141, potassium 3.7, chloride 112, serum bicarb 20, BUN 19, creatinine 0.96, glucose 135. LFTs not elevated. She will continue to be monitored closely in the intensive care unit. Patient was reevaluated today on 10/30/2023, patient is now postoperative day #2, sitting in a bedside chair, feels cold, feels weak, patient is anemic and she will be receiving a unit of packed RBCs today. Last night patient dropped her O2 saturation, and she was placed on BiPAP for few hours, presently on nasal cannula, does not seem to be in any distress. Hemoglobin this morning is 6.8, and she is to receive a unit of packed RBCs. Chest x-ray showed mostly bibasilar atelectasis. Patient is not requiring any inotropes or any pressors at this point. Patient received Lasix last night, and she was briefly on BiPAP, she did not like BiPAP patch,WBC count today is 12.9 hemoglobin is 6.8 basic metabolic profile is normal bicarb is 19 BUN is 21 creatinine is up to 1.2 today. Again chest x-ray was reviewed showed postoperative changes and bibasilar atelectasis with small pleural effusions Patient was reevaluated today on 10/31/23, she is now postoperative day #3 patient is hemodynamically stable, not requiring any inotropes or any pressors, patient feels generally weak, she did receive a unit of packed RBCs yesterday for low hemoglobin, continues to have mediastinal right and left pleural chest tubes in place, chest x-ray today showed atelectasis at the bases specially at the left base, and possibly a small left pleural effusion Objective - Vital Signs Vital signs: Vital Signs Temp 99 F 10/31/23 08:00 Pulse 86 10/31/23 11:00 Resp 12 10/31/23 11:00 BP 127/82 10/31/23 11:00 Pulse Ox 93 L 10/31/23 11:00 FiO2 50 10/30/23 05:00 Intake & Output 10/30/23 10/31/23 10/31/23 18:59 06:59 18:59 Intake Total 1269 383 200 Output Total 1080 1050 1450 Balance 189 667 -1250 Weight 107.4 kg Intake: IV 379 243 200 Lactated Ringers 1,000 ml 240 240 100 @ 20 mls/hr IV .Q24H SHAR Rx#:[id number] Potassium Chloride 10 meq 100 100 In Water For Injection 1 100ml.bag @ 100 mls/hr IVPB Q1H SHAR Rx#: [id number] Pressure bag 39 3 Oral 580 140 Blood Product 310 Rc As-1 Unit 310 [id number] Output: Chest Tube Drainage 180 200 0 Chest Tube Bilateral 40 80 0 Chest Tube Mediastinal 140 120 0 Urine 194 683 4429 Other: Voiding Method Indwelling Catheter Bedside Commode Bedside Commode ABP, PAP, CO, CI - Last Documented Arterial Blood Pressure 77/73 Pulmonary Artery Pressure 41/15 Cardiac Output 4.9 Cardiac Index 2.4 - Exam General: Reveals 63-year-old female in no distress. RESPIRATORY: Symmetrical chest expansion diminished breath sounds at the left base for CARDIOVASCULAR: Distant S1-S2, no S3 gallop, 2/6 systolic murmur throughout the precordium Abdomen: Obese soft nontender no megaly no rebound no guarding Skin: No rashes NEUROLOGIC: Alert oriented x 3 no gross focal deficit MUSKULOSKELETAL: No deformities and no limitation range of motion PSYCHIATRIC: Normal mood affect and no mental status examination. - Labs CBC & Chem 7: 10/31/23 12:02 10/31/23 05:47 Labs: Abnormal Lab Results - Last 24 Hours (Table) 10/30/23 10/30/23 10/31/23 Range/Units 16:25 21:28 05:47 WBC 15.0 H (3.8-10.6) k/uL RBC 2.83 L (3.80-5.40) m/uL Hgb 8.0 L (11.4-16.0) gm/dL Hct 23.7 L (34.0-46.0) % RDW 16.6 H (11.5-15.5) % Plt Count 144 L (150-450) k/uL Neutrophils # (1.3-7.7) k/uL Sodium 133 L (137-145) mmol/L Carbon Dioxide 20 L (22-30) mmol/L Glucose 101 H (74-99) mg/dL POC Glucose (mg/dL) 115 H (70-110) mg/dL Calcium 7.8 L (8.4-10.2) mg/dL AST 140 H (14-36) U/L Total Protein 5.7 L (6.3-8.2) g/dL Albumin 3.4 L (3.5-5.0) g/dL 10/31/23 10/31/23 10/31/23 Range/Units 06:06 07:40 11:08 WBC 12.0 H (3.8-10.6) k/uL RBC 2.72 L (3.80-5.40) m/uL Hgb 7.6 L (11.4-16.0) gm/dL Hct 23.8 L (34.0-46.0) % RDW 17.0 H (11.5-15.5) % Plt Count (150-450) k/uL Neutrophils # 8.9 H (1.3-7.7) k/uL Sodium (137-145) mmol/L Carbon Dioxide (22-30) mmol/L Glucose (74-99) mg/dL POC Glucose (mg/dL) 118 H 120 H (70-110) mg/dL Calcium (8.4-10.2) mg/dL AST (14-36) U/L Total Protein (6.3-8.2) g/dL Albumin (3.5-5.0) g/dL 10/31/23 Range/Units 12:02 WBC 11.3 H (3.8-10.6) k/uL RBC 2.71 L (3.80-5.40) m/uL Hgb 7.7 L (11.4-16.0) gm/dL Hct 24.0 L (34.0-46.0) % RDW 17.1 H (11.5-15.5) % Plt Count (150-450) k/uL Neutrophils # (1.3-7.7) k/uL Sodium (137-145) mmol/L Carbon Dioxide (22-30) mmol/L Glucose (74-99) mg/dL POC Glucose (mg/dL) (70-110) mg/dL Calcium (8.4-10.2) mg/dL AST (14-36) U/L Total Protein (6.3-8.2) g/dL Albumin (3.5-5.0) g/dL Microbiology - Last 24 Hours (Table) 10/28/23 14:26 Gram Stain - Final Sputum Sputum Culture - Final Assessment and Plan Assessment: Impression: Triple-vessel coronary artery disease, status post four-vessel CABG Moderate severe aortic regurgitation and status post aortic valve replacement History of mild bronchial asthma/mild intermittent History of benign pituitary tumor Lifelong non-smoker History of thyroid cancer requiring thyroidectomy and radiation Postoperative blood loss anemia, expected Family history of premature coronary artery disease. Recommendation: Continue to monitor in the ICU today Continue incentive spirometry and bronchodilators Continue to maximize medical therapy Plavix statin aspirin and eventually beta- blockers presently on hold Increase activity as tolerated GI and DVT prophylaxis Pain control management Early ambulation Will continue to follow Time with Patient: Less than 30
--- NOTE | 2023-10-31 13:47 | XR ---
EXAMINATION TYPE: XR chest 1V portable DATE OF EXAM: 10/31/2023 COMPARISON: 10/30/2023 INDICATION: Post cardiac surgery TECHNIQUE: Single frontal view of the chest is obtained. FINDINGS: The heart size is enlarged. The pulmonary vasculature is normal. The lungs are clear. IMPRESSION: 1. Cardiomegaly
[2023-10-31] MEDS: ACETAMINOPHEN TAB 325 MG TAB PO PRN (15:23)
--- NOTE | 2023-10-31 16:00 | P.PN ---
Subjective Progress Note Date: 10/31/23 * 63-year-old lady with past medical history significant for coronary artery disease, valvular heart disease with aortic regurgitation, history of asthma, history of thyroid cancer status post thyroidectomy, history of benign pituitary tumor, hypertension, hyperlipidemia admitted to the hospital for coronary artery bypass grafting x 4, left internal thoracic artery (in-situ) sequential to diagonal artery and left anterior descending coronary artery, radial artery from aorta to obtuse marginal artery, saphenous vein from aorta to posterior descending coronary artery, aortic valve replacement with #23mm Inspiris Bioprosthetic, left atrial appendage ligation using #35mm AtriClip, endoscopic left radial and left greater saphenous vein harvest, graft flow measurements using the [employer] flow meter system, sternal closure using the Francheska Sterna-lock plating system and pioneer cables, trans-esophageal echo * Postoperatively patient is admitted under surgical service with internal medicine consulted. Patient is evaluated on 10/29/2023. Postoperatively patient was noted to have anemia, thrombocytopenia. Postprocedure patient was intubated however extubated on 10/28/2023. Follow-up hemoglobin reviewed, patient remains on oxygen to nasal cannula. Central line in place, chest tubes remain in place to be managed by surgery team. Patient given a4.. Continue to follow-up on H&H unit of packed RBC follow-up hemoglobin improved 10/31/23, -- Patient is seen and evaluated in ICU at bedside; now postoperative day #3 patient is hemodynamically stable, not requiring any inotropes or any pressors, patient feels generally weak -- she did receive a unit of packed RBCs yesterday for low hemoglobin, continues to have mediastinal right and left pleural chest tubes in place, chest x-ray today showed atelectasis at the bases specially at the left base, and possibly a small left pleural effusion -Patient is status post four-vessel CABG; remains in ICU; recommended to con tinue with incentive spirometry and bronchodilators -- Plan to maximize medical therapy with Plavix, statin, beta-blockers and aspirin Objective - Vital Signs Vital signs: Vital Signs Temp 98.8 F 10/31/23 04:00 Pulse 90 10/31/23 07:00 Resp 12 10/31/23 07:00 BP 136/75 10/31/23 07:00 Pulse Ox 92 L 10/31/23 07:00 FiO2 50 10/30/23 05:00 Intake & Output 10/30/23 10/31/23 10/31/23 18:59 06:59 18:59 Intake Total 1269 383 160 Output Total 1080 1050 675 Balance 862 -923 -955 Weight 107.4 kg Intake: IV 379 243 160 Lactated Ringers 1,000 ml 240 240 60 @ 20 mls/hr IV .Q24H SHAR Rx#:[id number] Potassium Chloride 10 meq 100 100 In Water For Injection 1 100ml.bag @ 100 mls/hr IVPB Q1H SHAR Rx#: [id number] Pressure bag 39 3 Oral 580 140 Blood Product 310 Rc As-1 Unit 310 [id number] Output: Chest Tube Drainage 180 200 0 Chest Tube Bilateral 40 80 0 Chest Tube Mediastinal 140 120 0 Urine 900 850 675 Other: Voiding Method Indwelling Catheter Bedside Commode ABP, PAP, CO, CI - Last Documented Arterial Blood Pressure 77/73 Pulmonary Artery Pressure 41/15 Cardiac Output 4.9 Cardiac Index 2.4 - Exam GENERAL: The patient is alert and oriented x3, nasal cannula in place central li ne in place HEENT: Pupils are round and equally reacting to light. CARDIOVASCULAR: S1 and S2 present. No murmurs, rubs, or gallops. Chest brace in place PULMONARY: Chest is clear to auscultation, no wheezing or crackles. Chest tube in place, Mejia catheter in place ABDOMEN: Soft, nontender, nondistended, normoactive bowel sounds. No palpable organomegaly. EXTREMITIES: Trace lower extremity edema NEUROLOGICAL: Gross neurological examination did not reveal any focal deficits. SKIN: No rashes. - Labs CBC & Chem 7: 10/31/23 12:02 10/31/23 05:47 Labs: Abnormal Lab Results - Last 24 Hours (Table) 10/30/23 10/30/23 10/30/23 Range/Units 07:35 11:24 16:25 WBC (3.8-10.6) k/uL RBC (3.80-5.40) m/uL Hgb (11.4-16.0) gm/dL Hct (34.0-46.0) % RDW (11.5-15.5) % Plt Count (150-450) k/uL Neutrophils # (1.3-7.7) k/uL Sodium (137-145) mmol/L Carbon Dioxide (22-30) mmol/L Glucose (74-99) mg/dL POC Glucose (mg/dL) 122 H 115 H (70-110) mg/dL Calcium (8.4-10.2) mg/dL AST (14-36) U/L Total Protein (6.3-8.2) g/dL Albumin (3.5-5.0) g/dL Crossmatch See Detail 10/30/23 10/31/23 10/31/23 Range/Units 21:28 05:47 06:06 WBC 15.0 H (3.8-10.6) k/uL RBC 2.83 L (3.80-5.40) m/uL Hgb 8.0 L (11.4-16.0) gm/dL Hct 23.7 L (34.0-46.0) % RDW 16.6 H (11.5-15.5) % Plt Count 144 L (150-450) k/uL Neutrophils # (1.3-7.7) k/uL Sodium 133 L (137-145) mmol/L Carbon Dioxide 20 L (22-30) mmol/L Glucose 101 H (74-99) mg/dL POC Glucose (mg/dL) 118 H (70-110) mg/dL Calcium 7.8 L (8.4-10.2) mg/dL AST 140 H (14-36) U/L Total Protein 5.7 L (6.3-8.2) g/dL Albumin 3.4 L (3.5-5.0) g/dL Crossmatch 10/31/23 Range/Units 07:40 WBC 12.0 H (3.8-10.6) k/uL RBC 2.72 L (3.80-5.40) m/uL Hgb 7.6 L (11.4-16.0) gm/dL Hct 23.8 L (34.0-46.0) % RDW 17.0 H (11.5-15.5) % Plt Count (150-450) k/uL Neutrophils # 8.9 H (1.3-7.7) k/uL Sodium (137-145) mmol/L Carbon Dioxide (22-30) mmol/L Glucose (74-99) mg/dL POC Glucose (mg/dL) (70-110) mg/dL Calcium (8.4-10.2) mg/dL AST (14-36) U/L Total Protein (6.3-8.2) g/dL Albumin (3.5-5.0) g/dL Crossmatch Microbiology - Last 24 Hours (Table) 10/28/23 14:26 Gram Stain - Preliminary Sputum Sputum Culture - Preliminary Assessment and Plan Assessment: * Coronary artery disease s/p four-vessel CABG postoperative * Postoperative anemia * Valvular heart disease with aortic regurgitation s/p aortic valve replacement * History of thyroidectomy secondary to thyroid cancer * MRSA colonization * Hypertension * Hyperlipidemia * History of pituitary adenoma * BMI of 39.1 * In regards to postoperative management, patient under medical ICU/cardiac surgery, patient successfully extubated,. Patient was given 4 units of packed RBC for anemia and albumin as well. Weaned off pressor support as tolerated * In regards to postoperative blood glucose management patient was on IV insulin drip which will be weaned off based on blood glucose levels, transition to subcu insulin with correctional insulin. Patient is not a diabetic * Regards to history of asthma continue patient on bronchodilators * In regards to coronary artery disease continue patient on aspirin, Plavix, Lipitor * Medicine team will continue to follow along
[2023-10-31 16:27] LABS: Glucose,Whole Blood 101 mg/dL (70-110)
[2023-10-31] MEDS: POTASSIUM BICARBONATE/CIT AC 20 MEQ TABLET.EFF PO ONE (17:17)
--- NOTE | 2023-10-31 20:01 | P.PN ---
Subjective Progress Note Date: 10/31/23 SUBJECTIVE: 63-year-old s/p surgical aortic valve replacement with quadruple bypass. She is coming along well. Denies having any active chest pain chest pressure. She is hemodynamically stable. She has not had any atrial fibrillation's on telemetry monitoring. She appears euvolemic denies any swelling in bilateral lower extremity. Breathing is still shallow and is requiring intermittent BiPAP support. Recommended her to use incentive spirometer. She has a moderate left-sided pleural effusion which appears similar when compared chest x-ray from yesterday and today. BP 108/69, heart rate 85, Hemoglobin 7.7, creatinine 0.9 PHYSICAL EXAMINATION Regular rate rhythm, mild systolic murmur audible in aortic area Surgical wound VAC in place on sternal surgical incision No significant swelling in bilateral lower extremity Abdomen is soft and nontender Alert oriented, answering questions appropriately. No Weakness in bilateral upper and lower extremity ASSESSMENT coronary artery bypass grafting x 4, left internal thoracic artery (in-situ) sequential to diagonal artery and left anterior descending coronary artery, radial artery from aorta to obtuse marginal artery, saphenous vein from aorta to posterior descending coronary artery, Moderate aortic regurgitation, status post aortic valve replacement with #23mm Inspiris Bioprosthetic, left atrial appendage ligation using #35mm AtriClip Moderate left-sided pleural effusion PLAN Aspirin, Plavix, atorvastatin, IV Lasix amiodarone as per protocol, Agree with current plan. Would recommend monitoring left-sided pleural effusion. Would appreciate surgical team input and see if they would feel patient would need further diuretic therapy or readjustment of the chest tube. Shilo Kaur MD, FACC, RPVI Thank you for allowing [facility] to participate in this patient's care. Please contact us in case of any followup questions. Objective - Vital Signs Vital signs: Vital Signs Temp 98.4 F 10/31/23 16:00 Pulse 85 10/31/23 19:00 Resp 11 L 10/31/23 19:00 BP 108/69 10/31/23 19:00 Pulse Ox 96 10/31/23 19:00 FiO2 50 10/30/23 05:00 Intake & Output 10/31/23 10/31/23 11/01/23 06:59 18:59 06:59 Intake Total 383 560 Output Total 1050 2550 0 Balance - 0 Weight 107.4 kg Intake: IV 243 340 Lactated Ringers 1,000 ml 240 240 @ 20 mls/hr IV .Q24H SHAR Rx#:[id number] Potassium Chloride 10 meq 100 In Water For Injection 1 100ml.bag @ 100 mls/hr IVPB Q1H SHAR Rx#: [id number] Pressure bag 3 Oral 140 220 Output: Chest Tube Drainage 200 0 Chest Tube Bilateral 80 0 Chest Tube Mediastinal 120 0 Urine 850 2550 0 Other: Voiding Method Bedside Commode Bedside Commode ABP, PAP, CO, CI - Last Documented Arterial Blood Pressure 77/73 Pulmonary Artery Pressure 41/15 Cardiac Output 4.9 Cardiac Index 2.4 - Labs CBC & Chem 7: 10/31/23 12:02 10/31/23 05:47 Labs: Abnormal Lab Results - Last 24 Hours (Table) 10/30/23 10/31/23 10/31/23 Range/Units 21:28 05:47 06:06 WBC 15.0 H (3.8-10.6) k/uL RBC 2.83 L (3.80-5.40) m/uL Hgb 8.0 L (11.4-16.0) gm/dL Hct 23.7 L (34.0-46.0) % RDW 16.6 H (11.5-15.5) % Plt Count 144 L (150-450) k/uL Neutrophils # (1.3-7.7) k/uL Sodium 133 L (137-145) mmol/L Carbon Dioxide 20 L (22-30) mmol/L Glucose 101 H (74-99) mg/dL POC Glucose (mg/dL) 118 H (70-110) mg/dL Calcium 7.8 L (8.4-10.2) mg/dL AST 140 H (14-36) U/L Total Protein 5.7 L (6.3-8.2) g/dL Albumin 3.4 L (3.5-5.0) g/dL 10/31/23 10/31/23 10/31/23 Range/Units 07:40 11:08 12:02 WBC 12.0 H 11.3 H (3.8-10.6) k/uL RBC 2.72 L 2.71 L (3.80-5.40) m/uL Hgb 7.6 L 7.7 L (11.4-16.0) gm/dL Hct 23.8 L 24.0 L (34.0-46.0) % RDW 17.0 H 17.1 H (11.5-15.5) % Plt Count (150-450) k/uL Neutrophils # 8.9 H (1.3-7.7) k/uL Sodium (137-145) mmol/L Carbon Dioxide (22-30) mmol/L Glucose (74-99) mg/dL POC Glucose (mg/dL) 120 H (70-110) mg/dL Calcium (8.4-10.2) mg/dL AST (14-36) U/L Total Protein (6.3-8.2) g/dL Albumin (3.5-5.0) g/dL Microbiology - Last 24 Hours (Table) 10/28/23 14:26 Gram Stain - Final Sputum Sputum Culture - Final
[2023-10-31 20:18] LABS: Glucose,Whole Blood 108 mg/dL (70-110)
[2023-11-01 04:18] LABS: Anisocytosis Slight; HCT 22.2 % (34.0-46.0); Hypochromasia Slight; MCH 27.6 pg (25.0-35.0); MCHC 31.7 g/dL (31.0-37.0); MCV 86.9 fL (80.0-100.0); Mean Platelet Volume 8.8; Platelet Count 212 k/uL (150-450); Poikilocytosis Slight; RBC 2.55 m/uL (3.80-5.40); RDW 17.4 % (11.5-15.5); WBC 9.9 k/uL (3.8-10.6)
[2023-11-01 04:30] LABS: ALT 23 U/L (4-34); AST 90 U/L (14-36); African American GFR (CKD) 84 (>60 ml/min/1.73 sqM); Alkaline Phosphatase 75 U/L (38-126); Anion Gap 5 mmol/L; Blood Urea Nitrogen 12 mg/dL (7-17); Calcium 7.6 mg/dL (8.4-10.2); Carbon Dioxide 25 mmol/L (22-30); Chloride 106 mmol/L (98-107); Glucose 96 mg/dL (74-99); Magnesium 2.2 mg/dL (1.6-2.3); Non-African American GFR(CKD) 73 (>60 ml/min/1.73 sqM); Potassium 3.4 mmol/L (3.5-5.1); Sodium 136 mmol/L (137-145); Total Bilirubin 0.8 mg/dL (0.2-1.3); Total Protein 5.2 g/dL (6.3-8.2)
[2023-11-01 06:11] LABS: Glucose,Whole Blood 105 mg/dL (70-110)
[2023-11-01] MEDS: POTASSIUM CHLORIDE 10 MEQ in WATER FOR INJECTION 1 100ML.BAG IVPB SCH (06:27)
--- NOTE | 2023-11-01 08:00 | P.PN ---
Subjective Progress Note Date: 11/01/23 Principal diagnosis: Triple-vessel coronary artery disease with stable angina, moderate aortic regurgitation. History of hypertension, hyperlipidemia, obesity, mild asthma, thyroid cancer s/p thyroidectomy and radiation, throat cancer status post full teeth extraction and partial jaw removal, benign pituitary tumor, lifelong non- smoker, and family history of premature coronary artery disease with father who early from myocardial infarction. Preoperative nasal swab positive for MRSA, treated POD #4 coronary artery bypass grafting x 4, left internal thoracic artery (in- situ) sequential to diagonal artery and left anterior descending coronary artery, radial artery from aorta to obtuse marginal artery, saphenous vein from aorta to posterior descending coronary artery, aortic valve replacement with #23mm Inspiris Bioprosthetic, left atrial appendage ligation using #35mm AtriClip, endoscopic left radial and left greater saphenous vein harvest, graft flow measurements using the [employer] flow meter system, sternal closure using the Franc[employer] Sterna-lock plating system and pioneer cables, trans-esophageal echo Postoperative acute blood loss anemia and thrombocytopenia, expected given hemodilution and cardiopulmonary bypass pump Hypotension requiring minimal vasopressors, expected given blood loss The patient was seen and examined this morning sitting up in recliner in the intensive care unit. Currently in sinus rhythm and hemodynamically stable on no inotropes or pressors, has not been given any beta steve at Dr. Hernandez's request due to first degree AVB. Does complain of postoperative pain especially with taking deep breaths and coughing, denies shortness of breath. Voice is very hoarse. Patient has ambulated in [place] this morning already. All l [place]/tubes discontinued yesterday except pacer wires. Chest x-ray, labs reviewed. No other new concerns at this time. Objective - Vital Signs Vital signs: Vital Signs Temp 98.5 F 11/01/23 04:00 Pulse 94 11/01/23 07:00 Resp 13 11/01/23 07:00 BP 163/92 11/01/23 07:00 Pulse Ox 97 11/01/23 07:00 FiO2 50 10/30/23 05:00 Intake & Output 10/31/23 11/01/23 11/01/23 18:59 06:59 18:59 Intake Total 560 Output Total 2550 0 Balance -1989 0 Weight 104.1 kg Intake: IV 340 Lactated Ringers 1,000 ml 240 @ 20 mls/hr IV .Q24H SHAR Rx#:[id number] Potassium Chloride 10 meq 100 In Water For Injection 1 100ml.bag @ 100 mls/hr IVPB Q1H SHAR Rx#: [id number] Oral 220 Output: Chest Tube Drainage 0 Chest Tube Bilateral 0 Chest Tube Mediastinal 0 Urine 2550 0 Other: Voiding Method Bedside Commode Bedside Commode # Voids 0 0 ABP, PAP, CO, CI - Last Documented Arterial Blood Pressure 77/73 Pulmonary Artery Pressure 41/15 Cardiac Output 4.9 Cardiac Index 2.4 - Exam CONSTITUTIONAL: Appears comfortable, cooperative, no acute distress RESPIRATORY: Lungs sounds diminished bilaterally. Respirations even, nonlabored. Currently on room air with oxygen saturation 96%. Strong cough. Able to achieve 750-1000 mL on incentive spirometer CARDIOVASCULAR: S1, S2 present. Regular rate and rhythm, sinus rhythm first d egree AVB on telemetry. Sternum stable. Palpable peripheral pulses bilaterally. Generalized edema present. No calf pain or tenderness noted. Heart hugger in place with patient demonstrating appropriate use. Antiembolism stockings, SCDs present. GASTROINTESTINAL: Abdomen soft, nontender, nondistended. Active bowel sounds present 4 quadrants. Tolerating diet. Positive flatus GENITOURINARY: Continues to void clear, yellow urine. Output 2250 mL in the last 24 hours INTEGUMENTARY: Skin is warm and dry with evidence of good perfusion. Anterior chest incision well approximated, prevena removed. Left radial artery harvest site as well as left lower extremity EVH site well approximated without redness NEUROLOGIC: Cranial nerves II through XII intact MUSKULOSKELETAL: Able to move all extremities, strength equal bilaterally PSYCHIATRIC: Alert and oriented to person place and time INVASIVE LINES AND TUBES: A/V epicardial pacemaker wires present, grounded - Allied health notes Allied health notes reviewed: nursing - Labs CBC & Chem 7: 11/01/23 04:03 11/01/23 03:56 Labs: Abnormal Lab Results - Last 24 Hours (Table) 10/31/23 10/31/23 10/31/23 Range/Units 07:40 11:08 12:02 WBC 12.0 H 11.3 H (3.8-10.6) k/uL RBC 2.72 L 2.71 L (3.80-5.40) m/uL Hgb 7.6 L 7.7 L (11.4-16.0) gm/dL Hct 23.8 L 24.0 L (34.0-46.0) % RDW 17.0 H 17.1 H (11.5-15.5) % Neutrophils # 8.9 H (1.3-7.7) k/uL Sodium (137-145) mmol/L Potassium (3.5-5.1) mmol/L POC Glucose (mg/dL) 120 H (70-110) mg/dL Calcium (8.4-10.2) mg/dL AST (14-36) U/L Total Protein (6.3-8.2) g/dL Albumin (3.5-5.0) g/dL 11/01/23 11/01/23 Range/Units 03:56 04:03 WBC (3.8-10.6) k/uL RBC 2.55 L (3.80-5.40) m/uL Hgb 7.0 L (11.4-16.0) gm/dL Hct 22.2 L (34.0-46.0) % RDW 17.4 H (11.5-15.5) % Neutrophils # (1.3-7.7) k/uL Sodium 136 L (137-145) mmol/L Potassium 3.4 L (3.5-5.1) mmol/L POC Glucose (mg/dL) (70-110) mg/dL Calcium 7.6 L (8.4-10.2) mg/dL AST 90 H (14-36) U/L Total Protein 5.2 L (6.3-8.2) g/dL Albumin 3.0 L (3.5-5.0) g/dL Microbiology - Last 24 Hours (Table) 10/28/23 14:26 Gram Stain - Final Sputum Sputum Culture - Final - Imaging and Cardiology Chest x-ray: image reviewed Assessment and Plan Assessment: Triple-vessel coronary artery disease with stable angina, status post four- vessel CABG Moderate aortic regurgitation, status post aortic valve replacement History of hypertension, currently hypotensive requiring minimal vasopressors Hyperlipidemia, untreated, cholesterol 298, LDL 221, triglycerides 167 Obesity Mild asthma, preoperative FEV1 73% of predicted Thyroid cancer s/p thyroidectomy and radiation Throat cancer status post full teeth extraction and partial jaw removal Benign pituitary tumor Lifelong non-smoker Family history of premature coronary artery disease with father who early from myocardial infarction Preoperative nasal swab positive for MRSA, treated Postoperative acute blood loss anemia and thrombocytopenia, expected Plan: Continue to maximize medical therapy with aspirin, statin, plavix. Will restart patient's home dose coreg Encourage incentive spirometry use 10 times every hour while awake. Bronchodilators per pulmonology Will monitor daily labs and x-rays. Electrolyte replacement per protocol. Will give IV lasix BID Increase activity, ambulate as tolerated. PT/OT/cardiac rehab consulted GI/DVT prophylaxis Insulin management per internal medicine, patient is not diabetic, preoperative hemoglobin A1c 5.6% Pain control per current medication regimen Continue to record strict accurate intake and output Daily weights Ground epicardial wires First post op shower today then daily Will place transfer orders for [address] [place] [address] cardiac stepdown unit, may transfer when bed available More recommendations to follow based on patient's progress
--- NOTE | 2023-11-01 09:00 | XR ---
EXAMINATION TYPE: XR chest 2V DATE OF EXAM: 11/01/2023 COMPARISON: 10/31/2023 INDICATION: Post cardiac surgery TECHNIQUE: Frontal and lateral views of the chest are obtained. FINDINGS: The heart size is enlarged. The pulmonary vasculature is normal. Mild left lower lobe infiltrate may be present. . IMPRESSION: 1. Left lower lobe infiltrate. 2. Cardiomegaly
[2023-11-01] MEDS: carvediloL 6.25 MG TAB PO SCH (09:16)
[2023-11-01] MEDS: FUROSEMIDE 10 MG/ML 2 ML VIAL IV SCH (09:55)
[2023-11-01] MEDS: LANSOPRAZOLE 30 MG PO SCH (09:55)
[2023-11-01] MEDS: FAMOTIDINE 20 MG TAB PO SCH (11:07)
[2023-11-01] MEDS ORDERED: Potassium Replacement Protocol 1 EACH MISC MISCELLANE PRN (11:08)
[2023-11-01 11:35] LABS: Glucose,Whole Blood 121 mg/dL (70-110)
[2023-11-01] MEDS: POTASSIUM CHLORIDE ER 20 MEQ TAB.ER PO SCH (12:00)
--- NOTE | 2023-11-01 12:39 | P.PN ---
Subjective Progress Note Date: 11/01/23 Principal diagnosis: POD #4 coronary artery bypass grafting x 4, left internal thoracic artery (in- situ) sequential to diagonal artery and left anterior descending coronary artery , radial artery from aorta to obtuse marginal artery, saphenous vein from aorta to posterior descending coronary artery, aortic valve replacement with #23mm Inspiris Bioprosthetic Patient is a 63-year-old white female with past medical history significant for mild intermittent asthma, coronary artery disease, moderate aortic valve stenosis, among other things. Patient has followed in the pulmonary office with Dr. Kemp for evaluation of her mild intermittent asthma. A recent PFT done in the office, consistent with mild obstructive disease. FEV1 81% of predicted with FEV1/FVC ratio of 69%. 13% increase post-bronchodilator. She had been having worsening exertional dyspnea, and had a full cardiac workup. Heart cath done 10/06/2023 consistent with severe triple-vessel coronary artery disease. She was also noted to have moderate to severe aortic regurgitation. Yesterday, the patient underwent a four-vessel coronary bypass including a GOLDBERG sequentially to the diagonal and LAD, left radial artery from the aorta to the obtuse marginal artery, and saphenous vein graft from aorta to posterior descending artery. Patient also had an aortic valve replacement with a bioprosthetic, and left atrial appendage ligation. No intraoperative complications reported. Patient was transferred to the intensive care unit postoperatively. Her weaning parameters were adequate and her ABG done on pressure support included a PaO2 of 80, pCO2 of 39, and a pH of 7.35. Hence, the patient was extubated at 2030 last night. Patient is currently lying in bed, on a 40% Ventimask, in no acute distress. SpO2 is 99%. She is awake and alert and answers all my questions. She is reporting a mild to moderate amount of incisional chest pain, especially with coughing and deep breathing. Bear hugger is on. Incentive spirometer is at bedside. Postoperative chest x-ray shows mild vascular congestion and postoperative basilar atelectasis. Possible trace left pleural effusion. No pneumothorax. There is a prominent mediastinum. There is a mediastinal chest tube that has a total of 290 cc of sanguinous drainage, and patient has bilateral pleural chest tubes that are Yd together which have had a total of 460 mL of sanguinous output. No airleak. Postoperative CBC: WBC count 9.1, hemoglobin 6.8, hematocrit 21.1, platelets 127. She has received a total of 4 units of PRBCs. Acute blood loss anemia, is an expected outcome of surgery. She was initially hypotensive postoperatively, and was temporarily on vasopressors including vasopressin, these have since been discontinued. Blood pressure is improved after PRBC transfusions. Patient is also received a total of 1 L of 5% albumin. There is a right IJ introducer sheath with Homer Ivis catheter. Current CO/CI eyes are hyperdynamic, 9 and 4.4 respectively. Blood pressure is normotensive, PA pressures 29/15, CVP 13. Heart rhythm appears normal sinus on bedside monitor, in the 90s. Epicardial pacemaker is currently set at backup rate of 80 bpm. Nitro is infusing at 5 mcg/min for vasospasm prophylaxis. Insulin infusing at 2.5 units/h. Lactated Ringer's is infusing at 50 MLS per hour. Patient does have urinary catheter, and urine output has been adequate in the order of 100-150 MLS per hour. Postoperative CMP includes a sodium of 141, potassium 3.7, chloride 112, serum bicarb 20, BUN 19, creatinine 0.96, glucose 135. LFTs not elevated. She will continue to be monitored closely in the intensive care unit. Patient was reevaluated today on 10/30/2023, patient is now postoperative day #2, sitting in a bedside chair, feels cold, feels weak, patient is anemic and she will be receiving a unit of packed RBCs today. Last night patient dropped her O2 saturation, and she was placed on BiPAP for few hours, presently on nasal cannula, does not seem to be in any distress. Hemoglobin this morning is 6.8, and she is to receive a unit of packed RBCs. Chest x-ray showed mostly bibasilar atelectasis. Patient is not requiring any inotropes or any pressors at this point. Patient received Lasix last night, and she was briefly on BiPAP, she did not like BiPAP patch,WBC count today is 12.9 hemoglobin is 6.8 basic metabolic profile is normal bicarb is 19 BUN is 21 creatinine is up to 1.2 today. Again chest x-ray was reviewed showed postoperative changes and bibasilar atelectasis with small pleural effusions Patient was reevaluated today on 10/31/23, she is now postoperative day #3 patient is hemodynamically stable, not requiring any inotropes or any pressors, patient feels generally weak, she did receive a unit of packed RBCs yesterday for low hemoglobin, continues to have mediastinal right and left pleural chest tubes in place, chest x-ray today showed atelectasis at the bases specially at the left base, and possibly a small left pleural effusion Reevaluated today on 11/01/2023, patient remains in the ICU, she is sitting in a bedside chair, hemodynamically stable, not requiring any inotropes no pressors, patient has mostly complains of postoperative pain, voice remains hoarse, patient is ambulating well, chest x-ray showed minimal atelectasis, expected, and there is cardiomegaly. No evidence of congestive heart failure. WBC count is 9.9 hemoglobin is 7 basic metabolic profile is normal potassium is a bit low at 3.4. Otherwise the labs are unremarkable Objective - Vital Signs Vital signs: Vital Signs Temp 98.2 F 11/01/23 12:00 Pulse 85 11/01/23 12:00 Resp 18 11/01/23 12:00 BP 109/68 11/01/23 12:00 Pulse Ox 93 L 11/01/23 12:00 FiO2 50 10/30/23 05:00 Intake & Output 10/31/23 11/01/23 11/01/23 18:59 06:59 18:59 Intake Total 560 360 Output Total 2550 0 450 Balance -1989 0 -90 Weight 104.1 kg Intake: IV 340 Lactated Ringers 1,000 ml 240 @ 20 mls/hr IV .Q24H SHAR Rx#:[id number] Potassium Chloride 10 meq 100 In Water For Injection 1 100ml.bag @ 100 mls/hr IVPB Q1H SHAR Rx#: [id number] Oral 220 360 Output: Chest Tube Drainage 0 Chest Tube Bilateral 0 Chest Tube Mediastinal 0 Urine 2550 0 450 Other: Voiding Method Bedside Commode Bedside Commode Bedside Commode # Voids 0 0 # Bowel Movements 1 ABP, PAP, CO, CI - Last Documented Arterial Blood Pressure 77/73 Pulmonary Artery Pressure 41/15 Cardiac Output 4.9 Cardiac Index 2.4 - Exam General: Reveals 63-year-old female in no distress. On room air RESPIRATORY: Symmetrical chest expansion diminished breath sounds at the left base for CARDIOVASCULAR: Distant S1-S2, no S3 gallop, 2/6 systolic murmur throughout the precordium Abdomen: Obese soft nontender no megaly no rebound no guarding Skin: No rashes NEUROLOGIC: Alert oriented x 3 no gross focal deficit MUSKULOSKELETAL: No deformities and no limitation range of motion PSYCHIATRIC: Normal mood affect and no mental status examination. - Labs CBC & Chem 7: 11/01/23 04:03 11/01/23 03:56 Labs: Abnormal Lab Results - Last 24 Hours (Table) 11/01/23 11/01/23 11/01/23 Range/Units 03:56 04:03 11:33 RBC 2.55 L (3.80-5.40) m/uL Hgb 7.0 L (11.4-16.0) gm/dL Hct 22.2 L (34.0-46.0) % RDW 17.4 H (11.5-15.5) % Sodium 136 L (137-145) mmol/L Potassium 3.4 L (3.5-5.1) mmol/L POC Glucose (mg/dL) 121 H (70-110) mg/dL Calcium 7.6 L (8.4-10.2) mg/dL AST 90 H (14-36) U/L Total Protein 5.2 L (6.3-8.2) g/dL Albumin 3.0 L (3.5-5.0) g/dL Microbiology - Last 24 Hours (Table) 10/28/23 14:26 Gram Stain - Final Sputum Sputum Culture - Final Assessment and Plan Assessment: Impression: Triple-vessel coronary artery disease, status post four-vessel CABG Moderate severe aortic regurgitation and status post aortic valve replacement History of mild bronchial asthma/mild intermittent History of benign pituitary tumor Lifelong non-smoker History of thyroid cancer requiring thyroidectomy and radiation Postoperative blood loss anemia, expected Family history of premature coronary artery disease. Recommendation: Continue present supportive care measures Continue incentive spirometry and bronchodilators Continue to maximize medical therapy Plavix statin aspirin and eventually beta- blockers presently on hold Increase activity as tolerated GI and DVT prophylaxis Pain control management Early ambulation Will continue to follow Time with Patient: Less than 30
--- NOTE | 2023-11-01 15:34 | P.PN ---
Subjective Progress Note Date: 11/01/23 * 63-year-old lady with past medical history significant for coronary artery disease, valvular heart disease with aortic regurgitation, history of asthma, history of thyroid cancer status post thyroidectomy, history of benign pituitary tumor, hypertension, hyperlipidemia admitted to the hospital for coronary artery bypass grafting x 4, left internal thoracic artery (in-situ) sequential to diagonal artery and left anterior descending coronary artery, radial artery from aorta to obtuse marginal artery, saphenous vein from aorta to posterior descending coronary artery, aortic valve replacement with #23mm Inspiris Bioprosthetic, left atrial appendage ligation using #35mm AtriClip, endoscopic left radial and left greater saphenous vein harvest, graft flow measurements using the [employer] flow meter system, sternal closure using the [employer] Sterna-lock plating system and pioneer cables, trans-esophageal echo * Postoperatively patient is admitted under surgical service with internal medicine consulted. Patient is evaluated on 10/29/2023. Postoperatively patient was noted to have anemia, thrombocytopenia. Postprocedure patient was intubated however extubated on 10/28/2023. Follow-up hemoglobin reviewed, patient remains on oxygen to nasal cannula. Central line in place, chest tubes remain in place to be managed by surgery team. Patient given a4.. Continue to follow-up on H&H unit of packed RBC follow-up hemoglobin improved 10/31/23, -- Patient is seen and evaluated in ICU at bedside; now postoperative day #3 patient is hemodynamically stable, not requiring any inotropes or any pressors, patient feels generally weak -- she did receive a unit of packed RBCs yesterday for low hemoglobin, continues to have mediastinal right and left pleural chest tubes in place, chest x-ray today showed atelectasis at the bases specially at the left base, and possibly a small left pleural effusion -Patient is status post four-vessel CABG; remains in ICU; recommended to con tinue with incentive spirometry and bronchodilators -- Plan to maximize medical therapy with Plavix, statin, beta-blockers and aspirin 11/01/2023 Patient is seen and evaluated in room at bedside; has been transferred to selective care unit; wants to go home Vital signs reviewed and stable with temperature of 98.2, pulse 85, respiration 18 and blood pressure 109/68 with O2 saturation 93% Lab review shows WBC of 9.9, hemoglobin of 7.0 and platelet count of 212, sodium 136, potassium 3.4, BUNs/creatinine of 12/0.84 and blood glucose of 96 Patient is status post CABG x 4; encouraged to continue with incentive spirometry and increase activity --Remains on aspirin, statins, Plavix and plan to resume beta-blockers once stable Objective - Vital Signs Vital signs: Vital Signs Temp 98.5 F 11/01/23 04:00 Pulse 98 11/01/23 08:23 Resp 13 11/01/23 07:00 BP 163/92 11/01/23 07:00 Pulse Ox 97 11/01/23 07:00 FiO2 50 10/30/23 05:00 Intake & Output 10/31/23 11/01/23 11/01/23 18:59 06:59 18:59 Intake Total 560 Output Total 2550 0 200 Balance -1989 0 -200 Weight 104.1 kg Intake: IV 340 Lactated Ringers 1,000 ml 240 @ 20 mls/hr IV .Q24H SHAR Rx#:[id number] Potassium Chloride 10 meq 100 In Water For Injection 1 100ml.bag @ 100 mls/hr IVPB Q1H SHAR Rx#: [id number] Oral 220 Output: Chest Tube Drainage 0 Chest Tube Bilateral 0 Chest Tube Mediastinal 0 Urine 2550 0 200 Other: Voiding Method Bedside Commode Bedside Commode # Voids 0 0 # Bowel Movements 1 ABP, PAP, CO, CI - Last Documented Arterial Blood Pressure 77/73 Pulmonary Artery Pressure 41/15 Cardiac Output 4.9 Cardiac Index 2.4 - Exam GENERAL: The patient is alert and oriented x3, nasal cannula in place central line in place HEENT: Pupils are round and equally reacting to light. CARDIOVASCULAR: S1 and S2 present. No murmurs, rubs, or gallops. Chest brace in place PULMONARY: Chest is clear to auscultation, no wheezing or crackles. Chest tube in place, Mejia catheter in place ABDOMEN: Soft, nontender, nondistended, normoactive bowel sounds. No palpable organomegaly. EXTREMITIES: Trace lower extremity edema NEUROLOGICAL: Gross neurological examination did not reveal any focal deficits. SKIN: No rashes. - Labs CBC & Chem 7: 11/01/23 04:03 11/01/23 03:56 Labs: Abnormal Lab Results - Last 24 Hours (Table) 10/31/23 10/31/2324 Range/Units 11:08 12:02 03:56 WBC 11.3 H (3.8-10.6) k/uL RBC 2.71 L (3.80-5.40) m/uL Hgb 7.7 L (11.4-16.0) gm/dL Hct 24.0 L (34.0-46.0) % RDW 17.1 H (11.5-15.5) % Sodium 136 L (137-145) mmol/L Potassium 3.4 L (3.5-5.1) mmol/L POC Glucose (mg/dL) 120 H (70-110) mg/dL Calcium 7.6 L (8.4-10.2) mg/dL AST 90 H (14-36) U/L Total Protein 5.2 L (6.3-8.2) g/dL Albumin 3.0 L (3.5-5.0) g/dL 11/01/23 Range/Units 04:03 WBC (3.8-10.6) k/uL RBC 2.55 L (3.80-5.40) m/uL Hgb 7.0 L (11.4-16.0) gm/dL Hct 22.2 L (34.0-46.0) % RDW 17.4 H (11.5-15.5) % Sodium (137-145) mmol/L Potassium (3.5-5.1) mmol/L POC Glucose (mg/dL) (70-110) mg/dL Calcium (8.4-10.2) mg/dL AST (14-36) U/L Total Protein (6.3-8.2) g/dL Albumin (3.5-5.0) g/dL Microbiology - Last 24 Hours (Table) 10/28/23 14:26 Gram Stain - Final Sputum Sputum Culture - Final Assessment and Plan Assessment: * Coronary artery disease s/p four-vessel CABG postoperative * Postoperative anemia * Valvular heart disease with aortic regurgitation s/p aortic valve replacement * History of thyroidectomy secondary to thyroid cancer * MRSA colonization * Hypertension * Hyperlipidemia * History of pituitary adenoma * BMI of 39.1 * In regards to postoperative management, patient under medical ICU/cardiac surgery, patient successfully extubated,. Patient was given 4 units of packed RBC for anemia and albumin as well. Weaned off pressor support as tolerated * In regards to postoperative blood glucose management patient was on IV insulin drip which will be weaned off based on blood glucose levels, transition to subcu insulin with correctional insulin. Patient is not a diabetic * Regards to history of asthma continue patient on bronchodilators * In regards to coronary artery disease continue patient on aspirin, Plavix, Lipitor * Medicine team will continue to follow along
[2023-11-01] MEDS: POTASSIUM BICARBONATE/CIT AC 20 MEQ TABLET.EFF PO SCH (15:37)
[2023-11-01 16:44] LABS: Glucose,Whole Blood 99 mg/dL (70-110)
[2023-11-01 20:10] LABS: Glucose,Whole Blood 87 mg/dL (70-110)
--- NOTE | 2023-11-01 20:24 | P.PN ---
Subjective Progress Note Date: 11/01/23 SUBJECTIVE: 63-year-old s/p surgical aortic valve replacement with quadruple bypass. She is coming along well. Denies having any active chest pain chest pressure. She is hemodynamically stable. She has not had any atrial fibrillation's on telemetry monitoring. She appears euvolemic denies any swelling in bilateral lower extremity. Breathing is still shallow and is requiring intermittent BiPAP support. Recommended her to use incentive spirometer. She has been transferred out of ICU this morning. She has a moderate left-sided pleural effusion which appears similar when compared chest x-ray from yesterday and today. Systolic blood pressure 100 210 mmHg, diastolic blood pressure 60 to 70 mmHg, heart rate around 80s to 90s beats per minute, Hemoglobin and creatinine has been stable. PHYSICAL EXAMINATION Regular rate rhythm, mild systolic murmur audible in aortic area Surgical wound VAC in place on sternal surgical incision No significant swelling in bilateral lower extremity Abdomen is soft and nontender Alert oriented, answering questions appropriately. No Weakness in bilateral up per and lower extremity ASSESSMENT coronary artery bypass grafting x 4, left internal thoracic artery (in-situ) sequential to diagonal artery and left anterior descending coronary artery, radial artery from aorta to obtuse marginal artery, saphenous vein from aorta to posterior descending coronary artery, Moderate aortic regurgitation, status post aortic valve replacement with #23mm Inspiris Bioprosthetic, left atrial appendage ligation using #35mm AtriClip Moderate left-sided pleural effusion PLAN Aspirin, Plavix, atorvastatin, IV Lasix amiodarone as per protocol, Agree with current plan. Would recommend monitoring left-sided pleural effusion. Would appreciate surgical team input and see if they would feel patient would need further diuretic therapy or readjustment of the chest tube. Shilo Kaur MD, FACC, RPVI Thank you for allowing [facility] to participate in this patient's care. Please contact us in case of any followup questions. Objective - Vital Signs Vital signs: Vital Signs Temp 97.9 F 11/01/23 16:00 Pulse 94 11/01/23 16:27 Resp 18 11/01/23 16:00 BP 125/71 11/01/23 16:00 Pulse Ox 95 11/01/23 16:00 FiO2 50 10/30/23 05:00 Intake & Output 11/01/23 11/01/23 11/02/23 06:59 18:59 06:59 Intake Total 1616 Output Total 0 1800 Balance 0 -184 Weight 104.1 kg Intake: Oral 1616 Output: Urine 0 1800 Other: Voiding Method Bedside Commode Toilet # Voids 0 0 # Bowel Movements 1 ABP, PAP, CO, CI - Last Documented Arterial Blood Pressure 77/73 Pulmonary Artery Pressure 41/15 Cardiac Output 4.9 Cardiac Index 2.4 - Labs CBC & Chem 7: 11/01/23 04:03 11/01/23 03:56 Labs: Abnormal Lab Results - Last 24 Hours (Table) 11/01/23 11/01/23 11/01/23 Range/Units 03:56 04:03 11:33 RBC 2.55 L (3.80-5.40) m/uL Hgb 7.0 L (11.4-16.0) gm/dL Hct 22.2 L (34.0-46.0) % RDW 17.4 H (11.5-15.5) % Sodium 136 L (137-145) mmol/L Potassium 3.4 L (3.5-5.1) mmol/L POC Glucose (mg/dL) 121 H (70-110) mg/dL Calcium 7.6 L (8.4-10.2) mg/dL AST 90 H (14-36) U/L Total Protein 5.2 L (6.3-8.2) g/dL Albumin 3.0 L (3.5-5.0) g/dL
[2023-11-02 06:27] LABS: Glucose,Whole Blood 121 mg/dL (70-110)
--- NOTE | 2023-11-02 07:53 | XR ---
EXAMINATION TYPE: XR chest 1V portable DATE OF EXAM: 11/02/2023 COMPARISON: 11/01/2003 INDICATION: Post cardiac surgery TECHNIQUE: Single frontal view of the chest is obtained. FINDINGS: The heart size is enlarged. The pulmonary vasculature is normal. Mild left lower lobe infiltrate appears to be present. IMPRESSION: 1. Mild left lower lobe infiltrate. Correlate for atelectasis or pneumonia
--- NOTE | 2023-11-02 08:19 | P.PN ---
Subjective Progress Note Date: 11/02/23 Principal diagnosis: Triple-vessel coronary artery disease with stable angina, moderate aortic regurgitation. History of hypertension, hyperlipidemia, obesity, mild asthma, thyroid cancer s/p thyroidectomy and radiation, throat cancer status post full teeth extraction and partial jaw removal, benign pituitary tumor, lifelong non- smoker, and family history of premature coronary artery disease with father who early from myocardial infarction. Preoperative nasal swab positive for MRSA, treated POD #5 coronary artery bypass grafting x 4, left internal thoracic artery (in- situ) sequential to diagonal artery and left anterior descending coronary artery, radial artery from aorta to obtuse marginal artery, saphenous vein from aorta to posterior descending coronary artery, aortic valve replacement with #23mm Inspiris Bioprosthetic, left atrial appendage ligation using #35mm AtriClip, endoscopic left radial and left greater saphenous vein harvest, graft flow measurements using the [employer]-stim flow meter system, sternal closure using the [employer] Sterna-lock plating system and pioneer cables, trans-esophageal echo Postoperative acute blood loss anemia and thrombocytopenia, expected given hemodilution and cardiopulmonary bypass pump Hypotension requiring minimal vasopressors, expected given blood loss The patient was seen and examined this morning laying in bed on the cardiac stepdown unit. Currently in sinus rhythm and hemodynamically stable. Does complain of postoperative pain especially with taking deep breaths and coughing, denies shortness of breath. Voice is very hoarse. Patient has ambulated in [place]. Chest x-ray, labs reviewed. Patient states she had a panic attack this morning along with the nausea she has every morning, refused to go down for CXR, refused am meds. States she just "wants to chill today". Discussed plan of care including need for medications, ambulation, shower today, anticipation of discharge to home tomorrow. Verbalized understanding. No other new concerns at this time. Objective - Vital Signs Vital signs: Vital Signs Temp 98.1 F 11/02/23 04:00 Pulse 84 11/02/23 04:00 Resp 18 11/02/23 04:00 BP 126/75 11/02/23 04:00 Pulse Ox 95 11/02/23 04:00 FiO2 50 10/30/23 05:00 Intake & Output 11/01/23 11/02/23 11/02/23 18:59 06:59 18:59 Intake Total 1616 240 Output Total 1800 300 200 Balance -184 -60 -200 Weight 103.3 kg Intake: Oral 1616 240 Output: Urine 1800 300 200 Other: Voiding Method Toilet Toilet # Voids 0 # Bowel Movements 1 1 ABP, PAP, CO, CI - Last Documented Arterial Blood Pressure 77/73 Pulmonary Artery Pressure 41/15 Cardiac Output 4.9 Cardiac Index 2.4 - Exam CONSTITUTIONAL: Appears comfortable, cooperative, no acute distress RESPIRATORY: Lungs sounds diminished bilaterally. Respirations even, nonlabored. Currently on room air with oxygen saturation 95%. Strong cough. Able to achieve 750-1000 mL on incentive spirometer CARDIOVASCULAR: S1, S2 present. Regular rate and rhythm, sinus rhythm first degree AVB on telemetry. Sternum stable. Palpable peripheral pulses bilatera lly. Generalized edema present. No calf pain or tenderness noted. Heart hugger in place with patient demonstrating appropriate use. Antiembolism stockings, SCDs present. GASTROINTESTINAL: Abdomen soft, nontender, nondistended. Active bowel sounds present 4 quadrants. Tolerating diet. Positive bowel movement 11/01 GENITOURINARY: Continues to void clear, yellow urine. Output 2100 mL in the last 24 hours INTEGUMENTARY: Skin is warm and dry with evidence of good perfusion. Anterior chest incision well approximated. Left radial artery harvest site as well as left lower extremity EVH site well approximated without redness NEUROLOGIC: Cranial nerves II through XII intact MUSKULOSKELETAL: Able to move all extremities, strength equal bilaterally PSYCHIATRIC: Alert and oriented to person place and time INVASIVE LINES AND TUBES: A/V epicardial pacemaker wires present, grounded - Allied health notes Allied health notes reviewed: nursing - Labs CBC & Chem 7: 11/01/23 04:03 11/01/23 03:56 Labs: Abnormal Lab Results - Last 24 Hours (Table) 11/01/23 11/02/23 Range/Units 11:33 06:11 POC Glucose (mg/dL) 121 H 121 H (70-110) mg/dL - Imaging and Cardiology Chest x-ray: report reviewed, image reviewed Assessment and Plan Assessment: Triple-vessel coronary artery disease with stable angina, status post four- vessel CABG Moderate aortic regurgitation, status post aortic valve replacement History of hypertension, currently hypotensive requiring minimal vasopressors Hyperlipidemia, untreated, cholesterol 298, LDL 221, triglycerides 167 Obesity Mild asthma, preoperative FEV1 73% of predicted Thyroid cancer s/p thyroidectomy and radiation Throat cancer status post full teeth extraction and partial jaw removal Benign pituitary tumor Lifelong non-smoker Family history of premature coronary artery disease with father who early from myocardial infarction Preoperative nasal swab positive for MRSA, treated Postoperative acute blood loss anemia and thrombocytopenia, expected Plan: Continue to maximize medical therapy with aspirin, statin, plavix, coreg Encourage incentive spirometry use 10 times every hour while awake. Bronchodilators per pulmonology Will monitor daily labs and x-rays. Electrolyte replacement per protocol. Continue IV lasix BID Increase activity, ambulate as tolerated. PT/OT/cardiac rehab consulted GI/DVT prophylaxis Insulin management per internal medicine, patient is not diabetic, preoperative hemoglobin A1c 5.6% Pain control per current medication regimen Continue to record strict accurate intake and output Daily weights Shower daily Discharge planning in progress, anticipate discharge to home with home care in the next 24-48 hours More recommendations to follow based on patient's progress
[2023-11-02] MEDS ORDERED: SENNOSIDES-DOCUSATE SODIUM 1 EACH TAB PO PRN (08:21)
[2023-11-02] MEDS ORDERED: traMADol 50 MG TAB PO PRN (08:21)
--- NOTE | 2023-11-02 09:50 | P.PN ---
Subjective 63-year-old lady with past medical history significant for coronary artery disease, valvular heart disease with aortic regurgitation, history of asthma, history of thyroid cancer status post thyroidectomy, history of benign pituitary tumor, hypertension, hyperlipidemia admitted to the hospital for coronary artery bypass grafting x 4, left internal thoracic artery (in-situ) sequential to diagonal artery and left anterior descending coronary artery, radial artery from aorta to obtuse marginal artery, saphenous vein from aorta to posterior desce nding coronary artery, aortic valve replacement with #23mm Inspiris Bioprosthetic, left atrial appendage ligation using #35mm AtriClip, endoscopic left radial and left greater saphenous vein harvest, graft flow measurements using the [employer]-stim flow meter system, sternal closure using the [employer] Sterna- lock plating system and pioneer cables, trans-esophageal echo * Postoperatively patient is admitted under surgical service with internal medicine consulted. Patient is evaluated on 10/29/2023. Postoperatively patient was noted to have anemia, thrombocytopenia. Postprocedure patient was intubated however extubated on 10/28/2023. Follow-up hemoglobin reviewed, patient remains on oxygen to nasal cannula. Central line in place, chest tubes remain in place to be managed by surgery team. Patient given a4.. Continue to follow-up on H&H unit of packed RBC follow-up hemoglobin improved 10/31/23, -- Patient is seen and evaluated in ICU at bedside; now postoperative day #3 patient is hemodynamically stable, not requiring any inotropes or any pressors, patient feels generally weak -- she did receive a unit of packed RBCs yesterday for low hemoglobin, continues to have mediastinal right and left pleural chest tubes in place, chest x-ray today showed atelectasis at the bases specially at the left base, and possibly a small left pleural effusion -Patient is status post four-vessel CABG; remains in ICU; recommended to continue with incentive spirometry and bronchodilators -- Plan to maximize medical therapy with Plavix, statin, beta-blockers and aspirin 11/01/2023 Patient is seen and evaluated in room at bedside; has been transferred to selective care unit; wants to go home Vital signs reviewed and stable with temperature of 98.2, pulse 85, respiration 18 and blood pressure 109/68 with O2 saturation 93% Lab review shows WBC of 9.9, hemoglobin of 7.0 and platelet count of 212, sodium 136, potassium 3.4, BUNs/creatinine of 12/0.84 and blood glucose of 96 Patient is status post CABG x 4; encouraged to continue with incentive per metry and increase activity --Remains on aspirin, statins, Plavix and plan to resume beta-blockers once stable 11/02/2023 Patient awake alert She feels anxious and complaining from chest pain about 6/10. Not significant dyspnea, she is staying in bed most of the time She was complaining from constipation but states she had 2 bowel movement this morning and once yesterday. She is able to walk with no difficulty She has low appetite because of her nausea, she says she cannot take Zofran and Reglan because her side effects, she says she was taking Phenergan, at home. No urinary symptoms Objective - Vital Signs Vital signs: Vital Signs Temp 98.1 F 11/02/23 04:00 Pulse 96 11/02/23 09:09 Resp 18 11/02/23 04:00 BP 126/75 11/02/23 04:00 Pulse Ox 97 11/02/23 08:55 FiO2 50 10/30/23 05:00 Intake & Output 11/01/23 11/02/23 11/02/23 18:59 06:59 18:59 Intake Total 1616 240 Output Total 1800 300 200 Balance -184 -60 -200 Weight 103.3 kg Intake: Oral 1616 240 Output: Urine 1800 300 200 Other: Voiding Method Toilet Toilet # Voids 0 # Bowel Movements 1 1 ABP, PAP, CO, CI - Last Documented Arterial Blood Pressure 77/73 Pulmonary Artery Pressure 41/15 Cardiac Output 4.9 Cardiac Index 2.4 - Exam GENERAL: The patient is alert and oriented x3, not in any acute distress. Well developed, well nourished. HEENT: Pupils are round and equally reacting to light. EOMI. No scleral icterus. No conjunctival pallor. Normocephalic, atraumatic. No pharyngeal erythema. No thyromegaly. CARDIOVASCULAR: S1 and S2 present. No murmurs, rubs, or gallops. PULMONARY: Chest is clear to auscultation, no wheezing , no crackles. ABDOMEN: Soft, nontender, nondistended, normoactive bowel sounds. No palpable organomegaly. MUSCULOSKELETAL: No joint swelling or deformity. EXTREMITIES: No cyanosis, clubbing, or pedal edema. NEUROLOGICAL: Gross neurological examination did not reveal any focal deficits. SKIN: No rashes. no petechiae. - Labs CBC & Chem 7: 11/01/23 04:03 11/01/23 03:56 Labs: Abnormal Lab Results - Last 24 Hours (Table) 11/01/23 11/02/23 Range/Units 11:33 06:11 POC Glucose (mg/dL) 121 H 121 H (70-110) mg/dL Assessment and Plan Assessment: * Coronary artery disease s/p four-vessel CABG postoperative * Postoperative anemia * Valvular heart disease with aortic regurgitation s/p aortic valve replacement * History of thyroidectomy secondary to thyroid cancer * MRSA colonization * Hypertension * Hyperlipidemia * History of pituita Plan: Continue with amiodarone drip Also she is on IV Lasix 20 mg twice daily Continue with dual antiplatelet therapy with aspirin and Plavix Several consultants on the case including cardiology and pulmonary Phenergan as needed Labs and medication were reviewed.. Continue same treatment. Continue with symptomatic treatment. Resume home medication. Monitor labs and vitals. DVT and GI prophylaxis. Further recommendations as per clinical course of the patient DVT prophylaxis: Subcutaneous heparin GI Prophylaxis: Pepcid
[2023-11-02 10:27] LABS: Anisocytosis Slight; HCT 24.4 % (34.0-46.0); HGB 7.5 gm/dL (11.4-16.0); Hypochromasia Slight; MCH 27.1 pg (25.0-35.0); MCHC 30.9 g/dL (31.0-37.0); MCV 87.7 fL (80.0-100.0); Mean Platelet Volume 8.6; Platelet Count 295 k/uL (150-450); Poikilocytosis Slight; RBC 2.78 m/uL (3.80-5.40); RDW 17.4 % (11.5-15.5); WBC 10.6 k/uL (3.8-10.6)
[2023-11-02 10:35] LABS: African American GFR (CKD) 74 (>60 ml/min/1.73 sqM); Anion Gap 7 mmol/L; Blood Urea Nitrogen 15 mg/dL (7-17); Calcium 8.4 mg/dL (8.4-10.2); Carbon Dioxide 27 mmol/L (22-30); Chloride 105 mmol/L (98-107); Glucose 105 mg/dL (74-99); Non-African American GFR(CKD) 64 (>60 ml/min/1.73 sqM); Potassium 3.3 mmol/L (3.5-5.1); Sodium 139 mmol/L (137-145)
[2023-11-02 11:27] LABS: Glucose,Whole Blood 81 mg/dL (70-110)
[2023-11-02] MEDS: ALPRAZolam 0.5 MG TAB PO STA (11:59)
[2023-11-02] MEDS: POTASSIUM BICARBONATE/CIT AC 20 MEQ TABLET.EFF PO ONE (12:00)
--- NOTE | 2023-11-02 12:48 | P.PN ---
Subjective HISTORY OF PRESENT ILLNESS: Patient is status post CABG x 4 vessels and bioprosthetic aortic valve replacement. Postop day #5. Patient examined this morning at the bedside. Patient is extremely anxious at the time of examination and is requesting medication to help with her anxiety. Apparently the patient refused to take all of her morning cardiac medications and refused her chest x-ray this morning. Patient denies any chest pain or pressure. She denies any shortness of breath. PHYSICAL EXAM: VITAL SIGNS: Reviewed. GENERAL: Well-developed in no acute distress. NECK: Supple. No JVD or thyromegaly LUNGS: Respirations even and unlabored. Lungs essentially clear to auscultation bilaterally. HEART: Regular rate and rhythm. S1 and S2 heard. EXTREMITIES: Normal range of motion. No clubbing or cyanosis. Peripheral pulses intact. No lower extremity edema ASSESSMENT: Coronary artery disease, status post CABG x 4 vessels Moderate aortic regurgitation, status post bioprosthetic aortic valve replacement Hypertension Hyperlipidemia History of throat cancer History of thyroid cancer status post thyroidectomy and radiation Morbid obesity: BMI 40.3 Anxiety PLAN: Continue postoperative management per CT surgery Increase activity as tolerated Encourage use of incentive spirometer Continue current cardiac medications Continue telemetry monitoring Further recommendations pending patient course Nurse practitioner note has been reviewed by physician. Signing provider agrees with the documented findings, assessment, and plan of care documented by CASE MANAGER as a scribe. Objective - Vital Signs Vital signs: Vital Signs Temp 97.8 F 11/02/23 09:40 Pulse 96 11/02/23 09:40 Resp 17 11/02/23 09:40 BP 150/76 11/02/23 09:40 Pulse Ox 100 11/02/23 09:40 FiO2 50 10/30/23 05:00 Intake & Output 11/01/23 11/02/23 11/02/23 18:59 06:59 18:59 Intake Total 1616 240 Output Total 4181 117 4216 Balance - Weight 103.3 kg Intake: Oral 1616 240 Output: Urine 0643 866 5119 Other: Voiding Method Toilet Toilet Toilet # Voids 0 1 # Bowel Movements 1 1 1 ABP, PAP, CO, CI - Last Documented Arterial Blood Pressure 77/73 Pulmonary Artery Pressure 41/15 Cardiac Output 4.9 Cardiac Index 2.4 - Labs CBC & Chem 7: 11/02/23 09:59 11/02/23 09:59 Labs: Abnormal Lab Results - Last 24 Hours (Table) 11/02/23 11/02/23 11/02/23 Range/Units 06:11 09:59 09:59 RBC 2.78 L (3.80-5.40) m/uL Hgb 7.5 L (11.4-16.0) gm/dL Hct 24.4 L (34.0-46.0) % MCHC 30.9 L (31.0-37.0) g/dL RDW 17.4 H (11.5-15.5) % Potassium 3.3 L (3.5-5.1) mmol/L Glucose 105 H (74-99) mg/dL POC Glucose (mg/dL) 121 H (70-110) mg/dL
--- NOTE | 2023-11-02 14:14 | P.PN ---
Subjective Progress Note Date: 11/02/23 Principal diagnosis: Status post aortic valve replacement, and four-vessel bypass surgery. POD #4 coronary artery bypass grafting x 4, left internal thoracic artery (in- situ) sequential to diagonal artery and left anterior descending coronary artery, radial artery from aorta to obtuse marginal artery, saphenous vein from aorta to posterior descending coronary artery, aortic valve replacement with #23mm Inspiris Bioprosthetic Patient is a 63-year-old white female with past medical history significant for mild intermittent asthma, coronary artery disease, moderate aortic valve stenosis, among other things. Patient has followed in the pulmonary office with Dr. Kemp for evaluation of her mild intermittent asthma. A recent PFT done in the office, consistent with mild obstructive disease. FEV1 81% of predicted with FEV1/FVC ratio of 69%. 13% increase post-bronchodilator. She had been having worsening exertional dyspnea, and had a full cardiac workup. Heart cath done 10/06/2023 consistent with severe triple-vessel coronary artery disease. She was also noted to have moderate to severe aortic regurgitation. Yesterday, the patient underwent a four-vessel coronary bypass including a GOLDBERG sequentially to the diagonal and LAD, left radial artery from the aorta to the obtuse marginal artery, and saphenous vein graft from aorta to posterior descending artery. Patient also had an aortic valve replacement with a bioprosthetic, and left atrial appendage ligation. No intraoperative complications reported. Patient was transferred to the intensive care unit p ostoperatively. Her weaning parameters were adequate and her ABG done on pressure support included a PaO2 of 80, pCO2 of 39, and a pH of 7.35. Hence, the patient was extubated at 2030 last night. Patient is currently lying in bed, on a 40% Ventimask, in no acute distress. SpO2 is 99%. She is awake and alert and answers all my questions. She is reporting a mild to moderate amount of incisional chest pain, especially with coughing and deep breathing. Bear hugger is on. Incentive spirometer is at bedside. Postoperative chest x-ray shows mild vascular congestion and postoperative basilar atelectasis. Possible trace left pleural effusion. No pneumothorax. There is a prominent mediastinum. There is a mediastinal chest tube that has a total of 290 cc of sanguinous drainage, and patient has bilateral pleural chest tubes that are Yd together which have had a total of 460 mL of sanguinous output. No airleak. Postoperative CBC: WBC count 9.1, hemoglobin 6.8, hematocrit 21.1, platelets 127. She has received a total of 4 units of PRBCs. Acute blood loss anemia, is an expected outcome of surgery. She was initially hypotensive postoperatively, and was temporarily on vasopressors including vasopressin, these have since been discontinued. Blood pressure is improved after PRBC transfusions. Patient is also received a total of 1 L of 5% albumin. There is a right IJ introducer s boris with [place] Ivis catheter. Current CO/CI eyes are hyperdynamic, 9 and 4.4 respectively. Blood pressure is normotensive, PA pressures 29/15, CVP 13. Heart rhythm appears normal sinus on bedside monitor, in the 90s. Epicardial pacemaker is currently set at backup rate of 80 bpm. Nitro is infusing at 5 mcg/min for vasospasm prophylaxis. Insulin infusing at 2.5 units/h. Lactated Ringer's is infusing at 50 MLS per hour. Patient does have urinary catheter, and urine output has been adequate in the order of 100-150 MLS per hour. Postoperative CMP includes a sodium of 141, potassium 3.7, chloride 112, serum bicarb 20, BUN 19, creatinine 0.96, glucose 135. LFTs not elevated. She will c ontinue to be monitored closely in the intensive care unit. Patient was reevaluated today on 10/30/2023, patient is now postoperative day #2, sitting in a bedside chair, feels cold, feels weak, patient is anemic and she will be receiving a unit of packed RBCs today. Last night patient dropped her O2 saturation, and she was placed on BiPAP for few hours, presently on nasal cannula, does not seem to be in any distress. Hemoglobin this morning is 6.8, and she is to receive a unit of packed RBCs. Chest x-ray showed mostly bibasilar atelectasis. Patient is not requiring any inotropes or any pressors at this point. Patient received Lasix last night, and she was briefly on BiPAP, she did not like BiPAP patch,WBC count today is 12.9 hemoglobin is 6.8 basic metabolic profile is normal bicarb is 19 BUN is 21 creatinine is up to 1.2 today. Again chest x-ray was reviewed showed postoperative changes and bibasilar atelectasis with small pleural effusions Patient was reevaluated today on 10/31/23, she is now postoperative day #3 patient is hemodynamically stable, not requiring any inotropes or any pressors, patient feels generally weak, she did receive a unit of packed RBCs yesterday for low hemoglobin, continues to have mediastinal right and left pleural chest tubes in place, chest x-ray today showed atelectasis at the bases specially at the left base, and possibly a small left pleural effusion Reevaluated today on 11/01/2023, patient remains in the ICU, she is sitting in a bedside chair, hemodynamically stable, not requiring any inotropes no pressors, patient has mostly complains of postoperative pain, voice remains hoarse, patient is ambulating well, chest x-ray showed minimal atelectasis, expected, and there is cardiomegaly. No evidence of congestive heart failure. WBC count is 9.9 hemoglobin is 7 basic metabolic profile is normal potassium is a bit low at 3.4. Otherwise the labs are unremarkable Progress note dated November 02, 2023. This is a 63-year-old female seen in room 368. The patient is status post aortic valve replacement, and four-vessel bypass surgery. She is currently postop day #5. The patient is on room air, not receiving any IV fluids. Current laboratory data includes a white count 10.6, hemoglobin 7.5, hematocrit 24.4, and a platelet count of 295,000. Sodium 139, potassium 3.3, chlorides 105, CO2 27, BUN 15, and creatinine 0.94. Glucose is 81. Calcium 8.4, and magnesium is 2.0. Sputum sampling was negative. Chest x-ray shows some left lower lobe infiltrate/atelectasis. Objective - Vital Signs Vital signs: Vital Signs Temp 97.8 F 11/02/23 09:40 Pulse 96 11/02/23 09:40 Resp 17 11/02/23 09:40 BP 150/76 11/02/23 09:40 Pulse Ox 100 11/02/23 09:40 FiO2 50 10/30/23 05:00 Intake & Output 11/01/23 11/02/23 11/02/23 18:59 06:59 18:59 Intake Total 1616 240 Output Total 6267 327 1349 Balance - Weight 103.3 kg Intake: Oral 1616 240 Output: Urine 3707 758 2759 Other: Voiding Method Toilet Toilet Toilet # Voids 0 1 # Bowel Movements 1 1 1 ABP, PAP, CO, CI - Last Documented Arterial Blood Pressure 77/73 Pulmonary Artery Pressure 41/15 Cardiac Output 4.9 Cardiac Index 2.4 - Exam No acute distress, oriented 3. The patient is currently on room air. No respiratory distress. HEENT examination is grossly unremarkable. Mucous membranes are moist. No oral lesions. Neck supple. Full range of motion. No adenopathy thyromegaly or neck vein distention. Cardiovascular examination reveals regular rhythm rate. S1-S2 normal. No S3 or S4. No discernible murmur noted. Heart rate 90 bpm. Lungs reveal clear breath sounds. Breath sounds are equal bilaterally. No ad ventitious lung sounds including wheezes rhonchi or crackles. Resting room air saturation is 100%. Abdomen soft bowel sounds are heard. No masses or tenderness. Extremities are intact. No cyanosis clubbing or edema. Skin is without rash or lesion. Neurologic examination is brief but nonfocal. - Labs CBC & Chem 7: 11/02/23 09:59 11/02/23 09:59 Labs: Abnormal Lab Results - Last 24 Hours (Table) 11/02/23 11/02/23 11/02/23 Range/Units 06:11 09:59 09:59 RBC 2.78 L (3.80-5.40) m/uL Hgb 7.5 L (11.4-16.0) gm/dL Hct 24.4 L (34.0-46.0) % MCHC 30.9 L (31.0-37.0) g/dL RDW 17.4 H (11.5-15.5) % Potassium 3.3 L (3.5-5.1) mmol/L Glucose 105 H (74-99) mg/dL POC Glucose (mg/dL) 121 H (70-110) mg/dL Assessment and Plan Assessment: Postop day #5, status post three-vessel bypass surgery and aortic valve replacement, for moderate to severe aortic regurgitation. History of mild bronchial asthma. History of benign pituitary tumor. Lifelong non-smoker. History of thyroid cancer. Postoperative blood loss anemia. Family history of premature coronary disease. Plan: Plan dated November 02, 2023. Patient appears to be doing reasonably well. The patient is on room air. She is not receiving any IV fluids. She is postoperative day #5, status post aortic valve replacement, and four-vessel bypass surgery. Labs, x-rays, and medications are reviewed. We will continue to follow make recommendations along the way. Prognosis is guarded. Respiratory status appears to be stable, and she is not manifesting any signs or symptoms of respiratory failure. Time with Patient: Less than 30
[2023-11-02 16:49] LABS: Glucose,Whole Blood 76 mg/dL (70-110)
[2023-11-02] MEDS: ALPRAZolam 0.5 MG TAB PO PRN (20:15)
[2023-11-02] MEDS: POTASSIUM BICARBONATE/CIT AC 20 MEQ TABLET.EFF PO SCH (20:15)
[2023-11-02 20:32] LABS: Glucose,Whole Blood 77 mg/dL (70-110)
[2023-11-03 06:16] LABS: Glucose,Whole Blood 108 mg/dL (70-110)
[2023-11-03 07:49] LABS: Anisocytosis Slight; HCT 25.8 % (34.0-46.0); HGB 7.9 gm/dL (11.4-16.0); Hypochromasia Moderate; MCH 26.9 pg (25.0-35.0); MCHC 30.6 g/dL (31.0-37.0); MCV 88.1 fL (80.0-100.0); Mean Platelet Volume 8.8; Platelet Count 329 k/uL (150-450); Poikilocytosis Slight; RBC 2.93 m/uL (3.80-5.40); RDW 17.4 % (11.5-15.5); WBC 10.2 k/uL (3.8-10.6)
[2023-11-03 08:03] VITALS: RESP 18
[2023-11-03 08:21] LABS: African American GFR (CKD) 69 (>60 ml/min/1.73 sqM); Anion Gap 10 mmol/L; Blood Urea Nitrogen 17 mg/dL (7-17); Calcium 8.6 mg/dL (8.4-10.2); Carbon Dioxide 28 mmol/L (22-30); Chloride 102 mmol/L (98-107); Glucose 95 mg/dL (74-99); Magnesium 1.9 mg/dL (1.6-2.3); Non-African American GFR(CKD) 60 (>60 ml/min/1.73 sqM); Potassium 3.6 mmol/L (3.5-5.1); Sodium 140 mmol/L (137-145)
--- NOTE | 2023-11-03 08:49 | XR ---
EXAMINATION TYPE: XR chest 2V DATE OF EXAM: 11/03/2023 6:52 AM CLINICAL INDICATION:Female, 63 years old with history of post cardiac surgery; COMPARISON: Chest radiograph from one day prior. TECHNIQUE: XR chest 2V Frontal and lateral views of the chest. FINDINGS: Lungs/Pleura: There is no evidence of pleural effusion, focal consolidation, or pneumothorax. Pulmonary vascularity: Unremarkable. Heart/mediastinum: Cardiomediastinal silhouette is enlarged and stable. Atherosclerotic calcificatio ns are seen in the aorta. Left atrial appendage occlusion device is present. Musculoskeletal: No acute osseous pathology. Other findings: None IMPRESSION: Cardiomegaly, No acute cardiopulmonary disease/process. Basilar atelectasis right lung base greater t rogers left.
--- NOTE | 2023-11-03 10:09 | P.PN ---
Subjective Progress Note Date: 11/03/23 Principal diagnosis: Triple-vessel coronary artery disease with stable angina, moderate aortic regurgitation. History of hypertension, hyperlipidemia, obesity, mild asthma, thyroid cancer s/p thyroidectomy and radiation, throat cancer status post full teeth extraction and partial jaw removal, benign pituitary tumor, lifelong non- smoker, and family history of premature coronary artery disease with father who early from myocardial infarction. Preoperative nasal swab positive for MRSA, treated POD #6 coronary artery bypass grafting x 4, left internal thoracic artery (in- situ) sequential to diagonal artery and left anterior descending coronary artery, radial artery from aorta to obtuse marginal artery, saphenous vein from aorta to posterior descending coronary artery, aortic valve replacement with #23mm Inspiris Bioprosthetic, left atrial appendage ligation using #35mm AtriClip, endoscopic left radial and left greater saphenous vein harvest, graft flow measurements using the [employer]-stim flow meter system, sternal closure using the [employer] Sterna-lock plating system and pioneer cables, trans-esophageal echo Postoperative acute blood loss anemia and thrombocytopenia, expected given hemodilution and cardiopulmonary bypass pump Hypotension requiring minimal vasopressors, expected given blood loss The patient was seen and examined with Dr. Segovia this morning laying in the recliner on the cardiac stepdown unit. Currently in sinus rhythm and hemodynamically stable. Does complain of postoperative pain especially with taking deep breaths and coughing, denies shortness of breath. Voice is less hoarse. Patient has ambulated in [place], showered yesterday. Chest x-ray, labs reviewed. Anticipate discharge to home with home care today. No other new concerns at this time. Objective - Vital Signs Vital signs: Vital Signs Temp 96.7 F L 11/03/23 07:53 Pulse 89 11/03/23 07:53 Resp 18 11/03/23 07:53 BP 140/63 11/03/23 07:53 Pulse Ox 97 11/03/23 07:53 FiO2 50 10/30/23 05:00 Intake & Output 11/02/23 11/03/23 11/03/23 18:59 06:59 18:59 Intake Total 600 360 180 Output Total 2100 1400 Balance -1500 -1040 180 Intake: Oral 600 360 180 Output: Urine 2100 1400 Other: Voiding Method Toilet Toilet # Voids 1 # Bowel Movements 1 ABP, PAP, CO, CI - Last Documented Arterial Blood Pressure 77/73 Pulmonary Artery Pressure 41/15 Cardiac Output 4.9 Cardiac Index 2.4 - Exam CONSTITUTIONAL: Appears comfortable, cooperative, no acute distress RESPIRATORY: Lungs sounds diminished bilaterally. Respirations even, nonlabored. Currently on room air with oxygen saturation 98%. Strong cough. Able to achieve 1000 mL on incentive spirometer CARDIOVASCULAR: S1, S2 present. Regular rate and rhythm, sinus rhythm first degree AVB on telemetry. Sternum stable. Palpable peripheral pulses bilaterally. Generalized edema present. No calf pain or tenderness noted. Heart hugger in place with patient demonstrating appropriate use. Antiembolism stockings, SCDs present. GASTROINTESTINAL: Abdomen soft, nontender, nondistended. Active bowel sounds present 4 quadrants. Tolerating diet. Positive bowel movement 11/01 GENITOURINARY: Continues to void clear, yellow urine. Output 3500 mL in the last 24 hours INTEGUMENTARY: Skin is warm and dry with evidence of good perfusion. Anterior chest incision well approximated. Left radial artery harvest site as well as left lower extremity EVH site well approximated without redness NEUROLOGIC: Cranial nerves II through XII intact MUSKULOSKELETAL: Able to move all extremities, strength equal bilaterally PSYCHIATRIC: Alert and oriented to person place and time INVASIVE LINES AND TUBES: A/V epicardial pacemaker wires present, grounded - Allied health notes Allied health notes reviewed: nursing - Labs CBC & Chem 7: 11/03/23 07:18 11/03/23 07:18 Labs: Abnormal Lab Results - Last 24 Hours (Table) 11/02/23 11/02/23 11/03/23 Range/Units 09:59 09:59 07:18 RBC 2.78 L 2.93 L (3.80-5.40) m/uL Hgb 7.5 L 7.9 L (11.4-16.0) gm/dL Hct 24.4 L 25.8 L (34.0-46.0) % MCHC 30.9 L 30.6 L (31.0-37.0) g/dL RDW 17.4 H 17.4 H (11.5-15.5) % Potassium 3.3 L (3.5-5.1) mmol/L Glucose 105 H (74-99) mg/dL - Imaging and Cardiology Chest x-ray: report reviewed, image reviewed Assessment and Plan Assessment: Triple-vessel coronary artery disease with stable angina, status post four- vessel CABG Moderate aortic regurgitation, status post aortic valve replacement History of hypertension, currently hypotensive requiring minimal vasopressors Hyperlipidemia, untreated, cholesterol 298, LDL 221, triglycerides 167 Obesity Mild asthma, preoperative FEV1 73% of predicted Thyroid cancer s/p thyroidectomy and radiation Throat cancer status post full teeth extraction and partial jaw removal Benign pituitary tumor Lifelong non-smoker Family history of premature coronary artery disease with father who early from myocardial infarction Preoperative nasal swab positive for MRSA, treated Postoperative acute blood loss anemia and thrombocytopenia, expected Plan: Continue to maximize medical therapy with aspirin, statin, plavix, coreg Encourage incentive spirometry use 10 times every hour while awake. Bronchodilators per pulmonology Will monitor daily labs and x-rays. Electrolyte replacement per protocol. Continue lasix, will transition to oral at discharge Increase activity, ambulate as tolerated. PT/OT/cardiac rehab following GI/DVT prophylaxis Insulin management per internal medicine, patient is not diabetic, preoperative hemoglobin A1c 5.6% Pain control per current medication regimen Continue to record strict accurate intake and output Daily weights Shower daily Epicardial pacer wires discontinued without incident, patient to remain on bedrest for 1 hour post wire removal Discharge planning in progress, anticipate discharge to home with home care this afternoon More recommendations to follow based on patient's progress
--- NOTE | 2023-11-03 10:36 | P.PN ---
Subjective 63-year-old lady with past medical history significant for coronary artery disease, valvular heart disease with aortic regurgitation, history of asthma, history of thyroid cancer status post thyroidectomy, history of benign pituitary tumor, hypertension, hyperlipidemia admitted to the hospital for coronary artery bypass grafting x 4, left internal thoracic artery (in-situ) sequential to diagonal artery and left anterior descending coronary artery, radial artery from aorta to obtuse marginal artery, saphenous vein from aorta to posterior desce nding coronary artery, aortic valve replacement with #23mm Inspiris Bioprosthetic, left atrial appendage ligation using #35mm AtriClip, endoscopic left radial and left greater saphenous vein harvest, graft flow measurements using the [employer]-stim flow meter system, sternal closure using the [employer] Sterna- lock plating system and pioneer cables, trans-esophageal echo * Postoperatively patient is admitted under surgical service with internal medicine consulted. Patient is evaluated on 10/29/2023. Postoperatively patient was noted to have anemia, thrombocytopenia. Postprocedure patient was intubated however extubated on 10/28/2023. Follow-up hemoglobin reviewed, patient remains on oxygen to nasal cannula. Central line in place, chest tubes remain in place to be managed by surgery team. Patient given a4.. Continue to follow-up on H&H unit of packed RBC follow-up hemoglobin improved 10/31/23, -- Patient is seen and evaluated in ICU at bedside; now postoperative day #3 patient is hemodynamically stable, not requiring any inotropes or any pressors, patient feels generally weak -- she did receive a unit of packed RBCs yesterday for low hemoglobin, continues to have mediastinal right and left pleural chest tubes in place, chest x-ray today showed atelectasis at the bases specially at the left base, and possibly a small left pleural effusion -Patient is status post four-vessel CABG; remains in ICU; recommended to continue with incentive spirometry and bronchodilators -- Plan to maximize medical therapy with Plavix, statin, beta-blockers and aspirin 11/01/2023 Patient is seen and evaluated in room at bedside; has been transferred to selective care unit; wants to go home Vital signs reviewed and stable with temperature of 98.2, pulse 85, respiration 18 and blood pressure 109/68 with O2 saturation 93% Lab review shows WBC of 9.9, hemoglobin of 7.0 and platelet count of 212, sodium 136, potassium 3.4, BUNs/creatinine of 12/0.84 and blood glucose of 96 Patient is status post CABG x 4; encouraged to continue with incentive per metry and increase activity --Remains on aspirin, statins, Plavix and plan to resume beta-blockers once stable 11/02/2023 Patient awake alert She feels anxious and complaining from chest pain about 6/10. Not significant dyspnea, she is staying in bed most of the time She was complaining from constipation but states she had 2 bowel movement this morning and once yesterday. She is able to walk with no difficulty She has low appetite because of her nausea, she says she cannot take Zofran and Reglan because her side effects, she says she was taking Phenergan, at home. No urinary symptoms 11/03/2023 Patient feels okay today. She needs help to go to the bathroom but she looks comfortable Her chest pain is minimal 1-2/10 today Vital signs stable Hemoglobin 7.9 potassium 3.6 and magnesium 1.9 Chest x-ray showing cardiomegaly with no acute events She is on IV Lasix 20 mg twice daily, aspirin Plavix and amiodarone Patient looks medically stable Objective - Vital Signs Vital signs: Vital Signs Temp 96.7 F L 11/03/23 07:53 Pulse 89 11/03/23 07:53 Resp 18 11/03/23 07:53 BP 140/63 11/03/23 07:53 Pulse Ox 97 11/03/23 07:53 FiO2 50 10/30/23 05:00 Intake & Output 11/02/23 11/03/23 11/03/23 18:59 06:59 18:59 Intake Total 600 360 180 Output Total 2100 1400 500 Balance -1500 -1040 -320 Intake: Oral 600 360 180 Output: Urine 2100 1400 500 Other: Voiding Method Toilet Toilet # Voids 1 # Bowel Movements 1 ABP, PAP, CO, CI - Last Documented Arterial Blood Pressure 77/73 Pulmonary Artery Pressure 41/15 Cardiac Output 4.9 Cardiac Index 2.4 - Exam GENERAL: The patient is alert and oriented x3, not in any acute distress. Well developed, well nourished. HEENT: Pupils are round and equally reacting to light. EOMI. No scleral icterus. No conjunctival pallor. Normocephalic, atraumatic. No pharyngeal erythema. No thyromegaly. CARDIOVASCULAR: S1 and S2 present. No murmurs, rubs, or gallops. PULMONARY: Chest is clear to auscultation, no wheezing , no crackles. ABDOMEN: Soft, nontender, nondistended, normoactive bowel sounds. No palpable organomegaly. MUSCULOSKELETAL: No joint swelling or deformity. EXTREMITIES: No cyanosis, clubbing, or pedal edema. NEUROLOGICAL: Gross neurological examination did not reveal any focal deficits. SKIN: No rashes. no petechiae. - Labs CBC & Chem 7: 11/03/23 07:18 11/03/23 07:18 Labs: Abnormal Lab Results - Last 24 Hours (Table) 11/02/23 11/03/23 Range/Units 09:59 07:18 RBC 2.93 L (3.80-5.40) m/uL Hgb 7.9 L (11.4-16.0) gm/dL Hct 25.8 L (34.0-46.0) % MCHC 30.6 L (31.0-37.0) g/dL RDW 17.4 H (11.5-15.5) % Potassium 3.3 L (3.5-5.1) mmol/L Glucose 105 H (74-99) mg/dL Assessment and Plan Assessment: * Coronary artery disease s/p four-vessel CABG postoperative * Postoperative anemia * Valvular heart disease with aortic regurgitation s/p aortic valve replacement * History of thyroidectomy secondary to thyroid cancer * MRSA colonization * Hypertension * Hyperlipidemia * History of pituita Plan: Continue with amiodarone drip Also she is on IV Lasix 20 mg twice daily Continue with dual antiplatelet therapy with aspirin and Plavix Several consultants on the case including cardiology and pulmonary Phenergan as needed Labs and medication were reviewed.. Continue same treatment. Continue with symptomatic treatment. Resume home medication. Monitor labs and vitals. DVT and GI prophylaxis. Further recommendations as per clinical course of the pat ient DVT prophylaxis: Subcutaneous heparin GI Prophylaxis: Pepcid
[2023-11-03 11:36] LABS: Glucose,Whole Blood 84 mg/dL (70-110)
[2023-11-03 12:07] VITALS: BP 135/79; PULSE 74; TEMP 97.4
--- NOTE | 2023-11-03 12:41 | P.PN ---
Subjective HISTORY OF PRESENT ILLNESS: Patient is status post CABG x 4 vessels and bioprosthetic aortic valve replacement. Postop day #5. Patient examined this morning at the bedside. Patient is extremely anxious at the time of examination and is requesting medication to help with her anxiety. Apparently the patient refused to take all of her morning cardiac medications and refused her chest x-ray this morning. Patient denies any chest pain or pressure. She denies any shortness of breath. 11/03/2023 Patient examined this morning. She is sitting up in the chair. Patient denies chest pain or pressure. She denies shortness of breath. Vital signs are stable. She has been up ambulating in her room without difficulty. PHYSICAL EXAM: VITAL SIGNS: Reviewed. GENERAL: Well-developed in no acute distress. NECK: Supple. No JVD or thyromegaly LUNGS: Respirations even and unlabored. Lungs essentially clear to auscultation bilaterally. HEART: Regular rate and rhythm. S1 and S2 heard. EXTREMITIES: Normal range of motion. No clubbing or cyanosis. Peripheral pulses intact. No lower extremity edema ASSESSMENT: Coronary artery disease, status post CABG x 4 vessels Moderate aortic regurgitation, status post bioprosthetic aortic valve repla cement Hypertension Hyperlipidemia History of throat cancer History of thyroid cancer status post thyroidectomy and radiation Morbid obesity: BMI 40.3 Anxiety PLAN: Continue postoperative management per CT surgery Increase activity as tolerated Encourage use of incentive spirometer Continue current cardiac medications Continue telemetry monitoring Further recommendations pending patient course Patient may be discharged home this afternoon from a cardiac standpoint Nurse practitioner note has been reviewed by physician. Signing provider agrees with the documented findings, assessment, and plan of care documented by CORPORATE GIVING MANAGER as a scribe. Objective - Vital Signs Vital signs: Vital Signs Temp 97.4 F L 11/03/23 11:49 Pulse 74 11/03/23 11:49 Resp 18 11/03/23 11:49 BP 135/79 11/03/23 11:49 Pulse Ox 94 L 11/03/23 11:49 FiO2 50 10/30/23 05:00 Intake & Output 11/02/23 11/03/23 11/03/23 18:59 06:59 18:59 Intake Total 600 360 180 Output Total 2100 1400 500 Balance -1500 -1040 -320 Intake: Oral 600 360 180 Output: Urine 2100 1400 500 Other: Voiding Method Toilet Toilet Toilet # Voids 1 # Bowel Movements 1 ABP, PAP, CO, CI - Last Documented Arterial Blood Pressure 77/73 Pulmonary Artery Pressure 41/15 Cardiac Output 4.9 Cardiac Index 2.4 - Labs CBC & Chem 7: 11/03/23 07:18 11/03/23 07:18 Labs: Abnormal Lab Results - Last 24 Hours (Table) 11/03/23 Range/Units 07:18 RBC 2.93 L (3.80-5.40) m/uL Hgb 7.9 L (11.4-16.0) gm/dL Hct 25.8 L (34.0-46.0) % MCHC 30.6 L (31.0-37.0) g/dL RDW 17.4 H (11.5-15.5) %
--- NOTE | 2023-11-03 14:43 | P.PN ---
Subjective Progress Note Date: 11/03/23 Principal diagnosis: Status post aortic valve replacement, and four-vessel bypass surgery. POD #4 coronary artery bypass grafting x 4, left internal thoracic artery (in- situ) sequential to diagonal artery and left anterior descending coronary artery, radial artery from aorta to obtuse marginal artery, saphenous vein from aorta to posterior descending coronary artery, aortic valve replacement with #23mm Inspiris Bioprosthetic Patient is a 63-year-old white female with past medical history significant for mild intermittent asthma, coronary artery disease, moderate aortic valve stenosis, among other things. Patient has followed in the pulmonary office with Dr. Kemp for evaluation of her mild intermittent asthma. A recent PFT done in the office, consistent with mild obstructive disease. FEV1 81% of predicted with FEV1/FVC ratio of 69%. 13% increase post-bronchodilator. She had been having worsening exertional dyspnea, and had a full cardiac workup. Heart cath done 10/06/2023 consistent with severe triple-vessel coronary artery disease. She was also noted to have moderate to severe aortic regurgitation. Yesterday, the patient underwent a four-vessel coronary bypass including a GOLDBERG sequentially to the diagonal and LAD, left radial artery from the aorta to the obtuse marginal artery, and saphenous vein graft from aorta to posterior descending artery. Patient also had an aortic valve replacement with a bioprosthetic, and left atrial appendage ligation. No intraoperative complications reported. Patient was transferred to the intensive care unit p ostoperatively. Her weaning parameters were adequate and her ABG done on pressure support included a PaO2 of 80, pCO2 of 39, and a pH of 7.35. Hence, the patient was extubated at 2030 last night. Patient is currently lying in bed, on a 40% Ventimask, in no acute distress. SpO2 is 99%. She is awake and alert and answers all my questions. She is reporting a mild to moderate amount of incisional chest pain, especially with coughing and deep breathing. Bear hugger is on. Incentive spirometer is at bedside. Postoperative chest x-ray shows mild vascular congestion and postoperative basilar atelectasis. Possible trace left pleural effusion. No pneumothorax. There is a prominent mediastinum. There is a mediastinal chest tube that has a total of 290 cc of sanguinous drainage, and patient has bilateral pleural chest tubes that are Yd together which have had a total of 460 mL of sanguinous output. No airleak. Postoperative CBC: WBC count 9.1, hemoglobin 6.8, hematocrit 21.1, platelets 127. She has received a total of 4 units of PRBCs. Acute blood loss anemia, is an expected outcome of surgery. She was initially hypotensive postoperatively, and was temporarily on vasopressors including vasopressin, these have since been discontinued. Blood pressure is improved after PRBC transfusions. Patient is also received a total of 1 L of 5% albumin. There is a right IJ introducer s boris with [place] Ivis catheter. Current CO/CI eyes are hyperdynamic, 9 and 4.4 respectively. Blood pressure is normotensive, PA pressures 29/15, CVP 13. Heart rhythm appears normal sinus on bedside monitor, in the 90s. Epicardial pacemaker is currently set at backup rate of 80 bpm. Nitro is infusing at 5 mcg/min for vasospasm prophylaxis. Insulin infusing at 2.5 units/h. Lactated Ringer's is infusing at 50 MLS per hour. Patient does have urinary catheter, and urine output has been adequate in the order of 100-150 MLS per hour. Postoperative CMP includes a sodium of 141, potassium 3.7, chloride 112, serum bicarb 20, BUN 19, creatinine 0.96, glucose 135. LFTs not elevated. She will c ontinue to be monitored closely in the intensive care unit. Patient was reevaluated today on 10/30/2023, patient is now postoperative day #2, sitting in a bedside chair, feels cold, feels weak, patient is anemic and she will be receiving a unit of packed RBCs today. Last night patient dropped her O2 saturation, and she was placed on BiPAP for few hours, presently on nasal cannula, does not seem to be in any distress. Hemoglobin this morning is 6.8, and she is to receive a unit of packed RBCs. Chest x-ray showed mostly bibasilar atelectasis. Patient is not requiring any inotropes or any pressors at this point. Patient received Lasix last night, and she was briefly on BiPAP, she did not like BiPAP patch,WBC count today is 12.9 hemoglobin is 6.8 basic metabolic profile is normal bicarb is 19 BUN is 21 creatinine is up to 1.2 today. Again chest x-ray was reviewed showed postoperative changes and bibasilar atelectasis with small pleural effusions Patient was reevaluated today on 10/31/23, she is now postoperative day #3 patient is hemodynamically stable, not requiring any inotropes or any pressors, patient feels generally weak, she did receive a unit of packed RBCs yesterday for low hemoglobin, continues to have mediastinal right and left pleural chest tubes in place, chest x-ray today showed atelectasis at the bases specially at the left base, and possibly a small left pleural effusion Reevaluated today on 11/01/2023, patient remains in the ICU, she is sitting in a bedside chair, hemodynamically stable, not requiring any inotropes no pressors, patient has mostly complains of postoperative pain, voice remains hoarse, patient is ambulating well, chest x-ray showed minimal atelectasis, expected, and there is cardiomegaly. No evidence of congestive heart failure. WBC count is 9.9 hemoglobin is 7 basic metabolic profile is normal potassium is a bit low at 3.4. Otherwise the labs are unremarkable Progress note dated November 02, 2023. This is a 63-year-old female seen in room 368. The patient is status post aortic valve replacement, and four-vessel bypass surgery. She is currently postop day #5. The patient is on room air, not receiving any IV fluids. Current laboratory data includes a white count 10.6, hemoglobin 7.5, hematocrit 24.4, and a platelet count of 295,000. Sodium 139, potassium 3.3, chlorides 105, CO2 27, BUN 15, and creatinine 0.94. Glucose is 81. Calcium 8.4, and magnesium is 2.0. Sputum sampling was negative. Chest x-ray shows some left lower lobe infiltrate/atelectasis. Progress note dated November 03, 2023. 63-year-old female seen in room 368. The patient is status post aortic valve replacement, and four-vessel bypass surgery. She is postoperative day #6. She is currently on room air. She is not receiving any IV fluids. The patient is hoping to be discharged home later today. Labs, x-rays, and medications are all reviewed. Her chest x-ray does show some left lower lobe atelectasis. Her labs are pretty much within normal range. She is feeling well, other than for pain at the surgical site. Objective - Vital Signs Vital signs: Vital Signs Temp 97.4 F L 11/03/23 11:49 Pulse 74 11/03/23 11:49 Resp 18 11/03/23 11:49 BP 135/79 11/03/23 11:49 Pulse Ox 94 L 11/03/23 11:49 FiO2 50 10/30/23 05:00 Intake & Output 11/02/23 11/03/23 11/03/23 18:59 06:59 18:59 Intake Total 600 360 180 Output Total 2100 1400 500 Balance -1500 -1040 -320 Intake: Oral 600 360 180 Output: Urine 2100 1400 500 Other: Voiding Method Toilet Toilet Toilet # Voids 1 # Bowel Movements 1 ABP, PAP, CO, CI - Last Documented Arterial Blood Pressure 77/73 Pulmonary Artery Pressure 41/15 Cardiac Output 4.9 Cardiac Index 2.4 - Exam No acute distress, oriented 3. The patient is currently on room air. No respiratory distress. HEENT examination is grossly unremarkable. Mucous membranes are moist. No oral lesions. Neck supple. Full range of motion. No adenopathy thyromegaly or neck vein distention. Cardiovascular examination reveals regular rhythm rate. S1-S2 normal. No S3 or S4. No discernible murmur noted. Heart rate 86 bpm. Lungs reveal clear breath sounds. Breath sounds are equal bilaterally. No adventitious lung sounds including wheezes rhonchi or crackles. Resting room air saturation is 98 %. Abdomen soft bowel sounds are heard. No masses or tenderness. Extremities are intact. No cyanosis clubbing or edema. Skin is without rash or lesion. Neurologic examination is brief but nonfocal. - Labs CBC & Chem 7: 11/03/23 07:18 11/03/23 07:18 Labs: Abnormal Lab Results - Last 24 Hours (Table) 11/03/23 Range/Units 07:18 RBC 2.93 L (3.80-5.40) m/uL Hgb 7.9 L (11.4-16.0) gm/dL Hct 25.8 L (34.0-46.0) % MCHC 30.6 L (31.0-37.0) g/dL RDW 17.4 H (11.5-15.5) % Assessment and Plan Assessment: Postop day #6, status post three-vessel bypass surgery and aortic valve replacement, for moderate to severe aortic regurgitation. History of mild bronchial asthma. History of benign pituitary tumor. Lifelong non-smoker. History of thyroid cancer. Postoperative blood loss anemia. Family history of premature coronary disease. Plan: Plan dated November 02, 2023. Patient appears to be doing reasonably well. The patient is on room air. She is not receiving any IV fluids. She is postoperative day #5, status post aortic valve replacement, and four-vessel bypass surgery. Labs, x-rays, and medications are reviewed. We will continue to follow make recommendations along the way. Prognosis is guarded. Respiratory status appears to be stable, and she is not manifesting any signs or symptoms of respiratory failure. Plan dated November 03, 2023. The patient is seen today in room 368. The patient is postop day #6, status post aortic valve replacement and four-vessel bypass surgery. The patient is currently on room air. She is not receiving any IV fluids. Labs, x-rays, medications are reviewed. The patient will certainly follow-up in our office, after discharge. We will continue to follow patient, should she not be discharged. Additional recommendations and suggestions are forthcoming. Prognosis is certainly guarded. Time with Patient: Less than 30
--- NOTE | 2023-11-04 15:08 | P.DS ---
Providers Date of admission: 10/28/23 05:33 Expected date of discharge: 11/03/23 Attending physician: Jared Segovia MD Consults: 10/28/23 15:01 Consult Physician Routine Consulting Provider: Armando Kemp Consult Reason/Comments: Clinical Documentation Clerk Consult: post cardiac surgery Do you want consulting provider notified?: Yes Consult Physician Routine Consulting Provider: Hali Hernandez Consult Reason/Comments: Resource Manager Consult: post cardiac surgery Do you want consulting provider notified?: Yes Consult Physician Routine Consulting Provider: Jelani Marin Consult Reason/Comments: med [facility]; [facility] patient Do you want consulting provider notified?: Yes Primary care physician: [facility] Hospital Course: FINAL DIAGNOSIS: Triple-vessel coronary artery disease with stable angina, status post four- vessel CABG Moderate aortic regurgitation, status post aortic valve replacement History of hypertension, currently hypotensive requiring minimal vasopressors Hyperlipidemia, untreated, cholesterol 298, LDL 221, triglycerides 167 Obesity Mild asthma, preoperative FEV1 73% of predicted Thyroid cancer s/p thyroidectomy and radiation Throat cancer status post full teeth extraction and partial jaw removal Benign pituitary tumor Lifelong non-smoker Family history of premature coronary artery disease with father who early from myocardial infarction Preoperative nasal swab positive for MRSA, treated Postoperative acute blood loss anemia and thrombocytopenia, expected PRINCIPAL PROCEDURE: Coronary artery bypass grafting x 4, left internal thoracic artery (in-situ) sequential to diagonal artery and left anterior descending coronary artery, radial artery from aorta to obtuse marginal artery, saphenous vein from aorta to posterior descending coronary artery Aortic valve replacement with #23mm Inspiris Bioprosthetic Left atrial appendage ligation using #35mm AtriClip Endoscopic left radial and left greater saphenous vein harvest Graft flow measurements using the medi-stim flow meter system Sternal closure using the Francheska Sterna-lock plating system and pioneer cables Trans-esophageal echo HISTORY OF PRESENT ILLNESS: This is a 63-year-old female who follows outpatient with Dr. Jc for primary care and Dr. Brandon for cardiology. She had been experiencing worsening chest pain and pressure over the previous year as well as difficulty with breathing. She underwent heart catheterization by Dr. Brandon revealing triple-vessel coronary artery disease. Further she had an echocardiogram revealing normal left and right ventricular function, with severe aortic insufficiency. The patient was referred to Dr. Segovia from cardiothoracic surgery. She was recommended to undergo coronary artery bypass surgery as well as aortic valve replacement. The usual perioperative course was discussed in detail with the patient and her family, all risks and benefits were explained, all questions were answered, and consent was obtained to proceed with surgery. The patient was scheduled for elective surgery at the earliest possible date. HOSPITAL COURSE: The patient was brought to the hospital on 10/28/23, taken to the preoperative area, prepared in the usual fashion, and subsequently taken to the operating room where Dr. Segovia performed four-vessel CABG. Upon completion of surgery the patient was transferred to the cardiovascular intensive care unit where she was recovered and monitored hemodynamically. She was extubated, all lines, tubes, and drips were discontinued when appropriate, and she was transferred to 3 S cardiac stepdown unit for further monitoring and rehabilitation. Her oxygen was titrated down, she continued to work with physical and occupational therapy, she was tolerating oral diet, her pain was controlled, and she was ready to be discharged to home with [facility] care on postoperative day #6. She received written and verbal instruction regarding her medications, activity restrictions, signs and symptoms requiring physician notification, and follow-up appointments. Patient Condition at Discharge: Stable Plan - Discharge Summary Discharge Rx Participant: No New Discharge Prescriptions: New Aspirin 325 mg PO DAILY #30 tab busPIRone HCl [Buspar] 15 mg PO TID PRN #90 tab PRN Reason: Anxiety Potassium Chloride ER [K-Dur 20] 20 meq PO BID #14 tab Furosemide [Lasix] 40 mg PO DAILY #7 tablet Atorvastatin [Lipitor] 40 mg PO DAILY #30 tab Sennosides-Docusate Sodium [Senokot-S] 2 each PO HS PRN tab PRN Reason: Constipation Acetaminophen Tab [Tylenol] 650 mg PO Q4HR PRN tab PRN Reason: Fever And/ Or Pain Clopidogrel [Plavix] 75 mg PO DAILY #30 tab Continue carvediloL [Coreg] 6.25 mg PO BID Albuterol Nebulized [Ventolin Nebulized] 2.5 mg INHALATION RT-Q6H PRN PRN Reason: Shortness Of Breath Lansoprazole [Prevacid] 30 mg PO BID Famotidine [Pepcid] 10 mg PO TID Promethazine HCl 12.5 mg PO QID PRN PRN Reason: Nausea Levothyroxine Sodium [Levoxyl] 350 mcg PO DAILY Albuterol Inhaler [Ventolin Hfa Inhaler] 1 - 2 puff INHALATION Q6H PRN PRN Reason: Shortness Of Breath Discontinued Mupirocin [Mupirocin 2%] 1 applic NASAL BID #1 tub Aspirin [Aspirin EC] 500 - 1,000 mg PO DAILY PRN PRN Reason: Pain Discharge Medication List Albuterol Nebulized [Ventolin Nebulized] 2.5 mg INHALATION RT-Q6H PRN 10/17/22 [History] Lansoprazole [Prevacid] 30 mg PO BID 10/17/22 [History] carvediloL [Coreg] 6.25 mg PO BID 10/17/22 [History] Levothyroxine Sodium [Levoxyl] 350 mcg PO DAILY 01/29/23 [History] Albuterol Inhaler [Ventolin Hfa Inhaler] 1 - 2 puff INHALATION Q6H PRN 10/02/23 [History] Famotidine [Pepcid] 10 mg PO TID 10/02/23 [History] Promethazine HCl 12.5 mg PO QID PRN 10/22/23 [History] Acetaminophen Tab [Tylenol] 650 mg PO Q4HR PRN tab 11/03/23 [Rx] Aspirin 325 mg PO DAILY #30 tab 11/03/23 [Rx] Atorvastatin [Lipitor] 40 mg PO DAILY #30 tab 11/03/23 [Rx] Clopidogrel [Plavix] 75 mg PO DAILY #30 tab 11/03/23 [Rx] Furosemide [Lasix] 40 mg PO DAILY #7 tablet 11/03/23 [Rx] Potassium Chloride ER [K-Dur 20] 20 meq PO BID #14 tab 11/03/23 [Rx] Sennosides-Docusate Sodium [Senokot-S] 2 each PO HS PRN tab 11/03/23 [Rx] busPIRone HCl [Buspar] 15 mg PO TID PRN #90 tab 11/03/23 [Rx] Follow up Appointment(s)/Referral(s): Armando Kemp MD [STAFF PHYSICIAN] - 11/26/23 9:15 am [facility] [NON-STAFF] - 4 Weeks (You will receive a phone call in approximately 4-6 weeks for evaluation for cardiac rehab) [facility] - 1-2 Days ([facility] will call you to arrange a visit; you should be seen the day after discharge then 2-3 times per week until you start cardiac rehab) Jerry Brandon MD [STAFF PHYSICIAN] - 11/23/23 2:30 pm (at [address] office) David Marte NPC [Nurse Practitioner] - 11/10/23 2:00 pm (You will be seen in the surgeon's office behind the hospital in [facility], [place], [address] Office phone number is ) Samantha Jc MD [Primary Care Provider] - 11/12/23 3:00 pm Jared Segovia MD [STAFF PHYSICIAN] - 12/02/23 2:00 pm Ambulatory/Diagnostic Orders: Complete Blood Count w/diff [LAB.AMB] Time Frame: 3 Days, Location: None Selected Comprehensive Metabolic Panel [LAB.AMB] Time Frame: 3 Days, Location: None Selected Activity/Diet/Wound Care/Special Instructions: DISCHARGE INSTRUCTIONS: 1. No driving for 4 weeks, or until physician gives their ok. 2. The patient should sleep in their own bed, no medical bed needed. 3. Stairs are not an issue. If the bedroom is upstairs, it is advised that the patient go up at night and down in the morning for the first week. Go slowly, using handrail and take 1 step at a time. 4. JAVIER hose are to be worn for 30 days post surgery or until physician discontinues. 5. Heart hugger is to be worn 100% of the time until physician discontinues.(except when showering) 6. No lifting, pushing, or pulling more than 10 pounds for 12 weeks. The physician will advise of any restriction changes. 7. The patient is expected to continue the prescribed walking program. 8. Continue pain control per as needed orders. 9. Continue with incentive spirometry and splinting/heart hugger until otherwise directed by the physician. 10. Must shower daily using liquid antibacterial soap 11. Routine sternal incision care. No powders, lotions, ointments on incisions. No dressings are necessary on incisions unless they are draining. Dermabond tape is to remain on sternal incision until surgeon follow-up. 12. Please call surgeon/ENAMEL DIPPER for temp greater than 101 F or purulent drainage from incisions. 13. You should weigh yourself daily, record and bring log with you to follow up appointments. 14. All prescriptions given by surgeon for 30 days. Refills need to be filled through house repairer/primary care physician. 15. A Red armband has been placed on the patient. It should be worn for 30 days post discharge from surgery and will be removed by the cardiac surgeons. If an ER visit is necessary, please make sure the number on the Red armband is called before going to ER. 16. You have been referred to and are expected to begin Cardiac Rehab in approximately 4-6 weeks. 17. Quitting smoking is the most important step you can take to improve your health. For additional information and assistance to quit smoking, please call the [place] tobacco quit line (7-915-RDXP-NOW/ ) or online: [email or web address] HOME HEALTH SERVICES TO PROVIDE: RN SKILLED HOME CARE SERVICES FOR POST-OP SURGICAL PATIENTS WITH THE FOLLOWING: Coronary Artery Bypass Surgery (CABG), Mitral Valve Replacement/Repair ( MVR), Aortic Valve Replacement/Repair (AVR) RN TO CONTINUE EDUCATION FROM ``ROAD TO A HEALTH HEART PATIENT EDUCATION MANUAL (GIVEN TO PATIENT IN THE HOSPITAL) MEDICATION RECONCILIATION WITH EDUCATION NEEDED ON FIRST HOME VISIT EMPHASIZE IMPORTANCE OF WEARING BREAST SUPPORT/HEART HUGGER ENCOURAGE USE OF INCENTIVE SPIROMETER 10 X EVERY HOUR WHILE AWAKE ENCOURAGE UTILIZATION OF LOWER EXTREMITY COMPRESSION STOCKINGS/JAVIER HOSE and ELEVATE LEGS ABOVE LEVEL OF HEART WHILE AT REST. ENCOURAGE AMBULATION 3-5x/day INCREASING TOLERATES, WHILE AVOIDING EXTREMES IN TEMPERATURE FREQUENCY: RN TO OPEN THE PATIENT WITHIN 24 HOURS OF DISCHARGE FROM THE HOSPITAL WITH TELEHEALTH INSTALLED AT [facility], RN TO VISIT 2-3 X A WEEK FOR 4 WEEKS ESTABLISHED BY PATIENT NEEDS. LABORATORY: CBC, CMP TO BE DRAWN ON THE THIRD DAY HOME, (RAN STAT) FAX RESULTS TO [phone]. TELEHEALTH PARAMETERS: WEIGHT: NOTIFY MD OF WEIGHT GAIN OF 2 LBS IN 24 HOURS OR 5 LBS IN ONE WEEK HR: NOTIFY MD OF HR <55 BPM OR HR>100 BPM BP: NOTIFY MD IF BP <90/55 OR BP>140/100 O2 SAT: NOTIFY MD IF PO2<93% ON ROOM AIR SEND TELEHEALTH REPORT TO AX SURVEY WORKER AND CARDIOVASCULAR SURGEON THE FIRST WEEK OF CARE AND THEN BI-WEEKLY. PLEASE ADDITIONALLY COMMUNICATE ANY ABNORMALS AND NEW FINDINGS TO THE SURGEONS OFFICE. Discharge Disposition: HOME WITH HOME HEALTH SERVICES
== END 2023-11-03 13:39 | disposition home health service (06) | DRG 220 ==
LOC: 2ORMAIN 05:33 → 2SICU 15:07 → 3SCARD 11-01 11:47
PROVIDERS: ADMIT Thoracic Surgery (Cardiothoracic Vascular Surgery); ATTEND Thoracic Surgery (Cardiothoracic Vascular Surgery)
PROC: 5A1221Z Performance of Cardiac Output, Continuous (ICD-10-PCS; 2023-10-28)
PROC: B246ZZ4 Ultrasonography of Right and Left Heart, Transesophageal (ICD-10-PCS; 2023-10-28)
PROC: 5A1221Z Performance of Cardiac Output, Continuous (ICD-10-PCS; 2023-10-28)
PROC: 3E033XZ Introduction of Vasopressor into Peripheral Vein, Percutaneous Approach (ICD-10-PCS; 2023-10-28)
PROC: 30233N1 Transfusion of Nonautologous Red Blood Cells into Peripheral Vein, Percutaneous Approach (ICD-10-PCS; 2023-10-28)
PROC: 02HV33Z Insertion of Infusion Device into Superior Vena Cava, Percutaneous Approach (ICD-10-PCS; 2023-10-28)
PROC: 021309W Bypass Coronary Artery, Four or More Arteries from Aorta with Autologous Venous Tissue, Open Approach (ICD-10-PCS; principal; 2023-10-28 08:00)
PROC: 02RF08Z Replacement of Aortic Valve with Zooplastic Tissue, Open Approach (ICD-10-PCS; 2023-10-28 08:00)
PROC: 06BQ4ZZ Excision of Left Saphenous Vein, Percutaneous Endoscopic Approach (ICD-10-PCS; 2023-10-28 08:00)
PROC: 03BC4ZZ Excision of Left Radial Artery, Percutaneous Endoscopic Approach (ICD-10-PCS; 2023-10-28 08:00)
PROC: 02L70CK Occlusion of Left Atrial Appendage with Extraluminal Device, Open Approach (ICD-10-PCS; 2023-10-28 08:00)
PROC: 5A09357 Assistance with Respiratory Ventilation, Less than 24 Consecutive Hours, Continuous Positive Airway Pressure (ICD-10-PCS; 2023-10-30)
PROC: 05HD33Z Insertion of Infusion Device into Right Cephalic Vein, Percutaneous Approach (ICD-10-PCS; 2023-11-02)
DX: I25.118 Atherosclerotic heart disease of native coronary artery with other forms of angina pectoris (principal); C79.9 Secondary malignant neoplasm of unspecified site; D62 Acute posthemorrhagic anemia; J98.11 Atelectasis; J90 Pleural effusion, not elsewhere classified; Z68.41 Body mass index [BMI] 40.0-44.9, adult; I35.0 Nonrheumatic aortic (valve) stenosis; D69.6 Thrombocytopenia, unspecified; Z68.39 Body mass index [BMI] 39.0-39.9, adult; C14.0 Malignant neoplasm of pharynx, unspecified; I35.1 Nonrheumatic aortic (valve) insufficiency; I10 Essential (primary) hypertension; E66.9 Obesity, unspecified; J45.20 Mild intermittent asthma, uncomplicated; I35.2 Nonrheumatic aortic (valve) stenosis with insufficiency; F40.240 Claustrophobia; E78.5 Hyperlipidemia, unspecified; Z22.322 Carrier or suspected carrier of Methicillin resistant Staphylococcus aureus; I25.2 Old myocardial infarction; M41.9 Scoliosis, unspecified; Z79.890 Hormone replacement therapy; Z79.899 Other long term (current) drug therapy; Z85.819 Personal history of malignant neoplasm of unspecified site of lip, oral cavity, and pharynx; Z85.850 Personal history of malignant neoplasm of thyroid; I95.81 Postprocedural hypotension; Z87.440 Personal history of urinary (tract) infections; Z87.442 Personal history of urinary calculi; I44.0 Atrioventricular block, first degree; Z88.5 Allergy status to narcotic agent; Z88.1 Allergy status to other antibiotic agents; E66.01 Morbid (severe) obesity due to excess calories; E03.9 Hypothyroidism, unspecified; F41.0 Panic disorder [episodic paroxysmal anxiety]; K59.00 Constipation, unspecified; Z79.82 Long term (current) use of aspirin; Z82.49 Family history of ischemic heart disease and other diseases of the circulatory system; Z86.011 Personal history of benign neoplasm of the brain; Z95.1 Presence of aortocoronary bypass graft; Z87.01 Personal history of pneumonia (recurrent); Z92.3 Personal history of irradiation
CPT/HCPCS: 36410; 36430; 71045; 71046; 76937; 80048; 80053; 82330; 82805; 83036; 83735; 85025; 85027; 85610; 85730; 86850; 86891; 86900; 86901; 86920; 87070; 87205; 88305; 94002; 94640; 94660; 94760

== ENCOUNTER → 2023-11-06 | Outpatient (CLI) | payer MEDICARE, OTHER ==
[2023-11-06 18:47] LABS: Basophils % (A) 0.8 %; Eosinophils # (A) 0.68 X 10*3/uL (0.04-0.35); Eosinophils % (A) 5.1 %; HCT 26.6 % (37.2-46.3); Lymphocytes # (A) 1.78 X 10*3/uL (0.90-5.00); Lymphocytes % (A) 13.5 %; MCHC 30.1 g/dL (32.0-37.0); MCV 89.9 FL (80.0-97.0); Mean Platelet Volume 10.1 FL (9.5-12.2); Monocytes # (A) 0.94 X 10*3/uL (0.20-1.00); Monocytes % (A) 7.1 %; NRBC Per 100 WBC 0.11 X 10*3/uL (0.00-0.01); Neutrophils # (A) 9.41 X 10*3/uL (1.80-7.70); Neutrophils % (A) 71.1 %; Platelet Count 439 X 10*3/uL (140-440); RBC 2.96 X 10*6/uL (4.10-5.20); RDW 19.6 % (11.5-14.5); WBC 13.23 X 10*3/uL (4.50-10.00)
[2023-11-06 19:31] LABS: ALT 33 U/L (8-44); AST 35 U/L (13-35); Albumin 4.2 g/dL (3.8-4.9); Albumin/Globulin Ratio 1.45 Ratio (1.60-3.17); Alkaline Phosphatase 112 U/L (41-126); BUN/Creat Ratio 10.09 Ratio (12.00-20.00); Blood Urea Nitrogen 11.1 mg/dL (9.0-27.0); Calcium 9.2 mg/dL (8.7-10.3); Carbon Dioxide 23.7 mmol/L (21.6-31.8); Chloride 102 mmol/L (96-109); Globulin 2.9 g/dL (1.6-3.3); Glucose 92 mg/dL (70-110); Potassium 4.2 mmol/L (3.5-5.5); Sodium 140 mmol/L (135-145); Total Bilirubin 1.2 mg/dL (0.3-1.2); Total Protein 7.1 g/dL (6.2-8.2)
== END | disposition home or self-care (01) ==
LOC: LABWHC1 14:39
PROVIDERS: ATTEND Thoracic Surgery (Cardiothoracic Vascular Surgery)
DX: I25.10 Atherosclerotic heart disease of native coronary artery without angina pectoris (principal); I35.0 Nonrheumatic aortic (valve) stenosis
CPT/HCPCS: 36415; 80053; 85025

== ENCOUNTER 2024-04-07 12:00 | Emergency (ER) | payer MEDICARE, OTHER ==
[2024-04-07 12:06] VITALS: RESP 18; TEMP 97.5
[2024-04-07 13:06] LABS: Anisocytosis Slight; Basophils # (A) 0.2 k/uL (0-0.2); Basophils % (A) 2 %; Eosinophils # (A) 0.6 k/uL (0-0.7); Eosinophils % (A) 10 %; HCT 37.6 % (34.0-46.0); HGB 12.3 gm/dL (11.4-16.0); Lymphocytes # (A) 1.9 k/uL (1.0-4.8); Lymphocytes % (A) 29 %; MCH 26.4 pg (25.0-35.0); MCHC 32.8 g/dL (31.0-37.0); MCV 80.6 fL (80.0-100.0); Mean Platelet Volume 7.1; Microcytosis Slight; Monocytes # (A) 0.3 k/uL (0-1.0); Monocytes % (A) 4 %; Neutrophils # (A) 3.5 k/uL (1.3-7.7); Neutrophils % (A) 53 %; Platelet Count 332 k/uL (150-450); RBC 4.67 m/uL (3.80-5.40); RDW 16.9 % (11.5-15.5); WBC 6.6 k/uL (3.8-10.6)
[2024-04-07 13:14] LABS: Partial Thromboplastin Time 28.6 sec (22.0-30.0)
--- NOTE | 2024-04-07 13:16 | ED ---
General Adult HPI - General Chief complaint: Chest Pain Stated complaint: Chest pain Time Seen by Provider: 04/07/24 12:15 Source: patient, RN notes reviewed, old records reviewed Mode of arrival: ambulatory Limitations: no limitations - History of Present Illness Initial comments: This is a 63-year-old female who presents to the emergency department co mplaining of right-sided sharp chest pain. Patient states it comes and goes and has been doing such since she had open heart surgery in October. Patient denies any radiation of the pain. Patient denies any shortness of breath or difficulty breathing. Patient has any fever chills or cough. Patient has any injury or trauma. Patient states the pain is reproducible with palpation. Patient states sometimes it hurts take a deep breath but she is not short of breath. Patient denies any abdominal pain. Patient has any back pain. - Related Data Home Medications Medication Instructions Recorded Confirmed Albuterol Nebulized [Ventolin 2.5 mg INHALATION RT-Q6H PRN 10/17/22 10/22/23 Nebulized] Lansoprazole [Prevacid] 30 mg PO BID 10/17/22 10/22/23 carvediloL [Coreg] 6.25 mg PO BID 10/17/22 10/22/23 Levothyroxine Sodium [Levoxyl] 350 mcg PO DAILY 01/29/23 10/22/23 Albuterol Inhaler [Ventolin Hfa 1 - 2 puff INHALATION Q6H PRN 10/02/23 10/22/23 Inhaler] Famotidine [Pepcid] 10 mg PO TID 10/02/23 10/22/23 Promethazine HCl 12.5 mg PO QID PRN 10/22/23 10/22/23 Previous Rx's Medication Instructions Recorded Acetaminophen Tab [Tylenol] 650 mg PO Q4HR PRN tab 11/03/23 Aspirin 325 mg PO DAILY #30 tab 11/03/23 Atorvastatin [Lipitor] 40 mg PO DAILY #30 tab 11/03/23 Clopidogrel [Plavix] 75 mg PO DAILY #30 tab 11/03/23 Furosemide [Lasix] 40 mg PO DAILY #7 tablet 11/03/23 Potassium Chloride ER [K-Dur 20] 20 meq PO BID #14 tab 11/03/23 Sennosides-Docusate Sodium 2 each PO HS PRN tab 11/03/23 [Senokot-S] busPIRone HCl [Buspar] 15 mg PO TID PRN #90 tab 11/03/23 Allergies Allergy/AdvReac Type Severity Reaction Status Date / Time cantaloupe Allergy Anaphylaxis Verified 10/28/23 06:05 levothyroxine Allergy Anaphylaxis Verified 10/28/23 06:05 naproxen Allergy Dyspnea Verified 10/28/23 06:05 ondansetron [From Zofran] Allergy rapid Verified 10/28/23 06:05 heart rate,states "went into First degree AV block" acetaminophen [From Tylenol] AdvReac Nausea & Verified 10/28/23 06:05 Vomiting ibuprofen [From Motrin] AdvReac Nausea & Verified 10/28/23 06:05 Vomiting UNSURE OF NAME OF ANESTH. GAS Allergy DYSPNEA, Uncoded 10/28/23 06:05 "STOP BREATHING" Review of Systems ROS Statement: Those systems with pertinent positive or pertinent negative responses have been documented in the HPI. ROS Other: All systems not noted in ROS Statement are negative. 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 (PT STATES "BENIGN BRAIN TUMOR REMOVED THAT GREW BACK AND BEING WATCHED"), PROLAPSED UTERUS, Thyroid Cancer post thyroidectomy, THROAT CANCER AND HAD ALL TEETH AND PART OF JAW REMOVED, SCOLIOSIS, chronic constipation, IBS, nephrolithiasis, recurrent urinary tract infection,anxiety, previous history of osteomyelitis of the lumbar spine, CHRONIC BACK PAIN, CARPAL TUNNEL BILATERALLY, HEART VALVE DISEASE History of Any Multi-Drug Resistant Organisms: None Reported Past Surgical History: Unable to Obtain Additional Past Surgical History / Comment(s): BRAIN SURGERY to remove benign PITUITARY tumor, thyroid removal, partial jaw removal due to throat cancer, egd/colonoscopy(benign polyps removed, d&c, kidney stone removed Past Anesthesia/Blood Transfusion Reactions: No Reported Reaction Additional Past Anesthesia/Blood Transfusion Reaction / Comment(s): BLOOD TRANSFUSION-NO REACTION. states "gas anesthesia interacts with my asthma and st op breathing" Past Psychological History: Anxiety Smoking Status: Never smoker Past Alcohol Use History: None Reported Past Drug Use History: None Reported - Past Family History Sister(s) Family Medical History: Cancer Daughter(s) Additional Family Medical History / Comment(s): eosinophilic gastroenteropathy Son(s) Additional Family Medical History / Comment(s): eosinophilic gastroenteropathy Father Family Medical History: Myocardial Infarction ([place]) Additional Family Medical History / Comment(s): - HAD THE " MAKER" Mother Family Medical History: No Reported History Additional Family Medical History / Comment(s): AAA General Exam - General Exam Comments Initial Comments: GENERAL: Patient is well-developed and well-nourished. Patient is nontoxic and well- hydrated and is in mild distress. ENT: Neck is soft and supple. No significant lymphadenopathy is noted. Oropharynx is clear. Moist mucous membranes. Neck has full range of motion without eliciting any pain. EYES: The sclera were anicteric and conjunctiva were pink and moist. Extraocular movements were intact and pupils were equal round and reactive to light. Eyelids were unremarkable. PULMONARY: Unlabored respirations. Good breath sounds bilaterally. No audible rales rhonchi or wheezing was noted. CARDIOVASCULAR: There is a regular rate and rhythm without any murmurs gallops or rubs. Patient's chest pain is reproducible ABDOMEN: Soft and nontender with normal bowel sounds. SKIN: Skin is clear with no lesions or rashes and otherwise unremarkable. NEUROLOGIC: Patient is alert and oriented x3. Cranial nerves II through XII are grossly intact. Motor and sensory are also intact. Normal speech, volume and content. Symmetrical smile. MUSCULOSKELETAL: Normal extremities with adequate strength and full range of motion. LYMPHATICS: No significant lymphadenopathy is noted PSYCHIATRIC: Normal psychiatric evaluation. Limitations: no limitations Course Vital Signs 04/07/24 04/07/24 04/07/24 12:02 12:41 12:47 Temperature 97.5 F L Pulse Rate 89 93 Pulse Rate [ 80 Certified Veterinary Technician ] Respiratory 18 18 Rate Blood Pressure 170/103 146/103 O2 Sat by Pulse 99 95 Oximetry 04/07/24 13:33 Temperature Pulse Rate 71 Pulse Rate [ Certified Veterinary Technician ] Respiratory 18 Rate Blood Pressure 142/101 O2 Sat by Pulse 96 Oximetry Medical Decision Making - Medical Decision Making Patient's EKG shows normal sinus rhythm at 78 bpm QRS is 87 QT interval 359 QTc is 393. Patient's EKG shows no ST segment elevation or depression. Was pt. sent in by a medical professional or institution (ADALID Oshea, ASSISTANT BOYS TRACK COACH, urgent care, hospital, or half-way...) When possible be specific @ -No Did you speak to anyone other than the patient for history (EMS, parent, family, police, friend...)? What history was obtained from this source @ -No Did you review nursing and triage notes (agree or disagree)? Why? @ -I reviewed and agree with nursing and triage notes Were old charts reviewed (outside hosp., previous admission, EMS record, old EKG, old radiological studies, urgent care reports/EKG's, half-way records)? Report findings @ -No old charts were reviewed Differential Diagnosis? @ -Differential Chest Pain: Stable Angina, Unstable Angina, STEMI, NSTEMI Aortic Dissection, Pneumothorax, Musculoskeletal, Esophageal Spasm GERD, Cholecystitis, Pancreatitis, Zoster, this is not meant to be an all-inclusive list. EKG interpreted by me (3pts min.). @ -As above X-rays interpreted by me (1pt min.). @ -Chest x-ray shows no acute abnormality CT interpreted by me (1pt min.). @ -None done U/S interpreted by me (1pt. min.). @ -None done What testing was considered but not performed or refused? (CT, X-rays, U/S, labs)? Why? @ -None What meds were considered but not given or refused? Why? @ -None Did you discuss the management of the patient with other professionals (professionals i.e. ADALID Oshea, ASSISTANT BOYS TRACK COACH, lab, RT, psych nurse, dialysis social worker, change attendant, teacher, forestry technical officer, caseworker protective services)? Give summary @ -No Was smoking cessation discussed for >3mins.? @ -No Was critical care preformed (if so, how long)? @ -No Were there social determinants of health that impacted care today? How? (Homelessness, low income, unemployed, alcoholism, drug addiction, transportation, low edu. Level, literacy, decrease access to med. care, residential, rehab)? @ -No Was there de-escalation of care discussed even if they declined (Discuss DNR or withdrawal of care, Hospice)? DNR status @ -No What co-morbidities impacted this encounter? (DM, HTN, Smoking, COPD, CAD, Cancer, CVA, ARF, Chemo, Hep., AIDS, mental health diagnosis, sleep apnea, mo rbid obesity)? @ -None Was patient admitted / discharged? Hospital course, mention meds given and ro mode, prescriptions, significant lab abnormalities, going to OR and other pertinent info. @ -Patient was given Toradol for chest. Patient has had pain. Patient states it did help. Patient's lab work came back within normal range except her kidney function was slightly off which she will follow-up with her primary medical care doctor about. Patient has no difficulty breathing and no abnormalities on the chest x-ray. Patient will follow-up for this reproducible chest pain that has been ongoing since October with her primary medical care doctor. Undiagnosed new problem with uncertain prognosis? @ -No Drug Therapy requiring intensive monitoring for toxicity (Heparin, Nitro, Insulin, Cardizem)? @ -No Were any procedures done? @ -No Diagnosis/symptom? @ -Musculoskeletal chest pain Acute, or Chronic, or Acute on Chronic? @ -Acute Uncomplicated (without systemic symptoms) or Complicated (systemic symptoms)? @ -Complicated Side effects of treatment? @ -No Exacerbation, Progression, or Severe Exacerbation? @ -No Poses a threat to life or bodily function? How? (Chest pain, [place], [place], pneumonia, PE, COPD, DKA, ARF, appy, cholecystitis, CVA, Diverticulitis, Homicidal, Suicidal, threat to staff... and all critical care pts) @ -No - Lab Data Result diagrams: 04/07/24 13:01 04/07/24 13:01 Lab Results 04/07/24 04/07/24 04/07/24 Range/Units 13: 13:01 13:01 WBC 6.6 (3.8-10.6) k/uL RBC 4.67 (3.80-5.40) m/uL Hgb 12.3 (11.4-16.0) gm/dL Hct 37.6 (34.0-46.0) % MCV 80.6 (80.0-100.0) fL MCH 26.4 (25.0-35.0) pg MCHC 32.8 (31.0-37.0) g/dL RDW 16.9 H (11.5-15.5) % Plt Count 332 (150-450) k/uL MPV 7.1 Neutrophils % 53 % Lymphocytes % 29 % Monocytes % 4 % Eosinophils % 10 % Basophils % 2 % Neutrophils # 3.5 (1.3-7.7) k/uL Lymphocytes # 1.9 (1.0-4.8) k/uL Monocytes # 0.3 (0-1.0) k/uL Eosinophils # 0.6 (0-0.7) k/uL Basophils # 0.2 (0-0.2) k/uL Anisocytosis Slight Microcytosis Slight PT 11.0 (10.0-12.5) sec INR 1.0 (<1.2) APTT 28.6 (22.0-30.0) sec Sodium 138 (137-145) mmol/L Potassium 3.7 (3.5-5.1) mmol/L Chloride 101 (98-107) mmol/L Carbon Dioxide 27 (22-30) mmol/L Anion Gap 10 mmol/L BUN 19 H (7-17) mg/dL Creatinine 1.56 H (0.52-1.04) mg/dL Est GFR (CKD-EPI)AfAm 40 (>60 ml/min/1.73 sqM) Est GFR (CKD-EPI)NonAf 35 (>60 ml/min/1.73 sqM) Glucose 93 (74-99) mg/dL Calcium 9.8 (8.4-10.2) mg/dL Magnesium 2.0 (1.6-2.3) mg/dL Total Bilirubin 0.6 (0.2-1.3) mg/dL AST 74 H (14-36) U/L ALT 35 H (4-34) U/L Alkaline Phosphatase 62 (38-126) U/L Troponin I (0.000-0.034) ng/mL Total Protein 8.4 H (6.3-8.2) g/dL Albumin 4.7 (3.5-5.0) g/dL 04/07/24 Range/Units 13:01 WBC (3.8-10.6) k/uL RBC (3.80-5.40) m/uL Hgb (11.4-16.0) gm/dL Hct (34.0-46.0) % MCV (80.0-100.0) fL MCH (25.0-35.0) pg MCHC (31.0-37.0) g/dL RDW (11.5-15.5) % Plt Count (150-450) k/uL MPV Neutrophils % % Lymphocytes % % Monocytes % % Eosinophils % % Basophils % % Neutrophils # (1.3-7.7) k/uL Lymphocytes # (1.0-4.8) k/uL Monocytes # (0-1.0) k/uL Eosinophils # (0-0.7) k/uL Basophils # (0-0.2) k/uL Anisocytosis Microcytosis PT (10.0-12.5) sec INR (<1.2) APTT (22.0-30.0) sec Sodium (137-145) mmol/L Potassium (3.5-5.1) mmol/L Chloride (98-107) mmol/L Carbon Dioxide (22-30) mmol/L Anion Gap mmol/L BUN (7-17) mg/dL Creatinine (0.52-1.04) mg/dL Est GFR (CKD-EPI)AfAm (>60 ml/min/1.73 sqM) Est GFR (CKD-EPI)NonAf (>60 ml/min/1.73 sqM) Glucose (74-99) mg/dL Calcium (8.4-10.2) mg/dL Magnesium (1.6-2.3) mg/dL Total Bilirubin (0.2-1.3) mg/dL AST (14-36) U/L ALT (4-34) U/L Alkaline Phosphatase (38-126) U/L Troponin I <0.012 (0.000-0.034) ng/mL Total Protein (6.3-8.2) g/dL Albumin (3.5-5.0) g/dL Disposition Clinical Impression: Musculoskeletal chest pain, Renal insufficiency Disposition: HOME SELF-CARE Condition: Good Instructions (If sedation given, give patient instructions): Chest Pain (ED) Additional Instructions: Follow-up with your primary medical care doctor for the renal insufficiency as well as the chest pain Is patient prescribed a controlled substance at d/c from ED?: No Referrals: Samantha Jc MD [Primary Care Provider] - 1-2 days Time of Disposition: 13:40
[2024-04-07 13:18] LABS: ALT 35 U/L (4-34); AST 74 U/L (14-36); African American GFR (CKD) 40 (>60 ml/min/1.73 sqM); Albumin 4.7 g/dL (3.5-5.0); Alkaline Phosphatase 62 U/L (38-126); Anion Gap 10 mmol/L; Blood Urea Nitrogen 19 mg/dL (7-17); Calcium 9.8 mg/dL (8.4-10.2); Carbon Dioxide 27 mmol/L (22-30); Chloride 101 mmol/L (98-107); Glucose 93 mg/dL (74-99); Non-African American GFR(CKD) 35 (>60 ml/min/1.73 sqM); Potassium 3.7 mmol/L (3.5-5.1); Sodium 138 mmol/L (137-145); Total Bilirubin 0.6 mg/dL (0.2-1.3); Total Protein 8.4 g/dL (6.3-8.2)
[2024-04-07] MEDS: KETOROLAC 15 MG/ML 1 ML VIAL IVP STA (13:31)
[2024-04-07 13:39] VITALS: PULSE 71
--- NOTE | 2024-04-07 13:39 | XR ---
EXAMINATION TYPE: XR chest 2V DATE OF EXAM: 04/07/2024 COMPARISON: 11/03/2023 TECHNIQUE: PA and lateral views submitted. HISTORY: Pain FINDINGS: The lungs are clear and there is no pneumothorax, pleural effusion, or focal pneumonia. Heart size normal and no overt failure. Osseous structures demonstrate hypertrophic and degenerative changes of the spine. Chest pain postmedian sternotomy changes with atrial appendage (prosthetic heart valve. Ch ronic deformity of the lateral right rib cage stable. Underlying COPD. IMPRESSION: 1. No acute process.
[2024-04-07 14:15] VITALS: BP 128/99
== END 2024-04-07 14:06 | disposition home or self-care (01) ==
LOC: EC 12:00
CPT/HCPCS: 36415; 71046; 80053; 83735; 84484; 85025; 85610; 85730; 93005; 96374; 99285